=== PATIENT | male | born 1955 | race Caucasian/White ===

== ENCOUNTER 2016-08-28 11:12 | Inpatient (IN) ==
[2016-08-28] MEDS ORDERED: ALBUTEROL/IPRATROPIUM 3 ML NEB RESP TX PRN ×2 (11:17→12:59)
[2016-08-28] MEDS ORDERED: DEXTROSE 50% 25 GM/50 ML VIAL IV PRN (11:17)
[2016-08-28] MEDS ORDERED: GLUCAGON 1 MG VIAL IM PRN (11:17)
[2016-08-28 12:30] LABS: Basophils % 0.1 % (0.0-0.8); Eosinophils % 0.3 % (0.00-10.9); Hematocrit 29.2 VOL% (42.0-52.0); Hemoglobin 9.7 GM/DL (14.0-18.0); Immature Granulocytes % 0.6 %; Immature Granulocytes Absolute 0.07 #; Lymphocytes # 1.8 10*3/uL (1.4-4.0); Lymphocytes % 16.9 % (21.2-54.2); Mean Corpuscular HGB Conc 33.2 GM/DL (32-36); Mean Corpuscular Hemoglobin 29 PG (27-34); Mean Corpuscular Volume 85.9 FL (87-102); Monocytes # 0.5 10*3/uL (0.11-0.8); Monocytes % 4.7 % (1.7-12.7); Neutrophils # 8.4 10*3/uL (1.4-7.4); Neutrophils % 77.4 % (38.7-73.9); Platelet Count 131 10*3/uL (130-400); Red Cell Distribution Width 15.4 % (9.3-17.3); White Blood Count 10.8 10*3/uL (4.5-13.71)
[2016-08-28] MEDS: INSULIN REGULAR 100 UNIT/ML SUBCUT SCH ×3 (12:33→22:04)
[2016-08-28] MEDS: methylPREDNISolone SOD SUC 40 MG/1 ML VIAL IV SCH (12:33)
[2016-08-28] MEDS: PANTOPRAZOLE 40 MG TABLET PO SCH (12:33)
[2016-08-28] MEDS: THEOPHYLLINE ER (24 HR) 300 MG CAPSULE PO SCH (12:41)
--- NOTE | 2016-08-28 12:47 | Pulmonology History & Physical ---
History of Present Illness Chief complaint: Intractable bronchitis and bronchospasm refractory to outpatient treatment History of present illness: Mr. Morin is a 61 year old white male who is admitted from my office today. This patient has had severe COPD with bronchitis bronchospasm and bronchiectasis. In the recent past he has grown Pseudomonas. He was colonized with this. He is done fairly well as an outpatient but he has had several exacerbations of his pulmonary problems. He now has an exacerbation with discolored sputum shortness of breath productive cough dyspnea on exertion. He says he so short of breath he can barely talk. He called and asked to go to the hospital the day after we recently seen him as an outpatient. He has had no cardiac angina palpitations. He denies dysphagia. He denies aspiration. His been no change in his bowel movements. Patient denies epistaxis hemoptysis hematemesis hematochezia melena and hematuria. There have been no TIAs. No syncope or near syncope. Nothing to suggest seizures. The remainder of the review of systems is noncontributory. Allergies. Penicillin Home medicines. See below. Past history. Patient was hospitalized in [facility] in November 2015. He had respiratory failure for oxygen. Dr. Peter Gu saw him and noted that he had a forced expiratory volume in 1 second of 0.95 L. There is a history of heart disease which is followed by Dr. Galindo Hunt. The patient has 2 cardiac stents. Stents were placed in May 2013. One stent is in the mid LAD and the other is in the mid right coronary artery. Patient is also been told that he had aortic valve insufficiency. There is a past history of heart failure, high blood pressure, myocardial infarction. The patient has non-insulin- dependent diabetes mellitus. He has a long history of COPD. He has been found to have iron deficiency anemia. Echocardiogram done in November 2015 showed ejection fraction 50%. There was mild aortic valve regurgitation. During the July 2016 hospitalization the patient cold agglutinin levels were initially 132 ventilator 1-64. Patient's had 2 hospitalizations in the last half of this year during which his sputum grew Pseudomonas arch stenosis. During a July 2016 hospitalization the patient's sputum grew Pseudomonas arch stenosis. He was thought to be colonized and was thought that he would require long-term medicines. I accepted his case from Dr. Babcock on 08/08/2016. He was treated with Fortaz and gentamicin. On 08/12/2016 he had a fiberoptic bronchoscopy. This showed COPD with some collapsibility of the trachea, large and small airways. He had retained secretions with atelectasis in the right lower lung. This cytologies were class I. He had a drop in his H&H from 10.8/33.8-8.3/ 26.1. He had one positive stool. He was seen in GI consultation by Dr. Angel. C scope showed multiple polyps which were removed. These were in the ascending, descending and rectal regions for a total of 4. He had heavy left sided diverticulosis and moderate sized internal hemorrhoids. No source of bleed with some found. He did require 2 units of blood. Earlier in July he had been hospitalized and he had erosive gastritis OE scope. Social history. From [id number]. Patient smoked half pack of cigarettes per day. This is a [id number] history of smoking. 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 Patient denies alcohol. Family history. Positive for high blood pressure, diabetes, heart disease. Chest x-ray and labs have been ordered but are pending. Medicines have been reconciled. Physical exam. Vital signs see below Psychiatric. Oriented 3 Neurologic. Cranial nerves are intact with decreased hearing acuity bilaterally. Long track motor functions intact. Sensory exam was not done. Gait appears to be stable. Neck. Symmetrical. No meningismus. Lymphatics. No submandibular cervical supraclavicular adenopathy. Chest. Generalized large airway wheezing and inspiratory squeaks are heard especially over the right upper lung. Heart. Grade 1.5 over 6 systolic ejection murmur at left sternal border. I do not hear any radiation. I do not hear a diastolic murmur. Abdomen. Nontender. Positive bowel sounds. No organs could be palpated and rectal deferred Extremities. Degenerative joint disease. No evidence of deep venous thrombophlebitis. Musculoskeletal. Age-appropriate loss of normal curvature cervical thoracic and lumbar spine Skin of the face and hands showed no cancerous or infectious lesions. No other areas of skin were examined. The remainder the physical exam is noncontributory. Impression. 1. Acute exacerbation of chronic COPD with infection which is bacterial and with wheezing. Look for pneumonia. 2. COPD 3. Probable bronchiectasis 4. Heart disease with 2 stents in the past history of ND and congestive heart failure followed by Dr. Galindo Hunt 5. Diabetes mellitus 6. High blood pressure. The patient continues to wheeze consider stopping losartan 7. Aortic insufficiency. 8. See past history Plan. 1. Sputum for Gram stain culture and sensitivity, cold agglutinins, Legionella titer 2. Inhalation therapy. Steroids. Antibiotics. Bronchodilators. 3. Lab and x-rays are pending. 4. See orders. 5. Sputum retention is been a problem with this patient in the past Home Medications Medication Instructions Recorded Confirmed Type Aspirin EC Tab 81 mg PO DAILY 12/30/15 08/05/16 History Benzonatate [Tessalon] 100 mg PO BEDTIME PRN 12/30/15 08/05/16 History Cholecalciferol (Vitamin D3) 400 unit PO BID 12/30/15 08/05/16 History [Vitamin D3 Chew Tab] Loratadine Tab [Claritin Tab] 10 mg PO DAILY 12/30/15 08/05/16 History Metoprolol Tartrate Tab [Lopressor 50 mg PO BID 12/30/15 08/05/16 History Tab] Multivitamin with Minerals 1 each PO DAILY 12/30/15 08/05/16 History [Multivitamins with Minerals] Pantoprazole Tab [Protonix Tab] 40 mg PO DAILY 12/30/15 08/05/16 History Roflumilast [Daliresp] 500 mcg PO DAILY 12/30/15 08/05/16 History Trazodone HCl 100 mg PO BEDTIME PRN 12/30/15 08/05/16 History Valsartan 80 mg PO DAILY 12/30/15 08/05/16 History Methocarbamol Tab [Robaxin Tab] 750 mg PO TID PRN 04/03/16 08/05/16 History metFORMIN [Glucophage] 500 mg PO BID 04/03/16 08/05/16 History Budesonide/Formoterol 160-4.5 2 puff INH BID inhaler 07/26/16 08/05/16 Rx [Symbicort 160-4.5] Montelukast Tab [Singulair Tab] 10 mg PO DAILY #30 tablet 07/26/16 08/05/16 Rx acetaZOLAMIDE TAB [Diamox Tab] 250 mg PO TID #90 tablet 07/26/16 08/05/16 Rx Atorvastatin [Lipitor] 5 mg PO DAILY 08/05/16 08/05/16 History Diltiazem HCl [Cartia XT] 120 mg PO DAILY 08/05/16 08/05/16 History Ferrous Sulfate Tab [Feosol 325 mg PO TID 08/05/16 08/05/16 History Original Tab] Theophylline ER Cap (24 Hr) 200 mg PO BID 08/05/16 08/05/16 History [Mich-24] predniSONE TAB [PredniSONE] 20 mg PO DAILY 08/05/16 08/05/16 History Albuterol/Ipratropium Neb [Duoneb] 3 ml RESP TX RT Q4H PRN #120 08/18/16 Rx nebulization solution Albuterol/Ipratropium Neb [Duoneb] 3 ml RESP TX RT Q6H #120 08/18/16 Rx nebulization solution Potassium Iodide Oral Soln [Sski] 900 mg PO TID PRN #0 08/18/16 08/05/16 Rx Allergies Allergy/AdvReac Type Severity Reaction Status Date / Time Penicillins Allergy Unknown/Unable Verified 01/03/16 13:19 to obtain Medical,Surgical,& Family Hx - Medical History Cardio: History of: CHF (EF 45-50%), Hypertension, ND (PCI of LAD and RCA 06/12) , Cardiovascular Problems (CARDIOMYOPATHY) Neurology: History of: Migraine No history of: Seizures HEENT: History of: HEENT Problems (sinus surgery) Endocrine: History of: Diabetes Mellitus (NIDDM), Dyslipidemia Respiratory: History of: Bronchitis, COPD, Intubation, Pneumonia, Respiratory Problems (LUNG BX, SINUS SURGERY) Genitourinary: No history of: Bladder Problem, Kidney Stones Gastrointestinal: History of: Gastrointestinal Bleed Musculoskeletal: History of: Back/Neck Problems Hematology: History of: Anemia No history of: Blood Transfusion Reaction Other: No history of: Anesthesia Reactions, Cancer - Surgical History Cardiac Surgeries: Sugical HX of: Cardiac Catheterization (stents x 2 (06/12 mLAD and mRCA)) Patient Denies: Cardiac Surgery Thoracic Surgeries: Patient denies;: Organ Transplant, Lobectomy HEENT Surgeries: Patient denies: Eye Surgery, Tonsilectomy & Adenoidectomy Abdominal Surgeries: Surgical HX of: Colonoscopy Patient denies: Appendectomy, Cholecystectomy, EGD Orthopedic Surgeries: Patient denies;: Orthopedic Surgery - Family History Family History: Reports;: Family Hypertension - Social History Smoking Status: Former smoker Results - Labs CBC & BMP: 08/28/16 12:14 Exam ([facility]) H&P - Constitutional Vitals: Period Temp Pulse Resp BP Sys/Cedeño Pulse Ox Last 24 Hr 98.2 F 121 22 137/76 93
[2016-08-28 12:52] LABS: Elliptocytes Few; Hypochromasia 1+; Lymphocytes 16 % (20-55); Platelet Estimate Normal; Segmented Neutrophils 82 % (50-85); Total Cells Counted 100
[2016-08-28] MEDS: ALBUTEROL/IPRATROPIUM 3 ML NEB RESP TX SCH ×2 (12:56→19:11)
[2016-08-28 12:59] LABS: Albumin 2.7 G/DL (3.4-5.0); Bilirubin,Total 0.6 MG/DL (0.2-1.0); Calcium 8.5 MG/DL (8.5-10.1); Osmolality,Calculated 291.8 MOS/KG (273-304); Potassium 2.8 MMOL/L (3.5-5.1); Total Protein 6.1 G/DL (6.4-8.3)
--- NOTE | 2016-08-28 13:10 | EKG Report ---
Stationary ECG Study [facility] Test Date: 08/28/2016 11:49:44 AM Pat Name: ROBY JI Department: Room: 534 Gender: M Chip Tuner: : 1955 Requested by: Ava Rich Order Number: [id number] Reading MD: NISREEN SHOTR Intervals [place] Rate: 119 P: 63 PA: 131 QRS: 22 QRSD: 90 T: 96 QT: 312 QTc: 383 Interpretive Statements (NISREEN SHORT TO INTERP) SINUS TACHYCARDIA WITH OCCASIONAL SUPRAVENTRICULAR PREMATURE COMPLEXES POSSIBLE RIGHT VENTRICULAR CONDUCTION DELAY LEFT VENTRICULAR HYPERTROPHY AND ST-T CHANGE Electronically Signed On 08-29-16 10:11:36 FINANCIAL AID ADMINISTRATOR by NISREEN SHORT [email or web address]
[2016-08-28 13:17] LABS: Magnesium 1.6 MG/DL (1.8-2.4); Thyroid Stimulating Hormone 0.765 uIU/ml (0.358-3.74)
[2016-08-28 14:54] LABS: Apearance,Urine Slightly Hazy (Clear); Bilirubin,Urine Negative (Negative); Blood, Urine Negative (Negative); Glucose,Urine (UA) Negative (Negative); Ketones,Urine Negative (Negative); Mucus,Urine Occasional /LPF (Occasional); Nitrite,Urine Negative (Negative); Protein,Urine 100 MG/DL; RBC,Urine 4 /HPF (0-4); Squamous Epithelial Cell,Urine Occasional /HPF (0-10); Urine Color Yellow (Yellow); Urine Specific Gravity 1.021 (1.001-1.035); Urine Urobilinogen < 2.0 EU/DL (0.2-1.0); WBC,Urine 11 /HPF (0-6)
[2016-08-28] MEDS: POTASSIUM IODIDE ORAL SOLN 1,000 MG/ML BOTTLE PO SCH ×2 (15:00→22:15)
[2016-08-28] MEDS: MEROPENEM 500 MG in SODIUM CHLORIDE 0.9% 100 ML IV SCH ×2 (15:00→23:59)
[2016-08-28] MEDS: BENZONATATE 100 MG CAPSULE PO SCH ×2 (15:00→22:03)
[2016-08-28] MEDS: metFORMIN 500 MG TABLET PO SCH (17:24)
[2016-08-28] MEDS: FUROSEMIDE 20 MG TABLET PO SCH (17:24)
--- NOTE | 2016-08-28 17:51 | XRay Report ---
XR chest 2V Indication: Shortness of breath. Chest 2 views: Comparison 08/18/16. Reticular prominence of both lung hathaway is again noted with progressive bibasilar atelectasis present. Heart size remains normal. Interstitial scarring the central lungs again shown. Healed left-sided rib fractures are stable. Impression: Progressive atelectasis. Otherwise no change. PROCEDURE INTERPRETED AT [facility] DEPARTMENT OF RADIOLOGY Final Report Signed by: Blanco Almanza M.D.
[2016-08-28] MEDS: traZODone 50 MG TABLET PO PRN (22:01)
[2016-08-28] MEDS: CHOLECALCIFEROL 400 UNIT TABLET PO SCH (22:03)
[2016-08-28] MEDS: METOPROLOL TARTRATE 50 MG TABLET PO SCH (22:03)
[2016-08-28] MEDS: MONTELUKAST 10 MG TABLET PO SCH (22:03)
[2016-08-29] MEDS: BUDESONIDE/FORMOTEROL 160-4.5 INHALER 6 GM INH SCH ×3 (00:44→21:04)
[2016-08-29] MEDS: methylPREDNISolone SOD SUC 40 MG/1 ML VIAL IV SCH ×3 (00:48→23:00)
[2016-08-29] MEDS: ALBUTEROL/IPRATROPIUM 3 ML NEB RESP TX SCH ×4 (00:55→20:13)
[2016-08-29] MEDS: MEROPENEM 500 MG in SODIUM CHLORIDE 0.9% 100 ML IV SCH ×3 (05:07→21:58)
[2016-08-29 06:59] LABS: Basophils % 0.2 % (0.0-0.8); Hematocrit 28.4 VOL% (42.0-52.0); Hemoglobin 9.3 GM/DL (14.0-18.0); Immature Granulocytes % 0.9 %; Immature Granulocytes Absolute 0.05 #; Lymphocytes # 0.9 10*3/uL (1.4-4.0); Lymphocytes % 14.8 % (21.2-54.2); Mean Corpuscular HGB Conc 32.7 GM/DL (32-36); Mean Corpuscular Hemoglobin 29 PG (27-34); Mean Corpuscular Volume 87.7 FL (87-102); Mean Platelet Volume 10.7 FL (9.6-12.0); Monocytes # 0.2 10*3/uL (0.11-0.8); Monocytes % 2.9 % (1.7-12.7); Neutrophils # 4.8 10*3/uL (1.4-7.4); Neutrophils % 81.2 % (38.7-73.9); Platelet Count 133 10*3/uL (130-400); Red Blood Count 3.24 10*6/uL (3.8-5.5); Red Cell Distribution Width 15.3 % (9.3-17.3); White Blood Count 5.9 10*3/uL (4.5-13.71)
[2016-08-29 07:20] LABS: Band Neutrophils 3 % (0-10); Hypochromasia 1+; Lymphocytes 8 % (20-55); Microcytosis 1+; Segmented Neutrophils 85 % (50-85); Total Cells Counted 100
[2016-08-29 07:21] LABS: Platelet Estimate Adequate
[2016-08-29 07:32] LABS: Calcium 7.6 MG/DL (8.5-10.1); Osmolality,Calculated 292.3 MOS/KG (273-304); Potassium 3.4 MMOL/L (3.5-5.1)
--- NOTE | 2016-08-29 08:41 | XRay Report ---
Exam: Chest 2 views Date: August 29, 2016 at 6:36 AM Comparison: Chest 2 views August 28, 2016 Reason: Shortness of breath Findings: The cardiac silhouette is normal in size. There are scattered opacities within both lungs, mainly at the lung apices and lower lung zones bilaterally. This likely represents scarring/fibrosis, and there appears to be emphysema. However, there could be superimposed pneumonia or mild pulmonary edema. No pneumothorax is identified, but there is mild right pleural fluid. The lungs are also hyperexpanded, which can be seen in COPD. The osseous structures appear stable. Impression: There has been no significant change. PROCEDURE INTERPRETED AT [facility] DEPARTMENT OF RADIOLOGY Final Report Signed by: Dr. Joel Reeves
[2016-08-29] MEDS: MONTELUKAST 10 MG TABLET PO SCH ×2 (09:57→20:33)
[2016-08-29] MEDS: CLOPIDOGREL 75 MG TABLET PO SCH (09:57)
[2016-08-29] MEDS: DILTIAZEM CD 120 MG CAPSULE PO SCH (09:58)
[2016-08-29] MEDS: metFORMIN 500 MG TABLET PO SCH ×2 (09:58→17:20)
[2016-08-29] MEDS: CHOLECALCIFEROL 400 UNIT TABLET PO SCH ×2 (09:58→20:33)
[2016-08-29] MEDS: BENZONATATE 100 MG CAPSULE PO SCH ×3 (09:58→20:33)
[2016-08-29] MEDS: FUROSEMIDE 20 MG TABLET PO SCH ×2 (09:58→15:05)
[2016-08-29] MEDS: MULTIVITAMIN (CENTRUM) TABLET PO SCH (09:58)
[2016-08-29] MEDS: LORATADINE 10 MG TABLET PO SCH (09:59)
[2016-08-29] MEDS: PANTOPRAZOLE 40 MG TABLET PO SCH (09:59)
[2016-08-29] MEDS: VALSARTAN 80 MG TABLET PO SCH (09:59)
[2016-08-29] MEDS: acetaZOLAMIDE 250 MG TABLET PO SCH (09:59)
[2016-08-29] MEDS: THEOPHYLLINE ER (24 HR) 300 MG CAPSULE PO SCH (10:00)
[2016-08-29] MEDS: ASPIRIN EC 81 MG TABLET PO SCH (10:00)
[2016-08-29] MEDS: METOPROLOL TARTRATE 50 MG TABLET PO SCH ×2 (10:00→20:33)
[2016-08-29] MEDS: ROFLUMILAST 500 MCG TABLET PO SCH (10:00)
[2016-08-29] MEDS: ATORVASTATIN 10 MG TABLET PO SCH (10:00)
[2016-08-29] MEDS: INSULIN REGULAR 100 UNIT/ML SUBCUT SCH ×4 (10:03→20:33)
[2016-08-29] MEDS: POTASSIUM IODIDE ORAL SOLN 1,000 MG/ML BOTTLE PO SCH ×3 (10:03→21:04)
--- NOTE | 2016-08-29 13:45 | Pulmonology Progress Note ---
Pulmonary - PN: Subj Interval history: There is a 61-year-old white male. He was admitted from my office 08/28/2016. He had an acute exacerbation of chronic COPD. He is previously appeared to be colonized with Pseudomonas. His sputum's are growing a gram-negative graciela.He is on meropenem and Fortaz. Please check his cultures. Last hospitalization the best ROSANNA was with gentamicin. At the time of admission my impressions were 1. Acute exacerbation of chronic COPD with infection which is bacterial and with wheezing. Look for pneumonia. 2. COPD 3. Probable bronchiectasis 4. Heart disease with 2 stents in the past history of CO and congestive heart failure followed by Dr. Galindo Hunt 5. Diabetes mellitus 6. High blood pressure. The patient continues to wheeze consider stopping losartan 7. Aortic insufficiency. 8. See past history Plan. 1. Sputum for Gram stain culture and sensitivity, cold agglutinins, Legionella titer. Check cultures. May need to change antibiotics. Last hospitalization the Pseudomonas was sensitive to gentamicin. 2. Inhalation therapy. Steroids. Antibiotics. Bronchodilators. 3. Lab and x-rays are are acceptable. 4. See orders. 5. Sputum retention is been a problem with this patient in the past. It is possible he will need a therapeutic bronchoscopy before he is out of the hospital. Exam (Progress Note) - Constitutional Vitals: Period Temp Pulse Resp BP Sys/Cedeño Pulse Ox Last 24 Hr 98.0 F-99.8 F 57-110 18-22 116-135/65-70 91-99 Results - Labs CBC & BMP: 08/29/16 06:15 08/29/16 06:15 Specialty Discharge - Follow Up or Referrals - Discharge Medications No Action Pantoprazole Tab [Protonix Tab] 40 mg PO DAILY Cholecalciferol (Vitamin D3) [Vitamin D3 Chew Tab] 400 unit PO BID Metoprolol Tartrate Tab [Lopressor Tab] 50 mg PO BID Multivitamin with Minerals [Multivitamins with Minerals] 1 each PO DAILY Benzonatate [Tessalon] 100 mg PO BEDTIME PRN PRN Reason: Cough Trazodone HCl 100 mg PO BEDTIME PRN PRN Reason: Sleep Aspirin EC Tab 81 mg PO DAILY Valsartan 1.5 tablet PO DAILY Roflumilast [Daliresp] 500 mcg PO DAILY Loratadine Tab [Claritin Tab] 10 mg PO DAILY Methocarbamol Tab [Robaxin Tab] 750 mg PO TID PRN PRN Reason: Pain metFORMIN [Glucophage] 500 mg PO BID Budesonide/Formoterol 160-4.5 [Symbicort 160-4.5] 2 puff INH BID inhaler Montelukast Tab [Singulair Tab] 10 mg PO DAILY #30 tablet acetaZOLAMIDE TAB [Diamox Tab] 250 mg PO TID #90 tablet Atorvastatin [Lipitor] 5 mg PO DAILY predniSONE TAB [PredniSONE] 20 mg PO DAILY Diltiazem HCl [Cartia XT] 120 mg PO DAILY Theophylline ER Cap (24 Hr) [Mich-24] 300 mg PO BID Albuterol/Ipratropium Neb [Duoneb] 3 ml RESP TX RT Q4H PRN #120 nebulization solution PRN Reason: Shortness Of Breath/Wheezing Sulfameth/Trimeth 800-160 Tab [Bactrim DS Tab] 1 tablet PO BID Albuterol/Ipratropium Neb [Duoneb] 3 ml RESP TX RT Q6H #120 nebulization solution Furosemide Tab [Lasix Tab] 20 mg PO BID DIURETIC Clopidogrel [Plavix] 75 mg PO DAILY
[2016-08-29] MEDS: METHOCARBAMOL 750 MG TABLET PO PRN (15:05)
[2016-08-29] MEDS: traZODone 50 MG TABLET PO PRN (20:33)
[2016-08-30] MEDS: ALBUTEROL/IPRATROPIUM 3 ML NEB RESP TX SCH ×4 (01:26→20:22)
[2016-08-30] MEDS: MEROPENEM 500 MG in SODIUM CHLORIDE 0.9% 100 ML IV SCH ×2 (05:18→15:16)
[2016-08-30 06:29] LABS: Basophils % 0.1 % (0.0-0.8); Hematocrit 31.7 VOL% (42.0-52.0); Hemoglobin 9.9 GM/DL (14.0-18.0); Immature Granulocytes % 2.3 %; Immature Granulocytes Absolute 0.17 #; Lymphocytes # 1.1 10*3/uL (1.4-4.0); Lymphocytes % 15.5 % (21.2-54.2); Mean Corpuscular HGB Conc 31.2 GM/DL (32-36); Mean Corpuscular Hemoglobin 28 PG (27-34); Mean Corpuscular Volume 89.5 FL (87-102); Mean Platelet Volume 10.4 FL (9.6-12.0); Monocytes # 0.2 10*3/uL (0.11-0.8); Monocytes % 3.3 % (1.7-12.7); Neutrophils # 5.8 10*3/uL (1.4-7.4); Neutrophils % 78.8 % (38.7-73.9); Platelet Count 191 10*3/uL (130-400); Red Blood Count 3.54 10*6/uL (3.8-5.5); Red Cell Distribution Width 15.5 % (9.3-17.3); White Blood Count 7.4 10*3/uL (4.5-13.71)
[2016-08-30 06:55] LABS: Calcium 8.8 MG/DL (8.5-10.1); Osmolality,Calculated 294.5 MOS/KG (273-304); Potassium 4.3 MMOL/L (3.5-5.1)
--- NOTE | 2016-08-30 07:43 | XRay Report ---
XR chest 2V Indication: Shortness of breath. Comparison: Chest x-ray 08/29/2016. Technique: PA and lateral chest x-ray was performed. Findings: Heart size appears within normal limits. Enlargement of the aortic knob is again demonstrated and appear stable. Reticular interstitial opacities in the lower right chest as well as left cardiophrenic angle but could reflect fibrotic change appears stable. Lung volumes are stable. Pulmonary vasculature appears within normal limits. Bones and soft tissues appear stable. Remote rib fracture of the left is again demonstrated. Impression: 1. Little change in the chest is suggested. Fibrotic changes in the lung bases appear stable. 08/30/2016 7:38 AM PROCEDURE INTERPRETED AT [facility] DEPARTMENT OF RADIOLOGY Final Report Signed by: Dr. Juanito Turner
[2016-08-30] MEDS: INSULIN REGULAR 100 UNIT/ML SUBCUT SCH ×4 (08:09→20:37)
[2016-08-30] MEDS: VALSARTAN 80 MG TABLET PO SCH (08:09)
[2016-08-30] MEDS: METOPROLOL TARTRATE 50 MG TABLET PO SCH ×2 (08:10→20:37)
[2016-08-30] MEDS: acetaZOLAMIDE 250 MG TABLET PO SCH (08:10)
[2016-08-30] MEDS: DILTIAZEM CD 120 MG CAPSULE PO SCH (08:10)
[2016-08-30] MEDS: MONTELUKAST 10 MG TABLET PO SCH ×2 (08:10→20:37)
[2016-08-30] MEDS: ASPIRIN EC 81 MG TABLET PO SCH (08:10)
[2016-08-30] MEDS: ROFLUMILAST 500 MCG TABLET PO SCH (08:10)
[2016-08-30] MEDS: CHOLECALCIFEROL 400 UNIT TABLET PO SCH ×2 (08:10→20:37)
[2016-08-30] MEDS: FUROSEMIDE 20 MG TABLET PO SCH ×2 (08:11→15:16)
[2016-08-30] MEDS: CLOPIDOGREL 75 MG TABLET PO SCH (08:11)
[2016-08-30] MEDS: THEOPHYLLINE ER (24 HR) 300 MG CAPSULE PO SCH (08:11)
[2016-08-30] MEDS: ATORVASTATIN 10 MG TABLET PO SCH (08:11)
[2016-08-30] MEDS: PANTOPRAZOLE 40 MG TABLET PO SCH (08:11)
[2016-08-30] MEDS: LORATADINE 10 MG TABLET PO SCH (08:11)
[2016-08-30] MEDS: MULTIVITAMIN (CENTRUM) TABLET PO SCH (08:11)
[2016-08-30] MEDS: BENZONATATE 100 MG CAPSULE PO SCH ×3 (08:11→20:37)
[2016-08-30] MEDS: metFORMIN 500 MG TABLET PO SCH ×2 (08:11→17:15)
[2016-08-30] MEDS: BUDESONIDE/FORMOTEROL 160-4.5 INHALER 6 GM INH SCH ×2 (08:12→20:37)
[2016-08-30] MEDS: POTASSIUM IODIDE ORAL SOLN 1,000 MG/ML BOTTLE PO SCH ×3 (08:13→20:37)
[2016-08-30 10:38] LABS: Band Neutrophils 4 % (0-10); Hypochromasia 1+; Lymphocytes 6 % (20-55); Platelet Estimate Adequate; Segmented Neutrophils 86 % (50-85); Total Cells Counted 100
[2016-08-30] MEDS: methylPREDNISolone SOD SUC 40 MG/1 ML VIAL IV SCH ×2 (11:52→23:55)
[2016-08-30] MEDS ORDERED: SKIN HEALING OINT (AQUAPHOR) 50 GM TUBE TOP PRN (19:55)
--- NOTE | 2016-08-30 19:55 | Pulmonology Progress Note ---
Pulmonary - PN: Subj Interval history: Patient stable, thinks breathing is maybe a little harder today. Not coughing up more stuff, just moving less air. No fevers or other infectious signs. Otherwise no complaints Exam (Progress Note) - Constitutional Vitals: Period Temp Pulse Resp BP Sys/Cedeño Pulse Ox Last 24 Hr 97.1 F-98.7 F 79-108 18-22 91-115/45-67 92-99 General appearance: normal weight, no acute distress - Head Head exam: Present: normal inspection - ENT ENT exam: Present: normal exam - Respiratory Respiratory exam: Absent: accessory muscle use, stridor, wheezes - Cardiovascular Cardiovascular exam: Present: regular rate and rhythm Results - Labs CBC & BMP: 08/30/16 05:37 08/30/16 05:37 Lab Results: I have reviewed the past 24 hour labs - Diagnostic Findings Procedure: Chest x-ray: image reviewed by me (reviewed) Assessment and Plan (1) COPD (chronic obstructive pulmonary disease) with chronic bronchitis Status: Chronic Assessment and plan: No objective evidence for worsening. Sats are good, CXR unchanged. Might actually need more diuresis, will reeval in ayo morning if not better Current Visit: No (2) Bilateral pneumonia Status: Acute Assessment and plan: Patient growing E. cloaece, appears fairly pansensitive. Will DC meropenem in hopes of preserving this antibiotic for future use. Continue on Ceftaz for now Current Visit: No Specialty Discharge - Follow Up or Referrals - Discharge Medications No Action Pantoprazole Tab [Protonix Tab] 40 mg PO DAILY Cholecalciferol (Vitamin D3) [Vitamin D3 Chew Tab] 400 unit PO BID Metoprolol Tartrate Tab [Lopressor Tab] 50 mg PO BID Multivitamin with Minerals [Multivitamins with Minerals] 1 each PO DAILY Benzonatate [Tessalon] 100 mg PO BEDTIME PRN PRN Reason: Cough Trazodone HCl 100 mg PO BEDTIME PRN PRN Reason: Sleep Aspirin EC Tab 81 mg PO DAILY Valsartan 1.5 tablet PO DAILY Roflumilast [Daliresp] 500 mcg PO DAILY Loratadine Tab [Claritin Tab] 10 mg PO DAILY Methocarbamol Tab [Robaxin Tab] 750 mg PO TID PRN PRN Reason: Pain metFORMIN [Glucophage] 500 mg PO BID Budesonide/Formoterol 160-4.5 [Symbicort 160-4.5] 2 puff INH BID inhaler Montelukast Tab [Singulair Tab] 10 mg PO DAILY #30 tablet acetaZOLAMIDE TAB [Diamox Tab] 250 mg PO TID #90 tablet Atorvastatin [Lipitor] 5 mg PO DAILY predniSONE TAB [PredniSONE] 20 mg PO DAILY Diltiazem HCl [Cartia XT] 120 mg PO DAILY Theophylline ER Cap (24 Hr) [Mich-24] 300 mg PO BID Albuterol/Ipratropium Neb [Duoneb] 3 ml RESP TX RT Q4H PRN #120 nebulization solution PRN Reason: Shortness Of Breath/Wheezing Sulfameth/Trimeth 800-160 Tab [Bactrim DS Tab] 1 tablet PO BID Albuterol/Ipratropium Neb [Duoneb] 3 ml RESP TX RT Q6H #120 nebulization solution Furosemide Tab [Lasix Tab] 20 mg PO BID DIURETIC Clopidogrel [Plavix] 75 mg PO DAILY
[2016-08-31] MEDS: ALBUTEROL/IPRATROPIUM 3 ML NEB RESP TX SCH ×4 (01:48→19:15)
[2016-08-31 06:55] LABS: Basophils % 0.1 % (0.0-0.8); Eosinophils % 0.1 % (0.00-10.9); Hematocrit 29.4 VOL% (42.0-52.0); Hemoglobin 9.4 GM/DL (14.0-18.0); Immature Granulocytes % 4.8 %; Immature Granulocytes Absolute 0.37 #; Lymphocytes % 13.2 % (21.2-54.2); Mean Corpuscular Hemoglobin 28 PG (27-34); Mean Corpuscular Volume 87.5 FL (87-102); Mean Platelet Volume 10.8 FL (9.6-12.0); Monocytes # 0.3 10*3/uL (0.11-0.8); Monocytes % 3.5 % (1.7-12.7); Neutrophils # 6.1 10*3/uL (1.4-7.4); Neutrophils % 78.3 % (38.7-73.9); Platelet Count 199 10*3/uL (130-400); Red Blood Count 3.36 10*6/uL (3.8-5.5); Red Cell Distribution Width 15.5 % (9.3-17.3); White Blood Count 7.7 10*3/uL (4.5-13.71)
[2016-08-31 07:29] LABS: Calcium 8.8 MG/DL (8.5-10.1); Potassium 4.1 MMOL/L (3.5-5.1)
[2016-08-31 08:14] LABS: Hypochromasia 1+; Lymphocytes 6 % (20-55); Platelet Estimate Adequate; Segmented Neutrophils 93 % (50-85); Total Cells Counted 100
[2016-08-31] MEDS: metFORMIN 500 MG TABLET PO SCH ×3 (08:23→16:08)
[2016-08-31] MEDS: VALSARTAN 80 MG TABLET PO SCH (08:23)
[2016-08-31] MEDS: INSULIN REGULAR 100 UNIT/ML SUBCUT SCH ×4 (08:23→21:44)
[2016-08-31] MEDS: acetaZOLAMIDE 250 MG TABLET PO SCH (08:24)
[2016-08-31] MEDS: ROFLUMILAST 500 MCG TABLET PO SCH (08:24)
[2016-08-31] MEDS: MULTIVITAMIN (CENTRUM) TABLET PO SCH (08:24)
[2016-08-31] MEDS: CHOLECALCIFEROL 400 UNIT TABLET PO SCH ×2 (08:24→21:44)
[2016-08-31] MEDS: FUROSEMIDE 20 MG TABLET PO SCH ×3 (08:24→15:43)
[2016-08-31] MEDS: ASPIRIN EC 81 MG TABLET PO SCH (08:24)
[2016-08-31] MEDS: THEOPHYLLINE ER (24 HR) 300 MG CAPSULE PO SCH (08:24)
[2016-08-31] MEDS: CLOPIDOGREL 75 MG TABLET PO SCH (08:24)
[2016-08-31] MEDS: LORATADINE 10 MG TABLET PO SCH (08:25)
[2016-08-31] MEDS: BUDESONIDE/FORMOTEROL 160-4.5 INHALER 6 GM INH SCH ×2 (08:25→21:45)
[2016-08-31] MEDS: BENZONATATE 100 MG CAPSULE PO SCH ×3 (08:25→21:44)
[2016-08-31] MEDS: POTASSIUM IODIDE ORAL SOLN 1,000 MG/ML BOTTLE PO SCH ×3 (08:25→21:45)
[2016-08-31] MEDS: ATORVASTATIN 10 MG TABLET PO SCH (08:25)
[2016-08-31] MEDS: PANTOPRAZOLE 40 MG TABLET PO SCH (08:25)
[2016-08-31] MEDS: METOPROLOL TARTRATE 50 MG TABLET PO SCH ×2 (08:25→21:44)
[2016-08-31] MEDS: MONTELUKAST 10 MG TABLET PO SCH ×2 (08:25→21:44)
[2016-08-31] MEDS: DILTIAZEM CD 120 MG CAPSULE PO SCH (08:26)
[2016-08-31] MEDS: methylPREDNISolone SOD SUC 40 MG/1 ML VIAL IV SCH (11:02)
--- NOTE | 2016-08-31 14:58 | XRay Report ---
History: Shortness of breath Date: 08/31/2016 Study: Chest x-ray PA and lateral Comparison exam: Chest x-ray 08/30/2016 The cardiac silhouette is not enlarged. The mediastinal contours are unremarkable. The pulmonary vasculature is not engorged. There are some scattered emphysematous changes. There is scattered reticulonodular interstitial disease in the lung bases more so than in the upper lung zones as before. There are scattered emphysematous changes. There is no new or worsening infiltrate. There are old rib fractures on the left. There is osteopenia and mild thoracic spondylosis. Impression: No adverse interval change compared to the previous study. Chronic lung disease as discussed above PROCEDURE INTERPRETED AT [facility] DEPARTMENT OF RADIOLOGY Final Report Signed by: Dr. Rebecca Haro
--- NOTE | 2016-08-31 15:26 | Pulmonology Progress Note ---
Pulmonary - PN: Subj Interval history: Patient seen today. Still complaining of difficulty breathing. Complains that his lung hurts, but doesn't describe a pleuritic pain. Says it feels deeper in his right lung. Not coughing more, not more short of breath. No other complaints Exam (Progress Note) - Constitutional Vitals: Period Temp Pulse Resp BP Sys/Cedeño Pulse Ox Last 24 Hr 97.4 F-98.6 F 77-104 16-20 99-130/48-68 95-100 General appearance: no acute distress - Head Head exam: Present: normal inspection - Respiratory Respiratory exam: Absent: accessory muscle use, chest wall tenderness, stridor, wheezes - Cardiovascular Cardiovascular exam: Present: regular rate and rhythm - Back Exam Back exam: Present: normal inspection. Absent: CVA tenderness (L), CVA tenderness (R), vertebral tenderness Results - Labs CBC & BMP: 08/31/16 05:43 08/31/16 05:43 Lab Results: I have reviewed the past 24 hour labs - Diagnostic Findings Procedure: Chest x-ray: image reviewed by me (reviewed images, no changes) Assessment and Plan (1) COPD (chronic obstructive pulmonary disease) with chronic bronchitis Status: Chronic Assessment and plan: No objective evidence for worsening. Sats are good, CXR unchanged. cont with current treatments. Unsure about his "lung pain" Doesnt have any abnormal findings on his back, CXR appears unchanged to slightly improved. Current Visit: No (2) Bilateral pneumonia Status: Acute Assessment and plan: Patient growing E. cloaece, appears fairly pansensitive. cont Ceftaz Current Visit: No Specialty Discharge - Follow Up or Referrals - Discharge Medications No Action Pantoprazole Tab [Protonix Tab] 40 mg PO DAILY Cholecalciferol (Vitamin D3) [Vitamin D3 Chew Tab] 400 unit PO BID Metoprolol Tartrate Tab [Lopressor Tab] 50 mg PO BID Multivitamin with Minerals [Multivitamins with Minerals] 1 each PO DAILY Benzonatate [Tessalon] 100 mg PO BEDTIME PRN PRN Reason: Cough Trazodone HCl 100 mg PO BEDTIME PRN PRN Reason: Sleep Aspirin EC Tab 81 mg PO DAILY Valsartan 1.5 tablet PO DAILY Roflumilast [Daliresp] 500 mcg PO DAILY Loratadine Tab [Claritin Tab] 10 mg PO DAILY Methocarbamol Tab [Robaxin Tab] 750 mg PO TID PRN PRN Reason: Pain metFORMIN [Glucophage] 500 mg PO BID Budesonide/Formoterol 160-4.5 [Symbicort 160-4.5] 2 puff INH BID inhaler Montelukast Tab [Singulair Tab] 10 mg PO DAILY #30 tablet acetaZOLAMIDE TAB [Diamox Tab] 250 mg PO TID #90 tablet Atorvastatin [Lipitor] 5 mg PO DAILY predniSONE TAB [PredniSONE] 20 mg PO DAILY Diltiazem HCl [Cartia XT] 120 mg PO DAILY Theophylline ER Cap (24 Hr) [Mich-24] 300 mg PO BID Albuterol/Ipratropium Neb [Duoneb] 3 ml RESP TX RT Q4H PRN #120 nebulization solution PRN Reason: Shortness Of Breath/Wheezing Sulfameth/Trimeth 800-160 Tab [Bactrim DS Tab] 1 tablet PO BID Albuterol/Ipratropium Neb [Duoneb] 3 ml RESP TX RT Q6H #120 nebulization solution Furosemide Tab [Lasix Tab] 20 mg PO BID DIURETIC Clopidogrel [Plavix] 75 mg PO DAILY
[2016-08-31] MEDS: METHOCARBAMOL 750 MG TABLET PO PRN (21:43)
[2016-09-01] MEDS: ALBUTEROL/IPRATROPIUM 3 ML NEB RESP TX SCH ×4 (00:37→19:00)
[2016-09-01] MEDS: methylPREDNISolone SOD SUC 40 MG/1 ML VIAL IV SCH ×3 (01:29→23:21)
[2016-09-01] MEDS: CLOPIDOGREL 75 MG TABLET PO SCH (09:03)
[2016-09-01] MEDS: THEOPHYLLINE ER (24 HR) 300 MG CAPSULE PO SCH (09:03)
[2016-09-01] MEDS: acetaZOLAMIDE 250 MG TABLET PO SCH (09:03)
[2016-09-01] MEDS: DILTIAZEM CD 120 MG CAPSULE PO SCH (09:03)
[2016-09-01] MEDS: ROFLUMILAST 500 MCG TABLET PO SCH (09:03)
[2016-09-01] MEDS: LORATADINE 10 MG TABLET PO SCH (09:03)
[2016-09-01] MEDS: METOPROLOL TARTRATE 50 MG TABLET PO SCH ×2 (09:03→21:06)
[2016-09-01] MEDS: CHOLECALCIFEROL 400 UNIT TABLET PO SCH ×2 (09:03→21:06)
[2016-09-01] MEDS: PANTOPRAZOLE 40 MG TABLET PO SCH (09:03)
[2016-09-01] MEDS: ASPIRIN EC 81 MG TABLET PO SCH (09:03)
[2016-09-01] MEDS: MONTELUKAST 10 MG TABLET PO SCH ×2 (09:04→21:06)
[2016-09-01] MEDS: INSULIN REGULAR 100 UNIT/ML SUBCUT SCH ×4 (09:04→21:08)
[2016-09-01] MEDS: FUROSEMIDE 20 MG TABLET PO SCH ×2 (09:04→16:52)
[2016-09-01] MEDS: metFORMIN 500 MG TABLET PO SCH ×2 (09:04→16:52)
[2016-09-01] MEDS: ATORVASTATIN 10 MG TABLET PO SCH (09:04)
[2016-09-01] MEDS: VALSARTAN 80 MG TABLET PO SCH (09:04)
[2016-09-01] MEDS: MULTIVITAMIN (CENTRUM) TABLET PO SCH (09:04)
[2016-09-01] MEDS: BENZONATATE 100 MG CAPSULE PO SCH ×3 (09:05→21:06)
[2016-09-01] MEDS: POTASSIUM IODIDE ORAL SOLN 1,000 MG/ML BOTTLE PO SCH ×3 (09:06→21:07)
[2016-09-01] MEDS: BUDESONIDE/FORMOTEROL 160-4.5 INHALER 6 GM INH SCH ×2 (09:09→21:07)
--- NOTE | 2016-09-01 11:10 | Pulmonology Progress Note ---
Pulmonary - PN: Subj Interval history: Patient doing ok. Still coughing up thick thompson sputum. Patient interested in Dr Dunn doing a bronchoscopy next week to help clear out his lungs Exam (Progress Note) - Constitutional Vitals: Period Temp Pulse Resp BP Sys/Cedeño Pulse Ox Last 24 Hr 97.3 F-98.4 F 76-105 18-20 100-126/51-65 95-100 General appearance: no acute distress - Head Head exam: Present: normal inspection - Respiratory Respiratory exam: Present: accessory muscle use, rhonchi. Absent: stridor, wheezes Results - Labs CBC & BMP: 08/31/16 05:43 08/31/16 05:43 Lab Results: I have reviewed the past 24 hour labs Assessment and Plan (1) COPD (chronic obstructive pulmonary disease) with chronic bronchitis Status: Chronic Assessment and plan: No objective evidence for worsening. Sats are good, CXR unchanged. cont with current treatments. Reminded patient that he does have prn nebs he can ask for. Also asking for Robitussin, will order. He can discuss bronch with Dr Dunn who will assume care tomorrow Current Visit: No (2) Bilateral pneumonia Status: Acute Assessment and plan: Patient growing E. cloaece, appears fairly pansensitive. cont Ceftaz Current Visit: No Specialty Discharge - Follow Up or Referrals - Discharge Medications No Action Pantoprazole Tab [Protonix Tab] 40 mg PO DAILY Cholecalciferol (Vitamin D3) [Vitamin D3 Chew Tab] 400 unit PO BID Metoprolol Tartrate Tab [Lopressor Tab] 50 mg PO BID Multivitamin with Minerals [Multivitamins with Minerals] 1 each PO DAILY Benzonatate [Tessalon] 100 mg PO BEDTIME PRN PRN Reason: Cough Trazodone HCl 100 mg PO BEDTIME PRN PRN Reason: Sleep Aspirin EC Tab 81 mg PO DAILY Valsartan 1.5 tablet PO DAILY Roflumilast [Daliresp] 500 mcg PO DAILY Loratadine Tab [Claritin Tab] 10 mg PO DAILY Methocarbamol Tab [Robaxin Tab] 750 mg PO TID PRN PRN Reason: Pain metFORMIN [Glucophage] 500 mg PO BID Budesonide/Formoterol 160-4.5 [Symbicort 160-4.5] 2 puff INH BID inhaler Montelukast Tab [Singulair Tab] 10 mg PO DAILY #30 tablet acetaZOLAMIDE TAB [Diamox Tab] 250 mg PO TID #90 tablet Atorvastatin [Lipitor] 5 mg PO DAILY predniSONE TAB [PredniSONE] 20 mg PO DAILY Diltiazem HCl [Cartia XT] 120 mg PO DAILY Theophylline ER Cap (24 Hr) [Mich-24] 300 mg PO BID Albuterol/Ipratropium Neb [Duoneb] 3 ml RESP TX RT Q4H PRN #120 nebulization solution PRN Reason: Shortness Of Breath/Wheezing Sulfameth/Trimeth 800-160 Tab [Bactrim DS Tab] 1 tablet PO BID Albuterol/Ipratropium Neb [Duoneb] 3 ml RESP TX RT Q6H #120 nebulization solution Furosemide Tab [Lasix Tab] 20 mg PO BID DIURETIC Clopidogrel [Plavix] 75 mg PO DAILY
[2016-09-01] MEDS: guaiFENesin/CODEINE 5 ML LIQUID PO PRN ×2 (11:50→18:51)
[2016-09-02] MEDS: ALBUTEROL/IPRATROPIUM 3 ML NEB RESP TX SCH ×4 (00:10→19:50)
[2016-09-02 06:47] LABS: Basophils % 0.1 % (0.0-0.8); Eosinophils % 0.1 % (0.00-10.9); Hematocrit 30.2 VOL% (42.0-52.0); Hemoglobin 9.6 GM/DL (14.0-18.0); Immature Granulocytes % 9.3 %; Immature Granulocytes Absolute 0.86 #; Lymphocytes # 1.5 10*3/uL (1.4-4.0); Lymphocytes % 15.7 % (21.2-54.2); Mean Corpuscular HGB Conc 31.8 GM/DL (32-36); Mean Corpuscular Hemoglobin 29 PG (27-34); Mean Corpuscular Volume 90.1 FL (87-102); Mean Platelet Volume 10.2 FL (9.6-12.0); Monocytes # 0.4 10*3/uL (0.11-0.8); Monocytes % 4.2 % (1.7-12.7); Neutrophils # 6.5 10*3/uL (1.4-7.4); Neutrophils % 70.6 % (38.7-73.9); Platelet Count 242 10*3/uL (130-400); Red Blood Count 3.35 10*6/uL (3.8-5.5); Red Cell Distribution Width 15.9 % (9.3-17.3); White Blood Count 9.2 10*3/uL (4.5-13.71)
[2016-09-02 07:14] LABS: Albumin 2.6 G/DL (3.4-5.0); Calcium 8.7 MG/DL (8.5-10.1); Osmolality,Calculated 295.3 MOS/KG (273-304); Phosphorous 3.3 MG/DL (2.5-4.9)
[2016-09-02 07:19] LABS: Band Neutrophils 4 % (0-10); Hypochromasia 1+; Lymphocytes 18 % (20-55); Myelocytes 1 %; Platelet Estimate Adequate; Segmented Neutrophils 73 % (50-85); Total Cells Counted 100
[2016-09-02 07:20] LABS: Ovalocytes Slight
--- NOTE | 2016-09-02 07:50 | XRay Report ---
Exam: XR chest 1V portable Indication: Pneumonia Comparison study: 08/31/16 Findings: The heart, mediastinum and bony structures are stable from prior. Periapical pleural thickening/scarring and diffuse interstitial scarring changes appear similar to prior. There is no pneumothorax or pleural effusion identified. Old left-sided rib fractures noted. Impression: No acute cardiopulmonary process. No significant change from prior. PROCEDURE INTERPRETED AT [facility] DEPARTMENT OF RADIOLOGY Final Report Signed by: Héctor Ratliff
[2016-09-02] MEDS: PANTOPRAZOLE 40 MG TABLET PO SCH (08:54)
[2016-09-02] MEDS: ASPIRIN EC 81 MG TABLET PO SCH (08:55)
[2016-09-02] MEDS: VALSARTAN 80 MG TABLET PO SCH (08:55)
[2016-09-02] MEDS: CHOLECALCIFEROL 400 UNIT TABLET PO SCH ×2 (08:55→20:42)
[2016-09-02] MEDS: BENZONATATE 100 MG CAPSULE PO SCH ×3 (08:56→20:38)
[2016-09-02] MEDS: METOPROLOL TARTRATE 50 MG TABLET PO SCH ×2 (08:56→20:38)
[2016-09-02] MEDS: metFORMIN 500 MG TABLET PO SCH ×2 (08:56→16:28)
[2016-09-02] MEDS: CLOPIDOGREL 75 MG TABLET PO SCH (08:56)
[2016-09-02] MEDS: MONTELUKAST 10 MG TABLET PO SCH ×2 (08:56→20:38)
[2016-09-02] MEDS: FUROSEMIDE 20 MG TABLET PO SCH ×2 (08:56→15:06)
[2016-09-02] MEDS: THEOPHYLLINE ER (24 HR) 300 MG CAPSULE PO SCH (08:56)
[2016-09-02] MEDS: MULTIVITAMIN (CENTRUM) TABLET PO SCH (08:56)
[2016-09-02] MEDS: LORATADINE 10 MG TABLET PO SCH (08:56)
[2016-09-02] MEDS: DILTIAZEM CD 120 MG CAPSULE PO SCH (08:57)
[2016-09-02] MEDS: ATORVASTATIN 10 MG TABLET PO SCH (08:57)
[2016-09-02] MEDS: ROFLUMILAST 500 MCG TABLET PO SCH (08:57)
[2016-09-02] MEDS: METHOCARBAMOL 750 MG TABLET PO PRN (08:57)
[2016-09-02] MEDS: POTASSIUM IODIDE ORAL SOLN 1,000 MG/ML BOTTLE PO SCH ×3 (08:58→20:38)
[2016-09-02] MEDS: BUDESONIDE/FORMOTEROL 160-4.5 INHALER 6 GM INH SCH ×2 (08:58→20:43)
[2016-09-02] MEDS: INSULIN REGULAR 100 UNIT/ML SUBCUT SCH ×5 (08:58→20:37)
[2016-09-02] MEDS: acetaZOLAMIDE 250 MG TABLET PO SCH (08:58)
[2016-09-02] MEDS: MEROPENEM 500 MG in SODIUM CHLORIDE 0.9% 100 ML IV SCH ×2 (09:30→16:28)
[2016-09-02] MEDS: methylPREDNISolone SOD SUC 40 MG/1 ML VIAL IV SCH (11:10)
--- NOTE | 2016-09-02 11:14 | Pulmonology Progress Note ---
Pulmonary - PN: Subj Interval history: KIYA Cramer acting as scribe for Dr. Chente Dunn. There is a 61-year-old white male. He was admitted from the clinic 08/28/2016. He had an acute exacerbation of chronic COPD. He was previously appeared to be colonized with Pseudomonas. He is on Meropenem and Fortaz. At the time of admission impressions were: Acute exacerbation of chronic COPD with infection which is bacterial and with wheezing, COPD, Probable bronchiectasis, Heart disease with 2 stents in the past history of [place] and congestive heart failure followed by Dr. Robert Hunt, Diabetes mellitus uncontrolled, High blood pressure if the patient continues to wheeze consider stopping losartan, Aortic insufficiency, See past history. The patient was seen today along with the charge nurse and along with PORSHA Oneill. He admits he continues to have severe cough productive of thick secretions. In the past he has required fiberoptic bronchoscopy to clear secretions and patient is wondering if this would be beneficial to do again. He was sitting up in the chair during exam today states he has been ambulating in the room but not up much other than that. Medications have been reviewed. Chest XRay shows continued bilateral infiltrates that are less dense in appearance. Labs have been reviewed his A1c on 08/29/2016 was 8.5%, of note the patient had not been on his Metformin for some time before coming into the hospital. WBC 9200 with 70.6% segs and 15.7% lymphs. RBC 3350 H&H 9.6/30.2. Sodium 141 Potassium 5.0 Creatinine 0.8. Sputum on 08/28/16 grew Enterobacter cloacae. Urine 08/28/16 grew del. Exam (Progress Note) - Constitutional Vitals: Period Temp Pulse Resp BP Sys/Cedeño Pulse Ox Last 24 Hr 97.1 F-98.5 F 72-100 16-20 99-121/53-66 95-99 Exam: Vital signs see below Psychiatric. Oriented 3 Chest. Generalized large airway wheezing and large airway congestion with some inspiratory wheezes especially over the right upper lung. Heart. Grade 1.5 over 6 systolic ejection murmur at left sternal border. I do not hear any radiation. I do not hear a diastolic murmur. Extremities. Degenerative joint disease. No evidence of deep venous thrombophlebitis. Skin of the face and hands showed no cancerous or infectious lesions. No other areas of skin were examined. The remainder the physical exam is noncontributory. Plan: Daily BMP to follow potassium, Repeat UA with C&S add Diflucan 200mg daily , Add Pulmozyme inhalation therapy BID, encouraged patient to be up and ambulating in the garcia frequently, consider therapeutic and diagnostic fiberoptic bronchoscopy AM if no improvement. Discussed findings and options with patient and he verbalized understanding. Results - Labs CBC & BMP: 09/02/16 05:45 09/02/16 05:46 Lab Results: I have reviewed the past 24 hour labs Specialty Discharge - Follow Up or Referrals - Discharge Medications No Action Pantoprazole Tab [Protonix Tab] 40 mg PO DAILY Cholecalciferol (Vitamin D3) [Vitamin D3 Chew Tab] 400 unit PO BID Metoprolol Tartrate Tab [Lopressor Tab] 50 mg PO BID Multivitamin with Minerals [Multivitamins with Minerals] 1 each PO DAILY Benzonatate [Tessalon] 100 mg PO BEDTIME PRN PRN Reason: Cough Trazodone HCl 100 mg PO BEDTIME PRN PRN Reason: Sleep Aspirin EC Tab 81 mg PO DAILY Valsartan 1.5 tablet PO DAILY Roflumilast [Daliresp] 500 mcg PO DAILY Loratadine Tab [Claritin Tab] 10 mg PO DAILY Methocarbamol Tab [Robaxin Tab] 750 mg PO TID PRN PRN Reason: Pain metFORMIN [Glucophage] 500 mg PO BID Budesonide/Formoterol 160-4.5 [Symbicort 160-4.5] 2 puff INH BID inhaler Montelukast Tab [Singulair Tab] 10 mg PO DAILY #30 tablet acetaZOLAMIDE TAB [Diamox Tab] 250 mg PO TID #90 tablet Atorvastatin [Lipitor] 5 mg PO DAILY predniSONE TAB [PredniSONE] 20 mg PO DAILY Diltiazem HCl [Cartia XT] 120 mg PO DAILY Theophylline ER Cap (24 Hr) [Mich-24] 300 mg PO BID Albuterol/Ipratropium Neb [Duoneb] 3 ml RESP TX RT Q4H PRN #120 nebulization solution PRN Reason: Shortness Of Breath/Wheezing Sulfameth/Trimeth 800-160 Tab [Bactrim DS Tab] 1 tablet PO BID Albuterol/Ipratropium Neb [Duoneb] 3 ml RESP TX RT Q6H #120 nebulization solution Furosemide Tab [Lasix Tab] 20 mg PO BID DIURETIC Clopidogrel [Plavix] 75 mg PO DAILY
[2016-09-02] MEDS: FLUCONAZOLE 200 MG TABLET PO SCH (11:42)
[2016-09-02] MEDS: guaiFENesin/CODEINE 5 ML LIQUID PO PRN (16:31)
[2016-09-02] MEDS: DORNASE ALFA 2.5 MG/2.5 ML VIAL RESP TX SCH ×2 (18:07→19:50)
[2016-09-03] MEDS: MEROPENEM 500 MG in SODIUM CHLORIDE 0.9% 100 ML IV SCH ×3 (00:05→16:56)
[2016-09-03] MEDS: methylPREDNISolone SOD SUC 40 MG/1 ML VIAL IV SCH ×2 (00:08→11:28)
[2016-09-03] MEDS: ALBUTEROL/IPRATROPIUM 3 ML NEB RESP TX SCH ×4 (00:13→20:55)
[2016-09-03 07:07] LABS: Calcium 8.9 MG/DL (8.5-10.1); Osmolality,Calculated 284.4 MOS/KG (273-304); Potassium 4.7 MMOL/L (3.5-5.1)
[2016-09-03] MEDS: DORNASE ALFA 2.5 MG/2.5 ML VIAL RESP TX SCH ×2 (07:15→20:55)
[2016-09-03] MEDS: INSULIN REGULAR 100 UNIT/ML SUBCUT SCH ×4 (07:47→20:52)
[2016-09-03] MEDS: ASPIRIN EC 81 MG TABLET PO SCH (08:50)
[2016-09-03] MEDS: VALSARTAN 80 MG TABLET PO SCH (08:50)
[2016-09-03] MEDS: ROFLUMILAST 500 MCG TABLET PO SCH (08:50)
[2016-09-03] MEDS: acetaZOLAMIDE 250 MG TABLET PO SCH (08:50)
[2016-09-03] MEDS: MONTELUKAST 10 MG TABLET PO SCH ×2 (08:50→20:52)
[2016-09-03] MEDS: CHOLECALCIFEROL 400 UNIT TABLET PO SCH ×2 (08:50→20:52)
[2016-09-03] MEDS: MULTIVITAMIN (CENTRUM) TABLET PO SCH (08:50)
[2016-09-03] MEDS: THEOPHYLLINE ER (24 HR) 300 MG CAPSULE PO SCH (08:50)
[2016-09-03] MEDS: FLUCONAZOLE 200 MG TABLET PO SCH (08:51)
[2016-09-03] MEDS: LORATADINE 10 MG TABLET PO SCH (08:51)
[2016-09-03] MEDS: FUROSEMIDE 20 MG TABLET PO SCH ×3 (08:51→15:24)
[2016-09-03] MEDS: ATORVASTATIN 10 MG TABLET PO SCH (08:51)
[2016-09-03] MEDS: CLOPIDOGREL 75 MG TABLET PO SCH (08:51)
[2016-09-03] MEDS: BENZONATATE 100 MG CAPSULE PO SCH ×3 (08:51→20:51)
[2016-09-03] MEDS: PANTOPRAZOLE 40 MG TABLET PO SCH (08:51)
[2016-09-03] MEDS: metFORMIN 500 MG TABLET PO SCH ×2 (08:51→16:56)
[2016-09-03] MEDS: POTASSIUM IODIDE ORAL SOLN 1,000 MG/ML BOTTLE PO SCH ×3 (08:52→20:53)
[2016-09-03] MEDS: DILTIAZEM CD 120 MG CAPSULE PO SCH (08:52)
[2016-09-03] MEDS: BUDESONIDE/FORMOTEROL 160-4.5 INHALER 6 GM INH SCH ×2 (08:52→20:50)
[2016-09-03] MEDS: METOPROLOL TARTRATE 50 MG TABLET PO SCH ×2 (08:55→20:52)
--- NOTE | 2016-09-03 12:07 | Pulmonology Progress Note ---
Pulmonary - PN: Subj Interval history: Jesu Boudreaux, ANP-BC, GNP-BC, acting as scribe for Dr. Chente Dunn Mr. Morin was seen today along with Mia Ayoub RN. Mr. Morin is a 61 year old white male who was admitted 08/28/16 [place] [facility] [place] with an acute exacerbation of COPD with bacterial infection. Previously he grew Pseudomonas and it was felt he was colonized. He had a prolonged hospitalization in July 2016 to eradicate this organism. Sputum gram stain this admission showed few gram positive cocci, few gram negative rods, and rare fungal elements. Sputum culture grew Enterobacter cloacae. He is being treated with Fortaz and Merrem. The patient continues to have difficulty mobilizing his secretions. He asked for liquid cough syrup instead of the Tessalon. However this was ordered already by Dr. Morocho. I suspect he did not know he needed to ask for it. We will inform the nurses. Because of his retained secretions on CXR and inability to mobilize his secretions, we have scheduled him for FOB in the morning. Pre-op orders have been entered into the EMR. Medications have been reviewed. Labs have been reviewed. Creatinine 0.70, BUN 23, NA+ 140, K+ 4.7 Glucoses are elevated secondary to the Solumedrol. He is being covered with sliding scale insulin. Exam (Progress Note) - Constitutional Vitals: Period Temp Pulse Resp BP Sys/Cedeño Pulse Ox Last 24 Hr 97.8 F-98.5 F 68-107 16-20 98-118/47-58 94-99 Exam: Chest with generalized LAW wheeze and associated congestion, but improved Heart no gallop Abd is nontender and nondistended; BS positive x 4 Ext with nothing to suggest acute DVT Psych oriented x 3 Neuro long tract motor function is intact Plan: FOB in the morning. See orders. Continue present treatment. Results - Labs CBC & BMP: 09/02/16 05:45 09/03/16 05:30 Specialty Discharge - Follow Up or Referrals - Discharge Medications No Action Pantoprazole Tab [Protonix Tab] 40 mg PO DAILY Cholecalciferol (Vitamin D3) [Vitamin D3 Chew Tab] 400 unit PO BID Metoprolol Tartrate Tab [Lopressor Tab] 50 mg PO BID Multivitamin with Minerals [Multivitamins with Minerals] 1 each PO DAILY Benzonatate [Tessalon] 100 mg PO BEDTIME PRN PRN Reason: Cough Trazodone HCl 100 mg PO BEDTIME PRN PRN Reason: Sleep Aspirin EC Tab 81 mg PO DAILY Valsartan 1.5 tablet PO DAILY Roflumilast [Daliresp] 500 mcg PO DAILY Loratadine Tab [Claritin Tab] 10 mg PO DAILY Methocarbamol Tab [Robaxin Tab] 750 mg PO TID PRN PRN Reason: Pain metFORMIN [Glucophage] 500 mg PO BID Budesonide/Formoterol 160-4.5 [Symbicort 160-4.5] 2 puff INH BID inhaler Montelukast Tab [Singulair Tab] 10 mg PO DAILY #30 tablet acetaZOLAMIDE TAB [Diamox Tab] 250 mg PO TID #90 tablet Atorvastatin [Lipitor] 5 mg PO DAILY predniSONE TAB [PredniSONE] 20 mg PO DAILY Diltiazem HCl [Cartia XT] 120 mg PO DAILY Theophylline ER Cap (24 Hr) [Mich-24] 300 mg PO BID Albuterol/Ipratropium Neb [Duoneb] 3 ml RESP TX RT Q4H PRN #120 nebulization solution PRN Reason: Shortness Of Breath/Wheezing Sulfameth/Trimeth 800-160 Tab [Bactrim DS Tab] 1 tablet PO BID Albuterol/Ipratropium Neb [Duoneb] 3 ml RESP TX RT Q6H #120 nebulization solution Furosemide Tab [Lasix Tab] 20 mg PO BID DIURETIC Clopidogrel [Plavix] 75 mg PO DAILY
[2016-09-03] MEDS: traZODone 50 MG TABLET PO PRN (21:05)
[2016-09-04] MEDS: MEROPENEM 500 MG in SODIUM CHLORIDE 0.9% 100 ML IV SCH ×3 (00:22→16:24)
[2016-09-04] MEDS: methylPREDNISolone SOD SUC 40 MG/1 ML VIAL IV SCH ×2 (00:23→11:08)
[2016-09-04] MEDS: ALBUTEROL/IPRATROPIUM 3 ML NEB RESP TX SCH ×4 (01:00→20:06)
[2016-09-04] MEDS ORDERED: MEPERIDINE 50 MG/1 ML VIAL IM ONE (06:30)
[2016-09-04] MEDS ORDERED: diphenhydrAMINE 50 MG/1 ML VIAL IM ONE (06:30)
[2016-09-04] MEDS ORDERED: BENZONATATE 100 MG CAPSULE PO ONE (06:30)
[2016-09-04] MEDS ORDERED: LIDOCAINE 2% VISCOUS 100 ML BOTTLE SWISH/SPIT ONE (07:00)
[2016-09-04] MEDS ORDERED: LIDOCAINE 4% TOP SOLN 50 ML BOTTLE RESP TX ONE (07:00)
[2016-09-04] MEDS ORDERED: LIDOCAINE 1% 20 ML VIAL MISC INJ ONE (07:00)
[2016-09-04 07:24] LABS: Basophils % 0.2 % (0.0-0.8); Eosinophils # 0.2 10*3/uL (0.0-0.87); Eosinophils % 1.3 % (0.00-10.9); Hematocrit 31.4 VOL% (42.0-52.0); Hemoglobin 10.5 GM/DL (14.0-18.0); Immature Granulocytes Absolute 1.32 #; Lymphocytes # 2.6 10*3/uL (1.4-4.0); Lymphocytes % 21.9 % (21.2-54.2); Mean Corpuscular HGB Conc 33.4 GM/DL (32-36); Mean Corpuscular Hemoglobin 30 PG (27-34); Monocytes # 0.8 10*3/uL (0.11-0.8); Monocytes % 6.7 % (1.7-12.7); Neutrophils # 7.1 10*3/uL (1.4-7.4); Neutrophils % 58.9 % (38.7-73.9); Platelet Count 319 10*3/uL (130-400); Red Blood Count 3.53 10*6/uL (3.8-5.5); Red Cell Distribution Width 16.4 % (9.3-17.3)
[2016-09-04 07:33] LABS: PT Patient Result 10.5 SECS; Partial Thromboplastin Time 21.9 SECS (0-40)
[2016-09-04] MEDS: DORNASE ALFA 2.5 MG/2.5 ML VIAL RESP TX SCH ×2 (07:38→20:08)
[2016-09-04 07:47] LABS: Calcium 9.5 MG/DL (8.5-10.1); Osmolality,Calculated 285.3 MOS/KG (273-304); Potassium 5.3 MMOL/L (3.5-5.1)
[2016-09-04 07:56] LABS: Band Neutrophils 2 % (0-10); Eosinophils 1 % (0-10); Hypochromasia 1+; Lymphocytes 23 % (20-55); Metamyelocytes 1 %; Myelocytes 2 %; Segmented Neutrophils 64 % (50-85); Total Cells Counted 100
[2016-09-04 07:57] LABS: Microcytosis 1+; Ovalocytes Slight; Platelet Estimate Normal; Stomatocytes Slight
[2016-09-04] MEDS: INSULIN REGULAR 100 UNIT/ML SUBCUT SCH ×4 (08:42→22:07)
[2016-09-04] MEDS: PANTOPRAZOLE 40 MG TABLET PO SCH (08:56)
[2016-09-04] MEDS: CLOPIDOGREL 75 MG TABLET PO SCH (08:56)
[2016-09-04] MEDS: MULTIVITAMIN (CENTRUM) TABLET PO SCH (08:56)
[2016-09-04] MEDS: CHOLECALCIFEROL 400 UNIT TABLET PO SCH ×2 (08:56→22:04)
[2016-09-04] MEDS: THEOPHYLLINE ER (24 HR) 300 MG CAPSULE PO SCH (08:56)
[2016-09-04] MEDS: ATORVASTATIN 10 MG TABLET PO SCH (08:56)
[2016-09-04] MEDS: FUROSEMIDE 20 MG TABLET PO SCH ×3 (08:56→15:03)
[2016-09-04] MEDS: METOPROLOL TARTRATE 50 MG TABLET PO SCH ×2 (08:56→22:09)
[2016-09-04] MEDS: ASPIRIN EC 81 MG TABLET PO SCH (08:56)
[2016-09-04] MEDS: acetaZOLAMIDE 250 MG TABLET PO SCH (08:56)
[2016-09-04] MEDS: ROFLUMILAST 500 MCG TABLET PO SCH (08:57)
[2016-09-04] MEDS: FLUCONAZOLE 200 MG TABLET PO SCH (08:57)
[2016-09-04] MEDS: BENZONATATE 100 MG CAPSULE PO SCH ×4 (08:57→22:03)
[2016-09-04] MEDS: DILTIAZEM CD 120 MG CAPSULE PO SCH (08:57)
[2016-09-04] MEDS: metFORMIN 500 MG TABLET PO SCH ×2 (08:57→16:25)
[2016-09-04] MEDS: MONTELUKAST 10 MG TABLET PO SCH ×2 (08:57→22:04)
[2016-09-04] MEDS: LORATADINE 10 MG TABLET PO SCH (08:58)
[2016-09-04] MEDS: BUDESONIDE/FORMOTEROL 160-4.5 INHALER 6 GM INH SCH ×2 (08:58→22:05)
[2016-09-04] MEDS: POTASSIUM IODIDE ORAL SOLN 1,000 MG/ML BOTTLE PO SCH ×4 (08:58→22:05)
[2016-09-04] MEDS: VALSARTAN 80 MG TABLET PO SCH (09:00)
--- NOTE | 2016-09-04 10:25 | Event Note ---
In hospital diagnostic and therapeutic fiberoptic bronchoscopy. Bilateral specimens were sent for Gram stain, bacterial cultures, fungal stains and culture and AFB stains and cultures. Separate left lung and separate right lung specimens were sent for cytology. This patient has chronic sputum production his cough is less than 100% effective. He has residual chest x-ray changes. He has had positive cultures from his sputum and this is his third recent hospitalization. For all of these reasons he is evaluated with fiberoptic bronchoscopy. The vocal cords were normal. Trachea showed mild to moderate collapsibility. The eduarda was sharp. See photograph. The right mainstem bronchus was full of thick tenacious secretions. These involved the right upper lung slightly. The right middle lung was moderately to severely involved and there was mild erosive bronchitis in the subsegments of the right middle lung. In the right lower lung there was erosive friable bronchitis multiple dense bronchial plugs. These were removed with lavage and suctioning. Patient was able to help with coughing. His airways show moderate collapsibility compatible with COPD. See photographs. Left mainstem bronchus contained copious amount of thick tenacious secretions. These involve the left upper lung to a moderate degree and involves the left lower lung to a severe degree. There was mild to moderate collapsibility of large and small airways. In the left lower lung there were dense bronchial plugs that were removed with lavage and suctioning. There was underlying erosive bronchitis it was friable when touched with the bronchoscope. See photograph. This patient tolerated procedure well. There were no complications. Allowed him to watch at the end of the procedure and explained to them just exactly what was happening. Impression. 1. Retained secretions. 2. Partially ineffective cough 3. Bibasal erosive friable bronchitis. This appears to be secondary to recurrent infections. Keep the possibility of gastroesophageal reflux and micro -aspiration in mind. 4. Mildly to moderately collapsible large and small airways compatible with the known diagnosis of COPD Plan. 1. Follow-up chest x-ray 2. Check on bronchoscopy specimen results.
--- NOTE | 2016-09-04 10:26 | Pulmonology Progress Note ---
Pulmonary - PN: Subj Interval history: There is a 61-year-old white male. He was admitted from my office 08/28/2016. He had an acute exacerbation of chronic COPD. He is previously appeared to be colonized with Pseudomonas. His sputum's are growing a gram-negative graciela. His sputum's are growing Enterobacter cloaca. He is also growing Christine albicans. he is on meropenem and Fortaz. P. At the time of admission my impressions were 1. Acute exacerbation of chronic COPD with infection which is bacterial and with wheezing. Look for pneumonia. Patient improved his chest x-ray did not completely improved. There were residual right lower lung changes. On 2016 he was reevaluated with fiberoptic bronchoscopy. See report. 2. COPD. This patient is subject to recurrent pulmonary infections. 3. Probable bronchiectasis 4. Heart disease with 2 stents in the past history of [place] and congestive heart failure followed by Dr. Galindo Hunt 5. Diabetes mellitus. Diabetes is been under poor control. Patient has refused to get his diabetic medicines because he has run out of punchTypemock from the [employer] for the year. His hemoglobin A1c was 8.5. Normal is 4.2-6.3 6. High blood pressure. The patient continues to wheeze consider stopping Diovan (valsartan) 7. Aortic insufficiency. 8. See past history 09/04/2016. This patient is gradually improved but he has not reached a point that I am satisfied with his improvement. He is being treated based on his cultures and sensitivities. Today he was reevaluated with fiberoptic bronchoscopy. See report. Labs been reviewed. Medicines been reviewed Physical exam. Vital signs. See below Psychiatric. Oriented 3. Cooperative. Neurological. Cranial nerves are intact. There is decreased hearing acuity bilaterally. Long track motor functions intact. Sensory exam was not done. Gait is normal Pupils, irises, sclera conjunctiva are normal. Face is symmetrical. Salivary glands are normal. Nares are normal. Lips tongue become mucosa normal. Neck. Symmetrical with no meningismus. Lymphatics. No submandibular cervical supraclavicular or epitrochlear adenopathy Chest. Coarse large airway congestion with prolonged expiration Heart. Grade 1.5 over 6 systolic ejection murmur at the left sternal border. No gallop. Abdomen. Nontender. Positive bowel sounds Extremities. No edema. Nothing to suggest deep venous thrombophlebitis. No clubbing. Musculoskeletal. Age-appropriate loss normal curvature cervical thoracic and lumbar spine. The remainder the physical exam is noncontributory Plan. 1. Continue present regimen 2. Check bronchoscopy specimens 3. Patient could potentially be ready for discharge in the next few days. Exam (Progress Note) - Constitutional Vitals: Period Temp Pulse Resp BP Sys/Cedeño Pulse Ox Last 24 Hr 97.1 F-98.5 F 70-111 12-32 97-131/47-84 90-100 Results - Labs CBC & BMP: 09/04/16 06:22 09/04/16 06:22 Specialty Discharge - Follow Up or Referrals - Discharge Medications No Action Pantoprazole Tab [Protonix Tab] 40 mg PO DAILY Cholecalciferol (Vitamin D3) [Vitamin D3 Chew Tab] 400 unit PO BID Metoprolol Tartrate Tab [Lopressor Tab] 50 mg PO BID Multivitamin with Minerals [Multivitamins with Minerals] 1 each PO DAILY Benzonatate [Tessalon] 100 mg PO BEDTIME PRN PRN Reason: Cough Trazodone HCl 100 mg PO BEDTIME PRN PRN Reason: Sleep Aspirin EC Tab 81 mg PO DAILY Valsartan 1.5 tablet PO DAILY Roflumilast [Daliresp] 500 mcg PO DAILY Loratadine Tab [Claritin Tab] 10 mg PO DAILY Methocarbamol Tab [Robaxin Tab] 750 mg PO TID PRN PRN Reason: Pain metFORMIN [Glucophage] 500 mg PO BID Budesonide/Formoterol 160-4.5 [Symbicort 160-4.5] 2 puff INH BID inhaler Montelukast Tab [Singulair Tab] 10 mg PO DAILY #30 tablet acetaZOLAMIDE TAB [Diamox Tab] 250 mg PO TID #90 tablet Atorvastatin [Lipitor] 5 mg PO DAILY predniSONE TAB [PredniSONE] 20 mg PO DAILY Diltiazem HCl [Cartia XT] 120 mg PO DAILY Theophylline ER Cap (24 Hr) [Mich-24] 300 mg PO BID Albuterol/Ipratropium Neb [Duoneb] 3 ml RESP TX RT Q4H PRN #120 nebulization solution PRN Reason: Shortness Of Breath/Wheezing Sulfameth/Trimeth 800-160 Tab [Bactrim DS Tab] 1 tablet PO BID Albuterol/Ipratropium Neb [Duoneb] 3 ml RESP TX RT Q6H #120 nebulization solution Furosemide Tab [Lasix Tab] 20 mg PO BID DIURETIC Clopidogrel [Plavix] 75 mg PO DAILY
[2016-09-04] MEDS: METHOCARBAMOL 750 MG TABLET PO PRN (13:42)
[2016-09-04] MEDS: guaiFENesin/CODEINE 5 ML LIQUID PO PRN (13:42)
[2016-09-05] MEDS: methylPREDNISolone SOD SUC 40 MG/1 ML VIAL IV SCH ×3 (00:07→23:12)
[2016-09-05] MEDS: MEROPENEM 500 MG in SODIUM CHLORIDE 0.9% 100 ML IV SCH ×3 (00:48→16:51)
[2016-09-05] MEDS: ALBUTEROL/IPRATROPIUM 3 ML NEB RESP TX SCH ×4 (05:42→20:00)
[2016-09-05 07:14] LABS: Osmolality,Calculated 292.5 MOS/KG (273-304)
[2016-09-05 07:22] LABS: Potassium 6.4 MMOL/L (3.5-5.1)
[2016-09-05] MEDS: DORNASE ALFA 2.5 MG/2.5 ML VIAL RESP TX SCH ×2 (08:07→20:00)
[2016-09-05] MEDS: CLOPIDOGREL 75 MG TABLET PO SCH (08:12)
[2016-09-05] MEDS: CHOLECALCIFEROL 400 UNIT TABLET PO SCH ×2 (08:13→22:21)
[2016-09-05] MEDS: FLUCONAZOLE 200 MG TABLET PO SCH (08:13)
[2016-09-05] MEDS: ASPIRIN EC 81 MG TABLET PO SCH (08:13)
[2016-09-05] MEDS: ATORVASTATIN 10 MG TABLET PO SCH (08:13)
[2016-09-05] MEDS: metFORMIN 500 MG TABLET PO SCH ×2 (08:13→16:51)
[2016-09-05] MEDS: THEOPHYLLINE ER (24 HR) 300 MG CAPSULE PO SCH (08:13)
[2016-09-05] MEDS: MULTIVITAMIN (CENTRUM) TABLET PO SCH (08:13)
[2016-09-05] MEDS: PANTOPRAZOLE 40 MG TABLET PO SCH (08:14)
[2016-09-05] MEDS: FUROSEMIDE 20 MG TABLET PO SCH ×3 (08:14→15:35)
[2016-09-05] MEDS: MONTELUKAST 10 MG TABLET PO SCH ×2 (08:14→22:20)
[2016-09-05] MEDS: LORATADINE 10 MG TABLET PO SCH (08:14)
[2016-09-05] MEDS: INSULIN REGULAR 100 UNIT/ML SUBCUT SCH ×4 (08:14→22:21)
[2016-09-05] MEDS: BENZONATATE 100 MG CAPSULE PO SCH ×3 (08:14→22:20)
[2016-09-05] MEDS: BUDESONIDE/FORMOTEROL 160-4.5 INHALER 6 GM INH SCH ×2 (08:14→22:23)
[2016-09-05] MEDS: POTASSIUM IODIDE ORAL SOLN 1,000 MG/ML BOTTLE PO SCH (08:14)
[2016-09-05] MEDS: ROFLUMILAST 500 MCG TABLET PO SCH (08:15)
[2016-09-05] MEDS: METOPROLOL TARTRATE 50 MG TABLET PO SCH ×2 (08:16→22:23)
[2016-09-05] MEDS: VALSARTAN 80 MG TABLET PO SCH (08:16)
[2016-09-05] MEDS: DILTIAZEM CD 120 MG CAPSULE PO SCH (08:17)
[2016-09-05] MEDS: acetaZOLAMIDE 250 MG TABLET PO SCH (08:17)
--- NOTE | 2016-09-05 12:11 | XRay Report ---
Exam: Chest 2 views Date: September 05, 2016 at 7:38 AM Comparison: Chest one view portable September 02, 2016 Reason: Post FOB September 04, 2016, followup pneumonia and COPD Findings: The cardiac silhouette is normal in size. There are mild scattered opacities within both lungs, mainly within the right lower lung zone. This likely represents scarring/fibrosis. Superimposed pneumonia is difficult to exclude within the right lower lung zone, but there has been no significant change. The lungs are hyperexpanded, which can be seen in COPD, and emphysema is suspected. There may be minimal bilateral pleural fluid, but no pneumothorax is identified. The osseous structures appear stable. Impression: 1. There are mild scattered opacities within both lungs, mainly within the right lower lung zone. Similar findings are seen on prior studies, and this likely represents atelectasis and scarring. Superimposed pneumonia is difficult to exclude at the right lower lung zone, but there has been no significant change. 3. Possible minimal bilateral pleural fluid. PROCEDURE INTERPRETED AT [facility] DEPARTMENT OF RADIOLOGY Final Report Signed by: Dr. Jole Reeves
[2016-09-05 12:18] LABS: Calcium 9.1 MG/DL (8.5-10.1); Magnesium 1.6 MG/DL (1.8-2.4); Osmolality,Calculated 293.4 MOS/KG (273-304)
[2016-09-05 12:30] LABS: Potassium 6.2 MMOL/L (3.5-5.1)
--- NOTE | 2016-09-05 12:58 | Pulmonology Progress Note ---
Pulmonary - PN: Subj Interval history: Jesu Boudreaux, ANP-BC, GNP-BC, acting as scribe for Dr. Chente Dunn Mr. Morin was seen today along with Jessica Rai RN. Mr. Morin is a 61 year old white male who was admitted 08/28/16 from [facility] [place] with an acute exacerbation of COPD with bacterial infection. Previously he grew Pseudomonas and it was felt he was colonized. He had a prolonged hospitalization in July 2016 to eradicate this organism. Sputum gram stain this admission showed few gram positive cocci, few gram negative rods, and rare fungal elements. Sputum culture grew Enterobacter cloacae. He is being treated with Fortaz and Merrem. The patient continued to have difficulty mobilizing his secretions and on underwent FOB. This showed retained secreaitons, a partially ineffective cough, bibasal erosive friable bronchitis, and mildly to moderately collapsible large and small airways compatible with his known diagnosis of COPD. FOB washings have showed few gram positive cocci in pairs and few white blood cells. No AFB or fungus was seen on smears. Cultures are pending. Today he complains of orthostatic symptoms. On review, his blood pressure was low last night, but has improved today. We have asked him to get up slowly and call for help when needed. Medications have been reviewed. Labs have been reviewed. Initial potassium was 6.4 and on repeat was 6.2. Creatinine 0.90, BUN 33, NA+ 140, Mg+ 1.6 (hypokalemia) Glucoses are elevated secondary to the Solumedrol. He is being covered with sliding scale insulin. Exam (Progress Note) - Constitutional Vitals: Period Temp Pulse Resp BP Sys/Cedeño Pulse Ox Last 24 Hr 97.4 F-98.7 F 70-102 16-20 87-108/44-62 95-100 Exam: Chest with generalized LAW wheeze and associated congestion, but improved Heart no gallop Abd is nontender and nondistended; BS positive x 4 Ext with nothing to suggest acute DVT Psych oriented x 3 Neuro long tract motor function is intact Plan: Stop SSKI. Repeat CXR Thursday. Daily BMP/Mg+. Follow-up FOB reports when finalized. See orders. Results - Labs CBC & BMP: 09/04/16 06:22 01/06/17 11:20 Specialty Discharge - Follow Up or Referrals - Discharge Medications No Action Pantoprazole Tab [Protonix Tab] 40 mg PO DAILY Cholecalciferol (Vitamin D3) [Vitamin D3 Chew Tab] 400 unit PO BID Metoprolol Tartrate Tab [Lopressor Tab] 50 mg PO BID Multivitamin with Minerals [Multivitamins with Minerals] 1 each PO DAILY Benzonatate [Tessalon] 100 mg PO BEDTIME PRN PRN Reason: Cough Trazodone HCl 100 mg PO BEDTIME PRN PRN Reason: Sleep Aspirin EC Tab 81 mg PO DAILY Valsartan 1.5 tablet PO DAILY Roflumilast [Daliresp] 500 mcg PO DAILY Loratadine Tab [Claritin Tab] 10 mg PO DAILY Methocarbamol Tab [Robaxin Tab] 750 mg PO TID PRN PRN Reason: Pain metFORMIN [Glucophage] 500 mg PO BID Budesonide/Formoterol 160-4.5 [Symbicort 160-4.5] 2 puff INH BID inhaler Montelukast Tab [Singulair Tab] 10 mg PO DAILY #30 tablet acetaZOLAMIDE TAB [Diamox Tab] 250 mg PO TID #90 tablet Atorvastatin [Lipitor] 5 mg PO DAILY predniSONE TAB [PredniSONE] 20 mg PO DAILY Diltiazem HCl [Cartia XT] 120 mg PO DAILY Theophylline ER Cap (24 Hr) [Mich-24] 300 mg PO BID Albuterol/Ipratropium Neb [Duoneb] 3 ml RESP TX RT Q4H PRN #120 nebulization solution PRN Reason: Shortness Of Breath/Wheezing Sulfameth/Trimeth 800-160 Tab [Bactrim DS Tab] 1 tablet PO BID Albuterol/Ipratropium Neb [Duoneb] 3 ml RESP TX RT Q6H #120 nebulization solution Furosemide Tab [Lasix Tab] 20 mg PO BID DIURETIC Clopidogrel [Plavix] 75 mg PO DAILY
[2016-09-05] MEDS: guaiFENesin/CODEINE 5 ML LIQUID PO PRN (22:21)
[2016-09-06] MEDS: ALBUTEROL/IPRATROPIUM 3 ML NEB RESP TX SCH ×5 (00:37→23:54)
[2016-09-06] MEDS: MEROPENEM 500 MG in SODIUM CHLORIDE 0.9% 100 ML IV SCH ×3 (00:42→16:29)
[2016-09-06] MEDS: traZODone 50 MG TABLET PO PRN (00:48)
[2016-09-06] MEDS: DORNASE ALFA 2.5 MG/2.5 ML VIAL RESP TX SCH ×2 (07:40→19:24)
[2016-09-06] MEDS: VALSARTAN 80 MG TABLET PO SCH (08:35)
[2016-09-06] MEDS: MULTIVITAMIN (CENTRUM) TABLET PO SCH (08:36)
[2016-09-06] MEDS: CHOLECALCIFEROL 400 UNIT TABLET PO SCH ×2 (08:36→20:36)
[2016-09-06] MEDS: MONTELUKAST 10 MG TABLET PO SCH ×2 (08:36→20:44)
[2016-09-06] MEDS: acetaZOLAMIDE 250 MG TABLET PO SCH (08:36)
[2016-09-06] MEDS: metFORMIN 500 MG TABLET PO SCH ×2 (08:36→16:29)
[2016-09-06] MEDS: FLUCONAZOLE 200 MG TABLET PO SCH (08:36)
[2016-09-06] MEDS: ROFLUMILAST 500 MCG TABLET PO SCH (08:36)
[2016-09-06] MEDS: METOPROLOL TARTRATE 50 MG TABLET PO SCH ×2 (08:36→20:37)
[2016-09-06] MEDS: THEOPHYLLINE ER (24 HR) 300 MG CAPSULE PO SCH (08:37)
[2016-09-06] MEDS: BENZONATATE 100 MG CAPSULE PO SCH ×3 (08:37→20:36)
[2016-09-06] MEDS: PANTOPRAZOLE 40 MG TABLET PO SCH (08:37)
[2016-09-06] MEDS: ASPIRIN EC 81 MG TABLET PO SCH (08:37)
[2016-09-06] MEDS: FUROSEMIDE 20 MG TABLET PO SCH ×2 (08:37→16:22)
[2016-09-06] MEDS: CLOPIDOGREL 75 MG TABLET PO SCH (08:37)
[2016-09-06] MEDS: ATORVASTATIN 10 MG TABLET PO SCH (08:38)
[2016-09-06] MEDS: DILTIAZEM CD 120 MG CAPSULE PO SCH (08:38)
[2016-09-06] MEDS: LORATADINE 10 MG TABLET PO SCH (08:38)
[2016-09-06] MEDS: BUDESONIDE/FORMOTEROL 160-4.5 INHALER 6 GM INH SCH ×2 (08:41→20:37)
[2016-09-06] MEDS: INSULIN REGULAR 100 UNIT/ML SUBCUT SCH ×4 (09:48→20:35)
[2016-09-06] MEDS: methylPREDNISolone SOD SUC 40 MG/1 ML VIAL IV SCH ×2 (11:06→23:00)
[2016-09-06] MEDS: METHOCARBAMOL 750 MG TABLET PO PRN (11:19)
--- NOTE | 2016-09-06 11:51 | Pulmonology Progress Note ---
Pulmonary - PN: Subj Interval history: There is a 61-year-old white male. He was admitted from my office 08/28/2016. He had an acute exacerbation of chronic COPD. He is previously appeared to be colonized with Pseudomonas. His sputum's are growing a gram-negative graciela. His sputum's are growing Enterobacter cloaca. He is also growing Christine albicans. he is on meropenem and Fortaz. P. At the time of admission my impressions were 1. Acute exacerbation of chronic COPD with infection which is bacterial and with wheezing. Look for pneumonia. Patient improved his chest x-ray did not completely improved. There were residual right lower lung changes. On 2016 he was reevaluated with fiberoptic bronchoscopy. See report. 2. COPD. This patient is subject to recurrent pulmonary infections. 3. Probable bronchiectasis 4. Heart disease with 2 stents in the past history of [place] and congestive heart failure followed by Dr. Galindo Hunt 5. Diabetes mellitus. Diabetes is been under poor control. Patient has refused to get his diabetic medicines because he has run out of [employer] from the [place] for the year. His hemoglobin A1c was 8.5. Normal is 4.2-6.3 6. High blood pressure. The patient continues to wheeze consider stopping Diovan (valsartan) 7. Aortic insufficiency. 8. See past history 09/04/2016. This patient is gradually improved but he has not reached a point that I am satisfied with his improvement. He is being treated based on his cultures and sensitivities. Today he was reevaluated with fiberoptic bronchoscopy. See report. Labs been reviewed. Medicines been reviewed 09/06/2016. This patient is doing better with his breathing. He continues to mobilize a copious amount of discolored sputum. He is being seen by physical therapy and he has had a limited amount of physical activity. He complains of a headache this morning I will treat this with tramadol. The patient has had some elevation of his potassiums we think this was secondary to SSKI. Follow- up lab was not done today but I will reorder it. Along the way his magnesium is been low at 1.6. Lab was reviewed. Medicines. Reviewed. No changes made. Physical exam. Vital signs. See below Psychiatric. Oriented 3. Cooperative. Neurological. Cranial nerves are intact. There is decreased hearing acuity bilaterally. Long track motor functions intact. Sensory exam was not done. Gait is normal Pupils, irises, sclera conjunctiva are normal. Face is symmetrical. Salivary glands are normal. Nares are normal. Lips tongue become mucosa normal. Neck. Symmetrical with no meningismus. Lymphatics. No submandibular cervical supraclavicular or epitrochlear adenopathy Chest. Coarse large airway congestion has improved significantly. Expiration is more complete. Bibasal inspiratory squeaks. Heart. Grade 1.5 over 6 systolic ejection murmur at the left sternal border. No gallop. Abdomen. Nontender. Positive bowel sounds Extremities. No edema. Nothing to suggest deep venous thrombophlebitis. No clubbing. Musculoskeletal. Age-appropriate loss normal curvature cervical thoracic and lumbar spine. The remainder the physical exam is noncontributory Plan. 1. Continue present regimen 2. Check bronchoscopy specimens. As of 09/06/2016 these are negative. 3. Patient could potentially be ready for discharge Thursday or Thursday if he continues to improve Exam (Progress Note) - Constitutional Vitals: Period Temp Pulse Resp BP Sys/Cedeño Pulse Ox Last 24 Hr 97.7 F-98.1 F 100-124 18-20 100-119/51-63 97-100 Results - Labs CBC & BMP: 09/04/16 06:22 09/05/16 11:20 Specialty Discharge - Follow Up or Referrals - Discharge Medications No Action Pantoprazole Tab [Protonix Tab] 40 mg PO DAILY Cholecalciferol (Vitamin D3) [Vitamin D3 Chew Tab] 400 unit PO BID Metoprolol Tartrate Tab [Lopressor Tab] 50 mg PO BID Multivitamin with Minerals [Multivitamins with Minerals] 1 each PO DAILY Benzonatate [Tessalon] 100 mg PO BEDTIME PRN PRN Reason: Cough Trazodone HCl 100 mg PO BEDTIME PRN PRN Reason: Sleep Aspirin EC Tab 81 mg PO DAILY Valsartan 1.5 tablet PO DAILY Roflumilast [Daliresp] 500 mcg PO DAILY Loratadine Tab [Claritin Tab] 10 mg PO DAILY Methocarbamol Tab [Robaxin Tab] 750 mg PO TID PRN PRN Reason: Pain metFORMIN [Glucophage] 500 mg PO BID Budesonide/Formoterol 160-4.5 [Symbicort 160-4.5] 2 puff INH BID inhaler Montelukast Tab [Singulair Tab] 10 mg PO DAILY #30 tablet acetaZOLAMIDE TAB [Diamox Tab] 250 mg PO TID #90 tablet Atorvastatin [Lipitor] 5 mg PO DAILY predniSONE TAB [PredniSONE] 20 mg PO DAILY Diltiazem HCl [Cartia XT] 120 mg PO DAILY Theophylline ER Cap (24 Hr) [Mich-24] 300 mg PO BID Albuterol/Ipratropium Neb [Duoneb] 3 ml RESP TX RT Q4H PRN #120 nebulization solution PRN Reason: Shortness Of Breath/Wheezing Sulfameth/Trimeth 800-160 Tab [Bactrim DS Tab] 1 tablet PO BID Albuterol/Ipratropium Neb [Duoneb] 3 ml RESP TX RT Q6H #120 nebulization solution Furosemide Tab [Lasix Tab] 20 mg PO BID DIURETIC Clopidogrel [Plavix] 75 mg PO DAILY
[2016-09-06] MEDS: traMADol 50 MG TABLET PO PRN (12:10)
[2016-09-07] MEDS: MEROPENEM 500 MG in SODIUM CHLORIDE 0.9% 100 ML IV SCH ×3 (00:05→16:01)
[2016-09-07] MEDS: traMADol 50 MG TABLET PO PRN (03:58)
[2016-09-07 07:01] LABS: Calcium 9.1 MG/DL (8.5-10.1); Magnesium 1.7 MG/DL (1.8-2.4)
[2016-09-07 07:07] LABS: Potassium 7.3 MMOL/L (3.5-5.1)
[2016-09-07] MEDS: ALBUTEROL/IPRATROPIUM 3 ML NEB RESP TX SCH ×3 (07:30→20:31)
[2016-09-07] MEDS: DORNASE ALFA 2.5 MG/2.5 ML VIAL RESP TX SCH ×2 (07:30→20:31)
[2016-09-07] MEDS: INSULIN REGULAR 100 UNIT/ML SUBCUT SCH ×4 (08:57→20:20)
[2016-09-07] MEDS: BUDESONIDE/FORMOTEROL 160-4.5 INHALER 6 GM INH SCH ×2 (08:57→20:22)
[2016-09-07] MEDS: CHOLECALCIFEROL 400 UNIT TABLET PO SCH ×2 (08:58→20:21)
[2016-09-07] MEDS: VALSARTAN 80 MG TABLET PO SCH (08:58)
[2016-09-07] MEDS: MULTIVITAMIN (CENTRUM) TABLET PO SCH (08:59)
[2016-09-07] MEDS: MONTELUKAST 10 MG TABLET PO SCH ×2 (08:59→20:21)
[2016-09-07] MEDS: THEOPHYLLINE ER (24 HR) 300 MG CAPSULE PO SCH (08:59)
[2016-09-07] MEDS: CLOPIDOGREL 75 MG TABLET PO SCH (08:59)
[2016-09-07] MEDS: acetaZOLAMIDE 250 MG TABLET PO SCH (09:00)
[2016-09-07] MEDS: DILTIAZEM CD 120 MG CAPSULE PO SCH (09:00)
[2016-09-07] MEDS: PANTOPRAZOLE 40 MG TABLET PO SCH (09:00)
[2016-09-07] MEDS: metFORMIN 500 MG TABLET PO SCH ×2 (09:00→16:00)
[2016-09-07] MEDS: ASPIRIN EC 81 MG TABLET PO SCH (09:00)
[2016-09-07] MEDS: FUROSEMIDE 20 MG TABLET PO SCH ×2 (09:00→16:01)
[2016-09-07] MEDS: ATORVASTATIN 10 MG TABLET PO SCH (09:01)
[2016-09-07] MEDS: LORATADINE 10 MG TABLET PO SCH (09:01)
[2016-09-07] MEDS: FLUCONAZOLE 200 MG TABLET PO SCH (09:01)
[2016-09-07] MEDS: METOPROLOL TARTRATE 50 MG TABLET PO SCH ×2 (09:02→20:21)
[2016-09-07] MEDS: BENZONATATE 100 MG CAPSULE PO SCH ×3 (09:02→20:21)
[2016-09-07] MEDS: ROFLUMILAST 500 MCG TABLET PO SCH (09:10)
--- NOTE | 2016-09-07 09:16 | Pathology Report from [facility] ---
ACCESSION # : [id number] PATIENT NAME : Steven Morin ORDERING DR : NISREEN SHORT MD CLINICAL HX: COPD POST-OP DX: Same SPECIMEN INFO: Washing- Bronchial, right- 32 mls cloudy frank CLASS: II CLASS COMMENTS: Benign respiratory epithelium, squamous metaplasia and marked acute inflammation.CELL BLOCK: Same. CLASS LEGEND: CLASS 0 Material inadequate for diagnosis because of (see comment) CLASS I Absence of atypical or abnormal cells CLASS II Atypical Cytology but no evidence of malignancy CLASS III Cytology suggestive of but not conclusive for malignancy CLASS IV Cytology strongly suggestive of malignancy CLASS V Cytology conclusive for malignancy SERVICE DATE: 09/04/2016 REPORT DATE: 09/05/2016 PATHOLOGIST: Rafat Koenig M.D. [facility]
--- NOTE | 2016-09-07 09:17 | Pathology Report from [facility] ---
ACCESSION # : [id number] PATIENT NAME : Steven Morin ORDERING DR : NISREEN SHORT MD CLINICAL HX: COPD POST-OP DX: Same SPECIMEN INFO: Washing- Bronchial, left- 28 mls slightly hazy frank CLASS: I CLASS COMMENTS: Benign respiratory cells with squamous metaplasia and acute inflammation.CELL BLOCK: Same. CLASS LEGEND: CLASS 0 Material inadequate for diagnosis because of (see comment) CLASS I Absence of atypical or abnormal cells CLASS II Atypical Cytology but no evidence of malignancy CLASS III Cytology suggestive of but not conclusive for malignancy CLASS IV Cytology strongly suggestive of malignancy CLASS V Cytology conclusive for malignancy SERVICE DATE: 09/04/2016 REPORT DATE: 09/05/2016 PATHOLOGIST: Rafat Koenig M.D. [facility]
[2016-09-07] MEDS: SODIUM POLYSTYRENE SULFATE 15 GM/60 ML BOTTLE PO SCH ×2 (10:02→20:50)
--- NOTE | 2016-09-07 10:31 | Nephrology Consult Note ---
History of Present Illness Chief complaint: increased potassium History of present illness: Mr. Morin is a 61 year old male who was admitted for pneumonia. We are asked see the patient for increased potassium. The patient's potassium a few days ago was 6.3 units now up to around 7.5 mEq per liter. The patient was initially taking some potassium as an outpatient however this has been stopped. The patient is also on an angiotensin receptor leticia. The patient has also been getting Lasix and carbonic anhydrase inhibitor. The patient states he has not been overly indulging in any fruits or notes. He only eats what the cafeteria brain syndrome since she's been here. He states he does not use it if he does not like it. The patient states he has been feeling all dizzy lately. Review of his creatinine shows this to be slowly increasing it's 1.2 mg/dL today up from around 0.7 mg/dL a week or so ago. ROS: Head - denies headaches ENT - denies sore throat Lymphatics - denies lymphadenopathy Hematology - denies bleeding problems Heart - denies chest pain Lungs -positive shortness of breath Abdomen - denies abdominal pain Musculoskeletal -positive arthritis Skin - denies rash Neurology - denies stroke General - denies fever PE: General: in no acute distress Eyes: Pupils are round and reactive, conjunctivae are clear ENT: Nose is clear, O/P is benign Neck: Supple, no thyromegaly Lymphatics: No cervical, supraclavicular or axillary adenopathy Heart: Regular rate and rhythm, no edema Lungs: Clear to auscultation anteriorly, chest expansion symmetric Abdomen: Soft, normoactive bowel sounds, no hepatomegaly Musculoskeletal: No joint erythema or effusions or joint asymmetry Skin: Normal turgor, normal hydration, no rash Neuro/Psych: Alert and cooperative with fair insight Home Medications Medication Instructions Recorded Confirmed Type Aspirin EC Tab 81 mg PO DAILY 12/30/15 08/28/16 History Benzonatate [Tessalon] 100 mg PO BEDTIME PRN 12/30/15 08/28/16 History Cholecalciferol (Vitamin D3) 400 unit PO BID 12/30/15 08/28/16 History [Vitamin D3 Chew Tab] Loratadine Tab [Claritin Tab] 10 mg PO DAILY 12/30/15 08/28/16 History Metoprolol Tartrate Tab [Lopressor 50 mg PO BID 12/30/15 08/28/16 History Tab] Multivitamin with Minerals 1 each PO DAILY 12/30/15 08/28/16 History [Multivitamins with Minerals] Pantoprazole Tab [Protonix Tab] 40 mg PO DAILY 12/30/15 08/28/16 History Roflumilast [Daliresp] 500 mcg PO DAILY 12/30/15 08/28/16 History Trazodone HCl 100 mg PO BEDTIME PRN 12/30/15 08/28/16 History Valsartan 1.5 tablet PO DAILY 12/30/15 08/28/16 History Methocarbamol Tab [Robaxin Tab] 750 mg PO TID PRN 04/03/16 08/28/16 History metFORMIN [Glucophage] 500 mg PO BID 04/03/16 08/28/16 History Budesonide/Formoterol 160-4.5 2 puff INH BID inhaler 07/26/16 08/28/16 Rx [Symbicort 160-4.5] Montelukast Tab [Singulair Tab] 10 mg PO DAILY #30 tablet 07/26/16 08/28/16 Rx acetaZOLAMIDE TAB [Diamox Tab] 250 mg PO TID #90 tablet 07/26/16 08/28/16 Rx Atorvastatin [Lipitor] 5 mg PO DAILY 08/05/16 08/28/16 History Diltiazem HCl [Cartia XT] 120 mg PO DAILY 08/05/16 08/28/16 History Theophylline ER Cap (24 Hr) 300 mg PO BID 08/05/16 08/28/16 History [Mich-24] predniSONE TAB [PredniSONE] 20 mg PO DAILY 08/05/16 08/28/16 History Albuterol/Ipratropium Neb [Duoneb] 3 ml RESP TX RT Q4H PRN #120 08/18/16 Rx nebulization solution Albuterol/Ipratropium Neb [Duoneb] 3 ml RESP TX RT Q6H #120 08/18/16 08/28/16 Rx nebulization solution Clopidogrel [Plavix] 75 mg PO DAILY 08/28/16 08/28/16 History Furosemide Tab [Lasix Tab] 20 mg PO BID DIURETIC 08/28/16 08/28/16 History Sulfameth/Trimeth 800-160 Tab 1 tablet PO BID 08/28/16 08/28/16 History [Bactrim DS Tab] Allergies Allergy/AdvReac Type Severity Reaction Status Date / Time Penicillins Allergy Unknown/Unable Verified 01/03/16 13:19 to obtain Medical,Surgical,& Family Hx - Medical History Cardio: History of: CHF (EF 45-50%), Hypertension, CA (PCI of LAD and RCA 06/12) , Cardiovascular Problems (CARDIOMYOPATHY) Neurology: History of: Migraine No history of: Seizures HEENT: History of: HEENT Problems (sinus surgery) Endocrine: History of: Diabetes Mellitus (NIDDM), Dyslipidemia Respiratory: History of: Bronchitis, COPD, Intubation, Pneumonia, Respiratory Problems (LUNG BX, SINUS SURGERY) Genitourinary: No history of: Bladder Problem, Kidney Stones Gastrointestinal: History of: Gastrointestinal Bleed Musculoskeletal: History of: Back/Neck Problems Hematology: History of: Anemia No history of: Blood Transfusion Reaction Other: No history of: Anesthesia Reactions, Cancer - Surgical History Cardiac Surgeries: Sugical HX of: Cardiac Catheterization (stents x 2 (06/12 mLAD and mRCA)) Patient Denies: Cardiac Surgery Thoracic Surgeries: Patient denies;: Organ Transplant, Lobectomy HEENT Surgeries: Patient denies: Eye Surgery, Tonsilectomy & Adenoidectomy Abdominal Surgeries: Surgical HX of: Colonoscopy Patient denies: Appendectomy, Cholecystectomy, EGD Orthopedic Surgeries: Patient denies;: Orthopedic Surgery - Family History Family History: Reports;: Family Hypertension - Social History Smoking Status: Former smoker Frequency of Alcohol Use: None Exam - Vital Signs Vital signs: Period Temp Pulse Resp BP Sys/Cedeño Pulse Ox Last 24 Hr 97.3 F-98.2 F 6-105 3-21 94-132/45-71 96-99 Results - Labs CBC & BMP: 09/04/16 06:22 09/07/16 06:02 Assessment and Plan (1) Hyperkalemia Status: Acute Assessment and plan: I think this may be related to some occult volume depletion and poor perfusion of his kidneys as well as his angiotensin receptor blockade. The patient's been ordered Kayexalate, I'm going to start some normal saline at 75 mL an hour and see if this helps him get rid of some of the potassium. I'll also ask dietary to see him in ensure that he's getting a low potassium diet through the cafeteria. Current Visit: Yes (2) Acute renal failure Status: Acute Assessment and plan: This patient's creatinines increased to 1.2 mg/dL on admission his creatinine was around 0.7 mg/dL see #1 above. Current Visit: Yes (3) Acute and chronic respiratory failure with hypoxia Status: Acute Current Visit: No (4) Acute exacerbation of chronic obstructive pulmonary disease (COPD) Status: Acute Current Visit: No (5) Anemia Status: Acute Current Visit: No (6) Community acquired pneumonia Status: Acute Current Visit: No Specialty Discharge - Follow Up or Referrals - Discharge Medications No Action Pantoprazole Tab [Protonix Tab] 40 mg PO DAILY Cholecalciferol (Vitamin D3) [Vitamin D3 Chew Tab] 400 unit PO BID Metoprolol Tartrate Tab [Lopressor Tab] 50 mg PO BID Multivitamin with Minerals [Multivitamins with Minerals] 1 each PO DAILY Benzonatate [Tessalon] 100 mg PO BEDTIME PRN PRN Reason: Cough Trazodone HCl 100 mg PO BEDTIME PRN PRN Reason: Sleep Aspirin EC Tab 81 mg PO DAILY Valsartan 1.5 tablet PO DAILY Roflumilast [Daliresp] 500 mcg PO DAILY Loratadine Tab [Claritin Tab] 10 mg PO DAILY Methocarbamol Tab [Robaxin Tab] 750 mg PO TID PRN PRN Reason: Pain metFORMIN [Glucophage] 500 mg PO BID Budesonide/Formoterol 160-4.5 [Symbicort 160-4.5] 2 puff INH BID inhaler Montelukast Tab [Singulair Tab] 10 mg PO DAILY #30 tablet acetaZOLAMIDE TAB [Diamox Tab] 250 mg PO TID #90 tablet Atorvastatin [Lipitor] 5 mg PO DAILY predniSONE TAB [PredniSONE] 20 mg PO DAILY Diltiazem HCl [Cartia XT] 120 mg PO DAILY Theophylline ER Cap (24 Hr) [Mich-24] 300 mg PO BID Albuterol/Ipratropium Neb [Duoneb] 3 ml RESP TX RT Q4H PRN #120 nebulization solution PRN Reason: Shortness Of Breath/Wheezing Sulfameth/Trimeth 800-160 Tab [Bactrim DS Tab] 1 tablet PO BID Albuterol/Ipratropium Neb [Duoneb] 3 ml RESP TX RT Q6H #120 nebulization solution Furosemide Tab [Lasix Tab] 20 mg PO BID DIURETIC Clopidogrel [Plavix] 75 mg PO DAILY
[2016-09-07] MEDS: SODIUM CHLORIDE 0.9% 1,000 ML IV SCH (10:44)
[2016-09-07] MEDS: methylPREDNISolone SOD SUC 40 MG/1 ML VIAL IV SCH (10:44)
--- NOTE | 2016-09-07 12:17 | Pulmonology Progress Note ---
Pulmonary - PN: Subj Interval history: There is a 61-year-old white male. He was admitted from my office 08/28/2016. He had an acute exacerbation of chronic COPD. He is previously appeared to be colonized with Pseudomonas. His sputum's are growing a gram-negative graciela. His sputum's are growing Enterobacter cloaca. He is also growing Christine albicans. he is on meropenem and Fortaz. P. At the time of admission my impressions were 1. Acute exacerbation of chronic COPD with infection which is bacterial and with wheezing. Look for pneumonia. Patient improved his chest x-ray did not completely improved. There were residual right lower lung changes. On 2016 he was reevaluated with fiberoptic bronchoscopy. See report. 2. COPD. This patient is subject to recurrent pulmonary infections. 3. Probable bronchiectasis 4. Heart disease with 2 stents in the past history of [place] and congestive heart failure followed by Dr. Galindo uHnt 5. Diabetes mellitus. Diabetes is been under poor control. Patient has refused to get his diabetic medicines because he has run out of [employer] from the [place] for the year. His hemoglobin A1c was 8.5. Normal is 4.2-6.3 6. High blood pressure. The patient continues to wheeze consider stopping Diovan (valsartan) 7. Aortic insufficiency. 8. See past history 09/04/2016. This patient is gradually improved but he has not reached a point that I am satisfied with his improvement. He is being treated based on his cultures and sensitivities. Today he was reevaluated with fiberoptic bronchoscopy. See report. Labs been reviewed. Medicines been reviewed 09/06/2016. This patient is doing better with his breathing. He continues to mobilize a copious amount of discolored sputum. He is being seen by physical therapy and he has had a limited amount of physical activity. He complains of a headache this morning I will treat this with tramadol. The patient has had some elevation of his potassiums we think this was secondary to SSKI. Follow- up lab was not done today but I will reorder it. Along the way his magnesium is been low at 1.6. Lab was reviewed. 09/07/2016. Patient's potassium is continued to go up. I will order Kayexalate. I called and talked to Dr. Graham Lin who is now seen the patient and renal consultation. He feels like this will field return repairer to be due to his LEIDA inhibitors which we have stopped. From a pulmonary standpoint the patient continues to mobilize a good bit of sputum is still slightly discolored. He is making good progress. He does not have a lot of exercise tolerance but he does not push himself either. I am hoping to have him ready to go home Thursday or Thursday. Patient is not complaining. Today's potassium is 7.3. Creatinine has risen from 0.9-1.2. and he feels he may be a little bit of volume depleted and we are going to also add some fluids. Medicines. Reviewed. No changes made. Physical exam. Vital signs. See below Psychiatric. Oriented 3. Cooperative. Neurological. Cranial nerves are intact. There is decreased hearing acuity bilaterally. Long track motor functions intact. Sensory exam was not done. Gait is normal Pupils, irises, sclera conjunctiva are normal. Face is symmetrical. Salivary glands are normal. Nares are normal. Lips tongue become mucosa normal. Neck. Symmetrical with no meningismus. Lymphatics. No submandibular cervical supraclavicular or epitrochlear adenopathy Chest. Coarse large airway congestion has improved significantly. Expiration is more complete. Bibasal inspiratory squeaks. Heart. Grade 1.5 over 6 systolic ejection murmur at the left sternal border. No gallop. Abdomen. Nontender. Positive bowel sounds Extremities. No edema. Nothing to suggest deep venous thrombophlebitis. No clubbing. Musculoskeletal. Age-appropriate loss normal curvature cervical thoracic and lumbar spine. The remainder the physical exam is noncontributory Plan. 1. Continue present regimen 2. Check bronchoscopy specimens. As of 09/06/2016 these are negative. 2.1. 09/07/2016. Potassium is elevated 7.3. See my note of this date. Consult Dr. Stevenson and his see the patient in renal consultation 3. Patient could potentially be ready for discharge Thursday or Thursday if he continues to improve and his potassium problems resolved. Exam (Progress Note) - Constitutional Vitals: Period Temp Pulse Resp BP Sys/Cedeño Pulse Ox Last 24 Hr 97.3 F-98.2 F 6-105 3-21 97-132/45-71 96-99 Results - Labs CBC & BMP: 09/04/16 06:22 09/07/16 06:02 Specialty Discharge - Follow Up or Referrals - Discharge Medications No Action Pantoprazole Tab [Protonix Tab] 40 mg PO DAILY Cholecalciferol (Vitamin D3) [Vitamin D3 Chew Tab] 400 unit PO BID Metoprolol Tartrate Tab [Lopressor Tab] 50 mg PO BID Multivitamin with Minerals [Multivitamins with Minerals] 1 each PO DAILY Benzonatate [Tessalon] 100 mg PO BEDTIME PRN PRN Reason: Cough Trazodone HCl 100 mg PO BEDTIME PRN PRN Reason: Sleep Aspirin EC Tab 81 mg PO DAILY Valsartan 1.5 tablet PO DAILY Roflumilast [Daliresp] 500 mcg PO DAILY Loratadine Tab [Claritin Tab] 10 mg PO DAILY Methocarbamol Tab [Robaxin Tab] 750 mg PO TID PRN PRN Reason: Pain metFORMIN [Glucophage] 500 mg PO BID Budesonide/Formoterol 160-4.5 [Symbicort 160-4.5] 2 puff INH BID inhaler Montelukast Tab [Singulair Tab] 10 mg PO DAILY #30 tablet acetaZOLAMIDE TAB [Diamox Tab] 250 mg PO TID #90 tablet Atorvastatin [Lipitor] 5 mg PO DAILY predniSONE TAB [PredniSONE] 20 mg PO DAILY Diltiazem HCl [Cartia XT] 120 mg PO DAILY Theophylline ER Cap (24 Hr) [Mich-24] 300 mg PO BID Albuterol/Ipratropium Neb [Duoneb] 3 ml RESP TX RT Q4H PRN #120 nebulization solution PRN Reason: Shortness Of Breath/Wheezing Sulfameth/Trimeth 800-160 Tab [Bactrim DS Tab] 1 tablet PO BID Albuterol/Ipratropium Neb [Duoneb] 3 ml RESP TX RT Q6H #120 nebulization solution Furosemide Tab [Lasix Tab] 20 mg PO BID DIURETIC Clopidogrel [Plavix] 75 mg PO DAILY
[2016-09-07] MEDS: traZODone 50 MG TABLET PO PRN (20:21)
[2016-09-08] MEDS: MEROPENEM 500 MG in SODIUM CHLORIDE 0.9% 100 ML IV SCH ×3 (00:24→17:07)
[2016-09-08] MEDS: methylPREDNISolone SOD SUC 40 MG/1 ML VIAL IV SCH ×2 (00:24→14:12)
[2016-09-08] MEDS: SODIUM CHLORIDE 0.9% 1,000 ML IV SCH ×3 (00:25→17:19)
[2016-09-08] MEDS: ALBUTEROL/IPRATROPIUM 3 ML NEB RESP TX SCH ×4 (00:28→20:11)
[2016-09-08 06:42] LABS: Calcium 7.7 MG/DL (8.5-10.1); Magnesium 1.5 MG/DL (1.8-2.4); Osmolality,Calculated 294.3 MOS/KG (273-304); Potassium 5.3 MMOL/L (3.5-5.1)
[2016-09-08] MEDS: DORNASE ALFA 2.5 MG/2.5 ML VIAL RESP TX SCH ×2 (07:52→20:11)
--- NOTE | 2016-09-08 08:01 | XRay Report ---
XR chest 2V Date: 09/08/2016 4:00 AM History: Pneumonia, COPD Comparison: 09/05/2016 Technique: PA and lateral chest Findings: The heart remains small and compressed by the overexpanded lungs. Chronic scarring in the lungs with progressive atelectasis/infiltration in the lower lung zones with more stable findings in the left upper lobe. Stable mediastinum with degenerative changes. Old healed rib fractures. Impression: COPD with chronic scarring. Minimally progressive atelectasis/infiltration especially in the lower lung zones. PROCEDURE INTERPRETED AT [facility] DEPARTMENT OF RADIOLOGY Final Report Signed by: Dr. Debbie Ramirez
[2016-09-08] MEDS: INSULIN REGULAR 100 UNIT/ML SUBCUT SCH ×4 (09:33→21:14)
[2016-09-08] MEDS: SODIUM POLYSTYRENE SULFATE 15 GM/60 ML BOTTLE PO SCH (09:34)
[2016-09-08] MEDS: BENZONATATE 100 MG CAPSULE PO SCH ×3 (09:43→21:12)
[2016-09-08] MEDS: PANTOPRAZOLE 40 MG TABLET PO SCH (09:43)
[2016-09-08] MEDS: FLUCONAZOLE 200 MG TABLET PO SCH (09:44)
[2016-09-08] MEDS: MULTIVITAMIN (CENTRUM) TABLET PO SCH (09:44)
[2016-09-08] MEDS: FUROSEMIDE 20 MG TABLET PO SCH ×2 (09:44→17:07)
[2016-09-08] MEDS: LORATADINE 10 MG TABLET PO SCH (09:44)
[2016-09-08] MEDS: MONTELUKAST 10 MG TABLET PO SCH ×2 (09:44→21:12)
[2016-09-08] MEDS: CLOPIDOGREL 75 MG TABLET PO SCH (09:45)
[2016-09-08] MEDS: acetaZOLAMIDE 250 MG TABLET PO SCH (09:45)
[2016-09-08] MEDS: ATORVASTATIN 10 MG TABLET PO SCH (09:45)
[2016-09-08] MEDS: ASPIRIN EC 81 MG TABLET PO SCH (09:45)
[2016-09-08] MEDS: THEOPHYLLINE ER (24 HR) 300 MG CAPSULE PO SCH (09:45)
[2016-09-08] MEDS: DILTIAZEM CD 120 MG CAPSULE PO SCH (09:46)
[2016-09-08] MEDS: ROFLUMILAST 500 MCG TABLET PO SCH (09:46)
[2016-09-08] MEDS: CHOLECALCIFEROL 400 UNIT TABLET PO SCH ×2 (09:46→21:12)
[2016-09-08] MEDS: metFORMIN 500 MG TABLET PO SCH ×2 (09:46→17:07)
[2016-09-08] MEDS: BUDESONIDE/FORMOTEROL 160-4.5 INHALER 6 GM INH SCH ×2 (09:47→21:18)
[2016-09-08] MEDS: METOPROLOL TARTRATE 50 MG TABLET PO SCH ×2 (09:47→21:12)
--- NOTE | 2016-09-08 10:42 | Nephrology Progress Note ---
Nephrology - PN: Subj Interval history: Patient is feeling better today. He denies any dizziness. Review of systems GI he had some diarrhea with the Kayexalate Physical exam general patient's in no acute distress Assessment/plan 1. Hyperkalemia-this is improved with Kayexalate and IV fluids , I'm going to stop his Kayexalate at this point, we will recheck a BMP in the morning 2. Acute renal failure-patient's creatinine 0.9 mg/dL improved from 1.2 mg/dL yesterday 3. Pneumonia continue antibiotics Exam (PN)-Nephrology - Vital Signs Vital signs: Period Temp Pulse Resp BP Sys/Cedeño Pulse Ox Last 24 Hr 97.6 F-98.2 F 87-112 16-20 101-131/46-68 97-100 - Lab 09/04/16 06:22 09/08/16 06:05 Most recent lab results Calcium 7.7 MG/DL (8.5-10.1) L 09/08/16 06:05 Phosphorus 3.3 MG/DL (2.5-4.9) 09/02/16 05:46 Magnesium 1.5 MG/DL (1.8-2.4) L 09/08/16 06:05 Assessment and Plan (1) Hyperkalemia Status: Acute Assessment and plan: I think this may be related to some occult volume depletion and poor perfusion of his kidneys as well as his angiotensin receptor blockade. The patient's been ordered Kayexalate, I'm going to start some normal saline at 75 mL an hour and see if this helps him get rid of some of the potassium. I'll also ask dietary to see him in ensure that he's getting a low potassium diet through the cafeteria. Current Visit: Yes (2) Acute renal failure Status: Acute Assessment and plan: This patient's creatinines increased to 1.2 mg/dL on admission his creatinine was around 0.7 mg/dL see #1 above. Current Visit: Yes (3) Acute and chronic respiratory failure with hypoxia Status: Acute Current Visit: No (4) Acute exacerbation of chronic obstructive pulmonary disease (COPD) Status: Acute Current Visit: No (5) Anemia Status: Acute Current Visit: No (6) Community acquired pneumonia Status: Acute Current Visit: No Specialty Discharge - Follow Up or Referrals - Discharge Medications No Action Pantoprazole Tab [Protonix Tab] 40 mg PO DAILY Cholecalciferol (Vitamin D3) [Vitamin D3 Chew Tab] 400 unit PO BID Metoprolol Tartrate Tab [Lopressor Tab] 50 mg PO BID Multivitamin with Minerals [Multivitamins with Minerals] 1 each PO DAILY Benzonatate [Tessalon] 100 mg PO BEDTIME PRN PRN Reason: Cough Trazodone HCl 100 mg PO BEDTIME PRN PRN Reason: Sleep Aspirin EC Tab 81 mg PO DAILY Valsartan 1.5 tablet PO DAILY Roflumilast [Daliresp] 500 mcg PO DAILY Loratadine Tab [Claritin Tab] 10 mg PO DAILY Methocarbamol Tab [Robaxin Tab] 750 mg PO TID PRN PRN Reason: Pain metFORMIN [Glucophage] 500 mg PO BID Budesonide/Formoterol 160-4.5 [Symbicort 160-4.5] 2 puff INH BID inhaler Montelukast Tab [Singulair Tab] 10 mg PO DAILY #30 tablet acetaZOLAMIDE TAB [Diamox Tab] 250 mg PO TID #90 tablet Atorvastatin [Lipitor] 5 mg PO DAILY predniSONE TAB [PredniSONE] 20 mg PO DAILY Diltiazem HCl [Cartia XT] 120 mg PO DAILY Theophylline ER Cap (24 Hr) [Mich-24] 300 mg PO BID Albuterol/Ipratropium Neb [Duoneb] 3 ml RESP TX RT Q4H PRN #120 nebulization solution PRN Reason: Shortness Of Breath/Wheezing Sulfameth/Trimeth 800-160 Tab [Bactrim DS Tab] 1 tablet PO BID Albuterol/Ipratropium Neb [Duoneb] 3 ml RESP TX RT Q6H #120 nebulization solution Furosemide Tab [Lasix Tab] 20 mg PO BID DIURETIC Clopidogrel [Plavix] 75 mg PO DAILY
--- NOTE | 2016-09-08 12:22 | Pulmonology Progress Note ---
Pulmonary - PN: Subj Interval history: Jesu Boudreaux, ANP-BC, GNP-BC, acting as scribe for Dr. Chente Dunn Mr. Morin was seen today along with Crista Preciado RN. Mr. Morin is a 61 year old white male who was [place] 08[place]28[place]16 [place] [facility] acute exacerbation of COPD with bacterial infection. Previously he grew Pseudomonas and it was felt he was colonized. He had a prolonged hospitalization in July 2016 to eradicate this organism. Sputum gram stain this admission showed few gram positive cocci, few gram negative rods, and rare fungal elements. Sputum culture grew Enterobacter cloacae. He is being treated with Fortaz and Merrem. The patient continued to have difficulty mobilizing his secretions and on underwent FOB. This showed retained secreaitons, a partially ineffective cough, bibasal erosive friable bronchitis, and mildly to moderately collapsible large and small airways compatible with his known diagnosis of COPD. FOB washings have showed few gram positive cocci in pairs and few white blood cells. No AFB or fungus was seen on smears. Cultures are pending. He has been seen in nephrology consultation by Dr. Gibbs. The patient's Diovan has been discontinued. His potassium has fallen to 5.[address] Gibbs's assistance. This patient will need to stay off ARBs and LEIDA-I secondary to hyperkalemia. Medications have been reviewed. Labs have been reviewed. Glucoses are elevated secondary to the Solumedrol. He is being covered with sliding scale insulin. Note, he is on Solumedrom 20mg IV Q12H. Exam (Progress Note) - Constitutional Vitals: Period Temp Pulse Resp BP Sys/Cedeño Pulse Ox Last 24 Hr 97.6 F-98.2 F 87-112 16-20 101-131/46-68 97-100 Exam: Chest with mild LAW wheeze and associated congestion, but markedly improved Heart no gallop Abd is nontender and nondistended; BS positive x 4 Ext with nothing to suggest acute DVT Psych oriented x 3 Neuro long tract motor function is intact Plan: Continue present treatment. Hopefully he will be ready for discharge in the morning. Results - Labs CBC & BMP: 09/04/16 06:22 09/08/16 06:05 Specialty Discharge - Follow Up or Referrals - Discharge Medications No Action Pantoprazole Tab [Protonix Tab] 40 mg PO DAILY Cholecalciferol (Vitamin D3) [Vitamin D3 Chew Tab] 400 unit PO BID Metoprolol Tartrate Tab [Lopressor Tab] 50 mg PO BID Multivitamin with Minerals [Multivitamins with Minerals] 1 each PO DAILY Benzonatate [Tessalon] 100 mg PO BEDTIME PRN PRN Reason: Cough Trazodone HCl 100 mg PO BEDTIME PRN PRN Reason: Sleep Aspirin EC Tab 81 mg PO DAILY Valsartan 1.5 tablet PO DAILY Roflumilast [Daliresp] 500 mcg PO DAILY Loratadine Tab [Claritin Tab] 10 mg PO DAILY Methocarbamol Tab [Robaxin Tab] 750 mg PO TID PRN PRN Reason: Pain metFORMIN [Glucophage] 500 mg PO BID Budesonide/Formoterol 160-4.5 [Symbicort 160-4.5] 2 puff INH BID inhaler Montelukast Tab [Singulair Tab] 10 mg PO DAILY #30 tablet acetaZOLAMIDE TAB [Diamox Tab] 250 mg PO TID #90 tablet Atorvastatin [Lipitor] 5 mg PO DAILY predniSONE TAB [PredniSONE] 20 mg PO DAILY Diltiazem HCl [Cartia XT] 120 mg PO DAILY Theophylline ER Cap (24 Hr) [Mich-24] 300 mg PO BID Albuterol/Ipratropium Neb [Duoneb] 3 ml RESP TX RT Q4H PRN #120 nebulization solution PRN Reason: Shortness Of Breath/Wheezing Sulfameth/Trimeth 800-160 Tab [Bactrim DS Tab] 1 tablet PO BID Albuterol/Ipratropium Neb [Duoneb] 3 ml RESP TX RT Q6H #120 nebulization solution Furosemide Tab [Lasix Tab] 20 mg PO BID DIURETIC Clopidogrel [Plavix] 75 mg PO DAILY
[2016-09-08] MEDS: guaiFENesin/CODEINE 5 ML LIQUID PO PRN (21:12)
[2016-09-08] MEDS: traZODone 50 MG TABLET PO PRN (21:23)
[2016-09-09] MEDS: methylPREDNISolone SOD SUC 40 MG/1 ML VIAL IV SCH ×2 (00:11→12:51)
[2016-09-09] MEDS: ALBUTEROL/IPRATROPIUM 3 ML NEB RESP TX SCH ×2 (00:57→07:17)
[2016-09-09] MEDS: MEROPENEM 500 MG in SODIUM CHLORIDE 0.9% 100 ML IV SCH ×2 (01:31→09:24)
[2016-09-09] MEDS: SODIUM CHLORIDE 0.9% 1,000 ML IV SCH (04:48)
[2016-09-09 06:57] LABS: Calcium 8.4 MG/DL (8.5-10.1); Magnesium 1.6 MG/DL (1.8-2.4); Osmolality,Calculated 291.3 MOS/KG (273-304); Potassium 5.4 MMOL/L (3.5-5.1)
[2016-09-09] MEDS: DORNASE ALFA 2.5 MG/2.5 ML VIAL RESP TX SCH (07:17)
--- NOTE | 2016-09-09 08:40 | Nephrology Progress Note ---
Nephrology - PN: Subj Interval history: Patient feels better today. He denies dizziness. Review of systems pulmonary denies shortness of breath Physical exam: Patient's in no acute distress Assessment/plan 1. Hyperkalemia-patient's potassium is around 5.4 he was initially hypokalemic when he presented, perhaps this is some residual increased level from replacement earlier in his hospitalization and possibly a contribution from some acute renal failure. I do not feel any further investigation is indicated at this time. 2. Pneumonia continue antibiotics 3. Acute renal failure-this seems to be improving with his creatinine and 0.9 mg/dL. 4. Hypertension-this patient's blood pressure remains on the low normal side, I would either stop his diltiazem or stop his carbonic anhydrase inhibitor. 5. Anemia-hematocrit 31% a few days ago. Exam (PN)-Nephrology - Vital Signs Vital signs: Period Temp Pulse Resp BP Sys/Cdeeño Pulse Ox Last 24 Hr 97.5 F-98.3 F 69-93 16-69 97-129/54-67 96-100 - Lab 09/04/16 06:22 09/09/16 05:54 Most recent lab results Calcium 8.4 MG/DL (8.5-10.1) L 09/09/16 05:54 Phosphorus 3.3 MG/DL (2.5-4.9) 09/02/16 05:46 Magnesium 1.6 MG/DL (1.8-2.4) L 09/09/16 05:54 Assessment and Plan (1) Hyperkalemia Status: Acute Assessment and plan: I think this may be related to some occult volume depletion and poor perfusion of his kidneys as well as his angiotensin receptor blockade. The patient's been ordered Kayexalate, I'm going to start some normal saline at 75 mL an hour and see if this helps him get rid of some of the potassium. I'll also ask dietary to see him in ensure that he's getting a low potassium diet through the cafeteria. Current Visit: Yes (2) Acute renal failure Status: Acute Assessment and plan: This patient's creatinines increased to 1.2 mg/dL on admission his creatinine was around 0.7 mg/dL see #1 above. Current Visit: Yes (3) Acute and chronic respiratory failure with hypoxia Status: Acute Current Visit: No (4) Acute exacerbation of chronic obstructive pulmonary disease (COPD) Status: Acute Current Visit: No (5) Anemia Status: Acute Current Visit: No (6) Community acquired pneumonia Status: Acute Current Visit: No Specialty Discharge - Follow Up or Referrals - Discharge Medications No Action Pantoprazole Tab [Protonix Tab] 40 mg PO DAILY Cholecalciferol (Vitamin D3) [Vitamin D3 Chew Tab] 400 unit PO BID Metoprolol Tartrate Tab [Lopressor Tab] 50 mg PO BID Multivitamin with Minerals [Multivitamins with Minerals] 1 each PO DAILY Benzonatate [Tessalon] 100 mg PO BEDTIME PRN PRN Reason: Cough Trazodone HCl 100 mg PO BEDTIME PRN PRN Reason: Sleep Aspirin EC Tab 81 mg PO DAILY Valsartan 1.5 tablet PO DAILY Roflumilast [Daliresp] 500 mcg PO DAILY Loratadine Tab [Claritin Tab] 10 mg PO DAILY Methocarbamol Tab [Robaxin Tab] 750 mg PO TID PRN PRN Reason: Pain metFORMIN [Glucophage] 500 mg PO BID Budesonide/Formoterol 160-4.5 [Symbicort 160-4.5] 2 puff INH BID inhaler Montelukast Tab [Singulair Tab] 10 mg PO DAILY #30 tablet acetaZOLAMIDE TAB [Diamox Tab] 250 mg PO TID #90 tablet Atorvastatin [Lipitor] 5 mg PO DAILY predniSONE TAB [PredniSONE] 20 mg PO DAILY Diltiazem HCl [Cartia XT] 120 mg PO DAILY Theophylline ER Cap (24 Hr) [Mich-24] 300 mg PO BID Albuterol/Ipratropium Neb [Duoneb] 3 ml RESP TX RT Q4H PRN #120 nebulization solution PRN Reason: Shortness Of Breath/Wheezing Sulfameth/Trimeth 800-160 Tab [Bactrim DS Tab] 1 tablet PO BID Albuterol/Ipratropium Neb [Duoneb] 3 ml RESP TX RT Q6H #120 nebulization solution Furosemide Tab [Lasix Tab] 20 mg PO BID DIURETIC Clopidogrel [Plavix] 75 mg PO DAILY
[2016-09-09] MEDS: INSULIN REGULAR 100 UNIT/ML SUBCUT SCH ×2 (09:18→12:50)
[2016-09-09] MEDS: FUROSEMIDE 20 MG TABLET PO SCH (09:21)
[2016-09-09] MEDS: ROFLUMILAST 500 MCG TABLET PO SCH (09:21)
[2016-09-09] MEDS: CLOPIDOGREL 75 MG TABLET PO SCH (09:21)
[2016-09-09] MEDS: BENZONATATE 100 MG CAPSULE PO SCH (09:21)
[2016-09-09] MEDS: PANTOPRAZOLE 40 MG TABLET PO SCH (09:21)
[2016-09-09] MEDS: ATORVASTATIN 10 MG TABLET PO SCH (09:21)
[2016-09-09] MEDS: CHOLECALCIFEROL 400 UNIT TABLET PO SCH (09:22)
[2016-09-09] MEDS: ASPIRIN EC 81 MG TABLET PO SCH (09:22)
[2016-09-09] MEDS: MONTELUKAST 10 MG TABLET PO SCH (09:22)
[2016-09-09] MEDS: metFORMIN 500 MG TABLET PO SCH (09:22)
[2016-09-09] MEDS: METOPROLOL TARTRATE 50 MG TABLET PO SCH (09:22)
[2016-09-09] MEDS: THEOPHYLLINE ER (24 HR) 300 MG CAPSULE PO SCH (09:22)
[2016-09-09] MEDS: FLUCONAZOLE 200 MG TABLET PO SCH (09:22)
[2016-09-09] MEDS: MULTIVITAMIN (CENTRUM) TABLET PO SCH (09:22)
[2016-09-09] MEDS: LORATADINE 10 MG TABLET PO SCH (09:22)
[2016-09-09] MEDS: DILTIAZEM CD 120 MG CAPSULE PO SCH (09:23)
[2016-09-09] MEDS: BUDESONIDE/FORMOTEROL 160-4.5 INHALER 6 GM INH SCH (09:24)
[2016-09-09] MEDS: acetaZOLAMIDE 250 MG TABLET PO SCH (09:32)
[2016-09-09 12:11] VITALS: BP 116/64
--- NOTE | 2016-09-09 12:49 | Pulmonology Progress Note ---
Pulmonary - PN: Subj Interval history: Jesu Boudreaux, ANP-BC, GNP-BC, acting as scribe for Dr. Chente Dunn Mr. Morin was seen today along with his sister and Crista Preciado RN. He states that he is breathing very well. He has ambulated quite a bit and states that his improved breathing has "held steady". The patient's blood pressure continues to run on the low side. Because of his improved respiratory status, we will stop the Diamox and see how he responds. We appreciate Dr. Gibbs's help. The patient's potassium today is stable at 5.4. Medications have been reviewed. Labs have been reviewed. Creatinine 0.90, BUN 22, NA+ 141, K+ 5.4, Mg+ 1.6. Exam (Progress Note) - Constitutional Vitals: Period Temp Pulse Resp BP Sys/Cedeño Pulse Ox Last 24 Hr 97.5 F-98.4 F 69-87 16-69 97-140/54-69 95-100 Exam: Chest is wheeze free Heart no gallop Abd is nontender and nondistended; BS positive x 4 Ext with nothing to suggest acute DVT Psych oriented x 3 Neuro long tract motor function is intact Plan: The patient can now be safely managed at home. Please see my discharge note for more information. Results - Labs CBC & BMP: 09/04/16 06:22 09/09/16 05:54 Specialty Discharge - Follow Up or Referrals - Discharge Medications No Action Pantoprazole Tab [Protonix Tab] 40 mg PO DAILY Cholecalciferol (Vitamin D3) [Vitamin D3 Chew Tab] 400 unit PO BID Metoprolol Tartrate Tab [Lopressor Tab] 50 mg PO BID Multivitamin with Minerals [Multivitamins with Minerals] 1 each PO DAILY Benzonatate [Tessalon] 100 mg PO BEDTIME PRN PRN Reason: Cough Trazodone HCl 100 mg PO BEDTIME PRN PRN Reason: Sleep Aspirin EC Tab 81 mg PO DAILY Valsartan 1.5 tablet PO DAILY Roflumilast [Daliresp] 500 mcg PO DAILY Loratadine Tab [Claritin Tab] 10 mg PO DAILY Methocarbamol Tab [Robaxin Tab] 750 mg PO TID PRN PRN Reason: Pain metFORMIN [Glucophage] 500 mg PO BID Budesonide/Formoterol 160-4.5 [Symbicort 160-4.5] 2 puff INH BID inhaler Montelukast Tab [Singulair Tab] 10 mg PO DAILY #30 tablet acetaZOLAMIDE TAB [Diamox Tab] 250 mg PO TID #90 tablet Atorvastatin [Lipitor] 5 mg PO DAILY predniSONE TAB [PredniSONE] 20 mg PO DAILY Diltiazem HCl [Cartia XT] 120 mg PO DAILY Theophylline ER Cap (24 Hr) [Mich-24] 300 mg PO BID Albuterol/Ipratropium Neb [Duoneb] 3 ml RESP TX RT Q4H PRN #120 nebulization solution PRN Reason: Shortness Of Breath/Wheezing Sulfameth/Trimeth 800-160 Tab [Bactrim DS Tab] 1 tablet PO BID Albuterol/Ipratropium Neb [Duoneb] 3 ml RESP TX RT Q6H #120 nebulization solution Furosemide Tab [Lasix Tab] 20 mg PO BID DIURETIC Clopidogrel [Plavix] 75 mg PO DAILY
--- NOTE | 2016-09-09 13:04 | Discharge Summary ---
Hospital Course - Hospital Course Hospital Course: Jesu Boudreaux, ANP-BC, GNP-BC, acting as scribe for Dr. Chente Dunn Mr. Morin is a 61 year old white male who was [place] 08[place]28[place]16 [place] [facility] [place] acute exacerbation of COPD with bacterial infection. During a previous hospitalization he grew Pseudomonas and it was felt he was colonized. He had a prolonged hospitalization in July 2016 to eradicate this organism. Sputum gram stain this admission showed few gram positive cocci, few gram negative rods , and rare fungal elements. Sputum culture grew Enterobacter cloacae. He is being treated with Fortaz and Merrem. Other possible antibiotic choices are Cipro and Levaquin with MICs of <2; Tobramycin, Tetracycline and Gentamicin with MICs of <4; and Rocephin, Cefepime, and Azactam with MICs of <8. The patient continued to have difficulty mobilizing his secretions and on underwent FOB. This showed retained secreaitons, a partially ineffective cough, bibasal erosive friable bronchitis, and mildly to moderately collapsible large and small airways compatible with his known diagnosis of COPD. FOB washings have showed few gram positive cocci in pairs and few white blood cells on gram stain, but cultures grew no organisms. No AFB or fungus was seen on smears. Cytology was reported as class I and class II. He has been seen in nephrology consultation by Dr. Gibbs secondary to hyperkalemia. His potassium florina to a high of 7.3. The patient's Diovan and SSKI have been discontinued. His potassium has fallen to 5.4 at the time of discharge. This patient will need to stay off ARBs and LEIDA-I secondary to hyperkalemia. He has had some continued hypotension. Because of his improved respiratory status, we will discontinue the previously prescribed Diamox. He understands that he needs to change positions slowly and carefully. Cold agglutinins were negative. Legionella was negative. At the time of discharge, white count is 12,000 (on 09/04/16) with 58.9% segs, 21.9% lymphs, and 6.7% monos; H&H 10.5/31.4 with normal indices and top normal RDW; PLT count 319,000; creatinine 0.90, BUN 22, NA+ 141, K+ 5.4, Mg+ 1.6; LFTs WNL with the exception of a minimally elevated Alk Phos of 138; Ca+ low at 7.6 reflected in a low albumin of 2.7, total protein 6.1; TSH was normal at 0.765 and Free T4 were minimally elevated at 1.49 (normal 0.76-1.46); BNP 36; urinalysis showed no evidence of infection. For more information regarding Mr. Morin's past medical history, social history, family history, admit labs, admit xray and admit exam, please see the admission note dated 08/28/16. Impression: 1. Acute exacerbation of chronic COPD with infection and wheezing which was secondary to Enterobacter cloacae 2. COPD 3. Probable bronchiectasis 4. Heart disease with 2 stents in the past; history of KS and congestive heart failure followed by Dr. Loyd Hunt 5. Diabetes mellitus 6. High blood pressure 7. Aortic insufficiency 8. Hyperkalemia 9. Hypomagnesemia 10. Adverse reaction to LEIDA-I and ARBS 11. See past history Plan: Prednisone 10mg PO daily until follow-up appointment, Duoneb QID and PRN, Lipitor 5mg PO daily, Cardizem CD 120mg PO daily, Glucophage 500mg PO BID, Robaxin 750mg PO TID PRN, Lopressor 50mg PO BID, Singulair 10mg PO BID, Protonix 40mg PO daily, Daliresp 500mcg PO daily, Theophylline ER 300mg PO daily , Trazodone 100mg PO HS PRN, MVI daily, Loratidine 10mg PO daily, Feosol 325mg PO TID, Symbicort 160/4.5 two puffs inhaled daily, EC ASA 81mg PO daily, Vitamin D3 400 units PO BID, Plavix 75mg PO daily, Lasix 20mg PO BID, Mucinex 600mg PO BID, MVI daily, and Tesselon 200mg PO TID PRN cough. He can keep his scheduled appointment in October [address] Dunn. He could be seen sooner if needed. Specialty Discharge - Follow Up or Referrals Follow up with: Chente Dunn MD [Physician] - (Keep scheduled October 2016 appointment) - Discharge Medications No Action Pantoprazole Tab [Protonix Tab] 40 mg PO DAILY Cholecalciferol (Vitamin D3) [Vitamin D3 Chew Tab] 400 unit PO BID Metoprolol Tartrate Tab [Lopressor Tab] 50 mg PO BID Multivitamin with Minerals [Multivitamins with Minerals] 1 each PO DAILY Benzonatate [Tessalon] 100 mg PO BEDTIME PRN PRN Reason: Cough Trazodone HCl 100 mg PO BEDTIME PRN PRN Reason: Sleep Aspirin EC Tab 81 mg PO DAILY Valsartan 1.5 tablet PO DAILY Roflumilast [Daliresp] 500 mcg PO DAILY Loratadine Tab [Claritin Tab] 10 mg PO DAILY Methocarbamol Tab [Robaxin Tab] 750 mg PO TID PRN PRN Reason: Pain metFORMIN [Glucophage] 500 mg PO BID Budesonide/Formoterol 160-4.5 [Symbicort 160-4.5] 2 puff INH BID inhaler Montelukast Tab [Singulair Tab] 10 mg PO DAILY #30 tablet acetaZOLAMIDE TAB [Diamox Tab] 250 mg PO TID #90 tablet Atorvastatin [Lipitor] 5 mg PO DAILY predniSONE TAB [PredniSONE] 20 mg PO DAILY Diltiazem HCl [Cartia XT] 120 mg PO DAILY Theophylline ER Cap (24 Hr) [Mich-24] 300 mg PO BID Albuterol/Ipratropium Neb [Duoneb] 3 ml RESP TX RT Q4H PRN #120 nebulization solution PRN Reason: Shortness Of Breath/Wheezing Sulfameth/Trimeth 800-160 Tab [Bactrim DS Tab] 1 tablet PO BID Albuterol/Ipratropium Neb [Duoneb] 3 ml RESP TX RT Q6H #120 nebulization solution Furosemide Tab [Lasix Tab] 20 mg PO BID DIURETIC Clopidogrel [Plavix] 75 mg PO DAILY Discharge Plan - Discharge Data Disposition: Disch To Home/Self Care Condition at Discharge: Stable - Discharge Medications New Levofloxacin Tab [Levaquin Tab] 500 mg PO DAILY #10 tablet Montelukast Tab [Singulair Tab] 10 mg PO BID #60 tablet Theophylline ER Cap (24 Hr) [Mich-24] 300 mg PO DAILY #30 capsule predniSONE TAB [PredniSONE] 10 mg PO DAILY #30 tablet Continue Pantoprazole Tab [Protonix Tab] 40 mg PO DAILY Cholecalciferol (Vitamin D3) [Vitamin D3 Chew Tab] 400 unit PO BID Metoprolol Tartrate Tab [Lopressor Tab] 50 mg PO BID Multivitamin with Minerals [Multivitamins with Minerals] 1 each PO DAILY Benzonatate [Tessalon] 100 mg PO BEDTIME PRN PRN Reason: Cough Trazodone HCl 100 mg PO BEDTIME PRN PRN Reason: Sleep Aspirin EC Tab 81 mg PO DAILY Roflumilast [Daliresp] 500 mcg PO DAILY Loratadine Tab [Claritin Tab] 10 mg PO DAILY Methocarbamol Tab [Robaxin Tab] 750 mg PO TID PRN PRN Reason: Pain metFORMIN [Glucophage] 500 mg PO BID Budesonide/Formoterol 160-4.5 [Symbicort 160-4.5] 2 puff INH BID inhaler Atorvastatin [Lipitor] 5 mg PO DAILY Diltiazem HCl [Cartia XT] 120 mg PO DAILY Albuterol/Ipratropium Neb [Duoneb] 3 ml RESP TX RT Q4H PRN #120 nebulization solution PRN Reason: Shortness Of Breath/Wheezing Albuterol/Ipratropium Neb [Duoneb] 3 ml RESP TX RT Q6H #120 nebulization solution Furosemide Tab [Lasix Tab] 20 mg PO BID DIURETIC Clopidogrel [Plavix] 75 mg PO DAILY Discontinued Valsartan 1.5 tablet PO DAILY Montelukast Tab [Singulair Tab] 10 mg PO DAILY #30 tablet acetaZOLAMIDE TAB [Diamox Tab] 250 mg PO TID #90 tablet predniSONE TAB [PredniSONE] 20 mg PO DAILY Theophylline ER Cap (24 Hr) [Mich-24] 300 mg PO BID Sulfameth/Trimeth 800-160 Tab [Bactrim DS Tab] 1 tablet PO BID - Follow Up or Referral - Forms/Instructions Exam - Constitutional Vitals: Period Temp Pulse Resp BP Sys/Cedeño Pulse Ox Last 24 Hr 97.5 F-98.4 F 69-87 16-69 97-140/54-69 95-100 Discharge Results Procedures and tests throughout hospitalization: Pending Orders 09/02/16 11:23 Urinalysis Routine 09/04/16 AFB Culture/Smears Routine AFB Culture/Smears Stat Fungal Culture w/ Prep Routine Fungal Culture w/ Prep Stat Labs on day of discharge: Labs from last 24 hours 09/09/16 09/09/16 09/09/16 11:59 07:21 05:54 Sodium 141 Potassium 5.4 H Chloride 103 Carbon Dioxide 28 Anion Gap 15.4 H BUN 22 H Creatinine 0.90 GFR Calculation 93 BUN/Creatinine Ratio 24.00 H Glucose 248 H POC Glucose 155 H 235 H Calculated Osmolality 291.3 Calcium 8.4 L Magnesium 1.6 L 09/08/16 09/08/16 18:56 15:46 Sodium Potassium Chloride Carbon Dioxide Anion Gap BUN Creatinine GFR Calculation BUN/Creatinine Ratio Glucose POC Glucose 234 H 177 H Calculated Osmolality Calcium Magnesium DS: Provider Date of admission: 08/28/16 11:15 Primary care physician: . No PCP Attending physician on admission: Chente Dunn MD Consults: 09/04/16 15:05 Consult to Physical Therapy [CONS] Routine Reason for Physical Therapy: Evaluate and Treat Start Therapy: Today 09/07/16 09:19 Consult to Physician [CONS] Routine Comment: INCREASED POTASSIUM Consulting Provider: Blanco Gibbs Consult Notification Comment: AWARE 09/07/16 10:27 Consult to Dietitian [CONS] Routine Reason for Dietitian: Diet Recommendations Consult Comment: low potassium diet Discharging clinician: CLARA Jacobsen
== END 2016-09-09 14:31 | disposition home or self-care (01) | DRG 140 ==
LOC: N.5E 11:15
PROVIDERS: ADMIT Internal Medicine Pulmonary Disease; ATTEND Internal Medicine Pulmonary Disease

== ENCOUNTER 2016-11-19 08:21 | Inpatient (IN) ==
[2016-11-19] MEDS ORDERED: MORPHINE 2 MG/1 ML SYRINGE IV PRN (08:24)
[2016-11-19] MEDS ORDERED: ACETAMINOPHEN 325 MG TABLET PO PRN (08:24)
[2016-11-19] MEDS ORDERED: ONDANSETRON 4 MG/2 ML VIAL IV PRN (08:24)
[2016-11-19] MEDS ORDERED: DOCUSATE SODIUM 100 MG CAPSULE PO PRN (08:24)
[2016-11-19] MEDS ORDERED: SODIUM CHLORIDE 0.9% 1,000 ML IV SCH (08:30)
[2016-11-19] MEDS ORDERED: PANTOPRAZOLE 40 MG TABLET PO SCH (09:00)
[2016-11-19 11:18] LABS: Apearance,Urine CLEAR (Clear); Bilirubin,Urine Negative (Negative); Blood, Urine Negative (Negative); Glucose,Urine (UA) Negative (Negative); Ketones,Urine Negative (Negative); Mucus,Urine Occasional /LPF (Occasional); Nitrite,Urine Negative (Negative); Protein,Urine Negative; RBC,Urine <1 /HPF (0-4); Urine Color Straw (Yellow); Urine Specific Gravity 1.006 (1.001-1.035); Urine Urobilinogen < 2.0 EU/DL (0.2-1.0); WBC,Urine 1 /HPF (0-6)
[2016-11-19] MEDS ORDERED: DOPamine 800 MG/250 ML PREMIX IV SCH (11:30)
--- NOTE | 2016-11-19 11:35 | Hospitalist History & Physical ---
Assessment and Plan - Time spent with patient Time spent with patient: Less than 30 minutes (1) Septic shock Status: Acute Assessment and plan: 61-year-old white male transferred from [facility] with septic shock. His blood pressure is stable on dopamine drip at this time. He is receiving fluids and pressors per sepsis order set. His workup is still pending but most likely this seems to be a pulmonary source. Dr. Dunn has already been consulted and will manage his antibiotics. Current Visit: Yes (2) COPD (chronic obstructive pulmonary disease) Status: Chronic Assessment and plan: Patient has a history of COPD exacerbations with last one being hospitalized in August. Dr. Dunn is his synthetic filament spinner so will consult Dr. Dunn. Go ahead and start breathing treatments and Dr. Dunn has requested to put in for antibiotics etc. Current Visit: No Qualifiers: COPD type: COPD with acute lower respiratory infection Qualified Code(s): J44.0 - Chronic obstructive pulmonary disease with acute lower respiratory infection (3) CAD (coronary artery disease) Status: Chronic Assessment and plan: Patient is hypotensive requiring pressors at this time. He has no complaints of chest pain. Dr. Hunt is his screen printing stencil preparer if and when he is needed. We will hold all of his hypertensive medications at this time. Current Visit: No Qualifiers: Coronary Disease-Associated Artery/Lesion type: duckwater artery Ruby vs. transplanted heart: duckwater heart Associated angina: angina presence unspecified Qualified Code(s): I25.10 - Atherosclerotic heart disease of duckwater coronary artery without angina pectoris (4) Diabetes Status: Chronic Assessment and plan: Requesting a medicine list from Dr. Dunn's office. Initial list and packet sent from [facility] shows no medicines for diabetes listed. Will put him on sliding scale and monitor. Current Visit: No (5) Congestive heart failure Status: Acute Current Visit: No History of Present Illness Chief complaint: Shortness of breath History of present illness: Mr. Morin is a 61-year-old white male with history of COPD, diabetes, hypertension , transferred from [facility] with septic shock. Patient states yesterday morning he was called in a new diabetic medication by Dr. Dunn's office which he cannot name and 30 minutes later he started to feel funny where he could not talk and could not walk. His sister took him to the ED and he was admitted with COPD exacerbation and slurred speech. Through his hospital stay yesterday and last night patient became hypotensive requiring dopamine and became febrile. He was transferred here for further care. Patient was hospitalized here by Dr. Dunn in July and again in August with acute exacerbation of COPD with bacterial infection that grew Pseudomonas at that time. His labs upon admission was 17 but are down to 12 this morning. Blood sugars are controlled. H&H is 8.7 and 27.7. His electrolytes are normal, normal lactic acid upon admission yesterday, his UA has trace bacteria and negative nitrites, chest x-ray reports sent with patient is indeterminate. Upon exam patient is awake and alert on nasal cannula oxygen. His only complaint is of shortness of breath at this time. He denies headache, dizziness , chest pain, abdominal pain, problems with urination, diarrhea or constipation , or leg swelling. His temp is 100.4, heart rate 107, respirations 18, blood pressure is 110 systolic on dopamine drip. He is satting at 96% on 2 L of O2. Hospitalist has accepted patient in transfer Home Medications Medication Instructions Recorded Confirmed Type Aspirin EC Tab 81 mg PO DAILY 12/30/15 08/28/16 History Benzonatate [Tessalon] 100 mg PO BEDTIME PRN 12/30/15 08/28/16 History Cholecalciferol (Vitamin D3) 400 unit PO BID 12/30/15 08/28/16 History [Vitamin D3 Chew Tab] Loratadine Tab [Claritin Tab] 10 mg PO DAILY 12/30/15 08/28/16 History Metoprolol Tartrate Tab [Lopressor 50 mg PO BID 12/30/15 08/28/16 History Tab] Multivitamin with Minerals 1 each PO DAILY 12/30/15 08/28/16 History [Multivitamins with Minerals] Pantoprazole Tab [Protonix Tab] 40 mg PO DAILY 12/30/15 08/28/16 History Roflumilast [Daliresp] 500 mcg PO DAILY 12/30/15 08/28/16 History Trazodone HCl 100 mg PO BEDTIME PRN 12/30/15 08/28/16 History Methocarbamol Tab [Robaxin Tab] 750 mg PO TID PRN 04/03/16 08/28/16 History metFORMIN [Glucophage] 500 mg PO BID 04/03/16 08/28/16 History Budesonide/Formoterol 160-4.5 2 puff INH BID inhaler 07/26/16 08/28/16 Rx [Symbicort 160-4.5] Atorvastatin [Lipitor] 5 mg PO DAILY 08/05/16 08/28/16 History Diltiazem HCl [Cartia XT] 120 mg PO DAILY 08/05/16 08/28/16 History Albuterol/Ipratropium Neb [Duoneb] 3 ml RESP TX RT Q4H PRN #120 08/18/16 Rx nebulization solution Albuterol/Ipratropium Neb [Duoneb] 3 ml RESP TX RT Q6H #120 08/18/16 08/28/16 Rx nebulization solution Clopidogrel [Plavix] 75 mg PO DAILY 08/28/16 08/28/16 History Furosemide Tab [Lasix Tab] 20 mg PO BID DIURETIC 08/28/16 08/28/16 History Levofloxacin Tab [Levaquin Tab] 500 mg PO DAILY #10 tablet 09/09/16 Rx Montelukast Tab [Singulair Tab] 10 mg PO BID #60 tablet 09/09/16 Rx Theophylline ER Cap (24 Hr) 300 mg PO DAILY #30 capsule 09/09/16 Rx [Mich-24] predniSONE TAB [PredniSONE] 10 mg PO DAILY #30 tablet 09/09/16 Rx Allergies Allergy/AdvReac Type Severity Reaction Status Date / Time valsartan [From [facility]] Allergy Unknown Verified 09/09/16 13:29 LEIDA Inhibitors Allergy Verified 09/09/16 13:29 ARB-Angiotensin Receptor Allergy Verified 09/09/16 13:29 Antagonist Penicillins Allergy Unknown/Unable Verified 01/03/16 13:19 to obtain Medical,Surgical,& Family Hx - Medical History Cardio: History of: CHF (EF 45-50%), Hypertension, [place] (PCI of LAD and RCA 06/12) , Cardiovascular Problems (CARDIOMYOPATHY) Neurology: History of: Migraine No history of: Seizures HEENT: History of: Eye Problem (glasses), HEENT Problems (sinus surgery) Endocrine: History of: Diabetes Mellitus (NIDDM), Dyslipidemia Respiratory: History of: Bronchitis, COPD, Intubation, Pneumonia, Respiratory Problems (LUNG BX, SINUS SURGERY) Genitourinary: No history of: Bladder Problem, Kidney Stones Gastrointestinal: History of: Gastrointestinal Bleed Musculoskeletal: History of: Back/Neck Problems Hematology: History of: Anemia No history of: Blood Transfusion Reaction Other: No history of: Anesthesia Reactions, Cancer - Surgical History Cardiac Surgeries: Sugical HX of: Cardiac Catheterization (stents x 2 (06/12 mLAD and mRCA)) Patient Denies: Cardiac Surgery Thoracic Surgeries: Patient denies;: Organ Transplant, Lobectomy HEENT Surgeries: Patient denies: Eye Surgery, Tonsilectomy & Adenoidectomy Abdominal Surgeries: Surgical HX of: Colonoscopy Patient denies: Appendectomy, Cholecystectomy, EGD Orthopedic Surgeries: Patient denies;: Orthopedic Surgery - Family History Family History: Reports;: Family Hypertension - Social History Smoking Status: Former smoker Review of systems: Complete 10 system review of systems was obtained and pertinent negatives and positives are in HPI Exam - Constitutional Exam: Constitutional System: No distress. No tremulousness. Head: Normocephalic, atraumatic. Ears, Nose and Throat System: No evidence of Otitis or Mastoiditis. No epistaxis or discharge Eyes System: Pupils equal, round, and reactive. Extraocular muscles intact. Neck: Supple, without adenopathy, No jugular venous distention. No thyromegaly, neck mass, or prior surgery apparent. Respiratory System: Chest coarse bilaterally to auscultation. Cardiovascular System: Heart with tachycardia rate and rhythm. 1-2 out of 6 murmur. GI System: Abdomen soft, nontender. Normo active bowel sounds present. Musculoskeletal System: limbs with no pedal edema. Full distal pulses. Neurological System: No discernable sensory deficit. No aphasia Psychiatric System: Conversation is rational Results - Labs Lab Results: I have reviewed the past 24 hour labs Labs: Labs at [facility] are pending Sepsis - Sepsis Classification of Sepsis: Sepsis Possible / Suspected infection from: Pulmonary - Physical Exam Respiratory exam: rhonchi Capillary Refill: Less Than 3 Seconds Cardiovascular exam: tachycardia Skin exam: normal color
--- NOTE | 2016-11-19 11:54 | XRay Report ---
Portable chest Date: 11/19/2016 Clinical history: Shortness of breath Comparison: 09/08/2016 Technique: Portable AP sitting chest Findings: The heart is normal in size with uncoiling of the aorta. Progressive parenchymal findings in the right upper lobe and in the lower lung zones. The mediastinum appears slightly more widened with degenerative changes. Old healed rib fractures. Impression: Bullous emphysema with chronic scarring. Progressive infiltration/edema in the lower lung zones and in the right upper lobe. Active granulomatous disease cannot be excluded. Follow-up chest x-ray is recommended since it is difficult to exclude additional underlying pathology. PROCEDURE INTERPRETED AT [facility] DEPARTMENT OF RADIOLOGY Final Report Signed by: Dr. Debbie Ramirez
[2016-11-19] MEDS: MEROPENEM 1,000 MG in SODIUM CHLORIDE 0.9% 100 ML IV SCH ×2 (13:26→18:30)
--- NOTE | 2016-11-19 16:46 | CT Report ---
CT head/brain wo con Indication: Slurred speech. Comparison: None. Technique: CT of the brain was performed without administration of intravenous contrast. The CT examination was performed using one or more of the following dose reduction techniques: Automatic exposure control, adjustment of the mA and kV according to patient size, use of acute or iterative reconstruction techniques. Findings: There is no evidence of acute intracranial hemorrhage, mass, or infarction. Ventricles appear within normal limits. The basal cisterns are patent. No significant abnormality is demonstrated to involve the posterior fossa or cerebellum. Orbits and globes demonstrate no evidence of significant pathology. Mucoperiosteal thickening involving the bilateral ethmoid air cells and sphenoid sinuses demonstrated with air-fluid level noted within the left sphenoid sinus. Right maxillary sinus is nearly totally opacified with fluid. An air-fluid level is noted within the left maxillary sinus and circumferential mucoperiosteal thickening is demonstrated. No significant abnormality is demonstrated to involve the mastoid air cells. The calvarium and overlying soft tissues demonstrate no evidence of acute pathology. Impression: 1. No CT evidence of acute intracranial pathology. 2. Findings compatible with pansinusitis. 11/19/2016 4:42 PM PROCEDURE INTERPRETED AT [facility] DEPARTMENT OF RADIOLOGY Final Report Signed by: Dr. Juanito Turner
[2016-11-19] MEDS ORDERED: NOREPINEPHRINE 4 MG/4 ML VIAL IV ONE (17:16)
[2016-11-19] MEDS: NOREPINEPHRINE 16 MG in SODIUM CHLORIDE 0.9% 234 ML IV SCH (17:24)
--- NOTE | 2016-11-19 18:16 | Pulmonology Consult Note ---
History of Present Illness Chief complaint: Septic shock. Probable pneumonia. Acute exacerbation of COPD History of present illness: Mr. Morin is a 61 year old white male whom I been asked see in pulmonary consultation for evaluation and treatment.. This is a patient well-known to me and I have had him in the hospital several times in the past. He was transferred here from an outside hospital with pneumonia and was thought to be septic shock. He was on dopamine which caused him to have tach tachycardia and he since been switched to liver failure which is worked better. Patient had been recently seen in my office from a pulmonary problems but not nearly as severe as disease that required admission. Allergies. Penicillin Home medicines. See below. Past history. Patient was hospitalized in [facility] in November 2015. He had respiratory failure for oxygen. Dr. Peter Gu saw him and noted that he had a forced expiratory volume in 1 second of 0.95 L. There is a history of heart disease which is followed by Dr. Galindo Hunt. The patient has 2 cardiac stents. Stents were placed in May 2013. One stent is in the mid LAD and the other is in the mid right coronary artery. Patient is also been told that he had aortic valve insufficiency. There is a past history of heart failure, high blood pressure, myocardial infarction. The patient has non-insulin- dependent diabetes mellitus. He has a long history of COPD. He has been found to have iron deficiency anemia. Echocardiogram done in November 2015 showed ejection fraction 50%. There was mild aortic valve regurgitation. During the July 2016 hospitalization the patient cold agglutinin levels were initially 132 ventilator 1-64. Patient's had 2 hospitalizations in the last half of this year during which his sputum grew Pseudomonas . During a July 2016 hospitalization the patient's sputum grew Pseudomonas . Hospitalization in July 2016 and August 2016 his sputum grew Enterobacter cloaca. Previously he was thought to be colonized with Pseudomonas and was thought that he would require long-term medicines. I accepted his case from Dr. Babcock on 08/08/2016. He was treated with Fortaz and gentamicin. On 2015 he had a fiberoptic bronchoscopy. This showed COPD with some collapsibility of the trachea, large and small airways. He had retained secretions with atelectasis in the right lower lung. This cytologies were class I. He had a drop in his H&H from 10.8/33.8-8.3/26.1. He had one positive stool. He was seen in GI consultation by Dr. Angel. C scope showed multiple polyps which were removed. These were in the ascending, descending and rectal regions for a total of 4. He had heavy left sided diverticulosis and moderate sized internal hemorrhoids. No source of bleed with some found. He did require 2 units of blood. Earlier in July he had been hospitalized and he had erosive gastritis OE scope. Social history. From [id number]. Patient smoked half pack of cigarettes per day. This is a [id number] history of smoking. 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 Patient denies alcohol. Family history. Positive for high blood pressure, diabetes, heart disease. Chest x-ray. 11/19/2016. Heart is top normal in size. No hilar adenopathy. Pulmonary arteries are not seen well. Mediastinum is probably normal. Increased interstitial markings in the mid and lower lung hathaway. Suspect pneumonia. Watch for congestive heart failure. ABGs. 11/19/2016. 50% Ventimask. PH is 7.21. PCO2 is 64.5. PO2 is 148. Bicarb is 21.7. Outside lab. Magnesium 1.7 glucose 121 lactic acid was normal at 0.7. PTT was 23.0. Rapid strep was negative. Myoglobin was normal. CPK was normal. BMP was BNP was was 369. Normal was 0.0-450. Influenza screen was negative. Urine showed no evidence of infection. White blood cell count was above 20,000. Medicines have been reviewed and some of his home medicines been ordered. Physical exam. Vital signs see below Psychiatric. Hard to arouse Neurologic. Cranial nerves are intact with decreased hearing acuity bilaterally. Long track motor functions intact. Sensory exam was not done. Gait was not Neck. Symmetrical. No meningismus. Lymphatics. No submandibular cervical supraclavicular adenopathy. Chest. Generalized large airway wheezing and inspiratory squeaks are heard especially over the right upper lung. Heart. Grade 1.5 over 6 systolic ejection murmur at left sternal border. I do not hear any radiation. I do not hear a diastolic murmur. Abdomen. Nontender. Positive bowel sounds. No organs could be palpated and rectal deferred Extremities. Degenerative joint disease. No evidence of deep venous thrombophlebitis. Musculoskeletal. Age-appropriate loss of normal curvature cervical thoracic and lumbar spine Skin of the face and hands showed no cancerous or infectious lesions. No other areas of skin were examined. The remainder the physical exam is noncontributory. Impression. 1. Respiratory failure for oxygen and carbon dioxide 2. Probable acute pneumonia 3. Possible sepsis with hypotension. Requiring pressor agents. 4. Heart disease. 2 stents. History of [place]. History of congestive heart failure. Followed by Dr. Galindo Hunt 4. Diabetes mellitus 5. History of high blood pressure 6. Aortic insufficiency 7. Adverse reaction to LEIDA inhibitors and arbs 8. Hemorrhoids. Diverticulosis. History of colon polyps. 9. See past history Plans. 1. Decrease FiO2 and repeat abgs 2. Add Solu-Medrol 3. Add Diamox 250 mg IV push every 12 hours 4. BNP 5. Ammonia level 6. Daily chest x-rays, ABGs, lab 7. Sputum for Gram stain culture sensitivity 8. Cold agglutinins 9. Legionella titer 10. IV Aminophyllin. Daily theophylline levels. 11. Proton pump inhibitor protocol 12. Deep venous thrombophlebitis prevention protocol. 13. See orders per 14. Voids Home Medications Medication Instructions Recorded Confirmed Type Aspirin EC Tab 81 mg PO DAILY 12/30/15 08/28/16 History Benzonatate [Tessalon] 100 mg PO BEDTIME PRN 12/30/15 08/28/16 History Cholecalciferol (Vitamin D3) 400 unit PO BID 12/30/15 08/28/16 History [Vitamin D3 Chew Tab] Loratadine Tab [Claritin Tab] 10 mg PO DAILY 12/30/15 08/28/16 History Metoprolol Tartrate Tab [Lopressor 50 mg PO BID 12/30/15 08/28/16 History Tab] Multivitamin with Minerals 1 each PO DAILY 12/30/15 08/28/16 History [Multivitamins with Minerals] Pantoprazole Tab [Protonix Tab] 40 mg PO DAILY 12/30/15 08/28/16 History Roflumilast [Daliresp] 500 mcg PO DAILY 12/30/15 08/28/16 History Trazodone HCl 100 mg PO BEDTIME PRN 12/30/15 08/28/16 History Methocarbamol Tab [Robaxin Tab] 750 mg PO TID PRN 04/03/16 08/28/16 History metFORMIN [Glucophage] 500 mg PO BID 04/03/16 08/28/16 History Budesonide/Formoterol 160-4.5 2 puff INH BID inhaler 07/26/16 08/28/16 Rx [Symbicort 160-4.5] Atorvastatin [Lipitor] 5 mg PO DAILY 08/05/16 08/28/16 History Diltiazem HCl [Cartia XT] 120 mg PO DAILY 08/05/16 08/28/16 History Albuterol/Ipratropium Neb [Duoneb] 3 ml RESP TX RT Q4H PRN #120 08/18/16 Rx nebulization solution Albuterol/Ipratropium Neb [Duoneb] 3 ml RESP TX RT Q6H #120 08/18/16 08/28/16 Rx nebulization solution Clopidogrel [Plavix] 75 mg PO DAILY 08/28/16 08/28/16 History Furosemide Tab [Lasix Tab] 20 mg PO BID DIURETIC 08/28/16 08/28/16 History Levofloxacin Tab [Levaquin Tab] 500 mg PO DAILY #10 tablet 09/09/16 Rx Montelukast Tab [Singulair Tab] 10 mg PO BID #60 tablet 09/09/16 Rx Theophylline ER Cap (24 Hr) 300 mg PO DAILY #30 capsule 09/09/16 Rx [Mich-24] predniSONE TAB [PredniSONE] 10 mg PO DAILY #30 tablet 09/09/16 Rx Allergies Allergy/AdvReac Type Severity Reaction Status Date / Time valsartan [From [facility]] Allergy Unknown Verified 09/09/16 13:29 LEIDA Inhibitors Allergy Verified 09/09/16 13:29 ARB-Angiotensin Receptor Allergy Verified 09/09/16 13:29 Antagonist Penicillins Allergy Unknown/Unable Verified 01/03/16 13:19 to obtain Exam (Pulmonay) H&P - Constitutional Vitals: Period Temp Pulse Resp BP Sys/Cedeño Pulse Ox Last 24 Hr 98.1 F-99.8 F 79-126 12-24 84-137/43-80 89-99 Medical,Surgical,& Family Hx - Medical History Cardio: History of: CHF (EF 45-50%), Hypertension, [place] (PCI of LAD and RCA 06/12) , Cardiovascular Problems (CARDIOMYOPATHY) Neurology: History of: Migraine No history of: Seizures HEENT: History of: Eye Problem (glasses), HEENT Problems (sinus surgery) Endocrine: History of: Diabetes Mellitus (NIDDM), Dyslipidemia Respiratory: History of: Bronchitis, COPD, Intubation, Pneumonia, Respiratory Problems (LUNG BX, SINUS SURGERY) Genitourinary: No history of: Bladder Problem, Kidney Stones Gastrointestinal: History of: Gastrointestinal Bleed Musculoskeletal: History of: Back/Neck Problems Hematology: History of: Anemia No history of: Blood Transfusion Reaction Other: No history of: Anesthesia Reactions, Cancer - Surgical History Cardiac Surgeries: Sugical HX of: Cardiac Catheterization (stents x 2 (06/12 mLAD and mRCA)) Patient Denies: Cardiac Surgery Thoracic Surgeries: Patient denies;: Organ Transplant, Lobectomy HEENT Surgeries: Patient denies: Eye Surgery, Tonsilectomy & Adenoidectomy Abdominal Surgeries: Surgical HX of: Colonoscopy Patient denies: Appendectomy, Cholecystectomy, EGD Orthopedic Surgeries: Patient denies;: Orthopedic Surgery - Family History Family History: Reports;: Family Hypertension - Social History Smoking Status: Former smoker Frequency of Alcohol Use: None Type of Drug Use: None
[2016-11-19] MEDS ORDERED: AMINOPHYLLINE 250 MG in SODIUM CHLORIDE 0.9% 100 ML IV ONE (18:21)
[2016-11-19 18:24] LABS: ABG Base Excess -3.2 MMOL/L (-2.5-2.5); ABG HCO3 21.7 MMOL/L (20-26); ABG Oxygen Saturation 99.1 % (95-100); ABG PCO2 64.5 MM HG (35-48); ABG PH 7.211 (7.35-7.45)
[2016-11-19 19:19] LABS: ABG Base Excess -2.7 MMOL/L (-2.5-2.5); ABG Oxygen Saturation 86.1 % (95-100); ABG PCO2 66.9 MM HG (35-48); ABG PO2 54.6 MM HG (80-95); Allen Test Positive
[2016-11-19 19:21] LABS: ABG PH 7.203 (7.35-7.45)
[2016-11-19] MEDS: methylPREDNISolone SOD SUC 125 MG/2 ML VIAL IV SCH (19:24)
[2016-11-19] MEDS: PANTOPRAZOLE 40 MG VIAL IV SCH (20:40)
[2016-11-19] MEDS: MONTELUKAST 10 MG TABLET PO SCH (20:40)
[2016-11-19] MEDS: ENOXAPARIN 30 MG/0.3 ML SYRINGE SUBCUT SCH (20:40)
[2016-11-19] MEDS: AMINOPHYLLINE 500 MG in SODIUM CHLORIDE 0.9% 480 ML IV SCH (23:52)
[2016-11-20] MEDS: MEROPENEM 1,000 MG in SODIUM CHLORIDE 0.9% 100 ML IV SCH ×3 (02:43→18:35)
[2016-11-20] MEDS: methylPREDNISolone SOD SUC 125 MG/2 ML VIAL IV SCH ×3 (02:43→18:14)
[2016-11-20 02:51] LABS: ABG HCO3 20.3 MMOL/L (20-26); ABG Oxygen Saturation 98.6 % (95-100); ABG PCO2 66.3 MM HG (35-48); ABG TCO2 23.2 MMOL/L (23-27); Allen Test Positive
[2016-11-20 02:53] LABS: ABG PH 7.173 (7.35-7.45)
[2016-11-20] MEDS ORDERED: SODIUM BICARBONATE 50 MEQ/50 ML SYRINGE IV ONE ×2 (03:14→03:52)
[2016-11-20 03:47] LABS: Basophils % 0.1 % (0.0-0.8); Hemoglobin 8.5 GM/DL (14.0-18.0); Immature Granulocytes % 1.9 %; Immature Granulocytes Absolute 0.22 #; Lymphocytes # 0.8 10*3/uL (1.4-4.0); Lymphocytes % 6.4 % (21.2-54.2); Mean Corpuscular HGB Conc 31.5 GM/DL (32-36); Mean Corpuscular Hemoglobin 29 PG (27-34); Mean Corpuscular Volume 93.1 FL (87-102); Mean Platelet Volume 9.5 FL (9.6-12.0); Monocytes # 0.1 10*3/uL (0.11-0.8); Monocytes % 1.2 % (1.7-12.7); Neutrophils # 10.7 10*3/uL (1.4-7.4); Neutrophils % 90.4 % (38.7-73.9); Platelet Count 231 T/CUMM (130-400); Red Cell Distribution Width 15.4 % (9.3-17.3); White Blood Count 11.9 T/CUMM (4-12)
[2016-11-20 04:05] LABS: PT Patient Result 10.7 SECS; Partial Thromboplastin Time 29.3 SECS (0-40)
[2016-11-20 04:11] LABS: Alanine Aminotransferase 14 U/L (16-61); Albumin 2.7 G/DL (3.4-5.0); Alkaline Phosphatase 86 U/L (45-117); Aspartate Amino Transferase 14 U/L (0-37); Bilirubin,Total < 0.39 MG/DL (0.2-1.0); Blood Urea Nitrogen 15 MG/DL (7-18); Calcium 7.6 MG/DL (8.5-10.1); Glucose 135 MG/DL (74-106); Osmolality,Calculated 294.4 MOS/KG (273-304); Potassium 4.6 MMOL/L (3.5-5.1); Sodium 147 MMOL/L (136-145); Total Protein 5.8 G/DL (6.4-8.3)
[2016-11-20 04:12] LABS: Lactic Acid 0.6 MMOL/L (0.4-2.0)
[2016-11-20 04:36] LABS: Calcium 7.9 MG/DL (8.5-10.1); Osmolality,Calculated 290.7 MOS/KG (273-304); Potassium 4.6 MMOL/L (3.5-5.1)
[2016-11-20 05:46] LABS: ABG HCO3 23.6 MMOL/L (20-26); ABG Oxygen Saturation 96.5 % (95-100); ABG PCO2 60.3 MM HG (35-48); ABG PH 7.268 (7.35-7.45); ABG PO2 82.9 MM HG (80-95); ABG TCO2 24.5 MMOL/L (23-27); Allen Test Positive
[2016-11-20] MEDS: PANTOPRAZOLE 40 MG VIAL IV SCH ×2 (08:15→20:42)
[2016-11-20] MEDS: MONTELUKAST 10 MG TABLET PO SCH ×2 (08:16→20:42)
--- NOTE | 2016-11-20 08:19 | XRay Report ---
Portable chest Date: 11/20/2016 Clinical history: Respiratory failure Comparison: 11/19/2016 Technique: Portable AP sitting chest Findings: The heart is normal in size with uncoiling of the aorta. Chronic scarring in the lungs with fairly stable diffuse parenchymal findings in the right upper lobe and in the lower lung zones. Stable mediastinum and osseous structures. Impression: Bullous emphysema with chronic scarring. Fairly stable infiltration/edema with associated atelectasis. PROCEDURE INTERPRETED AT [facility] DEPARTMENT OF RADIOLOGY Final Report Signed by: Dr. Debbie Ramirez
[2016-11-20] MEDS ORDERED: ALBUTEROL/IPRATROPIUM 3 ML NEB RESP TX PRN (09:19)
--- NOTE | 2016-11-20 09:48 | Pulmonology Progress Note ---
Pulmonary - PN: Subj Interval history: This is a 61-year-old white male whom I saw in pulmonary consultation on 2016. My impressions were. 1. Respiratory failure for oxygen and carbon dioxide. 11/20/2016. This is improved with decrease FiO2 and relief of bronchospasm. 2. Probable acute pneumonia. 11/20/2016 chest x-ray shows clear-cut extensive right lower lung infiltrate. Patient said that he was doing fine and almost within minutes he developed acute pneumonia and the symptoms that sent him to the hospital. 3. Possible sepsis with hypotension. Requiring pressor agents. 4. Heart disease. 2 stents. History of [place]. History of congestive heart failure. Followed by Dr. Galindo Hunt 4. Diabetes mellitus 5. History of high blood pressure 6. Aortic insufficiency 7. Adverse reaction to LEIDA inhibitors and arbs 8. Hemorrhoids. Diverticulosis. History of colon polyps. 9. See past history 11/20/2016. Gradually reduce the patient's FiO2 to 32%. ABGs now show a pH 7.268. PCO2 is 60.3 and PO2 is 82.9. Bicarb is 23.3. Electrolytes are normal. Creatinine is 0.7 with a BUN of 15 white blood cell count is dropped to 11,900 with 90.4 segs. H&H is 8.5/23.0. Today the patient is alert oriented and wanting to eat I am agreeable. He said that he was doing fine in this illness hit him in a manner for just a few minutes. This is compatible with acute pneumonia and often pneumococcus presents in this fashion. His chest x-ray shows a definite right lower lung infiltrate compatible with pneumonia. His theophylline level is 14.9. Glucoses are under good control. Liver function tests are normal. Ammonia level was 32. Natruretic peptide was 82. Protein and albumin are low at 5.8 and 2.7 respectively. Medicines have been reviewed. Labs been reviewed. Physical exam. Vital signs. See below Psychiatric oriented 3 Neurologic. Speech is slightly slurred but the patient says is almost back to his normal. He moves all 4 extremities Neck. Symmetrical. No meningismus. No masses Lymphatics no submandibular cervical supraclavicular adenopathy. Chest diffuse large airway congestion wheezes markedly improved no chest wall tenderness Heart. No gallop Abdomen. Nondistended. Rare bowel sounds Lower extremities. Nothing to suggest deep venous thrombophlebitis The remainder of the physical exam is noncontributory. Plans. 1. Decrease FiO2. CO2 retainer 2. 11/19/2016 add Solu-Medrol 3. 11/19/2016. Add Diamox 250 mg IV push every 12 hours 6. Daily chest x-rays, ABGs, lab 7. 11/19/2016. Sputum for Gram stain culture sensitivity 8. Cold agglutinins. 11/20/2016, negative 9. Legionella titer 10. IV Aminophyllin. Daily theophylline levels. 11. Proton pump inhibitor protocol 12. Deep venous thrombophlebitis prevention protocol. 13. See orders per 14. 11/20/2016. Patient is remarkably better. Continue present protocol. When he is moved out of the unit he should go to 5 E. He may require bronchoscopy to deal with sputum retention. Overall the patient made a good improvement in a short period of time based on the history obtained from him it sounds like he had an acute overwhelming pneumonia. He probably was septic and this appears to be the cause of his hypotension and metabolic acidosis. Exam (Progress Note) - Constitutional Vitals: Period Temp Pulse Resp BP Sys/Cedeño Pulse Ox Last 24 Hr 96.9 F-99.8 F 58-126 12-24 82-149/33-85 88-100 Results - Labs CBC & BMP: 11/20/16 02:47 11/20/16 02:47
[2016-11-20] MEDS: DORNASE ALFA 2.5 MG/2.5 ML VIAL RESP TX SCH ×2 (09:53→19:51)
--- NOTE | 2016-11-20 10:22 | Hospitalist Progress Note ---
Assessment and Plan - Time spent with patient Time spent with patient: Greater than 30 minutes (1) Acute and chronic respiratory failure with hypoxia Status: Acute Assessment and plan: Improving. Current Visit: No (2) Septic shock Status: Acute Assessment and plan: Resolved continue antibiotics. Current Visit: Yes (3) Pneumonia Status: Acute Assessment and plan: Continue antibiotics. Current Visit: No Qualifiers: Pneumonia type: due to unspecified organism Laterality: bilateral (4) CAD (coronary artery disease) Status: Chronic Assessment and plan: Continue management. Current Visit: No Qualifiers: Coronary Disease-Associated Artery/Lesion type: [place] artery [place] vs. transplanted heart: [place] heart Associated angina: angina presence unspecified Qualified Code(s): I25.10 - Atherosclerotic heart disease of [place] coronary artery without angina pectoris (5) Diabetes Status: Chronic Assessment and plan: Continue management. Current Visit: No Hospitalist: Subjective Interval history: Required pressor support however is currently stopped. Currently on antibiotics for pneumonia. No other overnight events. Exam - Constitutional Vitals: Period Temp Pulse Resp BP Sys/Cedeño Pulse Ox Last 24 Hr 96.9 F-99.8 F 58-126 12-24 82-149/33-85 88-100 General appearance: no acute distress - Head Head exam: Present: normocephalic, atraumatic - Eye Eye exam: Present: EOMI Pupils: Present: PAUL - ENT ENT exam: Present: normal exam - Neck Neck exam: Present: normal inspection - Respiratory Respiratory exam: Present: other (Coarse breath sounds bilaterally). Absent: rhonchi, wheezes - Cardiovascular Cardiovascular exam: Present: regular rate and rhythm. Absent: gallop, rubs, systolic murmur - GI/Abdominal GI/Abdominal exam: Present: normal bowel sounds, soft. Absent: distended, firm , guarding, tenderness, rebound - Extremities Exam Extremities exam: Present: normal inspection. Absent: calf tenderness, edema Results - Labs CBC & BMP: 11/20/16 02:47 11/20/16 02:47 Lab Results: I have reviewed the past 24 hour labs
[2016-11-20] MEDS: DILTIAZEM CD 120 MG CAPSULE PO SCH (11:46)
[2016-11-20] MEDS: METOPROLOL TARTRATE 50 MG TABLET PO SCH ×2 (11:46→20:42)
[2016-11-20] MEDS: ASPIRIN EC 81 MG TABLET PO SCH (12:03)
[2016-11-20] MEDS: MULTIVITAMIN (CENTRUM) TABLET PO SCH (12:03)
[2016-11-20] MEDS: CLOPIDOGREL 75 MG TABLET PO SCH (12:03)
[2016-11-20] MEDS: CHOLECALCIFEROL 400 UNIT TABLET PO SCH ×2 (12:04→20:42)
[2016-11-20] MEDS: ROFLUMILAST 500 MCG TABLET PO SCH (12:04)
[2016-11-20] MEDS: ALBUTEROL/IPRATROPIUM 3 ML NEB RESP TX SCH ×2 (13:00→19:50)
[2016-11-20] MEDS: NOREPINEPHRINE 16 MG in SODIUM CHLORIDE 0.9% 234 ML IV SCH (16:23)
[2016-11-20] MEDS: AMINOPHYLLINE 500 MG in SODIUM CHLORIDE 0.9% 480 ML IV SCH (18:13)
[2016-11-20] MEDS: ENOXAPARIN 30 MG/0.3 ML SYRINGE SUBCUT SCH (18:14)
[2016-11-21] MEDS: ALBUTEROL/IPRATROPIUM 3 ML NEB RESP TX SCH ×4 (00:18→19:29)
[2016-11-21] MEDS: MEROPENEM 1,000 MG in SODIUM CHLORIDE 0.9% 100 ML IV SCH ×3 (03:07→20:12)
[2016-11-21] MEDS: AMINOPHYLLINE 500 MG in SODIUM CHLORIDE 0.9% 480 ML IV SCH (03:08)
[2016-11-21] MEDS: methylPREDNISolone SOD SUC 125 MG/2 ML VIAL IV SCH ×3 (03:10→18:19)
[2016-11-21 03:17] LABS: ABG Base Excess 1.5 MMOL/L (-2.5-2.5); ABG HCO3 25.7 MMOL/L (20-26); ABG Oxygen Saturation 92.3 % (95-100); ABG PCO2 53.9 MM HG (35-48); ABG PH 7.324 (7.35-7.45); ABG PO2 61.6 MM HG (80-95); ABG TCO2 26.6 MMOL/L (23-27); Allen Test Positive
--- NOTE | 2016-11-21 07:23 | XRay Report ---
Portable chest Date: 11/21/2016 Clinical history: Respiratory failure Comparison: 11/20/2016 Technique: Portable AP sitting chest Findings: The heart is borderline in size with uncoiling of the aorta. Chronic scarring in the lungs with stable diffuse parenchymal findings especially in the right upper lobe and at the lung bases. Stable mediastinum and osseous structures. Impression: No significant change in the appearance of the chest when compared to previous exam. PROCEDURE INTERPRETED AT [facility] DEPARTMENT OF RADIOLOGY Final Report Signed by: Dr. Debbie Ramirez
[2016-11-21] MEDS: DORNASE ALFA 2.5 MG/2.5 ML VIAL RESP TX SCH ×2 (07:54→19:23)
[2016-11-21 08:15] LABS: Hematocrit 25.1 VOL% (42.0-52.0); Hemoglobin 7.8 GM/DL (14.0-18.0); Immature Granulocytes Absolute 0.11 #; Lymphocytes # 1.6 10*3/uL (1.4-4.0); Lymphocytes % 14.6 % (21.2-54.2); Mean Corpuscular HGB Conc 31.1 GM/DL (32-36); Mean Corpuscular Hemoglobin 30 PG (27-34); Mean Corpuscular Volume 95.1 FL (87-102); Monocytes # 0.4 10*3/uL (0.11-0.8); Monocytes % 3.9 % (1.7-12.7); NRBC # 0.03 10*3/uL; Neutrophils # 8.8 10*3/uL (1.4-7.4); Neutrophils % 80.5 % (38.7-73.9); Platelet Count 188 T/CUMM (130-400); Red Blood Count 2.64 MC/CUMM (3.8-5.5); Red Cell Distribution Width 15.3 % (9.3-17.3); White Blood Count 10.9 T/CUMM (4-12)
[2016-11-21 08:46] LABS: Calcium 7.5 MG/DL (8.5-10.1); Magnesium 2.4 MG/DL (1.8-2.4); Osmolality,Calculated 296.4 MOS/KG (273-304); Potassium 4.2 MMOL/L (3.5-5.1)
[2016-11-21] MEDS: ASPIRIN EC 81 MG TABLET PO SCH (09:28)
[2016-11-21] MEDS: CHOLECALCIFEROL 400 UNIT TABLET PO SCH ×2 (09:28→20:13)
[2016-11-21] MEDS: MONTELUKAST 10 MG TABLET PO SCH ×2 (09:28→20:13)
[2016-11-21] MEDS: CLOPIDOGREL 75 MG TABLET PO SCH (09:28)
[2016-11-21] MEDS: METOPROLOL TARTRATE 50 MG TABLET PO SCH ×2 (09:29→20:13)
[2016-11-21] MEDS: ROFLUMILAST 500 MCG TABLET PO SCH (09:29)
[2016-11-21] MEDS: MULTIVITAMIN (CENTRUM) TABLET PO SCH (09:29)
[2016-11-21] MEDS: PANTOPRAZOLE 40 MG VIAL IV SCH ×2 (09:30→20:13)
[2016-11-21] MEDS: DILTIAZEM CD 120 MG CAPSULE PO SCH (09:30)
--- NOTE | 2016-11-21 10:01 | Hospitalist Progress Note ---
Assessment and Plan - Time spent with patient Time spent with patient: Greater than 30 minutes (1) Acute and chronic respiratory failure with hypoxia Status: Acute Assessment and plan: Improving. Current Visit: No (2) Septic shock Status: Acute Assessment and plan: Resolved continue antibiotics. Current Visit: Yes (3) Pneumonia Status: Acute Assessment and plan: Continue antibiotics. Current Visit: No Qualifiers: Pneumonia type: due to unspecified organism Laterality: bilateral (4) CAD (coronary artery disease) Status: Chronic Assessment and plan: Continue management. Current Visit: No Qualifiers: Coronary Disease-Associated Artery/Lesion type: [place] artery [place] vs. transplanted heart: [place] heart Associated angina: angina presence unspecified Qualified Code(s): I25.10 - Atherosclerotic heart disease of [place] coronary artery without angina pectoris (5) Diabetes Status: Chronic Assessment and plan: Continue management. Current Visit: No Hospitalist: Subjective Interval history: No overnight events, no complaints. Exam - Constitutional Vitals: Period Temp Pulse Resp BP Sys/Cedeño Pulse Ox Last 24 Hr 97.5 F-98.3 F 62-103 15-27 93-149/44-88 94-100 General appearance: no acute distress - Head Head exam: Present: normocephalic, atraumatic - Eye Eye exam: Present: EOMI Pupils: Present: PAUL - ENT ENT exam: Present: normal exam - Neck Neck exam: Present: normal inspection - Respiratory Respiratory exam: Present: clear to auscultation bilaterally. Absent: rhonchi, wheezes - Cardiovascular Cardiovascular exam: Present: regular rate and rhythm. Absent: gallop, rubs, systolic murmur - GI/Abdominal GI/Abdominal exam: Present: normal bowel sounds, soft. Absent: distended, firm , guarding, tenderness, rebound - Extremities Exam Extremities exam: Present: normal inspection. Absent: calf tenderness, edema Results - Labs CBC & BMP: 11/23/16 05:22 11/23/16 05:22 Lab Results: I have reviewed the past 24 hour labs
--- NOTE | 2016-11-21 10:08 | Hospitalist Progress Note ---
Assessment and Plan - Time spent with patient Time spent with patient: Greater than 30 minutes (1) Acute and chronic respiratory failure with hypoxia Status: Acute Assessment and plan: Resolved. Stable, will transfer to the floor. Current Visit: No (2) Septic shock Status: Acute Assessment and plan: Resolved, continue antibiotics. Current Visit: Yes (3) Pneumonia Status: Acute Assessment and plan: Continue antibiotics. Current Visit: No Qualifiers: Pneumonia type: due to unspecified organism Laterality: bilateral (4) CAD (coronary artery disease) Status: Chronic Assessment and plan: Continue management. Current Visit: No Qualifiers: Coronary Disease-Associated Artery/Lesion type: [place] artery [place] vs. transplanted heart: [place] heart Associated angina: angina presence unspecified Qualified Code(s): I25.10 - Atherosclerotic heart disease of [place] coronary artery without angina pectoris (5) Diabetes Status: Chronic Assessment and plan: Continue management. Current Visit: No Hospitalist: Subjective Interval history: No complaints, no overnight events. Sitting upright eating breakfast, states he feels much better. Exam - Constitutional Vitals: Period Temp Pulse Resp BP Sys/Cedeño Pulse Ox Last 24 Hr 97.5 F-98.3 F 62-103 15-27 93-149/44-88 94-100 General appearance: no acute distress - Head Head exam: Present: normocephalic, atraumatic - Eye Eye exam: Present: EOMI Pupils: Present: PAUL - ENT ENT exam: Present: normal exam - Neck Neck exam: Present: normal inspection - Respiratory Respiratory exam: Present: other (secretions in trachea, mild wheezing). Absent : rhonchi, wheezes - Cardiovascular Cardiovascular exam: Present: regular rate and rhythm. Absent: gallop, rubs, systolic murmur - GI/Abdominal GI/Abdominal exam: Present: normal bowel sounds, soft. Absent: distended, firm , guarding, tenderness, rebound - Extremities Exam Extremities exam: Present: normal inspection. Absent: calf tenderness, edema Results - Labs CBC & BMP: 11/21/16 08:08 11/21/16 08:08 Lab Results: I have reviewed the past 24 hour labs
--- NOTE | 2016-11-21 10:50 | Pulmonology Progress Note ---
Pulmonary - PN: Subj Interval history: This is a 61-year-old white male whom I saw in pulmonary consultation on 2016. My impressions were. 1. Respiratory failure for oxygen and carbon dioxide. 11/20/2016. This is improved with decrease FiO2 and relief of bronchospasm. 2. Probable acute pneumonia. 11/20/2016 chest x-ray shows clear-cut extensive right lower lung infiltrate. Patient said that he was doing fine and almost within minutes he developed acute pneumonia and the symptoms that sent him to the hospital. 3. Possible sepsis with hypotension. Requiring pressor agents. 4. Heart disease. 2 stents. History of [place]. History of congestive heart failure. Followed by Dr. Galindo Hunt 4. Diabetes mellitus 5. History of high blood pressure 6. Aortic insufficiency 7. Adverse reaction to LEIDA inhibitors and arbs 8. Hemorrhoids. Diverticulosis. History of colon polyps. 9. See past history 11/20/2016. Gradually reduce the patient's FiO2 to 32%. ABGs now show a pH 7.268. PCO2 is 60.3 and PO2 is 82.9. Bicarb is 23.3. Electrolytes are normal. Creatinine is 0.7 with a BUN of 15 white blood cell count is dropped to 11,900 with 90.4 segs. H&H is 8.5/23.0. Today the patient is alert oriented and wanting to eat I am agreeable. He said that he was doing fine in this illness hit him in a manner for just a few minutes. This is compatible with acute pneumonia and often pneumococcus presents in this fashion. His chest x-ray shows a definite right lower lung infiltrate compatible with pneumonia. His theophylline level is 14.9. Glucoses are under good control. Liver function tests are normal. Ammonia level was 32. Natruretic peptide was 82. Protein and albumin are low at 5.8 and 2.7 respectively. Medicines have been reviewed. Labs been reviewed. 11/21/2016. Clinically the patient continues to improve. Chest x-ray shows increased markings at the left base and at the right base. No overt congestive heart failure. This appears to be retention of secretions. There are no positive cultures. ABGs on FiO2 of 32% shows a pH 7.32, PCO2 is 54, PO2 61.6 and bicarb is 25.7. Electrolytes are stable. Creatinine is 0.8. White count is 10,900 with 80.56. H&H is slowly dropped in the 7.8/25.1. Theophylline level was 14.4. This patient is improved significantly and is stable enough to be moved to a pulmonary floor. Physical exam. Vital signs. See below Psychiatric oriented 3 Neurologic. Speech is slightly slurred but the patient says is almost back to his normal. He moves all 4 extremities. Cranial nerves are intact Neck. Symmetrical. No meningismus. No masses Lymphatics no submandibular cervical supraclavicular adenopathy. Chest diffuse large airway congestion wheezes markedly improved no chest wall tenderness Heart. No gallop Abdomen. Nondistended. Rare bowel sounds Lower extremities. Nothing to suggest deep venous thrombophlebitis The remainder of the physical exam is noncontributory. Plans. 1. Decrease FiO2. CO2 retainer 2. 11/19/2016 add Solu-Medrol 3. 11/19/2016. Add Diamox 250 mg IV push every 12 hours 6. Daily chest x-rays, ABGs, lab 7. 11/19/2016. Sputum for Gram stain culture sensitivity 8. Cold agglutinins. 11/20/2016, negative 9. Legionella titer 10. IV Aminophyllin. Daily theophylline levels. 11. Proton pump inhibitor protocol 12. Deep venous thrombophlebitis prevention protocol. 13. See orders per 14. 11/20/2016. Patient is remarkably better. Continue present protocol. When he is moved out of the unit he should go to 5 E. He may require bronchoscopy to deal with sputum retention. Overall the patient made a good improvement in a short period of time based on the history obtained from him it sounds like he had an acute overwhelming pneumonia. He probably was septic and this appears to be the cause of his hypotension and metabolic acidosis. 15. 11/21/2016. See my note above. BNP is 170. Watch for pulmonary edema Exam (Progress Note) - Constitutional Vitals: Period Temp Pulse Resp BP Sys/Cedeño Pulse Ox Last 24 Hr 97.5 F-98.3 F 62-103 15-27 93-149/44-88 94-100 Results - Labs CBC & BMP: 11/21/16 08:08 11/21/16 08:08
[2016-11-21] MEDS: ENOXAPARIN 30 MG/0.3 ML SYRINGE SUBCUT SCH (18:19)
[2016-11-21] MEDS: traZODone 50 MG TABLET PO PRN (20:13)
[2016-11-22] MEDS: ALBUTEROL/IPRATROPIUM 3 ML NEB RESP TX SCH ×4 (00:12→19:45)
[2016-11-22] MEDS: methylPREDNISolone SOD SUC 125 MG/2 ML VIAL IV SCH ×3 (02:08→18:26)
[2016-11-22] MEDS: MEROPENEM 1,000 MG in SODIUM CHLORIDE 0.9% 100 ML IV SCH ×3 (02:42→20:08)
[2016-11-22 03:58] LABS: ABG Base Excess -0.5 MMOL/L (-2.5-2.5); ABG Oxygen Saturation 96.5 % (95-100); ABG PCO2 43.3 MM HG (35-48); ABG PH 7.367 (7.35-7.45); ABG PO2 76.2 MM HG (80-95); ABG TCO2 23.3 MMOL/L (23-27); Allen Test Positive
[2016-11-22 05:11] LABS: Hematocrit 23.9 VOL% (42.0-52.0); Hemoglobin 7.5 GM/DL (14.0-18.0); Immature Granulocytes % 0.6 %; Immature Granulocytes Absolute 0.05 #; Lymphocytes % 12.6 % (21.2-54.2); Mean Corpuscular HGB Conc 31.4 GM/DL (32-36); Mean Corpuscular Hemoglobin 29 PG (27-34); Mean Corpuscular Volume 93.7 FL (87-102); Mean Platelet Volume 9.7 FL (9.6-12.0); Monocytes # 0.3 10*3/uL (0.11-0.8); Monocytes % 3.2 % (1.7-12.7); NRBC # 0.02 10*3/uL; Neutrophils # 6.5 10*3/uL (1.4-7.4); Neutrophils % 83.6 % (38.7-73.9); Platelet Count 184 T/CUMM (130-400); Red Blood Count 2.55 MC/CUMM (3.8-5.5); Red Cell Distribution Width 15.4 % (9.3-17.3); White Blood Count 7.8 T/CUMM (4-12)
[2016-11-22 05:42] LABS: Magnesium 2.3 MG/DL (1.8-2.4); Osmolality,Calculated 294.6 MOS/KG (273-304); Potassium 4.2 MMOL/L (3.5-5.1)
[2016-11-22] MEDS: AMINOPHYLLINE 500 MG in SODIUM CHLORIDE 0.9% 480 ML IV SCH (06:08)
[2016-11-22] MEDS: DORNASE ALFA 2.5 MG/2.5 ML VIAL RESP TX SCH ×2 (07:15→19:45)
[2016-11-22] MEDS: MULTIVITAMIN (CENTRUM) TABLET PO SCH (09:00)
[2016-11-22] MEDS: ROFLUMILAST 500 MCG TABLET PO SCH (09:00)
[2016-11-22] MEDS: MONTELUKAST 10 MG TABLET PO SCH ×2 (09:00→20:08)
[2016-11-22] MEDS: CLOPIDOGREL 75 MG TABLET PO SCH (09:00)
[2016-11-22] MEDS: ASPIRIN EC 81 MG TABLET PO SCH (09:00)
[2016-11-22] MEDS: CHOLECALCIFEROL 400 UNIT TABLET PO SCH ×2 (09:01→20:08)
[2016-11-22] MEDS: DILTIAZEM CD 120 MG CAPSULE PO SCH (09:01)
[2016-11-22] MEDS: METOPROLOL TARTRATE 50 MG TABLET PO SCH ×2 (09:01→20:08)
[2016-11-22] MEDS: PANTOPRAZOLE 40 MG VIAL IV SCH ×2 (09:01→20:07)
--- NOTE | 2016-11-22 09:34 | XRay Report ---
History respiratory failure Comparison 11/21/2016 The heart and vessels remain mildly enlarged Mild to moderate right greater than left reticular and hazy pulmonary opacities remain similar on the prior study. Tiny right effusion remains Minimal patchy opacity at the left upper chest again seen. No new areas of more focal consolidation seen. Impression: No significant change in right greater than left infiltrates versus asymmetric edema PROCEDURE INTERPRETED AT [facility] DEPARTMENT OF RADIOLOGY Final Report Signed by: Dr. Nany Leslie
--- NOTE | 2016-11-22 10:05 | Pulmonology Progress Note ---
Pulmonary - PN: Subj Interval history: This is a 61-year-old white male whom I saw in pulmonary consultation on 2016. My impressions were. 1. Respiratory failure for oxygen and carbon dioxide. 11/20/2016. This is improved with decrease FiO2 and relief of bronchospasm. 2. Probable acute pneumonia. 11/20/2016 chest x-ray shows clear-cut extensive right lower lung infiltrate. Patient said that he was doing fine and almost within minutes he developed acute pneumonia and the symptoms that sent him to the hospital. 3. Possible sepsis with hypotension. Requiring pressor agents. 4. Heart disease. 2 stents. History of [place]. History of congestive heart failure. Followed by Dr. Galindo Hunt 4. Diabetes mellitus 5. History of high blood pressure 6. Aortic insufficiency 7. Adverse reaction to LEIDA inhibitors and arbs 8. Hemorrhoids. Diverticulosis. History of colon polyps. 9. See past history 11/20/2016. Gradually reduce the patient's FiO2 to 32%. ABGs now show a pH 7.268. PCO2 is 60.3 and PO2 is 82.9. Bicarb is 23.3. Electrolytes are normal. Creatinine is 0.7 with a BUN of 15 white blood cell count is dropped to 11,900 with 90.4 segs. H&H is 8.5/23.0. Today the patient is alert oriented and wanting to eat I am agreeable. He said that he was doing fine in this illness hit him in a manner for just a few minutes. This is compatible with acute pneumonia and often pneumococcus presents in this fashion. His chest x-ray shows a definite right lower lung infiltrate compatible with pneumonia. His theophylline level is 14.9. Glucoses are under good control. Liver function tests are normal. Ammonia level was 32. Natruretic peptide was 82. Protein and albumin are low at 5.8 and 2.7 respectively. Medicines have been reviewed. Labs been reviewed. 11/21/2016. Clinically the patient continues to improve. Chest x-ray shows increased markings at the left base and at the right base. No overt congestive heart failure. This appears to be retention of secretions. There are no positive cultures. ABGs on FiO2 of 32% shows a pH 7.32, PCO2 is 54, PO2 61.6 and bicarb is 25.7. Electrolytes are stable. Creatinine is 0.8. White count is 10,900 with 80.56. H&H is slowly dropped in the 7.8/25.1. Theophylline level was 14.4. This patient is improved significantly and is stable enough to be moved to a pulmonary floor. 11/22/2016. Patient has been moved to a pulmonary floor from ICU. He is up and standing and change in position from the bed to the chair was represents an improvement. He is much less short of breath than before and he says he feels better. Today's x-ray shows that the central vasculature is top normal. Right lower lung infiltrate is gradually resolving. There are no positive cultures. His BNP is creeping up to 495. H&H is dropped to 7.5/23.9. White count 7800 and platelets are 184,000. ABGs on FiO2 28% showed pH 7.37. PCO2 43. PO2 76. Bicarb 24. Electrolytes are normal. Creatinine is 0.7 BUN 17. Theophylline level is 7.1 Physical exam. Vital signs. See below Psychiatric oriented 3 Neurologic. Speech is slightly slurred but the patient says is almost back to his normal. He moves all 4 extremities. He is up walking around with his IV pole cranial nerves are intact Neck. Symmetrical. No meningismus. No masses Lymphatics no submandibular cervical supraclavicular adenopathy. Chest diffuse large airway congestion wheezes markedly improved no chest wall tenderness Heart. No gallop Abdomen. Nondistended. Rare bowel sounds Lower extremities. Nothing to suggest deep venous thrombophlebitis The remainder of the physical exam is noncontributory. Plans. 1. Decrease FiO2. CO2 retainer 2. 11/19/2016 add Solu-Medrol 3. 11/19/2016. Add Diamox 250 mg IV push every 12 hours 6. Daily chest x-rays, ABGs, lab 7. 11/19/2016. Sputum for Gram stain culture sensitivity 8. Cold agglutinins. 11/20/2016, negative 9. Legionella titer 10. IV Aminophyllin. Daily theophylline levels. 11. Proton pump inhibitor protocol 12. Deep venous thrombophlebitis prevention protocol. 13. See orders per 14. 11/20/2016. Patient is remarkably better. Continue present protocol. When he is moved out of the unit he should go to 5 E. He may require bronchoscopy to deal with sputum retention. Overall the patient made a good improvement in a short period of time based on the history obtained from him it sounds like he had an acute overwhelming pneumonia. He probably was septic and this appears to be the cause of his hypotension and metabolic acidosis. 15. 11/21/2016. See my note above. BNP is 170. Watch for pulmonary edema . 11/22/2016. Blood transfusion. Start Lasix 20 IV push twice a day. Patient's on IV Diamox 250 IV push twice a day. Follow daily BMP BNP and repeat chest x-ray tomorrow. Also daily theophylline levels follow-up CBC in the morning Exam (Progress Note) - Constitutional Vitals: Period Temp Pulse Resp BP Sys/Cedeño Pulse Ox Last 24 Hr 97.6 F-98.4 F 63-94 14-21 98-154/50-86 93-100 Results - Labs CBC & BMP: 11/22/16 04:45 11/22/16 04:45
[2016-11-22] MEDS: FUROSEMIDE 20 MG/2 ML VIAL IV SCH ×2 (11:04→17:01)
--- NOTE | 2016-11-22 12:18 | Hospitalist Progress Note ---
Assessment and Plan - Time spent with patient Time spent with patient: Greater than 30 minutes (1) COPD exacerbation Status: Acute Assessment and plan: Continue current management. Bullous emphysema with scaring. Current Visit: Yes (2) Acute and chronic respiratory failure with hypoxia Status: Acute Assessment and plan: Resolved. Current Visit: No (3) Septic shock Status: Acute Assessment and plan: Resolved, continue antibiotics. Current Visit: Yes (4) Pneumonia Status: Acute Assessment and plan: Continue antibiotics. Current Visit: No Qualifiers: Pneumonia type: due to unspecified organism Laterality: bilateral (5) CAD (coronary artery disease) Status: Chronic Assessment and plan: Continue management. Current Visit: No Qualifiers: Coronary Disease-Associated Artery/Lesion type: [place] artery [place] vs. transplanted heart: [place] heart Associated angina: angina presence unspecified Qualified Code(s): I25.10 - Atherosclerotic heart disease of [place] coronary artery without angina pectoris (6) Diabetes Status: Chronic Assessment and plan: Continue management. Current Visit: No Hospitalist: Subjective Interval history: No complaints, no overnight events. Transfer from the ICU yesterday. Exam - Constitutional Vitals: Period Temp Pulse Resp BP Sys/Cedeño Pulse Ox Last 24 Hr 96.7 F-98.4 F 63-94 14-20 98-144/50-86 93-100 General appearance: no acute distress - Head Head exam: Present: normocephalic, atraumatic - Eye Eye exam: Present: EOMI Pupils: Present: PAUL - ENT ENT exam: Present: normal exam - Neck Neck exam: Present: normal inspection - Respiratory Respiratory exam: Present: wheezes. Absent: rhonchi - Cardiovascular Cardiovascular exam: Present: regular rate and rhythm. Absent: gallop, rubs, systolic murmur - GI/Abdominal GI/Abdominal exam: Present: normal bowel sounds, soft. Absent: distended, firm , guarding, tenderness, rebound - Extremities Exam Extremities exam: Present: normal inspection. Absent: calf tenderness, edema Results - Labs CBC & BMP: 11/22/16 04:45 11/22/16 04:45 Lab Results: I have reviewed the past 24 hour labs
[2016-11-22] MEDS: ENOXAPARIN 30 MG/0.3 ML SYRINGE SUBCUT SCH (18:26)
[2016-11-22] MEDS: traZODone 50 MG TABLET PO PRN (20:08)
[2016-11-23] MEDS: ALBUTEROL/IPRATROPIUM 3 ML NEB RESP TX SCH ×4 (00:37→20:48)
[2016-11-23] MEDS: methylPREDNISolone SOD SUC 125 MG/2 ML VIAL IV SCH ×3 (02:25→18:26)
[2016-11-23] MEDS: MEROPENEM 1,000 MG in SODIUM CHLORIDE 0.9% 100 ML IV SCH ×3 (02:31→20:10)
[2016-11-23 04:22] LABS: ABG Base Excess 1.3 MMOL/L (-2.5-2.5); ABG HCO3 25.6 MMOL/L (20-26); ABG Oxygen Saturation 99.6 % (95-100); ABG PCO2 51.2 MM HG (35-48); ABG TCO2 25.5 MMOL/L (23-27)
[2016-11-23 06:36] LABS: Hematocrit 28.1 VOL% (42.0-52.0); Immature Granulocytes % 1.1 %; Immature Granulocytes Absolute 0.07 #; Lymphocytes # 0.9 10*3/uL (1.4-4.0); Lymphocytes % 13.2 % (21.2-54.2); Mean Corpuscular HGB Conc 32.4 GM/DL (32-36); Mean Corpuscular Hemoglobin 29 PG (27-34); Mean Corpuscular Volume 89.2 FL (87-102); Mean Platelet Volume 9.9 FL (9.6-12.0); Monocytes # 0.3 10*3/uL (0.11-0.8); NRBC # 0.02 10*3/uL; Neutrophils # 5.3 10*3/uL (1.4-7.4); Neutrophils % 81.7 % (38.7-73.9); Platelet Count 189 T/CUMM (130-400); Red Cell Distribution Width 15.5 % (9.3-17.3); White Blood Count 6.5 T/CUMM (4-12)
[2016-11-23 06:46] LABS: Hemoglobin 9.1 GM/DL (14.0-18.0); Red Blood Count 3.15 MC/CUMM (3.8-5.5)
[2016-11-23 07:05] LABS: Calcium 7.6 MG/DL (8.5-10.1); Magnesium 2.1 MG/DL (1.8-2.4); Osmolality,Calculated 299.3 MOS/KG (273-304); Potassium 4.3 MMOL/L (3.5-5.1)
[2016-11-23] MEDS: DORNASE ALFA 2.5 MG/2.5 ML VIAL RESP TX SCH ×2 (07:10→20:50)
--- NOTE | 2016-11-23 09:00 | XRay Report ---
Portable chest. Indication: Respiratory failure. Comparison: November 22, 2016. The heart is normal in size. The heart and mediastinal borders are fuzzy. The interstitial markings are prominent. There is interstitial infiltrate bilaterally, worse on the right. No pneumothorax. No pleural effusion. Healed rib fracture on the left. Degenerative changes of the spinal column and shoulders. Impression: Stable appearance of the chest. PROCEDURE INTERPRETED AT [facility] DEPARTMENT OF RADIOLOGY Final Report Signed by: Dr. Mere Leslie
[2016-11-23] MEDS: ASPIRIN EC 81 MG TABLET PO SCH (09:16)
[2016-11-23] MEDS: PANTOPRAZOLE 40 MG VIAL IV SCH ×2 (09:16→20:10)
[2016-11-23] MEDS: ROFLUMILAST 500 MCG TABLET PO SCH (09:16)
[2016-11-23] MEDS: MONTELUKAST 10 MG TABLET PO SCH ×2 (09:16→20:10)
[2016-11-23] MEDS: MULTIVITAMIN (CENTRUM) TABLET PO SCH (09:16)
[2016-11-23] MEDS: CHOLECALCIFEROL 400 UNIT TABLET PO SCH ×2 (09:16→20:10)
[2016-11-23] MEDS: METOPROLOL TARTRATE 50 MG TABLET PO SCH ×2 (09:16→20:10)
[2016-11-23] MEDS: CLOPIDOGREL 75 MG TABLET PO SCH (09:16)
[2016-11-23] MEDS: DILTIAZEM CD 120 MG CAPSULE PO SCH (09:17)
[2016-11-23] MEDS: FUROSEMIDE 20 MG/2 ML VIAL IV SCH ×2 (09:17→16:10)
--- NOTE | 2016-11-23 11:05 | Pulmonology Progress Note ---
Pulmonary - PN: Subj Interval history: This is a 61-year-old white male whom I saw in pulmonary consultation on 2016. My impressions were. 1. Respiratory failure for oxygen and carbon dioxide. 11/20/2016. This is improved with decrease FiO2 and relief of bronchospasm. 2. Probable acute pneumonia. 11/20/2016 chest x-ray shows clear-cut extensive right lower lung infiltrate. Patient said that he was doing fine and almost within minutes he developed acute pneumonia and the symptoms that sent him to the hospital. 3. Possible sepsis with hypotension. Requiring pressor agents. 4. Heart disease. 2 stents. History of [place]. History of congestive heart failure. Followed by Dr. Galindo Hunt 4. Diabetes mellitus 5. History of high blood pressure 6. Aortic insufficiency 7. Adverse reaction to LEIDA inhibitors and arbs 8. Hemorrhoids. Diverticulosis. History of colon polyps. 9. See past history 11/20/2016. Gradually reduce the patient's FiO2 to 32%. ABGs now show a pH 7.268. PCO2 is 60.3 and PO2 is 82.9. Bicarb is 23.3. Electrolytes are normal. Creatinine is 0.7 with a BUN of 15 white blood cell count is dropped to 11,900 with 90.4 segs. H&H is 8.5/23.0. Today the patient is alert oriented and wanting to eat I am agreeable. He said that he was doing fine in this illness hit him in a manner for just a few minutes. This is compatible with acute pneumonia and often pneumococcus presents in this fashion. His chest x-ray shows a definite right lower lung infiltrate compatible with pneumonia. His theophylline level is 14.9. Glucoses are under good control. Liver function tests are normal. Ammonia level was 32. Natruretic peptide was 82. Protein and albumin are low at 5.8 and 2.7 respectively. Medicines have been reviewed. Labs been reviewed. 11/21/2016. Clinically the patient continues to improve. Chest x-ray shows increased markings at the left base and at the right base. No overt congestive heart failure. This appears to be retention of secretions. There are no positive cultures. ABGs on FiO2 of 32% shows a pH 7.32, PCO2 is 54, PO2 61.6 and bicarb is 25.7. Electrolytes are stable. Creatinine is 0.8. White count is 10,900 with 80.56. H&H is slowly dropped in the 7.8/25.1. Theophylline level was 14.4. This patient is improved significantly and is stable enough to be moved to a pulmonary floor. 11/22/2016. Patient has been moved to a pulmonary floor from ICU. He is up and standing and change in position from the bed to the chair was represents an improvement. He is much less short of breath than before and he says he feels better. Today's x-ray shows that the central vasculature is top normal. Right lower lung infiltrate is gradually resolving. There are no positive cultures. His BNP is creeping up to 495. H&H is dropped to 7.5/23.9. White count 7800 and platelets are 184,000. ABGs on FiO2 28% showed pH 7.37. PCO2 43. PO2 76. Bicarb 24. Electrolytes are normal. Creatinine is 0.7 BUN 17. Theophylline level is 7.1 11/23/2016. This patient continues to improve. He is up and moving around more. He is mobilizing sputum better. His chest x-ray continues to improve. The left lower lung is opening up very nicely and the infiltrates in the right lower lung are also improving. I do not see any overt pulmonary edema. BNP remains elevated 583. ABGs are significantly better with a PCO2 of 51. Electrolytes normal. Creatinine is 0.6. CBC shows an H&H of 9.1/28.1 post blood transfusion. White count 6500 and platelets are 189,000 theophylline level is 4.9. Physical exam. Vital signs. See below Psychiatric oriented 3 Neurologic. Speech is slightly slurred but the patient says is almost back to his normal. He moves all 4 extremities. He is up walking around with his IV pole cranial nerves are intact Neck. Symmetrical. No meningismus. No masses Lymphatics no submandibular cervical supraclavicular adenopathy. Chest. Previously noted diffuse large airway congestion wheezes markedly improved. No chest wall tenderness Heart. No gallop Abdomen. Nondistended. Rare bowel sounds Lower extremities. Nothing to suggest deep venous thrombophlebitis The remainder of the physical exam is noncontributory. Plans. 1. Decrease FiO2. CO2 retainer 2. 11/19/2016 add Solu-Medrol 3. 11/19/2016. Add Diamox 250 mg IV push every 12 hours 6. Daily chest x-rays, ABGs, lab 7. 11/19/2016. Sputum for Gram stain culture sensitivity 8. Cold agglutinins. 11/20/2016, negative 9. Legionella titer 10. IV Aminophyllin. Daily theophylline levels. 11. Proton pump inhibitor protocol 12. Deep venous thrombophlebitis prevention protocol. 13. See orders per 14. 11/20/2016. Patient is remarkably better. Continue present protocol. When he is moved out of the unit he should go to 5 E. He may require bronchoscopy to deal with sputum retention. Overall the patient made a good improvement in a short period of time based on the history obtained from him it sounds like he had an acute overwhelming pneumonia. He probably was septic and this appears to be the cause of his hypotension and metabolic acidosis. 15. 11/21/2016. See my note above. BNP is 170. Watch for pulmonary edema 16. 11/22/2016. Blood transfusion. Start Lasix 20 IV push twice a day. Patient's on IV Diamox 250 IV push twice a day. Follow daily BMP BNP and repeat chest x-ray tomorrow. Also daily theophylline levels follow-up CBC in the morning 17. 11/23/2016. See my note above. Exam (Progress Note) - Constitutional Vitals: Period Temp Pulse Resp BP Sys/Cedeño Pulse Ox Last 24 Hr 96.7 F-98.8 F 54-88 14-20 113-157/50-82 96-100 Results - Labs CBC & BMP: 11/23/16 05:22 11/23/16 05:22
[2016-11-23] MEDS: AMINOPHYLLINE 500 MG in SODIUM CHLORIDE 0.9% 480 ML IV SCH (11:27)
--- NOTE | 2016-11-23 13:27 | Hospitalist Progress Note ---
Assessment and Plan - Time spent with patient Time spent with patient: Greater than 30 minutes (1) Acute and chronic respiratory failure with hypoxia Status: Acute Assessment and plan: Improving. Current Visit: No (2) Septic shock Status: Acute Assessment and plan: Resolved continue antibiotics. Current Visit: Yes (3) Pneumonia Status: Acute Assessment and plan: Continue antibiotics. Current Visit: No Qualifiers: Pneumonia type: due to unspecified organism Laterality: bilateral (4) CAD (coronary artery disease) Status: Chronic Assessment and plan: Continue management. Current Visit: No Qualifiers: Coronary Disease-Associated Artery/Lesion type: [place] artery [place] vs. transplanted heart: [place] heart Associated angina: angina presence unspecified Qualified Code(s): I25.10 - Atherosclerotic heart disease of [place] coronary artery without angina pectoris (5) Diabetes Status: Chronic Assessment and plan: Continue management. Current Visit: No Hospitalist: Subjective Interval history: No complaints. No overnight events. Exam - Constitutional Vitals: Period Temp Pulse Resp BP Sys/Cedeño Pulse Ox Last 24 Hr 97.4 F-98.8 F 57-88 14-20 113-157/50-72 98-100 General appearance: no acute distress - Head Head exam: Present: normocephalic, atraumatic - Eye Eye exam: Present: EOMI Pupils: Present: PAUL - ENT ENT exam: Present: normal exam - Neck Neck exam: Present: normal inspection - Respiratory Respiratory exam: Present: clear to auscultation bilaterally. Absent: rhonchi, wheezes - Cardiovascular Cardiovascular exam: Present: regular rate and rhythm. Absent: gallop, rubs, systolic murmur - GI/Abdominal GI/Abdominal exam: Present: normal bowel sounds, soft. Absent: distended, firm , guarding, tenderness, rebound - Extremities Exam Extremities exam: Present: normal inspection. Absent: calf tenderness, edema Results - Labs CBC & BMP: 11/23/16 05:22 11/23/16 05:22 Lab Results: I have reviewed the past 24 hour labs
[2016-11-23] MEDS: ENOXAPARIN 30 MG/0.3 ML SYRINGE SUBCUT SCH (18:26)
[2016-11-23] MEDS: traZODone 50 MG TABLET PO PRN (20:10)
[2016-11-24] MEDS: ALBUTEROL/IPRATROPIUM 3 ML NEB RESP TX SCH ×4 (00:46→18:51)
[2016-11-24] MEDS: MEROPENEM 1,000 MG in SODIUM CHLORIDE 0.9% 100 ML IV SCH ×3 (03:20→21:54)
[2016-11-24] MEDS: methylPREDNISolone SOD SUC 125 MG/2 ML VIAL IV SCH ×3 (03:24→17:51)
[2016-11-24 04:22] LABS: Allen Test Positive
[2016-11-24 04:24] LABS: ABG Base Excess 3.4 MMOL/L (-2.5-2.5); ABG HCO3 29.4 MMOL/L (20-26); ABG Oxygen Saturation 98.4 % (95-100); ABG PCO2 52.2 MM HG (35-48); ABG PH 7.369 (7.35-7.45); ABG PO2 139.7 MM HG (80-95)
[2016-11-24 06:39] LABS: Basophils % 0.2 % (0.0-0.8); Hematocrit 29.4 VOL% (42.0-52.0); Hemoglobin 9.5 GM/DL (14.0-18.0); Immature Granulocytes % 0.9 %; Immature Granulocytes Absolute 0.05 #; Lymphocytes # 0.9 10*3/uL (1.4-4.0); Lymphocytes % 14.7 % (21.2-54.2); Mean Corpuscular HGB Conc 32.3 GM/DL (32-36); Mean Corpuscular Hemoglobin 29 PG (27-34); Mean Corpuscular Volume 89.6 FL (87-102); Mean Platelet Volume 9.8 FL (9.6-12.0); Monocytes # 0.2 10*3/uL (0.11-0.8); Monocytes % 3.8 % (1.7-12.7); Neutrophils # 4.7 10*3/uL (1.4-7.4); Neutrophils % 80.4 % (38.7-73.9); Platelet Count 206 T/CUMM (130-400); Red Blood Count 3.28 MC/CUMM (3.8-5.5); Red Cell Distribution Width 15.1 % (9.3-17.3); White Blood Count 5.9 T/CUMM (4-12)
[2016-11-24 07:09] LABS: Calcium 7.8 MG/DL (8.5-10.1); Magnesium 2.3 MG/DL (1.8-2.4); Osmolality,Calculated 298.4 MOS/KG (273-304); Potassium 4.1 MMOL/L (3.5-5.1)
[2016-11-24] MEDS: DORNASE ALFA 2.5 MG/2.5 ML VIAL RESP TX SCH ×2 (07:15→18:54)
--- NOTE | 2016-11-24 07:44 | XRay Report ---
XR chest 1V portable Indication: Respiratory failure. Chest one view: Comparison yesterday shows stable borderline cardiomegaly, prominence of the ascending thoracic aorta, and continued severe interstitial lung disease diffusely. No new opacities. Impression: No change. PROCEDURE INTERPRETED AT [facility] DEPARTMENT OF RADIOLOGY Final Report Signed by: Blanco Almanza M.D.
[2016-11-24] MEDS: ROFLUMILAST 500 MCG TABLET PO SCH (08:24)
[2016-11-24] MEDS: ASPIRIN EC 81 MG TABLET PO SCH (08:24)
[2016-11-24] MEDS: DILTIAZEM CD 120 MG CAPSULE PO SCH (08:24)
[2016-11-24] MEDS: CLOPIDOGREL 75 MG TABLET PO SCH (08:24)
[2016-11-24] MEDS: METOPROLOL TARTRATE 50 MG TABLET PO SCH ×2 (08:24→21:54)
[2016-11-24] MEDS: MONTELUKAST 10 MG TABLET PO SCH ×2 (08:24→21:54)
[2016-11-24] MEDS: CHOLECALCIFEROL 400 UNIT TABLET PO SCH ×2 (08:25→21:54)
[2016-11-24] MEDS: MULTIVITAMIN (CENTRUM) TABLET PO SCH (08:25)
[2016-11-24] MEDS: FUROSEMIDE 20 MG/2 ML VIAL IV SCH ×2 (08:26→15:38)
[2016-11-24] MEDS: PANTOPRAZOLE 40 MG VIAL IV SCH ×2 (08:26→21:54)
--- NOTE | 2016-11-24 11:57 | Pulmonology Progress Note ---
Pulmonary - PN: Subj Interval history: Jesu Boudreaux, ANP-BC, GNP-BC, acting as scribe for Dr. Chente Dunn This is a 61-year-old white male who we saw in initial pulmonary consultation on 11/19/2016. At that time, our impressions were: 1. Respiratory failure for oxygen and carbon dioxide. 11/20/2016. This is improved with decrease FiO2 and relief of bronchospasm. 2. Probable acute pneumonia. 11/20/2016 chest x-ray shows clear-cut extensive right lower lung infiltrate. Patient said that he was doing fine and almost within minutes he developed acute pneumonia and the symptoms that sent him to the hospital. 3. Possible sepsis with hypotension. Requiring pressor agents. 4. Heart disease. 2 stents. History of [place]. History of congestive heart failure. Followed by Dr. Galindo Hunt 4. Diabetes mellitus 5. History of high blood pressure 6. Aortic insufficiency 7. Adverse reaction to LEIDA inhibitors and arbs 8. Hemorrhoids. Diverticulosis. History of colon polyps. 9. See past history 11/20/2016. Gradually reduce the patient's FiO2 to 32%. ABGs now show a pH 7.268. PCO2 is 60.3 and PO2 is 82.9. Bicarb is 23.3. Electrolytes are normal. Creatinine is 0.7 with a BUN of 15 white blood cell count is dropped to 11,900 with 90.4 segs. H&H is 8.5/23.0. Today the patient is alert oriented and wanting to eat I am agreeable. He said that he was doing fine in this illness hit him in a manner for just a few minutes. This is compatible with acute pneumonia and often pneumococcus presents in this fashion. His chest x-ray shows a definite right lower lung infiltrate compatible with pneumonia. His theophylline level is 14.9. Glucoses are under good control. Liver function tests are normal. Ammonia level was 32. Natruretic peptide was 82. Protein and albumin are low at 5.8 and 2.7 respectively. Medicines have been reviewed. Labs been reviewed. 11/21/2016. Clinically the patient continues to improve. Chest x-ray shows increased markings at the left base and at the right base. No overt congestive heart failure. This appears to be retention of secretions. There are no positive cultures. ABGs on FiO2 of 32% shows a pH 7.32, PCO2 is 54, PO2 61.6 and bicarb is 25.7. Electrolytes are stable. Creatinine is 0.8. White count is 10,900 with 80.56. H&H is slowly dropped in the 7.8/25.1. Theophylline level was 14.4. This patient is improved significantly and is stable enough to be moved to a pulmonary floor. 11/22/2016. Patient has been moved to a pulmonary floor from ICU. He is up and standing and change in position from the bed to the chair was represents an improvement. He is much less short of breath than before and he says he feels better. Today's x-ray shows that the central vasculature is top normal. Right lower lung infiltrate is gradually resolving. There are no positive cultures. His BNP is creeping up to 495. H&H is dropped to 7.5/23.9. White count 7800 and platelets are 184,000. ABGs on FiO2 28% showed pH 7.37. PCO2 43. PO2 76. Bicarb 24. Electrolytes are normal. Creatinine is 0.7 BUN 17. Theophylline level is 7.1 11/23/2016. This patient continues to improve. He is up and moving around more. He is mobilizing sputum better. His chest x-ray continues to improve. The left lower lung is opening up very nicely and the infiltrates in the right lower lung are also improving. I do not see any overt pulmonary edema. BNP remains elevated 583. ABGs are significantly better with a PCO2 of 51. Electrolytes normal. Creatinine is 0.6. CBC shows an H&H of 9.1/28.1 post blood transfusion. White count 6500 and platelets are 189,000 theophylline level is 4.9. 11/24/2016. Patient was seen today along with Shivani Best RN. He was up and sitting in a bedside chair. He reports that his breathing is improved. His chest x-ray shows that the previously noted infiltrate is resolving. BNP remains elevated at 550. Sputum culture grew no organisms. Blood cultures are negative at day 5. Medications have been reviewed. We made no changes today. Labs been reviewed. White count is 5900 with 80.4% segs; H&H 9.5/29.4; platelet count 206,000; creatinine 0.70, BUN 22, sodium 147, potassium 4.1, magnesium 2.3; theophylline level 5.5 ABGs this morning on an FiO2 of 28% showed a pH of 7.369, PCO2 52.2, PaO2 139.7 , bicarb 29.4, oxygen saturation 98.4%. Exam (Progress Note) - Constitutional Vitals: Period Temp Pulse Resp BP Sys/Cedeño Pulse Ox Last 24 Hr 97.4 F-97.9 F 44-77 14-18 108-159/51-80 97-100 Exam: Chest is markedly improved with faint large airway congestion and wheeze Heart no gallop Abdomen is nontender and nondistended; bowel sounds are positive 4 Extremities with nothing to suggest acute deep venous thrombophlebitis Psychiatric oriented 3 neurologic long tract motor function appears to be intact Plan: Continue present treatment. From a pulmonary standpoint, the patient will most likely be ready for discharge on Thursday. See orders. Results - Labs CBC & BMP: 11/24/16 05:39 11/24/16 05:39
[2016-11-24] MEDS: AMINOPHYLLINE 500 MG in SODIUM CHLORIDE 0.9% 480 ML IV SCH ×2 (14:08→23:13)
--- NOTE | 2016-11-24 16:05 | Hospitalist Progress Note ---
Assessment and Plan - Time spent with patient Time spent with patient: Greater than 30 minutes (1) Acute and chronic respiratory failure with hypoxia Status: Acute Assessment and plan: Improving. Current Visit: No (2) Septic shock Status: Acute Assessment and plan: Resolved continue antibiotics. Current Visit: Yes (3) Pneumonia Status: Acute Assessment and plan: Continue antibiotics. Current Visit: No Qualifiers: Pneumonia type: due to unspecified organism Laterality: bilateral (4) CAD (coronary artery disease) Status: Chronic Assessment and plan: Continue management. Current Visit: No Qualifiers: Coronary Disease-Associated Artery/Lesion type: [place] artery [place] vs. transplanted heart: [place] heart Associated angina: angina presence unspecified Qualified Code(s): I25.10 - Atherosclerotic heart disease of [place] coronary artery without angina pectoris (5) Diabetes Status: Chronic Assessment and plan: Continue management. Current Visit: No Hospitalist: Subjective Interval history: No complaints. No overnight events. Exam - Constitutional Vitals: Period Temp Pulse Resp BP Sys/Cedeño Pulse Ox Last 24 Hr 97.4 F-97.7 F 44-77 14-18 108-159/51-80 97-100 General appearance: no acute distress - Head Head exam: Present: normocephalic, atraumatic - Eye Eye exam: Present: EOMI Pupils: Present: PAUL - ENT ENT exam: Present: normal exam - Neck Neck exam: Present: normal inspection - Respiratory Respiratory exam: Present: clear to auscultation bilaterally. Absent: rhonchi, wheezes - Cardiovascular Cardiovascular exam: Present: regular rate and rhythm. Absent: gallop, rubs, systolic murmur - GI/Abdominal GI/Abdominal exam: Present: normal bowel sounds, soft. Absent: distended, firm , guarding, tenderness, rebound - Extremities Exam Extremities exam: Present: normal inspection. Absent: calf tenderness, edema Results - Labs CBC & BMP: 11/24/16 05:39 11/24/16 05:39 Lab Results: I have reviewed the past 24 hour labs
[2016-11-24] MEDS: ENOXAPARIN 30 MG/0.3 ML SYRINGE SUBCUT SCH (17:52)
[2016-11-25] MEDS: ALBUTEROL/IPRATROPIUM 3 ML NEB RESP TX SCH ×4 (00:33→19:31)
[2016-11-25] MEDS: methylPREDNISolone SOD SUC 125 MG/2 ML VIAL IV SCH ×4 (04:13→22:22)
[2016-11-25] MEDS: MEROPENEM 1,000 MG in SODIUM CHLORIDE 0.9% 100 ML IV SCH ×2 (04:13→16:00)
[2016-11-25 04:50] LABS: ABG Base Excess 3.2 MMOL/L (-2.5-2.5); ABG HCO3 27.3 MMOL/L (20-26); ABG Oxygen Saturation 99.2 % (95-100); ABG PCO2 48.6 MM HG (35-48); ABG PH 7.383 (7.35-7.45); ABG TCO2 26.5 MMOL/L (23-27); Allen Test Positive
[2016-11-25 07:24] LABS: Hematocrit 28.5 VOL% (42.0-52.0); Hemoglobin 9.3 GM/DL (14.0-18.0); Immature Granulocytes % 1.2 %; Immature Granulocytes Absolute 0.08 #; Lymphocytes # 0.8 10*3/uL (1.4-4.0); Lymphocytes % 12.1 % (21.2-54.2); Mean Corpuscular HGB Conc 32.6 GM/DL (32-36); Mean Corpuscular Hemoglobin 29 PG (27-34); Mean Corpuscular Volume 89.3 FL (87-102); Mean Platelet Volume 10.2 FL (9.6-12.0); Monocytes # 0.3 10*3/uL (0.11-0.8); Monocytes % 5.1 % (1.7-12.7); Neutrophils # 5.3 10*3/uL (1.4-7.4); Neutrophils % 81.6 % (38.7-73.9); Platelet Count 229 T/CUMM (130-400); Red Blood Count 3.19 MC/CUMM (3.8-5.5); Red Cell Distribution Width 14.9 % (9.3-17.3); White Blood Count 6.5 T/CUMM (4-12)
--- NOTE | 2016-11-25 07:28 | XRay Report ---
Referring Physician: Chente Dunn Exam: XR chest 1V portable Date: November 25, 2016 at 5:43 AM Reason: Respiratory failure Comparison: Chest one view portable November 24, 2016 Findings: There is borderline cardiomegaly. Scattered opacities are present within both lungs, mainly at the lung bases. This likely represents the patient's known interstitial lung disease. Superimposed mild pulmonary edema is not excluded. No pneumothorax or definite pleural fluid is identified. The osseous structures appear stable. Impression: There has been no significant change. PROCEDURE INTERPRETED AT [facility] DEPARTMENT OF RADIOLOGY Final Report Signed by: Dr. Joel Reeves
[2016-11-25] MEDS: DORNASE ALFA 2.5 MG/2.5 ML VIAL RESP TX SCH ×2 (07:53→19:31)
[2016-11-25 07:55] LABS: Calcium 7.3 MG/DL (8.5-10.1); Magnesium 2.1 MG/DL (1.8-2.4); Osmolality,Calculated 306.7 MOS/KG (273-304); Potassium 3.4 MMOL/L (3.5-5.1)
[2016-11-25] MEDS: ASPIRIN EC 81 MG TABLET PO SCH (08:49)
[2016-11-25] MEDS: MULTIVITAMIN (CENTRUM) TABLET PO SCH (08:49)
[2016-11-25] MEDS: CHOLECALCIFEROL 400 UNIT TABLET PO SCH ×2 (08:49→21:59)
[2016-11-25] MEDS: MONTELUKAST 10 MG TABLET PO SCH ×2 (08:49→21:59)
[2016-11-25] MEDS: CLOPIDOGREL 75 MG TABLET PO SCH (08:49)
[2016-11-25] MEDS: METOPROLOL TARTRATE 50 MG TABLET PO SCH ×2 (08:49→21:59)
[2016-11-25] MEDS: ROFLUMILAST 500 MCG TABLET PO SCH (08:49)
[2016-11-25] MEDS: DILTIAZEM CD 120 MG CAPSULE PO SCH (08:55)
[2016-11-25] MEDS: FUROSEMIDE 20 MG/2 ML VIAL IV SCH ×2 (08:56→16:00)
[2016-11-25] MEDS: PANTOPRAZOLE 40 MG VIAL IV SCH ×2 (08:56→21:59)
[2016-11-25] MEDS: DEXTROSE 5% 1,000 ML IV SCH ×3 (09:06→23:58)
[2016-11-25] MEDS: POTASSIUM CHLORIDE RIDER 10 MEQ in PREMIX 1 EACH IV SCH ×5 (09:29→14:30)
--- NOTE | 2016-11-25 11:48 | Pulmonology Progress Note ---
Pulmonary - PN: Subj Interval history: Jesu Boudreaux, ANP-BC, GNP-BC, acting as scribe for Dr. Chente Dunn This is a 61-year-old white male who we saw in initial pulmonary consultation on 11/19/2016. At that time, our impressions were: 1. Respiratory failure for oxygen and carbon dioxide. 11/20/2016. This is improved with decrease FiO2 and relief of bronchospasm. 2. Probable acute pneumonia. 11/20/2016 chest x-ray shows clear-cut extensive right lower lung infiltrate. Patient said that he was doing fine and almost within minutes he developed acute pneumonia and the symptoms that sent him to the hospital. 3. Possible sepsis with hypotension. Requiring pressor agents. 4. Heart disease. 2 stents. History of [place]. History of congestive heart failure. Followed by Dr. Galindo Hunt 4. Diabetes mellitus 5. History of high blood pressure 6. Aortic insufficiency 7. Adverse reaction to LEIDA inhibitors and arbs 8. Hemorrhoids. Diverticulosis. History of colon polyps. 9. See past history 11/20/2016. Gradually reduce the patient's FiO2 to 32%. ABGs now show a pH 7.268. PCO2 is 60.3 and PO2 is 82.9. Bicarb is 23.3. Electrolytes are normal. Creatinine is 0.7 with a BUN of 15 white blood cell count is dropped to 11,900 with 90.4 segs. H&H is 8.5/23.0. Today the patient is alert oriented and wanting to eat I am agreeable. He said that he was doing fine in this illness hit him in a manner for just a few minutes. This is compatible with acute pneumonia and often pneumococcus presents in this fashion. His chest x-ray shows a definite right lower lung infiltrate compatible with pneumonia. His theophylline level is 14.9. Glucoses are under good control. Liver function tests are normal. Ammonia level was 32. Natruretic peptide was 82. Protein and albumin are low at 5.8 and 2.7 respectively. Medicines have been reviewed. Labs been reviewed. 11/21/2016. Clinically the patient continues to improve. Chest x-ray shows increased markings at the left base and at the right base. No overt congestive heart failure. This appears to be retention of secretions. There are no positive cultures. ABGs on FiO2 of 32% shows a pH 7.32, PCO2 is 54, PO2 61.6 and bicarb is 25.7. Electrolytes are stable. Creatinine is 0.8. White count is 10,900 with 80.56. H&H is slowly dropped in the 7.8/25.1. Theophylline level was 14.4. This patient is improved significantly and is stable enough to be moved to a pulmonary floor. 11/22/2016. Patient has been moved to a pulmonary floor from ICU. He is up and standing and change in position from the bed to the chair was represents an improvement. He is much less short of breath than before and he says he feels better. Today's x-ray shows that the central vasculature is top normal. Right lower lung infiltrate is gradually resolving. There are no positive cultures. His BNP is creeping up to 495. H&H is dropped to 7.5/23.9. White count 7800 and platelets are 184,000. ABGs on FiO2 28% showed pH 7.37. PCO2 43. PO2 76. Bicarb 24. Electrolytes are normal. Creatinine is 0.7 BUN 17. Theophylline level is 7.1 11/23/2016. This patient continues to improve. He is up and moving around more. He is mobilizing sputum better. His chest x-ray continues to improve. The left lower lung is opening up very nicely and the infiltrates in the right lower lung are also improving. I do not see any overt pulmonary edema. BNP remains elevated 583. ABGs are significantly better with a PCO2 of 51. Electrolytes normal. Creatinine is 0.6. CBC shows an H&H of 9.1/28.1 post blood transfusion. White count 6500 and platelets are 189,000 theophylline level is 4.9. 11/24/2016. Patient was seen today along with Shivani Best RN. He was up and sitting in a bedside chair. He reports that his breathing is improved. His chest x-ray shows that the previously noted infiltrate is resolving. BNP remains elevated at 550. Sputum culture grew no organisms. Blood cultures are negative at day 5. 11/25/2016. Patient was seen today along with Fatimah Guillen RN. Patient continues to do well from a pulmonary standpoint. On chest exam the patient still has a significant amount of large airway congestion with sputum that he needs to mobilize. His wheezes have markedly improved, however. In light of this, blood decrease his Solu-Medrol to 40 mg every 8 hours. He has remained on IV Aminophyllin. Theophylline level today is 4.6. Will convert this to theophylline 200 mg p.o. every 12 hours. He is working with physical therapy and doing well. Medications have been reviewed. We made no changes today. Labs been reviewed. White count is 6500 with 81.6% segs; H&H 9.3/28.5; platelet count 229,000; creatinine 0.60, BUN 22, sodium 152, potassium 3.4, magnesium 2.1; BNP 394; theophylline 4.6 ABGs this morning on an FiO2 of 28% showed a pH of 7.383, PCO2 48.6, PO2 126.0, bicarb 27.3, oxygen saturation 99.2%. Exam (Progress Note) - Constitutional Vitals: Period Temp Pulse Resp BP Sys/Cedeño Pulse Ox Last 24 Hr 97.2 F-98.2 F 62-91 16-25 138-148/67-82 96-100 Exam: Chest... As above Heart no gallop Abdomen is nontender and nondistended; bowel sounds are positive 4 Extremities with nothing to suggest acute deep venous thrombophlebitis Psychiatric oriented 3 neurologic long tract motor function appears to be intact Plan: Continue present treatment. From a pulmonary standpoint, given the amount of large airway congestion on today's exam, he will most likely need to remain in the hospital until unless he is able to significantly mobilize his secretions today. Results - Labs CBC & BMP: 11/25/16 06:07 11/25/16 06:07
--- NOTE | 2016-11-25 13:18 | Hospitalist Progress Note ---
Assessment and Plan - Time spent with patient Time spent with patient: Greater than 30 minutes (1) Acute and chronic respiratory failure with hypoxia Status: Acute Assessment and plan: Improving. Current Visit: No (2) Pneumonia Status: Acute Assessment and plan: Continue antibiotics. Current Visit: No Qualifiers: Pneumonia type: due to unspecified organism Laterality: bilateral (3) Hypernatremia Status: Acute Assessment and plan: Start dextrose. Current Visit: Yes (4) CAD (coronary artery disease) Status: Chronic Assessment and plan: Continue management. Current Visit: No Qualifiers: Coronary Disease-Associated Artery/Lesion type: [place] artery [place] vs. transplanted heart: [place] heart Associated angina: angina presence unspecified Qualified Code(s): I25.10 - Atherosclerotic heart disease of [place] coronary artery without angina pectoris (5) Diabetes Status: Chronic Assessment and plan: Continue management. Current Visit: No Hospitalist: Subjective Interval history: No complaints currently he states he is doing much better this morning. Appears very comfortable. Exam - Constitutional Vitals: Period Temp Pulse Resp BP Sys/Cedeño Pulse Ox Last 24 Hr 97.1 F-98.2 F 67-91 18-25 138-148/67-82 96-100 General appearance: normal weight, no acute distress - Head Head exam: Present: normocephalic, atraumatic - Eye Eye exam: Present: EOMI Pupils: Present: PAUL - ENT ENT exam: Present: normal exam - Neck Neck exam: Present: normal inspection - Respiratory Respiratory exam: Present: clear to auscultation bilaterally. Absent: rhonchi, wheezes - Cardiovascular Cardiovascular exam: Present: regular rate and rhythm. Absent: gallop, rubs, systolic murmur - GI/Abdominal GI/Abdominal exam: Present: normal bowel sounds, soft. Absent: distended, firm , guarding, tenderness, rebound - Extremities Exam Extremities exam: Present: normal inspection. Absent: calf tenderness, edema Results - Labs CBC & BMP: 11/25/16 06:07 11/25/16 06:07 Lab Results: I have reviewed the past 24 hour labs
[2016-11-25] MEDS: THEOPHYLLINE ER (24 HR) 400 MG CAPSULE PO SCH (16:00)
[2016-11-25] MEDS: ENOXAPARIN 30 MG/0.3 ML SYRINGE SUBCUT SCH (17:46)
[2016-11-26] MEDS: ALBUTEROL/IPRATROPIUM 3 ML NEB RESP TX SCH ×4 (00:34→20:00)
[2016-11-26] MEDS: MEROPENEM 1,000 MG in SODIUM CHLORIDE 0.9% 100 ML IV SCH ×3 (01:03→16:48)
[2016-11-26 03:47] LABS: Allen Test Positive
[2016-11-26 03:48] LABS: ABG Base Excess 0.7 MMOL/L (-2.5-2.5); ABG Oxygen Saturation 98.5 % (95-100); ABG PCO2 45.4 MM HG (35-48)
[2016-11-26] MEDS: DEXTROSE 5% 1,000 ML IV SCH ×2 (04:53→14:25)
[2016-11-26] MEDS: methylPREDNISolone SOD SUC 40 MG/1 ML VIAL IV SCH ×3 (06:36→22:21)
[2016-11-26] MEDS: DORNASE ALFA 2.5 MG/2.5 ML VIAL RESP TX SCH ×2 (06:56→20:09)
--- NOTE | 2016-11-26 07:19 | XRay Report ---
XR chest 1V portable Indication: Respiratory failure. Chest one view: Comparison yesterday. Cardiomegaly, mediastinal contour and significantly coarsened interstitial markings of the lungs are again shown. Lungs are slightly better aerated than previous, especially on the right. No new infiltrates are seen. Impression: Slightly improved aeration of lungs. PROCEDURE INTERPRETED AT [facility] DEPARTMENT OF RADIOLOGY Final Report Signed by: Blanco Almanza M.D.
[2016-11-26 07:33] LABS: Hematocrit 29.3 VOL% (42.0-52.0); Hemoglobin 9.6 GM/DL (14.0-18.0); Immature Granulocytes % 0.8 %; Immature Granulocytes Absolute 0.07 #; Lymphocytes # 0.9 10*3/uL (1.4-4.0); Lymphocytes % 10.5 % (21.2-54.2); Mean Corpuscular HGB Conc 32.8 GM/DL (32-36); Mean Corpuscular Hemoglobin 29 PG (27-34); Mean Corpuscular Volume 89.1 FL (87-102); Monocytes # 0.6 10*3/uL (0.11-0.8); Monocytes % 6.6 % (1.7-12.7); Neutrophils # 6.8 10*3/uL (1.4-7.4); Neutrophils % 82.1 % (38.7-73.9); Platelet Count 252 T/CUMM (130-400); Red Blood Count 3.29 MC/CUMM (3.8-5.5); White Blood Count 8.3 T/CUMM (4-12)
[2016-11-26 07:57] LABS: Potassium 3.8 MMOL/L (3.5-5.1)
[2016-11-26] MEDS: PANTOPRAZOLE 40 MG VIAL IV SCH ×2 (09:19→20:47)
[2016-11-26] MEDS: FUROSEMIDE 20 MG/2 ML VIAL IV SCH ×2 (09:19→16:48)
[2016-11-26] MEDS: METOPROLOL TARTRATE 50 MG TABLET PO SCH ×2 (09:20→20:44)
[2016-11-26] MEDS: MULTIVITAMIN (CENTRUM) TABLET PO SCH (09:20)
[2016-11-26] MEDS: ASPIRIN EC 81 MG TABLET PO SCH (09:20)
[2016-11-26] MEDS: MONTELUKAST 10 MG TABLET PO SCH ×2 (09:20→20:44)
[2016-11-26] MEDS: CLOPIDOGREL 75 MG TABLET PO SCH (09:20)
[2016-11-26] MEDS: CHOLECALCIFEROL 400 UNIT TABLET PO SCH ×2 (09:20→20:44)
[2016-11-26] MEDS: ROFLUMILAST 500 MCG TABLET PO SCH (09:20)
[2016-11-26] MEDS: DILTIAZEM CD 120 MG CAPSULE PO SCH (09:20)
[2016-11-26] MEDS: THEOPHYLLINE ER (24 HR) 400 MG CAPSULE PO SCH (09:20)
--- NOTE | 2016-11-26 10:15 | Pulmonology Progress Note ---
Pulmonary - PN: Subj Interval history: Jesu Boudreaux, ANP-BC, GNP-BC, acting as scribe for Dr. Chente Dunn This is a 61-year-old white male who we saw in initial pulmonary consultation on 11/19/2016. At that time, our impressions were: 1. Respiratory failure for oxygen and carbon dioxide. 11/20/2016. This is improved with decrease FiO2 and relief of bronchospasm. 2. Probable acute pneumonia. 11/20/2016 chest x-ray shows clear-cut extensive right lower lung infiltrate. Patient said that he was doing fine and almost within minutes he developed acute pneumonia and the symptoms that sent him to the hospital. 3. Possible sepsis with hypotension. Requiring pressor agents. 4. Heart disease. 2 stents. History of SD. History of congestive heart failure. Followed by Dr. Galindo Hunt 4. Diabetes mellitus 5. History of high blood pressure 6. Aortic insufficiency 7. Adverse reaction to LEIDA inhibitors and arbs 8. Hemorrhoids. Diverticulosis. History of colon polyps. 9. See past history 11/20/2016. Gradually reduce the patient's FiO2 to 32%. ABGs now show a pH 7.268. PCO2 is 60.3 and PO2 is 82.9. Bicarb is 23.3. Electrolytes are normal. Creatinine is 0.7 with a BUN of 15 white blood cell count is dropped to 11,900 with 90.4 segs. H&H is 8.5/23.0. Today the patient is alert oriented and wanting to eat I am agreeable. He said that he was doing fine in this illness hit him in a manner for just a few minutes. This is compatible with acute pneumonia and often pneumococcus presents in this fashion. His chest x-ray shows a definite right lower lung infiltrate compatible with pneumonia. His theophylline level is 14.9. Glucoses are under good control. Liver function tests are normal. Ammonia level was 32. Natruretic peptide was 82. Protein and albumin are low at 5.8 and 2.7 respectively. Medicines have been reviewed. Labs been reviewed. 11/21/2016. Clinically the patient continues to improve. Chest x-ray shows increased markings at the left base and at the right base. No overt congestive heart failure. This appears to be retention of secretions. There are no positive cultures. ABGs on FiO2 of 32% shows a pH 7.32, PCO2 is 54, PO2 61.6 and bicarb is 25.7. Electrolytes are stable. Creatinine is 0.8. White count is 10,900 with 80.56. H&H is slowly dropped in the 7.8/25.1. Theophylline level was 14.4. This patient is improved significantly and is stable enough to be moved to a pulmonary floor. 11/22/2016. Patient has been moved to a pulmonary floor from ICU. He is up and standing and change in position from the bed to the chair was represents an improvement. He is much less short of breath than before and he says he feels better. Today's x-ray shows that the central vasculature is top normal. Right lower lung infiltrate is gradually resolving. There are no positive cultures. His BNP is creeping up to 495. H&H is dropped to 7.5/23.9. White count 7800 and platelets are 184,000. ABGs on FiO2 28% showed pH 7.37. PCO2 43. PO2 76. Bicarb 24. Electrolytes are normal. Creatinine is 0.7 BUN 17. Theophylline level is 7.1 11/23/2016. This patient continues to improve. He is up and moving around more. He is mobilizing sputum better. His chest x-ray continues to improve. The left lower lung is opening up very nicely and the infiltrates in the right lower lung are also improving. I do not see any overt pulmonary edema. BNP remains elevated 583. ABGs are significantly better with a PCO2 of 51. Electrolytes normal. Creatinine is 0.6. CBC shows an H&H of 9.1/28.1 post blood transfusion. White count 6500 and platelets are 189,000 theophylline level is 4.9. 11/24/2016. Patient was seen today along with Shivani Best RN. He was up and sitting in a bedside chair. He reports that his breathing is improved. His chest x-ray shows that the previously noted infiltrate is resolving. BNP remains elevated at 550. Sputum culture grew no organisms. Blood cultures are negative at day 5. 11/25/2016. Patient was seen today along with Fatimah Guillen RN. Patient continues to do well from a pulmonary standpoint. On chest exam the patient still has a significant amount of large airway congestion with sputum that he needs to mobilize. His wheezes have markedly improved, however. In light of this, blood decrease his Solu-Medrol to 40 mg every 8 hours. He has remained on IV Aminophyllin. Theophylline level today is 4.6. Will convert this to theophylline 200 mg p.o. every 12 hours. He is working with physical therapy and doing well. 11/26/16. The patient was seen today along with Mia Ayoub RN. Today's CXR shows that the previously noted infiltrate is resolving. He continues to improve daily. He has been working with physical therapy and states he is doing well. Yesterday we converted him to oral Theophylline. Today's level is 7.4. Medications have been reviewed. We made no changes today. Labs been reviewed. White count is 8300 with 82.1% segs; H&H 9.6/29.3; platelet count 252,000; creatinine 0.70, BUN 20, electrolytes are normal; BNP 452; theophylline 7.4 ABGs this morning on an FiO2 of 28% showed a pH of 7.370, PCO2 45.4, PO2 111.0, bicarb 25.0, oxygen saturation 98.5%. Exam (Progress Note) - Constitutional Vitals: Period Temp Pulse Resp BP Sys/Cedeño Pulse Ox Last 24 Hr 97.0 F-97.7 F 55-91 17-24 132-151/64-84 95-100 Exam: Chest... As above Heart no gallop Abdomen is nontender and nondistended; bowel sounds are positive 4 Extremities with nothing to suggest acute deep venous thrombophlebitis Psychiatric oriented 3 neurologic long tract motor function appears to be intact Plan: Continue present treatment. From a pulmonary standpoint, he will be ready for discharge tomorrow assuming everything remains stable. Results - Labs CBC & BMP: 11/26/16 06:08 11/26/16 06:08
--- NOTE | 2016-11-26 17:02 | Hospitalist Progress Note ---
Assessment and Plan (1) Pneumonia Status: Acute Assessment and plan: Patient is on IV antibiotic continued to improve, will follow with the primary. Patient has reported that he was told that he can be discharged tomorrow Current Visit: Yes (2) CHF (congestive heart failure) Status: Acute Assessment and plan: I will DC IV fluids patient is on IV Lasix hopefully will be switching to by mouth tomorrow and continue today's as I can hear some faint crackles at the bases Current Visit: Yes (3) Diabetes Status: Acute Assessment and plan: Patient is on IV steroid and blood sugar is little elevated we'll continue to monitor hopefully will be able to stop IV steroid tomorrow after seen by pulmonary Current Visit: Yes (4) Anemia Status: Chronic Assessment and plan: Stable Current Visit: No Hospitalist: Subjective Interval history: Mr. Morin is a 61-year-old white male with history of COPD, diabetes , chf, cad/ mis/p pc 2012 and hypertension, transferred from [facility] with the patient of septic shock he was on pressors. He was diagnosed to have right lower lobe pneumonia and has been on antibiotics intravenously. At present he is on ceftazidime and meropenem. He is doing light better last few days according to patient and his been afebrile and has been receiving physical therapy. Exam - Constitutional Vitals: Period Temp Pulse Resp BP Sys/Cedeño Pulse Ox Last 24 Hr 97.0 F-97.9 F 55-91 17-24 140-151/54-84 95-100 General appearance: no acute distress - Respiratory Respiratory exam: Present: decreased breath sounds (right base), rales (a few crackles at the base). Absent: rhonchi - Cardiovascular Cardiovascular exam: Present: regular rate and rhythm. Absent: tachycardia - GI/Abdominal GI/Abdominal exam: Present: normal bowel sounds, soft. Absent: tenderness - Neurological Exam Neurological exam: Present: alert, oriented X3 Results - Labs CBC & BMP: 11/26/16 06:08 11/26/16 06:08 Lab Results: I have reviewed the past 24 hour labs
[2016-11-26] MEDS: ENOXAPARIN 30 MG/0.3 ML SYRINGE SUBCUT SCH (18:36)
[2016-11-27] MEDS: MEROPENEM 1,000 MG in SODIUM CHLORIDE 0.9% 100 ML IV SCH ×2 (00:08→09:08)
[2016-11-27] MEDS: ALBUTEROL/IPRATROPIUM 3 ML NEB RESP TX SCH ×2 (05:25→07:14)
[2016-11-27] MEDS: methylPREDNISolone SOD SUC 40 MG/1 ML VIAL IV SCH (06:03)
[2016-11-27] MEDS: DORNASE ALFA 2.5 MG/2.5 ML VIAL RESP TX SCH (07:14)
[2016-11-27 07:31] VITALS: BP 156/74
[2016-11-27] MEDS: MONTELUKAST 10 MG TABLET PO SCH (09:01)
[2016-11-27] MEDS: DILTIAZEM CD 120 MG CAPSULE PO SCH (09:01)
[2016-11-27] MEDS: THEOPHYLLINE ER (24 HR) 400 MG CAPSULE PO SCH (09:01)
[2016-11-27] MEDS: ROFLUMILAST 500 MCG TABLET PO SCH (09:02)
[2016-11-27] MEDS: METOPROLOL TARTRATE 50 MG TABLET PO SCH (09:02)
[2016-11-27] MEDS: ASPIRIN EC 81 MG TABLET PO SCH (09:02)
[2016-11-27] MEDS: CLOPIDOGREL 75 MG TABLET PO SCH (09:02)
[2016-11-27] MEDS: CHOLECALCIFEROL 400 UNIT TABLET PO SCH (09:02)
[2016-11-27] MEDS: MULTIVITAMIN (CENTRUM) TABLET PO SCH (09:02)
[2016-11-27] MEDS: FUROSEMIDE 20 MG/2 ML VIAL IV SCH (09:04)
[2016-11-27] MEDS: PANTOPRAZOLE 40 MG VIAL IV SCH (09:06)
--- NOTE | 2016-11-27 10:55 | Pulmonology Progress Note ---
Pulmonary - PN: Subj Interval history: Jesu Boudreaux, ANP-BC, GNP-BC, acting as scribe for Dr. Chente Dunn This is a 61-year-old white male who we saw in initial pulmonary consultation on 11/19/2016. At that time, our impressions were: 1. Respiratory failure for oxygen and carbon dioxide. 11/20/2016. This is improved with decrease FiO2 and relief of bronchospasm. 2. Probable acute pneumonia. 11/20/2016 chest x-ray shows clear-cut extensive right lower lung infiltrate. Patient said that he was doing fine and almost within minutes he developed acute pneumonia and the symptoms that sent him to the hospital. 3. Possible sepsis with hypotension. Requiring pressor agents. 4. Heart disease. 2 stents. History of [place]. History of congestive heart failure. Followed by Dr. Galindo Hunt 4. Diabetes mellitus 5. History of high blood pressure 6. Aortic insufficiency 7. Adverse reaction to LEIDA inhibitors and arbs 8. Hemorrhoids. Diverticulosis. History of colon polyps. 9. See past history 11/20/2016. Gradually reduce the patient's FiO2 to 32%. ABGs now show a pH 7.268. PCO2 is 60.3 and PO2 is 82.9. Bicarb is 23.3. Electrolytes are normal. Creatinine is 0.7 with a BUN of 15 white blood cell count is dropped to 11,900 with 90.4 segs. H&H is 8.5/23.0. Today the patient is alert oriented and wanting to eat I am agreeable. He said that he was doing fine in this illness hit him in a manner for just a few minutes. This is compatible with acute pneumonia and often pneumococcus presents in this fashion. His chest x-ray shows a definite right lower lung infiltrate compatible with pneumonia. His theophylline level is 14.9. Glucoses are under good control. Liver function tests are normal. Ammonia level was 32. Natruretic peptide was 82. Protein and albumin are low at 5.8 and 2.7 respectively. Medicines have been reviewed. Labs been reviewed. 11/21/2016. Clinically the patient continues to improve. Chest x-ray shows increased markings at the left base and at the right base. No overt congestive heart failure. This appears to be retention of secretions. There are no positive cultures. ABGs on FiO2 of 32% shows a pH 7.32, PCO2 is 54, PO2 61.6 and bicarb is 25.7. Electrolytes are stable. Creatinine is 0.8. White count is 10,900 with 80.56. H&H is slowly dropped in the 7.8/25.1. Theophylline level was 14.4. This patient is improved significantly and is stable enough to be moved to a pulmonary floor. 11/22/2016. Patient has been moved to a pulmonary floor from ICU. He is up and standing and change in position from the bed to the chair was represents an improvement. He is much less short of breath than before and he says he feels better. Today's x-ray shows that the central vasculature is top normal. Right lower lung infiltrate is gradually resolving. There are no positive cultures. His BNP is creeping up to 495. H&H is dropped to 7.5/23.9. White count 7800 and platelets are 184,000. ABGs on FiO2 28% showed pH 7.37. PCO2 43. PO2 76. Bicarb 24. Electrolytes are normal. Creatinine is 0.7 BUN 17. Theophylline level is 7.1 11/23/2016. This patient continues to improve. He is up and moving around more. He is mobilizing sputum better. His chest x-ray continues to improve. The left lower lung is opening up very nicely and the infiltrates in the right lower lung are also improving. I do not see any overt pulmonary edema. BNP remains elevated 583. ABGs are significantly better with a PCO2 of 51. Electrolytes normal. Creatinine is 0.6. CBC shows an H&H of 9.1/28.1 post blood transfusion. White count 6500 and platelets are 189,000 theophylline level is 4.9. 11/24/2016. Patient was seen today along with Shivani Best RN. He was up and sitting in a bedside chair. He reports that his breathing is improved. His chest x-ray shows that the previously noted infiltrate is resolving. BNP remains elevated at 550. Sputum culture grew no organisms. Blood cultures are negative at day 5. 11/25/2016. Patient was seen today along with Fatimah Guillen RN. Patient continues to do well from a pulmonary standpoint. On chest exam the patient still has a significant amount of large airway congestion with sputum that he needs to mobilize. His wheezes have markedly improved, however. In light of this, blood decrease his Solu-Medrol to 40 mg every 8 hours. He has remained on IV Aminophyllin. Theophylline level today is 4.6. Will convert this to theophylline 200 mg p.o. every 12 hours. He is working with physical therapy and doing well. 11/26/16. The patient was seen today along with Mia Ayoub RN. Today's CXR shows that the previously noted infiltrate is resolving. He continues to improve daily. He has been working with physical therapy and states he is doing well. Yesterday we converted him to oral Theophylline. Today's level is 7.4. 11/27/2016. The patient was seen today along with his sister and Fatimah Guillen RN. He states his breathing has continued to do well. He has been ambulatory without increasing shortness of breath or dyspnea on exertion. He feels he is now ready for discharge and can safely be managed at home and we agree. At discharge, we would recommend Keflex 500 mg 4 times daily for 7 days, Cleocin 300 mg 3 times daily for 7 days, prednisone 10 mg daily, and Diamox 250 mg p.o. twice daily. We will schedule him a follow-up appointment to see Mia Rich, nurse practitioner, in approximately 1 month with a chest x-ray, theophylline level, CBC, and BMP. Medications have been reviewed. We made no changes today. Labs been reviewed. No new labs were drawn today ABGs done 11/26/2016 on an FiO2 of 28% showed a pH of 7.370, PCO2 45.4, PO2 111.0 , bicarb 25.0, oxygen saturation 98.5%. Exam (Progress Note) - Constitutional Vitals: Period Temp Pulse Resp BP Sys/Cedeño Pulse Ox Last 24 Hr 97.1 F-98.9 F 56-78 16-24 128-156/54-74 95-100 Exam: Chest wheeze free Heart no gallop Abdomen is nontender and nondistended; bowel sounds are positive 4 Extremities with nothing to suggest acute deep venous thrombophlebitis Psychiatric oriented 3 neurologic long tract motor function appears to be intact Plan: From a pulmonary standpoint, the patient can now safely be discharged home. We recommend Keflex 500 mg p.o. 4 times daily 7 days, Cleocin 300 mg p.o. 3 times daily 7 days, prednisone 10 mg p.o. daily, and Diamox 250 mg p.o. twice daily. We will schedule him a follow-up appointment with Mia Rich, nurse practitioner, in approximately 1 month with chest x-ray, theophylline level, CBC, and BMP. He can be seen sooner if needed. Your plans for discharge are noted. We will sign off. Please reconsult as needed. Results - Labs CBC & BMP: 11/26/16 06:08 11/26/16 06:08 Specialty Discharge - Follow Up or Referrals Follow up with: Mia Rich, CLARA [Advanced Practice Nurse] - 1 Month (with CXR, CBC, BMP, and Theophylline level)
--- NOTE | 2016-11-27 11:07 | Discharge Summary ---
<Alexander Maurice - Last Filed: 11/27/16 12:25> Hospital Course - Hospital Course Hospital Course: Mr. Harris is a 61 year old male with a PMHx significant for COPD, DM, CHF, HTN who was admitted as a transfer from [facility] on 11/19/2016 with septic shock. Patient is known to Dr. Dunn, pulmonology was consulted. CXR revealed bullous emphysema with chronic scarring; fairly stable infiltration /edema with associated atelectasis. Patient was found to have respiratory failure with pneumonia. He was admitted to the ICU and was started on IV antibiotics, ceftazidime and meropenem, and breathing treatments. On 11/21/2016, patient was stable enough to move to the floor. Sputum culture grew no organisms. Blood cultures were negative at day 5. Theophylline was converted to p.o. form on 11/26/2016. Patient tolerated this well. He has reached maximum benefit from hospitalization, and he will be discharged today. - Time spent with patient Time with patient DS: Greater than 30 minutes Specialty Discharge - Follow Up or Referrals Follow up with: Mia Rich CFNP [Advanced Practice Nurse] - 12/29/16 9:30 am (with CXR, CBC, BMP, and Theophylline level) Discharge Plan - Discharge Data Disposition: Disch To Home/Self Care - Discharge Medications New cephALEXin [Keflex] 500 mg PO Q6HR #28 capsule Clindamycin Cap [Cleocin Cap] 300 mg PO Q8HR #21 capsule Theophylline ER Cap (24 Hr) [Mich-24] 400 mg PO DAILY #30 capsule acetaZOLAMIDE TAB [Diamox Tab] 250 mg PO BID #60 tablet Continue Pantoprazole Tab [Protonix Tab] 40 mg PO DAILY Cholecalciferol (Vitamin D3) [Vitamin D3 Chew Tab] 400 unit PO BID Metoprolol Tartrate Tab [Lopressor Tab] 50 mg PO BID Multivitamin with Minerals [Multivitamins with Minerals] 1 each PO DAILY Benzonatate [Tessalon] 100 mg PO BEDTIME PRN PRN Reason: Cough Trazodone HCl 100 mg PO BEDTIME PRN PRN Reason: Sleep Aspirin EC Tab 81 mg PO DAILY Roflumilast [Daliresp] 500 mcg PO DAILY Loratadine Tab [Claritin Tab] 10 mg PO DAILY Methocarbamol Tab [Robaxin Tab] 750 mg PO TID PRN PRN Reason: Pain metFORMIN [Glucophage] 500 mg PO BID Budesonide/Formoterol 160-4.5 [Symbicort 160-4.5] 2 puff INH BID inhaler Atorvastatin [Lipitor] 5 mg PO DAILY Diltiazem HCl [Cartia XT] 120 mg PO DAILY Albuterol/Ipratropium Neb [Duoneb] 3 ml RESP TX RT Q4H PRN #120 nebulization solution PRN Reason: Shortness Of Breath/Wheezing Albuterol/Ipratropium Neb [Duoneb] 3 ml RESP TX RT Q6H #120 nebulization solution Furosemide Tab [Lasix Tab] 20 mg PO BID DIURETIC Clopidogrel [Plavix] 75 mg PO DAILY Montelukast Tab [Singulair Tab] 10 mg PO BID #60 tablet predniSONE TAB [PredniSONE] 10 mg PO DAILY #30 tablet Discontinued Levofloxacin Tab [Levaquin Tab] 500 mg PO DAILY #10 tablet Theophylline ER Cap (24 Hr) [Mich-24] 300 mg PO DAILY #30 capsule - Follow Up or Referral Follow Up: Mia Rich CFNP [Advanced Practice Nurse] - 12/29/16 9:30 am (with CXR, CBC, BMP, and Theophylline level) - Forms/Instructions Instructions: Clindamycin (By mouth), Theophylline (By mouth), Viral Pneumonia (DC), Emphysema (DC) Exam - Constitutional Vitals: Period Temp Pulse Resp BP Sys/Cedeño Pulse Ox Last 24 Hr 97.1 F-98.9 F 56-78 16-24 128-156/63-74 95-100 DS: Provider Date of admission: 11/19/16 10:49 Primary care physician: . No PCP Attending physician on admission: Brianne Jimenez MD Consults: 11/19/16 08:36 Consult to Pharmacy [CONS] Routine Reason for Pharmacy Consult: Adjust Meds Renal Funct 11/19/16 11:25 Consult to Physician [CONS] Routine Comment: pt of yours w sepsis Consulting Provider: Chente Dunn Person Notified: Ivette Date Notified: 11/19/16 Time Notified: 11:20 Consult Notification Comment: [facility] to fax med sheet too. 11/22/16 09:02 Consult to Case Mgmt/Social Srvs [CONS] Routine Reason for Case Mgmt/Social Srvs: Discharge Planning Consult to Occupational Therapy [CONS] Routine Reason for Occupational Therapy: Evaluate and Treat Start Therapy: Today PT [Consult to Physical Therapy] [CONS] Routine Reason for Physical Therapy: Evaluate and Treat Start Therapy: Today Discharging clinician: Alexander RUIZ Expected date of discharge: 11/27/16 <Bereket Banerjee - Last Filed: 11/27/16 17:44> Hospital Course - Hospital Course Hospital Course: Patient was discharged on p.o. clindamycin and Keflex per recommendation from pulmonary for 7 days. Diagnosis - Discharge Diagnosis (1) Pneumonia Status: Acute (2) CHF (congestive heart failure) Status: Acute (3) Diabetes Status: Chronic (4) Anemia Status: Chronic Discharge Plan - Discharge Data Condition at Discharge: Stable Discharge Diet: advance to your usual diet Activity: resume usual activities as tolerated Exam - Constitutional General appearance: no acute distress - Respiratory Respiratory exam: Absent: rales, rhonchi - Cardiovascular Cardiovascular exam: Present: regular rate and rhythm. Absent: tachycardia - GI/Abdominal GI/Abdominal exam: Present: normal bowel sounds, soft. Absent: tenderness - Extremities Exam Extremities exam: Present: normal inspection. Absent: edema - Neurological Exam Neurological exam: Present: alert, oriented X3
== END 2016-11-27 12:30 | disposition home or self-care (01) | DRG 720 ==
LOC: SUATTDRO 10:49 → N.CC 10:49 → N.5E 11-21 15:42
PROVIDERS: ADMIT Internal Medicine; ATTEND Internal Medicine

== ENCOUNTER 2017-03-16 15:01 | Inpatient (IN) ==
[2017-03-16] MEDS ORDERED: ALBUTEROL/IPRATROPIUM 3 ML NEB RESP TX PRN (15:19)
[2017-03-16] MEDS ORDERED: DEXTROSE 50% 25 GM/50 ML VIAL IV PRN (15:19)
[2017-03-16] MEDS ORDERED: DOCUSATE SODIUM 100 MG CAPSULE PO PRN (15:19)
[2017-03-16] MEDS ORDERED: ACETAMINOPHEN 325 MG TABLET PO PRN (15:19)
--- NOTE | 2017-03-16 15:51 | Pulmonology History & Physical ---
History of Present Illness Chief complaint: acute exacerbation of COPD, fever/chills, shortness of breath History of present illness: KIYA Cramer acting as scribe for Dr. Chente Dunn. Mr. Morin is a 61 year old white male who is admitted from the clinic today . He was being seen today for a 2 month check up but he was found to have acute exacerbation of his severe COPD with bronchitis bronchospasm and bronchiectasis, likely bacterial component due to significant elevation of his WBC count with a left shift on labs done in the office. Also patient has recently finished a course of Keflex and Clindamycin PO approximately 2-3 weeks ago. In the past the patient has had sputum culture and sensitivity positive for Pseudomonas along with history of sputum positive for Enterobacter cloacae during hospitalization in August of 2016. The patient has been doing fairly well on an outpatient basis until the last 3-4 weeks per his report. He admits worsening shortness of breath specifically with exertion, cough that is worsening and he is unable to completely produce sputum but what sputum he is producing he states is a thick dark yellow color. He states his home nebulizer treatments and PO antibiotics did not help symptoms. He admits fever at home with chills and frequent breaking out in a sweat worse over the past week. He admits worsening dysphagia and reflux he had an appointment with GI last week but patient states he was unable to see them due to insurance issues. Due to the length and severity of his symptoms along with his past medical history and requiring multiple hospitalizations in the past decision was made to admit to inpatient today for further evaluation and treatment. He has had no cardiac angina palpitations. His been no change in his bowel movements. Patient denies epistaxis hemoptysis hematemesis hematochezia melena and hematuria. There have been no TIAs. No syncope or near syncope. Nothing to suggest seizures. The remainder of the review of systems is noncontributory. Allergies. Penicillin Home medicines. See list. Past history. Most recent hospitalization at [facility] from 11/19/16-11/27/16 for acute pneumonia with respiratory failure under the care of the hospitalists with Dr. Dunn consulted. Hospitalized multiple times July 2016 - August 2016 at [facility] for pneumonia exacerbation of COPD. During the July 2016 hospitalization his cold agglutinin were initially 1:32. Patient's had 2 hospitalizations in the last half of 2015 during which his sputum grew Pseudomonas aeruginosa. He was thought to be colonized and was thought that he would require long-term medicines. He was treated at that time with Fortaz and Gentamicin. On 08/12/2016 he had a fiberoptic bronchoscopy which showed COPD with some collapsibility of the trachea, large and small airways. He had retained secretions with atelectasis in the right lower lung. His cytologies were class I. He had a drop in his H&H from 10.8/33.8-8.3/26.1, with one positive stool for occult blood. He was seen in GI consultation by Dr. Monte during that hospitalization. C-scope showed multiple polyps which were removed. These were in the ascending, descending and rectal regions for a total of 4. He had heavy left sided diverticulosis and moderate sized internal hemorrhoids. No source of bleed was found, though he did require 2 units of blood. Earlier in July he had been hospitalized and he had erosive gastritis on e- scope. Patient was hospitalized at [facility] in November 2015. He had respiratory failure for oxygen. Dr. Peter Gu saw him and noted that he had a forced expiratory volume in 1 second of 0.95 L. There is a history of heart disease which is followed by Dr. Loyd Hunt. The patient has 2 cardiac stents. Stents were placed in May 2013. One stent is in the mid LAD and the other is in the mid right coronary artery. Patient is also been told that he had aortic valve insufficiency. There is a past history of heart failure, high blood pressure, myocardial infarction. The patient has [id number] diabetes mellitus. He has a long history of COPD. He has been found to have iron deficiency anemia. Echocardiogram done in November 2015 showed ejection fraction 50%. There was mild aortic valve regurgitation. Social history. From 1960 through year 1999. Patient smoked half pack of cigarettes per day. This is a [id number]-[id number] history of smoking. 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 Patient denies alcohol. Family history. Positive for high blood pressure, diabetes, heart disease. Chest [place] [facility] [place] shows no clear cut evidence of infiltrate at this time. Labs done at [facility] have been reviewed. WBC 16,500 with 96% segs H&H 10.4/33.5 with normal indices and a high RDW at 15.7% Platelets 340,000. Glucose 249 BUN/ Creatinine 21/09. Calcium 9.1 Sodium 139 Potassium 4.3. Home Medications Medication Instructions Recorded Confirmed Type Aspirin EC Tab 81 mg PO DAILY 12/30/15 11/20/16 History Benzonatate [Tessalon] 100 mg PO BEDTIME PRN 12/30/15 11/20/16 History Cholecalciferol (Vitamin D3) 400 unit PO BID 12/30/15 11/20/16 History [Vitamin D3 Chew Tab] Loratadine Tab [Claritin Tab] 10 mg PO DAILY 12/30/15 11/20/16 History Metoprolol Tartrate Tab [Lopressor 50 mg PO BID 12/30/15 11/20/16 History Tab] Multivitamin with Minerals 1 each PO DAILY 12/30/15 11/20/16 History [Multivitamins with Minerals] Pantoprazole Tab [Protonix Tab] 40 mg PO DAILY 12/30/15 11/20/16 History Roflumilast [Daliresp] 500 mcg PO DAILY 12/30/15 11/20/16 History Trazodone HCl 100 mg PO BEDTIME PRN 12/30/15 11/20/16 History Methocarbamol Tab [Robaxin Tab] 750 mg PO TID PRN 04/03/16 11/20/16 History metFORMIN [Glucophage] 500 mg PO BID 04/03/16 11/20/16 History Budesonide/Formoterol 160-4.5 2 puff INH BID inhaler 07/26/16 11/20/16 Rx [Symbicort 160-4.5] Atorvastatin [Lipitor] 5 mg PO DAILY 08/05/16 11/20/16 History dilTIAZem HCl [Cartia XT] 120 mg PO DAILY 08/05/16 11/20/16 History Albuterol/Ipratropium Neb [Duoneb] 3 ml RESP TX RT Q4H PRN #120 08/18/16 Rx nebulization solution Albuterol/Ipratropium Neb [Duoneb] 3 ml RESP TX RT Q6H #120 08/18/16 11/20/16 Rx nebulization solution Clopidogrel [Plavix] 75 mg PO DAILY 08/28/16 11/20/16 History Furosemide Tab [Lasix Tab] 20 mg PO BID DIURETIC 08/28/16 11/20/16 History Montelukast Tab [Singulair Tab] 10 mg PO BID #60 tablet 09/09/16 11/20/16 Rx predniSONE TAB [PredniSONE] 10 mg PO DAILY #30 tablet 09/09/16 11/20/16 Rx Clindamycin Cap [Cleocin Cap] 300 mg PO Q8HR #21 capsule 11/27/16 Rx Theophylline ER Cap (24 Hr) 400 mg PO DAILY #30 capsule 11/27/16 Rx [Mich-24] acetaZOLAMIDE TAB [Diamox Tab] 250 mg PO BID #60 tablet 11/27/16 Rx cephALEXin [Keflex] 500 mg PO Q6HR #28 capsule 11/27/16 Rx Allergies Allergy/AdvReac Type Severity Reaction Status Date / Time valsartan [From Kybernesisvan] Allergy Unknown Verified 09/09/16 13:29 LEIDA Inhibitors Allergy Verified 09/09/16 13:29 ARB-Angiotensin Receptor Allergy Verified 09/09/16 13:29 Antagonist Penicillins Allergy Unknown/Unable Verified 01/03/16 13:19 to obtain Medical,Surgical,& Family Hx - Medical History Cardio: History of: CHF (EF 45-50%), Hypertension, PA (PCI of LAD and RCA 06/12) , Cardiovascular Problems (CARDIOMYOPATHY) Neurology: History of: Migraine No history of: Seizures HEENT: History of: Eye Problem (glasses), HEENT Problems (sinus surgery) Endocrine: History of: Diabetes Mellitus (NIDDM), Dyslipidemia Respiratory: History of: Bronchitis, COPD, Intubation, Pneumonia, Respiratory Problems (LUNG BX, SINUS SURGERY) Genitourinary: No history of: Bladder Problem, Kidney Stones Gastrointestinal: History of: Gastrointestinal Bleed Musculoskeletal: History of: Back/Neck Problems Hematology: History of: Anemia No history of: Blood Transfusion Reaction Other: No history of: Anesthesia Reactions, Cancer - Surgical History Cardiac Surgeries: Sugical HX of: Cardiac Catheterization (stents x 2 (06/12 mLAD and mRCA)) Patient Denies: Cardiac Surgery Thoracic Surgeries: Patient denies;: Organ Transplant, Lobectomy HEENT Surgeries: Patient denies: Eye Surgery, Tonsilectomy & Adenoidectomy Abdominal Surgeries: Surgical HX of: Colonoscopy Patient denies: Appendectomy, Cholecystectomy, EGD Orthopedic Surgeries: Patient denies;: Orthopedic Surgery - Family History Family History: Reports;: Family Hypertension - Social History Smoking Status: Former smoker Exam (Pulmonay) H&P - Constitutional Exam: Vital signs see below Psychiatric. Oriented 3 Neurologic. Cranial nerves are intact with decreased hearing acuity bilaterally. Long track motor functions intact. Sensory exam was not done. Gait appears to be stable. Neck. Symmetrical. No meningismus. Lymphatics. No submandibular cervical supraclavicular adenopathy. Chest. Generalized large airway wheezing noted on expiration, there are coarse rales/rhonchi heard most prominently in both bases. Heart. Grade 1.5 over 6 systolic ejection murmur at left sternal border without radiation. No other murmurs or gallops noted. Abdomen. Nontender. Positive bowel sounds. No organs could be palpated and rectal deferred Extremities. Degenerative joint disease. No evidence of deep venous thrombophlebitis. Musculoskeletal. Age-appropriate loss of normal curvature cervical thoracic and lumbar spine Skin of the face and hands showed no cancerous or infectious lesions. No other areas of skin were examined. The remainder the physical exam is noncontributory. Impression. 1. Acute exacerbation of chronic COPD with infection, likely bacterial component cultures are pending. 2. Increased shortness of breath, productive cough, fever/chills secondary to number 1. 3. History of bronchiectasis 4. Heart disease with 2 stents in the past history of PA and congestive heart failure followed by Dr. Hunt 5. Diabetes mellitus type II, uncontrolled 6. High blood pressure. 7. Aortic insufficiency. 8. See past history. Plan. 1. Sputum for Gram stain culture and sensitivity, blood cultures x 3, cold agglutinins, Legionella titer. 2. Inhalation therapy. Steroids. Antibiotics as ordered. 3. Repeat CBC and CXR tomorrow. 4. Sputum retention is been a problem with this patient in the past possibly will repeat fiberoptic bronchoscopy once wheezing is stable. 5. See orders.
[2017-03-16] MEDS: CLINDAMYCIN INJ 300 MG in PREMIX 1 EACH IV SCH ×2 (16:36→21:50)
[2017-03-16] MEDS: methylPREDNISolone SOD SUC 40 MG/1 ML VIAL IV SCH (16:36)
[2017-03-16] MEDS ORDERED: METHOCARBAMOL 750 MG TABLET PO PRN (16:36)
[2017-03-16] MEDS: INSULIN LISPRO 100 UNIT/ML SUBCUT SCH ×2 (16:37→21:50)
[2017-03-16] MEDS: THEOPHYLLINE ER 300 MG TABLET PO SCH (17:15)
[2017-03-16] MEDS: metFORMIN 500 MG TABLET PO SCH (17:15)
[2017-03-16] MEDS: glyBURIDE 5 MG TABLET PO SCH (17:15)
[2017-03-16 17:57] LABS: Magnesium 2.1 MG/DL (1.8-2.4); Thyroid Stimulating Hormone 0.33 uIU/ml (0.358-3.74)
[2017-03-16] MEDS: ALBUTEROL/IPRATROPIUM 3 ML NEB RESP TX SCH (19:14)
[2017-03-16] MEDS: DORNASE ALFA 2.5 MG/2.5 ML VIAL RESP TX SCH (19:21)
[2017-03-16 19:53] LABS: Apearance,Urine CLEAR (Clear); Bilirubin,Urine Negative (Negative); Blood, Urine Negative (Negative); Calcium Oxalate Crystals,Urine Occasional /HPF (Few); Glucose,Urine (UA) Negative (Negative); Hyaline Casts,Urine 1 /LPF (0-3); Ketones,Urine Negative (Negative); Mucus,Urine Occasional /LPF (Occasional); Nitrite,Urine Negative (Negative); Protein,Urine Negative; RBC,Urine 1 /HPF (0-4); Urine Color Yellow (Yellow); Urine Specific Gravity 1.021 (1.001-1.035); Urine Urobilinogen < 2.0 EU/DL (0.2-1.0)
[2017-03-16] MEDS: acetaZOLAMIDE 250 MG TABLET PO SCH (21:49)
[2017-03-16] MEDS: METOPROLOL TARTRATE 25 MG TABLET PO SCH (21:50)
[2017-03-16] MEDS: PANTOPRAZOLE 40 MG TABLET PO SCH (21:50)
[2017-03-16] MEDS: ATORVASTATIN 20 MG TABLET PO SCH (21:50)
[2017-03-16] MEDS: traZODone 50 MG TABLET PO SCH (21:50)
[2017-03-16] MEDS: CHOLECALCIFEROL 400 UNIT TABLET PO SCH (21:50)
[2017-03-16] MEDS: BENZONATATE 100 MG CAPSULE PO SCH (21:50)
[2017-03-16] MEDS: BUDESONIDE/FORMOTEROL 160-4.5 INHALER 6 GM INH SCH (21:54)
[2017-03-16] MEDS: MONTELUKAST 10 MG TABLET PO SCH (22:03)
[2017-03-17] MEDS: CLINDAMYCIN INJ 300 MG in PREMIX 1 EACH IV SCH ×4 (05:37→21:56)
[2017-03-17] MEDS: methylPREDNISolone SOD SUC 40 MG/1 ML VIAL IV SCH ×2 (05:37→15:50)
[2017-03-17 06:57] LABS: Hematocrit 29.2 VOL% (42.0-52.0); Hemoglobin 9.2 GM/DL (14.0-18.0); Immature Granulocytes % 1.1 %; Immature Granulocytes Absolute 0.14 #; Lymphocytes # 1.9 10*3/uL (1.4-4.0); Lymphocytes % 14.2 % (21.2-54.2); Mean Corpuscular HGB Conc 31.5 GM/DL (32-36); Mean Corpuscular Hemoglobin 28 PG (27-34); Mean Corpuscular Volume 87.7 FL (87-102); Mean Platelet Volume 9.4 FL (9.6-12.0); Monocytes # 0.4 10*3/uL (0.11-0.8); Monocytes % 3.2 % (1.7-12.7); Neutrophils # 10.8 10*3/uL (1.4-7.4); Neutrophils % 81.5 % (38.7-73.9); Platelet Count 325 T/CUMM (130-400); Red Blood Count 3.33 MC/CUMM (3.8-5.5); Red Cell Distribution Width 15.1 % (9.3-17.3); White Blood Count 13.3 T/CUMM (4-12)
[2017-03-17 07:31] LABS: Osmolality,Calculated 282.3 MOS/KG (273-304); Potassium 4.2 MMOL/L (3.5-5.1)
--- NOTE | 2017-03-17 07:35 | XRay Report ---
Exam: XR chest 2V Indication: Shortness of breath Comparison study: 11/26/2016 chest radiograph Findings: Diffuse interstitial prominence is noted primarily within the perihilar regions and apices suggestive of pulmonary fibrosis changes and/or chronic scarring. The overall appearance is similar to prior. Small/subtle pulmonary infiltrates and nodules could be obscured. The heart, mediastinum and bony structures are stable from prior. There is no pneumothorax or pleural effusion identified. Impression: Diffuse pulmonary interstitial opacities may represent chronic scarring and/or pulmonary fibrotic changes. Small nodules or infectious/inflammatory infiltrates could be obscured. PROCEDURE INTERPRETED AT [facility] DEPARTMENT OF RADIOLOGY Final Report Signed by: Héctor Ratliff
[2017-03-17] MEDS: ALBUTEROL/IPRATROPIUM 3 ML NEB RESP TX SCH ×4 (07:37→18:50)
--- NOTE | 2017-03-17 07:41 | EKG Report ---
Stationary ECG Study [facility] Test Date: 03/17/2017 7:30:04 AM Pat Name: ROBY JI Department: Room: 526 Gender: M Block Mechanic: NISREEN SHORT : 1955 Requested by: Ava Rich Order Number: [id number] Reading MD: NISREEN SHORT Intervals [place] Rate: 85 P: 69 [place]: 144 QRS: 17 QRSD: 84 T: 82 QT: 355 QTc: 397 Interpretive Statements (DR. NISREEN SHORT TO [facility]) SINUS RHYTHM NONSPECIFIC T-WAVE ABNORMALITY . No acute change Electronically Signed On 03-17-17 11:54:04 CDT by NISREEN SHORT [email or web address]
[2017-03-17] MEDS: DORNASE ALFA 2.5 MG/2.5 ML VIAL RESP TX SCH ×2 (07:49→18:50)
[2017-03-17] MEDS: INSULIN LISPRO 100 UNIT/ML SUBCUT SCH ×4 (08:19→21:29)
[2017-03-17] MEDS: FUROSEMIDE 20 MG TABLET PO SCH ×2 (08:55→15:50)
[2017-03-17] MEDS: ASPIRIN EC 81 MG TABLET PO SCH (08:55)
[2017-03-17] MEDS: CHOLECALCIFEROL 400 UNIT TABLET PO SCH ×2 (08:55→21:29)
[2017-03-17] MEDS: DILTIAZEM CD 120 MG CAPSULE PO SCH (08:55)
[2017-03-17] MEDS: BENZONATATE 100 MG CAPSULE PO SCH ×3 (08:55→21:27)
[2017-03-17] MEDS: metFORMIN 500 MG TABLET PO SCH ×2 (08:55→17:12)
[2017-03-17] MEDS: THEOPHYLLINE ER 300 MG TABLET PO SCH ×2 (08:55→17:12)
[2017-03-17] MEDS: CLOPIDOGREL 75 MG TABLET PO SCH (08:56)
[2017-03-17] MEDS: MONTELUKAST 10 MG TABLET PO SCH ×2 (08:56→21:28)
[2017-03-17] MEDS: acetaZOLAMIDE 250 MG TABLET PO SCH ×2 (08:56→21:29)
[2017-03-17] MEDS: MULTIVITAMIN (BEROCCA) TABLET PO SCH (08:56)
[2017-03-17] MEDS: METOPROLOL TARTRATE 25 MG TABLET PO SCH ×2 (08:56→21:27)
[2017-03-17] MEDS: PANTOPRAZOLE 40 MG TABLET PO SCH ×2 (08:56→21:28)
[2017-03-17] MEDS: FENOFIBRATE 145 MG TABLET PO SCH (08:56)
[2017-03-17] MEDS: VALSARTAN 80 MG TABLET PO SCH (08:56)
[2017-03-17] MEDS: glyBURIDE 5 MG TABLET PO SCH ×2 (08:56→17:11)
[2017-03-17] MEDS: ROFLUMILAST 500 MCG TABLET PO SCH (08:56)
[2017-03-17] MEDS: LORATADINE 10 MG TABLET PO SCH (08:56)
[2017-03-17] MEDS: BUDESONIDE/FORMOTEROL 160-4.5 INHALER 6 GM INH SCH ×2 (08:57→21:57)
--- NOTE | 2017-03-17 11:46 | Pulmonology Progress Note ---
Pulmonary - PN: Subj Interval history: This is a 61-year-old white male with exacerbation of COPD and possible early pneumonia. He has had previous colonizations with gram-negative work organisms including Pseudomonas. He was admitted from my office yesterday. My impressions were. 1. Acute exacerbation of chronic COPD with infection, likely bacterial component cultures are pending. 2. Increased shortness of breath, productive cough, fever/chills secondary to number 1. 3. History of bronchiectasis 4. Heart disease with 2 stents in the past history of [place] and congestive heart failure followed by Dr. Hunt 5. Diabetes mellitus type II, uncontrolled 6. High blood pressure. 7. Aortic insufficiency. 8. See past history. 03/17/2017. Today the patient is making very good improvement. His laryngeal tracheal and large airway stridor/wheeze is much better he has a tremendous amount of congestion and is been able to mobilize a good bit of purulent sputum is some microbiology test are pending. Today's chest x-ray actually looks a little better than yesterday. Patient has better expansion. There may be early infiltrate in the right lower lung field and in the medial basal segment of the left lower lung. There is an old scar in the left upper medial left upper lung and medial right upper lung. There is bilateral apical capping. White count was 13,300. H&H 9.2 of 29.2 and platelets of 325,000. TSH is slightly low with a normal free T4 magnesium is normal. Urine shows no evidence of infection. Creatinine is 1.0 BUNs 21. Hemoglobin A1c is 6.1. This patient is going to need a fiberoptic bronchoscopy for cultures as well as endobronchial evaluation. He has a significant past history of smoking. He is recently had a small amount of hemoptysis mixed in with the sputum. Fiberoptic bronchoscopy has been set up for tomorrow. Patient has had bronchoscopies before but the wrists potential complications etc. been discussed with him. Jesu Boudreaux nurse practitioner was present. Physical exam. Vital signs. See below Psychiatric. Oriented 3 Neurologic. Cranial nerves are intact. Decreased hearing acuity bilaterally. Long track motor functions intact. Face symmetrical. No edema of the lips or tongue. Neck symmetrical. No mass. No meningismus. Thyroid was not palpated Lymphatics no submandibular cervical supraclavicular or epitrochlear adenopathy Chest hyperinflated. Kyphotic. Prolonged incomplete expiration. Large airway congestion and bibasilar inspiratory squeaks. Upper airway wheezes are better. Heart. No gallop Abdomen. Nondistended. Positive bowel sounds Extremities. No edema. Skin of the face and hand showed no cancerous infectious lesions. Skin of the arm shows appropriate. The remainder of the physical exam is negative. Plan. 1. Check cultures when they become available. 2. Monitor glucoses which are up slightly. Noted mid hemoglobin A1c 6.1. 3. Fiberoptic bronchoscopy number 4. Continue present regimen. Plan. 1. Sputum for Gram stain culture and sensitivity, blood cultures x 3, cold agglutinins, Legionella titer. 2. Inhalation therapy. Steroids. Antibiotics as ordered. 3. Repeat CBC and CXR tomorrow. 4. Sputum retention is been a problem with this patient in the past possibly will repeat fiberoptic bronchoscopy once wheezing is stable. 5. See orders. Exam (Progress Note) - Constitutional Vitals: Period Temp Pulse Resp BP Sys/Cedeño Pulse Ox Last 24 Hr 97.1 F-97.7 F 68-98 18-20 121-142/58-81 96-99 Results - Labs CBC & BMP: 03/17/17 06:38 03/17/17 06:38
[2017-03-17] MEDS: traZODone 50 MG TABLET PO SCH (21:28)
[2017-03-17] MEDS: ATORVASTATIN 20 MG TABLET PO SCH (21:28)
[2017-03-18] MEDS: methylPREDNISolone SOD SUC 40 MG/1 ML VIAL IV SCH ×2 (03:38→16:51)
[2017-03-18] MEDS: CLINDAMYCIN INJ 300 MG in PREMIX 1 EACH IV SCH ×4 (03:39→21:37)
[2017-03-18 06:47] LABS: Basophils % 0.1 % (0.0-0.8); Eosinophils % 0.1 % (0.00-10.9); Hematocrit 29.2 VOL% (42.0-52.0); Hemoglobin 9.4 GM/DL (14.0-18.0); Immature Granulocytes Absolute 0.14 #; Lymphocytes # 1.6 10*3/uL (1.4-4.0); Mean Corpuscular HGB Conc 32.2 GM/DL (32-36); Mean Corpuscular Hemoglobin 28 PG (27-34); Mean Corpuscular Volume 87.2 FL (87-102); Mean Platelet Volume 9.6 FL (9.6-12.0); Monocytes # 0.4 10*3/uL (0.11-0.8); Monocytes % 2.9 % (1.7-12.7); Neutrophils # 12.5 10*3/uL (1.4-7.4); Neutrophils % 84.9 % (38.7-73.9); Platelet Count 320 T/CUMM (130-400); Red Blood Count 3.35 MC/CUMM (3.8-5.5); Red Cell Distribution Width 15.3 % (9.3-17.3); White Blood Count 14.7 T/CUMM (4-12)
[2017-03-18] MEDS ORDERED: MEPERIDINE 50 MG/1 ML VIAL IM ONE (07:00)
[2017-03-18] MEDS ORDERED: diphenhydrAMINE 50 MG/1 ML VIAL IM ONE (07:00)
[2017-03-18] MEDS ORDERED: BENZONATATE 100 MG CAPSULE PO ONE (07:00)
[2017-03-18 07:01] LABS: INR 0.9; PT Patient Result 9.9 SECS
[2017-03-18 07:17] LABS: Osmolality,Calculated 277.5 MOS/KG (273-304); Potassium 3.9 MMOL/L (3.5-5.1)
[2017-03-18] MEDS: GLUCAGON 1 MG VIAL IM PRN (07:36)
[2017-03-18] MEDS: INSULIN LISPRO 100 UNIT/ML SUBCUT SCH ×4 (07:50→21:33)
[2017-03-18] MEDS: FUROSEMIDE 20 MG TABLET PO SCH ×2 (07:51→16:51)
[2017-03-18] MEDS: THEOPHYLLINE ER 300 MG TABLET PO SCH ×2 (07:51→16:51)
[2017-03-18] MEDS: glyBURIDE 5 MG TABLET PO SCH ×2 (07:51→16:51)
[2017-03-18] MEDS: metFORMIN 500 MG TABLET PO SCH ×2 (07:51→16:51)
[2017-03-18] MEDS: ALBUTEROL/IPRATROPIUM 3 ML NEB RESP TX SCH ×4 (07:55→20:20)
[2017-03-18] MEDS: DORNASE ALFA 2.5 MG/2.5 ML VIAL RESP TX SCH ×2 (07:55→20:27)
[2017-03-18] MEDS ORDERED: MIDAZOLAM 2 MG/2 ML VIAL ONE (07:55)
[2017-03-18] MEDS ORDERED: LIDOCAINE 4% TOP SOLN 50 ML BOTTLE RESP TX ONE (08:00)
[2017-03-18] MEDS ORDERED: LIDOCAINE 2% VISCOUS 100 ML BOTTLE SWISH/SPIT ONE (08:00)
[2017-03-18] MEDS ORDERED: LIDOCAINE 1% 20 ML VIAL MISC INJ ONE (08:00)
[2017-03-18] MEDS: CLOPIDOGREL 75 MG TABLET PO SCH (08:34)
[2017-03-18] MEDS: PANTOPRAZOLE 40 MG TABLET PO SCH ×2 (08:34→21:33)
[2017-03-18] MEDS: acetaZOLAMIDE 250 MG TABLET PO SCH ×2 (08:34→21:34)
[2017-03-18] MEDS: VALSARTAN 80 MG TABLET PO SCH (08:34)
[2017-03-18] MEDS: LORATADINE 10 MG TABLET PO SCH (08:34)
[2017-03-18] MEDS: ASPIRIN EC 81 MG TABLET PO SCH (08:34)
[2017-03-18] MEDS: ROFLUMILAST 500 MCG TABLET PO SCH (08:34)
[2017-03-18] MEDS: MULTIVITAMIN (BEROCCA) TABLET PO SCH (08:34)
[2017-03-18] MEDS: BUDESONIDE/FORMOTEROL 160-4.5 INHALER 6 GM INH SCH ×2 (08:35→21:34)
[2017-03-18] MEDS: CHOLECALCIFEROL 400 UNIT TABLET PO SCH ×2 (08:35→21:33)
[2017-03-18] MEDS: FENOFIBRATE 145 MG TABLET PO SCH (08:35)
[2017-03-18] MEDS: BENZONATATE 100 MG CAPSULE PO SCH ×3 (08:35→21:34)
[2017-03-18] MEDS: MONTELUKAST 10 MG TABLET PO SCH ×2 (08:35→21:34)
[2017-03-18] MEDS: DILTIAZEM CD 120 MG CAPSULE PO SCH (09:31)
[2017-03-18] MEDS: METOPROLOL TARTRATE 25 MG TABLET PO SCH ×2 (09:31→21:34)
--- NOTE | 2017-03-18 10:39 | Event Note ---
In hospital therapeutic and diagnostic fiberoptic bronchoscopy. Bilateral bronchoalveolar lavages were sent for cytology, Gram stain, bacterial cultures, AFB stains and culture, fungal stains and culture. This is a 61-year-old white male who appears much older. He has severe COPD with sputum production. He has an exacerbation of his COPD and his cough is ineffective and he is unable to mobilize his secretions. For this reason he is evaluated with fiberoptic bronchoscopy. In addition in the past he has been colonized with organisms such as Pseudomonas or stenosis. He will be recultured. The patient had candidiasis in the laryngeal area this also involved the epiglottis and his vocal cords. Vocal cords moved normally and I did not see any cancerous lesions in this area. Patient has a very long folded epiglottis. The trachea was collapsible distal trachea was full of thick tenacious secretions which were removed. The eduarda was sharp. The left mainstem bronchus was full of thick tenacious secretions. These extended into the left upper lung which was lavaged and suctioned until clear. Secretions also extend into every segment of the left lower lung. There are multiple visible dense segmental bronchial plugs. These were all removed with lavage and suctioning endobronchially and from the alveoli. There were no cancerous appearing endobronchial lesions. There was friable bronchitis in the left lower lung. Large and small airways were markedly collapsible when the patient coughs the strap sputum distal to the collapsed areas The right mainstem bronchus was full of thick tenacious secretions. These extended into the right upper lung, right middle lung and right lower lung. All 3 lobes were lavaged until clear. There were scattered areas of friable bronchitis especially in the right lower lung. I did not see any endobronchial lesions to suggest cancer. Large and small airways were markedly collapsible. When the patient coughed the strap sputum distal to the collapsible areas making his cough is ineffective Bilateral specimens were submitted for the studies noted above. Patient tolerated procedure well and he was obviously breathing better at the end of the procedure. There were no complications. Impression. 1. Laryngeal and vocal cord candidiasis. 2. Severe COPD with collapsible large and small airway resulting in an ineffective cough 3. Retained secretions 4. Bibasal erosive friable bronchitis 5. 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 Plan. 1. Check bronchoscopy specimens 2. Follow-up chest x-ray 3. See order
--- NOTE | 2017-03-18 10:47 | Pulmonology Progress Note ---
Pulmonary - PN: Subj Interval history: This is a 61-year-old white male with exacerbation of COPD and possible early pneumonia. He has had previous colonizations with gram-negative work organisms including Pseudomonas. He was admitted from my office yesterday. My impressions were. 1. Acute exacerbation of chronic COPD with infection, likely bacterial component cultures are pending. 2. Increased shortness of breath, productive cough, fever/chills secondary to number 1. 3. History of bronchiectasis 4. Heart disease with 2 stents in the past history of [place] and congestive heart failure followed by Dr. Hunt 5. Diabetes mellitus type II, uncontrolled 6. High blood pressure. 7. Aortic insufficiency. 8. See past history. 03/17/2017. Today the patient is making very good improvement. His laryngeal tracheal and large airway stridor/wheeze is much better he has a tremendous amount of congestion and is been able to mobilize a good bit of purulent sputum is some microbiology test are pending. Today's chest x-ray actually looks a little better than yesterday. Patient has better expansion. There may be early infiltrate in the right lower lung field and in the medial basal segment of the left lower lung. There is an old scar in the left upper medial left upper lung and medial right upper lung. There is bilateral apical capping. White count was 13,300. H&H 9.2 of 29.2 and platelets of 325,000. TSH is slightly low with a normal free T4 magnesium is normal. Urine shows no evidence of infection. Creatinine is 1.0 BUNs 21. Hemoglobin A1c is 6.1. This patient is going to need a fiberoptic bronchoscopy for cultures as well as endobronchial evaluation. He has a significant past history of smoking. He is recently had a small amount of hemoptysis mixed in with the sputum. Fiberoptic bronchoscopy has been set up for tomorrow. Patient has had bronchoscopies before but the wrists potential complications etc. been discussed with him. Jesu Boudreaux nurse practitioner was present. 03/18/2017. Earlier today the patient was evaluated with fiberoptic bronchoscopy. See report. Patient's had a difficult time mobilizing his sputum. His cultures come back after the bronchoscopy positive for Pseudomonas. I am going to leave him on his present medicines which also give him some gram-positive cocci coverage. Unfortunately the computer does not let me pull up any grams stains today. White blood cell count is 14,700 with 85 segs 11 lymphs H&H is stable at 9.4/29.2. Electrolytes are normal. Creatinine is 1.102 BUN of 22. Free T4 is in the normal range. TSH is slightly low. Physical exam. Vital signs. See below Psychiatric. Oriented 3 Neurologic. Cranial nerves are intact. Decreased hearing acuity bilaterally. Long track motor functions intact. Face symmetrical. No edema of the lips or tongue. Neck symmetrical. No mass. No meningismus. Thyroid was not palpated Lymphatics no submandibular cervical supraclavicular or epitrochlear adenopathy Chest hyperinflated. Kyphotic. Prolonged incomplete expiration. Large airway congestion and bibasilar inspiratory squeaks. Upper airway wheezes are better. Heart. No gallop Abdomen. Nondistended. Positive bowel sounds Extremities. No edema. Skin of the face and hand showed no cancerous infectious lesions. Skin of the arm shows appropriate. The remainder of the physical exam is negative. Plan. 03/16/2017 1. Check cultures when they become available. 2. Monitor glucoses which are up slightly. Noted mid hemoglobin A1c 6.1. 3. Fiberoptic bronchoscopy number 4. Continue present regimen. 03/17/2007 1. Sputum for Gram stain culture and sensitivity, blood cultures x 3, cold agglutinins, Legionella titer. 2. Inhalation therapy. Steroids. Antibiotics as ordered. 3. Repeat CBC and CXR tomorrow. 4. Sputum retention is been a problem with this patient in the past possibly will repeat fiberoptic bronchoscopy once wheezing is stable. 5. See orders. 03/18/2017 1. Fiberoptic bronchoscopy. Check specimens. 2. Pseudomonas. 3. See my note above for today. Exam (Progress Note) - Constitutional Vitals: Period Temp Pulse Resp BP Sys/Cedeño Pulse Ox Last 24 Hr 97.0 F-98.1 F 72-122 12-23 97-135/49-69 92-100 Results - Labs CBC & BMP: 03/18/17 05:12 03/18/17 05:12
[2017-03-18] MEDS: FLUCONAZOLE 200 MG TABLET PO SCH (11:14)
[2017-03-18] MEDS: CLOTRIMAZOLE 10 MG TROCHE PO SCH ×3 (13:43→21:34)
[2017-03-18] MEDS: ATORVASTATIN 20 MG TABLET PO SCH (21:33)
[2017-03-18] MEDS: traZODone 50 MG TABLET PO SCH (21:34)
[2017-03-19] MEDS: CLINDAMYCIN INJ 300 MG in PREMIX 1 EACH IV SCH ×5 (03:50→21:06)
[2017-03-19] MEDS: methylPREDNISolone SOD SUC 40 MG/1 ML VIAL IV SCH ×2 (03:51→16:19)
[2017-03-19] MEDS: CLOTRIMAZOLE 10 MG TROCHE PO SCH ×7 (05:43→21:06)
[2017-03-19 06:12] LABS: Basophils % 0.1 % (0.0-0.8); Eosinophils % 0.1 % (0.00-10.9); Hematocrit 29.1 VOL% (42.0-52.0); Hemoglobin 9.2 GM/DL (14.0-18.0); Immature Granulocytes % 0.7 %; Immature Granulocytes Absolute 0.12 #; Lymphocytes # 0.9 10*3/uL (1.4-4.0); Lymphocytes % 4.8 % (21.2-54.2); Mean Corpuscular HGB Conc 31.6 GM/DL (32-36); Mean Corpuscular Hemoglobin 28 PG (27-34); Mean Corpuscular Volume 87.7 FL (87-102); Mean Platelet Volume 9.4 FL (9.6-12.0); Monocytes # 0.7 10*3/uL (0.11-0.8); Monocytes % 3.6 % (1.7-12.7); Neutrophils # 16.3 10*3/uL (1.4-7.4); Neutrophils % 90.7 % (38.7-73.9); Platelet Count 260 T/CUMM (130-400); Red Blood Count 3.32 MC/CUMM (3.8-5.5); Red Cell Distribution Width 15.4 % (9.3-17.3)
[2017-03-19 06:39] LABS: Band Neutrophils 1 % (0-10); Hypochromasia 1+; Lymphocytes 5 % (20-55); Ovalocytes Slight; Platelet Estimate Adequate; Segmented Neutrophils 90 % (50-85); Total Cells Counted 100
[2017-03-19 06:41] LABS: Calcium 8.6 MG/DL (8.5-10.1); Osmolality,Calculated 281.3 MOS/KG (273-304); Potassium 3.9 MMOL/L (3.5-5.1)
[2017-03-19] MEDS: INSULIN LISPRO 100 UNIT/ML SUBCUT SCH ×4 (07:44→20:34)
[2017-03-19] MEDS: ALBUTEROL/IPRATROPIUM 3 ML NEB RESP TX SCH ×4 (07:48→21:07)
[2017-03-19] MEDS: DORNASE ALFA 2.5 MG/2.5 ML VIAL RESP TX SCH ×2 (08:02→21:07)
[2017-03-19] MEDS: metFORMIN 500 MG TABLET PO SCH ×2 (08:11→16:18)
[2017-03-19] MEDS: acetaZOLAMIDE 250 MG TABLET PO SCH ×2 (08:11→20:31)
[2017-03-19] MEDS: METOPROLOL TARTRATE 25 MG TABLET PO SCH ×2 (08:11→20:31)
[2017-03-19] MEDS: DILTIAZEM CD 120 MG CAPSULE PO SCH (08:11)
[2017-03-19] MEDS: FUROSEMIDE 20 MG TABLET PO SCH ×2 (08:11→16:19)
[2017-03-19] MEDS: THEOPHYLLINE ER 300 MG TABLET PO SCH ×2 (08:11→16:18)
[2017-03-19] MEDS: FLUCONAZOLE 200 MG TABLET PO SCH (08:11)
[2017-03-19] MEDS: MONTELUKAST 10 MG TABLET PO SCH ×2 (08:12→20:31)
[2017-03-19] MEDS: BENZONATATE 100 MG CAPSULE PO SCH ×3 (08:12→20:31)
[2017-03-19] MEDS: glyBURIDE 5 MG TABLET PO SCH ×2 (08:12→16:19)
[2017-03-19] MEDS: PANTOPRAZOLE 40 MG TABLET PO SCH ×2 (08:12→20:31)
[2017-03-19] MEDS: LORATADINE 10 MG TABLET PO SCH (08:12)
[2017-03-19] MEDS: VALSARTAN 80 MG TABLET PO SCH (08:12)
[2017-03-19] MEDS: CLOPIDOGREL 75 MG TABLET PO SCH (08:12)
[2017-03-19] MEDS: FENOFIBRATE 145 MG TABLET PO SCH (08:12)
[2017-03-19] MEDS: MULTIVITAMIN (BEROCCA) TABLET PO SCH (08:12)
[2017-03-19] MEDS: ROFLUMILAST 500 MCG TABLET PO SCH (08:12)
[2017-03-19] MEDS: ASPIRIN EC 81 MG TABLET PO SCH (08:12)
[2017-03-19] MEDS: BUDESONIDE/FORMOTEROL 160-4.5 INHALER 6 GM INH SCH ×2 (08:15→20:38)
[2017-03-19] MEDS: CHOLECALCIFEROL 400 UNIT TABLET PO SCH ×2 (08:15→20:31)
--- NOTE | 2017-03-19 11:05 | Pulmonology Progress Note ---
Pulmonary - PN: Subj Interval history: Jesu Boudreaux, AGNP-, acting as scribe for Dr. Chente Dunn This is a 61-year-old white male with exacerbation of COPD and possible early pneumonia. He has had previous colonizations with gram-negative organisms including Pseudomonas. [facility]. At the time of admission, our impressions were: 1. Acute exacerbation of chronic COPD with infection, likely bacterial component cultures are pending. 2. Increased shortness of breath, productive cough, fever/chills secondary to number 1. 3. History of bronchiectasis 4. Heart disease with 2 stents in the past history of [place] and congestive heart failure followed by Dr. Hunt 5. Diabetes mellitus type II, uncontrolled 6. High blood pressure. 7. Aortic insufficiency. 8. See past history. 03/17/2017. Today the patient is making very good improvement. His laryngeal tracheal and large airway stridor/wheeze is much better he has a tremendous amount of congestion and is been able to mobilize a good bit of purulent sputum is some microbiology test are pending. Today's chest x-ray actually looks a little better than yesterday. Patient has better expansion. There may be early infiltrate in the right lower lung field and in the medial basal segment of the left lower lung. There is an old scar in the left upper medial left upper lung and medial right upper lung. There is bilateral apical capping. White count was 13,300. H&H 9.2 of 29.2 and platelets of 325,000. TSH is slightly low with a normal free T4 magnesium is normal. Urine shows no evidence of infection. Creatinine is 1.0 BUNs 21. Hemoglobin A1c is 6.1. This patient is going to need a fiberoptic bronchoscopy for cultures as well as endobronchial evaluation. He has a significant past history of smoking. He is recently had a small amount of hemoptysis mixed in with the sputum. Fiberoptic bronchoscopy has been set up for tomorrow. Patient has had bronchoscopies before but the wrists potential complications etc. been discussed with him. Jesu Boudreaux nurse practitioner was present. 03/18/2017. Earlier today the patient was evaluated with fiberoptic bronchoscopy. See report. Patient's had a difficult time mobilizing his sputum. His cultures come back after the bronchoscopy positive for Pseudomonas. I am going to leave him on his present medicines which also give him some gram-positive cocci coverage. Unfortunately the computer does not let me pull up any grams stains today. White blood cell count is 14,700 with 85 segs 11 lymphs H&H is stable at 9.4/29.2. Electrolytes are normal. Creatinine is 1.102 BUN of 22. Free T4 is in the normal range. TSH is slightly low. 03/19/2017. Patient was seen today along with Fatimah Guillen RN. Patient underwent fiberoptic bronchoscopy yesterday. Please see the event note for more information. Bronchoscopy Gram stain showed gram-positive cocci, gram- positive rods, and rare fungal elements. Bronchoscopy cultures pending. Sputum Gram stain showed gram-positive cocci, gram-positive rods, gram-negative rods, gram-negative diplococci, and few fungal elements. Sputum culture has again grown pseudomonas aeruginosa. 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 He is on Fortaz and Cleocin. Given his recurrent colonization, we will also start gentamicin 60 mg IV every 8 hours and has pharmacology to dose and manage. Bronchoscopy studies show no AFB or fungus on smear. Medications have been reviewed. Labs been reviewed. White count is 18,000 with 90.7% segs; H&H 9.2/29.1; platelet count 260,000; creatinine 0.90, BUN 21, electrolytes are normal Exam (Progress Note) - Constitutional Vitals: Period Temp Pulse Resp BP Sys/Cedeño Pulse Ox Last 24 Hr 97.0 F-99.7 F 74-102 16-22 106-119/50-71 92-100 Exam: Chest with loose large airway congestion Heart no gallop Abdomen is nontender and nondistended; bowel sounds are positive 4 Lower extremities with nothing to suggest acute deep venous thrombophlebitis Psychiatric oriented 3 Neurologic long-term motor function is intact Plan: Continue present treatment, but add gentamicin 60 mg IV every 8 hours. We have consulted pharmacology to dose and manage the gentamicin. Follow-up final bronchoscopy results when available. See orders. Results - Labs CBC & BMP: 03/19/17 05:41 03/19/17 05:41
[2017-03-19] MEDS: GENTAMICIN INJ 400 MG in SODIUM CHLORIDE 0.9% 100 ML IV SCH (12:55)
--- NOTE | 2017-03-19 13:17 | Pathology Report from [facility] ---
[facility] ACCESSION # : [id number] PATIENT NAME : Steven Morin ORDERING DR : NISREEN SHORT MD CLINICAL HX: COPD POST-OP DX: Same SPECIMEN INFO: Washing,Bronchial,SHELL - 15 mls light thompson, cloudy CLASS: II CLASS COMMENTS: Inflammation, yeast, reactive bronchial cells.CELL BLOCK: Same CLASS LEGEND: CLASS 0 Material inadequate for diagnosis because of (see comment) CLASS I Absence of atypical or abnormal cells CLASS II Atypical Cytology but no evidence of malignancy CLASS III Cytology suggestive of but not conclusive for malignancy CLASS IV Cytology strongly suggestive of malignancy CLASS V Cytology conclusive for malignancy COLLECTED DATE: 03/18/2017 [facility] REPORT DATE: 03/19/2017 ELECTRONICALLY SIGNED BY: Gus Frausto M.D. 03/19/2017 - 9:37:08 SHEA
[2017-03-19] MEDS ORDERED: ONDANSETRON 4 MG/2 ML VIAL IV PRN (18:36)
[2017-03-19] MEDS: ATORVASTATIN 20 MG TABLET PO SCH (20:31)
[2017-03-19] MEDS: traZODone 50 MG TABLET PO SCH (20:38)
[2017-03-20] MEDS: methylPREDNISolone SOD SUC 40 MG/1 ML VIAL IV SCH ×2 (04:51→16:31)
[2017-03-20] MEDS: CLINDAMYCIN INJ 300 MG in PREMIX 1 EACH IV SCH ×4 (04:53→21:19)
[2017-03-20] MEDS: CLOTRIMAZOLE 10 MG TROCHE PO SCH ×5 (05:39→21:20)
[2017-03-20] MEDS: ALBUTEROL/IPRATROPIUM 3 ML NEB RESP TX SCH ×4 (07:19→20:09)
[2017-03-20] MEDS: DORNASE ALFA 2.5 MG/2.5 ML VIAL RESP TX SCH ×2 (07:19→20:09)
[2017-03-20] MEDS: METOPROLOL TARTRATE 25 MG TABLET PO SCH ×2 (08:48→20:19)
[2017-03-20] MEDS: BENZONATATE 100 MG CAPSULE PO SCH ×3 (08:48→20:19)
[2017-03-20] MEDS: FENOFIBRATE 145 MG TABLET PO SCH (08:48)
[2017-03-20] MEDS: glyBURIDE 5 MG TABLET PO SCH ×2 (08:49→16:35)
[2017-03-20] MEDS: metFORMIN 500 MG TABLET PO SCH ×2 (08:49→16:35)
[2017-03-20] MEDS: DILTIAZEM CD 120 MG CAPSULE PO SCH (08:49)
[2017-03-20] MEDS: ASPIRIN EC 81 MG TABLET PO SCH (08:49)
[2017-03-20] MEDS: PANTOPRAZOLE 40 MG TABLET PO SCH ×2 (08:49→20:25)
[2017-03-20] MEDS: FUROSEMIDE 20 MG TABLET PO SCH ×2 (08:49→16:31)
[2017-03-20] MEDS: MULTIVITAMIN (BEROCCA) TABLET PO SCH (08:49)
[2017-03-20] MEDS: FLUCONAZOLE 200 MG TABLET PO SCH (08:49)
[2017-03-20] MEDS: MONTELUKAST 10 MG TABLET PO SCH ×2 (08:49→20:25)
[2017-03-20] MEDS: ROFLUMILAST 500 MCG TABLET PO SCH (08:49)
[2017-03-20] MEDS: CLOPIDOGREL 75 MG TABLET PO SCH (08:50)
[2017-03-20] MEDS: CHOLECALCIFEROL 400 UNIT TABLET PO SCH ×2 (08:50→20:19)
[2017-03-20] MEDS: THEOPHYLLINE ER 300 MG TABLET PO SCH ×2 (08:50→16:35)
[2017-03-20] MEDS: VALSARTAN 80 MG TABLET PO SCH (08:50)
[2017-03-20] MEDS: INSULIN LISPRO 100 UNIT/ML SUBCUT SCH ×4 (08:50→20:22)
[2017-03-20] MEDS: BUDESONIDE/FORMOTEROL 160-4.5 INHALER 6 GM INH SCH ×2 (08:50→20:23)
[2017-03-20] MEDS: LORATADINE 10 MG TABLET PO SCH (08:50)
[2017-03-20] MEDS: acetaZOLAMIDE 250 MG TABLET PO SCH ×2 (08:50→20:19)
--- NOTE | 2017-03-20 11:05 | Pulmonology Progress Note ---
Pulmonary - PN: Subj Interval history: Jesu Boudreaux, AGNP-, acting as scribe for Dr. Chente Dunn This is a 61-year-old white male with exacerbation of COPD and possible early pneumonia. He has had previous colonizations with gram-negative organisms including Pseudomonas. He was admitted from [facility] 03/16/17. At the time of admission, our impressions were: 1. Acute exacerbation of chronic COPD with infection, likely bacterial component cultures are pending. 2. Increased shortness of breath, productive cough, fever/chills secondary to number 1. 3. History of bronchiectasis 4. Heart disease with 2 stents in the past history of [place] and congestive heart failure followed by Dr. Hunt 5. Diabetes mellitus type II, uncontrolled 6. High blood pressure. 7. Aortic insufficiency. 8. See past history. 03/17/2017. Today the patient is making very good improvement. His laryngeal tracheal and large airway stridor/wheeze is much better he has a tremendous amount of congestion and is been able to mobilize a good bit of purulent sputum is some microbiology test are pending. Today's chest x-ray actually looks a little better than yesterday. Patient has better expansion. There may be early infiltrate in the right lower lung field and in the medial basal segment of the left lower lung. There is an old scar in the left upper medial left upper lung and medial right upper lung. There is bilateral apical capping. White count was 13,300. H&H 9.2 of 29.2 and platelets of 325,000. TSH is slightly low with a normal free T4 magnesium is normal. Urine shows no evidence of infection. Creatinine is 1.0 BUNs 21. Hemoglobin A1c is 6.1. This patient is going to need a fiberoptic bronchoscopy for cultures as well as endobronchial evaluation. He has a significant past history of smoking. He is recently had a small amount of hemoptysis mixed in with the sputum. Fiberoptic bronchoscopy has been set up for tomorrow. Patient has had bronchoscopies before but the wrists potential complications etc. been discussed with him. Jesu Boudreaux nurse practitioner was present. 03/18/2017. Earlier today the patient was evaluated with fiberoptic bronchoscopy. See report. Patient's had a difficult time mobilizing his sputum. His cultures come back after the bronchoscopy positive for Pseudomonas. I am going to leave him on his present medicines which also give him some gram-positive cocci coverage. Unfortunately the computer does not let me pull up any grams stains today. White blood cell count is 14,700 with 85 segs 11 lymphs H&H is stable at 9.4/29.2. Electrolytes are normal. Creatinine is 1.102 BUN of 22. Free T4 is in the normal range. TSH is slightly low. 03/19/2017. Patient was seen today along with Fatimah Guillen RN. Patient underwent fiberoptic bronchoscopy yesterday. Please see the event note for more information. Bronchoscopy Gram stain showed gram-positive cocci, gram- positive rods, and rare fungal elements. Bronchoscopy cultures pending. Sputum Gram stain showed gram-positive cocci, gram-positive rods, gram-negative rods, gram-negative diplococci, and few fungal elements. Sputum culture has again grown pseudomonas aeruginosa. 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 He is on Fortaz and Cleocin. Given his recurrent colonization, we will also start gentamicin 60 mg IV every 8 hours and has pharmacology to dose and manage. Bronchoscopy studies show no AFB or fungus on smear. 03/20/17. The patient was seen today along with Fatimah Guillen RN. He is doing well. FOB cytology has been reported as class II. FOB cultures are growing a yet to be identified gram-negative graciela. Sputum culture grew pseudomonas aeruginosa. Yesterday we added gentamicin and this is being managed by pharmacology. He is also on Fortaz and Cleocin. Medications have been reviewed. We made no changes today. Labs been reviewed. No new labs were drawn today. Cold agglutinins remain borderline at 1:32. Legionella is negative. Exam (Progress Note) - Constitutional Vitals: Period Temp Pulse Resp BP Sys/Cedeño Pulse Ox Last 24 Hr 97.4 F-98.5 F 57-122 17-22 100-111/45-62 95-99 Exam: Chest with loose large airway congestion Heart no gallop Abdomen is nontender and nondistended; bowel sounds are positive 4 Lower extremities with nothing to suggest acute deep venous thrombophlebitis Psychiatric oriented 3 Neurologic long-term motor function is intact Plan: Continue present treatment. Daily BMP. Repeat CBC and chest x-ray on Thursday. Pharmacology is managing the gentamicin. See orders. Results - Labs CBC & BMP: 03/19/17 05:41 03/19/17 05:41
[2017-03-20] MEDS: GENTAMICIN INJ 400 MG in SODIUM CHLORIDE 0.9% 100 ML IV SCH (11:49)
[2017-03-20] MEDS: traMADol 50 MG TABLET PO PRN ×2 (14:21→20:19)
[2017-03-20] MEDS: ATORVASTATIN 20 MG TABLET PO SCH (20:19)
[2017-03-20] MEDS: traZODone 50 MG TABLET PO SCH (20:19)
[2017-03-21] MEDS: methylPREDNISolone SOD SUC 40 MG/1 ML VIAL IV SCH ×2 (03:20→16:43)
[2017-03-21] MEDS: CLINDAMYCIN INJ 300 MG in PREMIX 1 EACH IV SCH ×4 (03:20→21:17)
[2017-03-21] MEDS: CLOTRIMAZOLE 10 MG TROCHE PO SCH ×5 (05:25→21:17)
[2017-03-21 06:43] LABS: Magnesium 1.7 MG/DL (1.8-2.4); Osmolality,Calculated 280.5 MOS/KG (273-304); Potassium 4.6 MMOL/L (3.5-5.1)
[2017-03-21] MEDS: ALBUTEROL/IPRATROPIUM 3 ML NEB RESP TX SCH ×4 (07:13→19:27)
[2017-03-21] MEDS: DORNASE ALFA 2.5 MG/2.5 ML VIAL RESP TX SCH ×2 (07:15→19:27)
[2017-03-21] MEDS: INSULIN LISPRO 100 UNIT/ML SUBCUT SCH ×4 (08:44→20:16)
[2017-03-21] MEDS: glyBURIDE 5 MG TABLET PO SCH ×2 (08:46→17:29)
[2017-03-21] MEDS: THEOPHYLLINE ER 300 MG TABLET PO SCH ×2 (08:46→17:29)
[2017-03-21] MEDS: metFORMIN 500 MG TABLET PO SCH ×2 (08:46→17:29)
[2017-03-21] MEDS: MONTELUKAST 10 MG TABLET PO SCH ×2 (08:46→20:16)
[2017-03-21] MEDS: CHOLECALCIFEROL 400 UNIT TABLET PO SCH ×2 (08:47→20:16)
[2017-03-21] MEDS: BENZONATATE 100 MG CAPSULE PO SCH ×3 (08:47→20:15)
[2017-03-21] MEDS: FENOFIBRATE 145 MG TABLET PO SCH (08:47)
[2017-03-21] MEDS: LORATADINE 10 MG TABLET PO SCH (08:47)
[2017-03-21] MEDS: FLUCONAZOLE 200 MG TABLET PO SCH (08:47)
[2017-03-21] MEDS: PANTOPRAZOLE 40 MG TABLET PO SCH ×2 (08:47→20:16)
[2017-03-21] MEDS: ASPIRIN EC 81 MG TABLET PO SCH (08:47)
[2017-03-21] MEDS: METOPROLOL TARTRATE 25 MG TABLET PO SCH ×2 (08:47→20:16)
[2017-03-21] MEDS: MULTIVITAMIN (BEROCCA) TABLET PO SCH (08:47)
[2017-03-21] MEDS: acetaZOLAMIDE 250 MG TABLET PO SCH ×2 (08:47→20:21)
[2017-03-21] MEDS: DILTIAZEM CD 120 MG CAPSULE PO SCH (08:47)
[2017-03-21] MEDS: CLOPIDOGREL 75 MG TABLET PO SCH (08:47)
[2017-03-21] MEDS: ROFLUMILAST 500 MCG TABLET PO SCH (08:47)
[2017-03-21] MEDS: FUROSEMIDE 20 MG TABLET PO SCH ×2 (08:47→16:43)
[2017-03-21] MEDS: BUDESONIDE/FORMOTEROL 160-4.5 INHALER 6 GM INH SCH ×2 (08:48→20:17)
[2017-03-21] MEDS: VALSARTAN 80 MG TABLET PO SCH (08:51)
--- NOTE | 2017-03-21 10:29 | Pulmonology Progress Note ---
Pulmonary - PN: Subj Interval history: Patient is a 61-year-old white man that has COPD and Pseudomonas pneumonia. He says he is doing better with treatment. He says he is feeling better but is a little sleepy today. He is eating okay and his shortness of breath is improved. His cough overall is better. He seems to be tolerating everything okay. Exam (Progress Note) - Constitutional Vitals: Period Temp Pulse Resp BP Sys/Cedeño Pulse Ox Last 24 Hr 97 F-98.4 F 72-91 18-20 91-113/51-64 95-99 General appearance: normal weight, no acute distress - Head Head exam: Present: normal inspection, normocephalic - Eye Eye exam: Present: EOMI. Absent: scleral icterus Pupils: Present: PAUL - ENT ENT exam: Present: normal exam - Neck Neck exam: Present: normal inspection. Absent: lymphadenopathy, thyromegaly - Respiratory Respiratory exam: Present: decreased breath sounds, rhonchi - Cardiovascular Cardiovascular exam: Present: regular rate and rhythm. Absent: gallop, systolic murmur - GI/Abdominal GI/Abdominal exam: Present: normal bowel sounds, soft. Absent: distended, organomegaly, tenderness - Extremities Exam Extremities exam: Absent: calf tenderness, edema - Neurological Exam Neurological exam: Present: alert, oriented X3, CN II-XII intact. Absent: motor sensory deficit - Psychiatric Psychiatric exam: Present: normal affect - Skin Skin exam: Present: warm, dry Results - Labs CBC & BMP: 03/19/17 05:41 03/21/17 05:35 Assessment and Plan (1) CAD (coronary artery disease) Status: Chronic Assessment and plan: The patient is not having any angina. Current Visit: No Qualifiers: Coronary Disease-Associated Artery/Lesion type: [place] artery [place] vs. transplanted heart: [place] heart Associated angina: angina presence unspecified Qualified Code(s): I25.10 - Atherosclerotic heart disease of [place] coronary artery without angina pectoris (2) Diabetes Status: Chronic Assessment and plan: His glucose is 107 this morning. Current Visit: No (3) COPD exacerbation Status: Acute Assessment and plan: Patient is getting his steroids and bronchodilators and seems to be better. He is comfortable at present. Current Visit: No (4) Pneumonia Status: Acute Assessment and plan: Patient is being treated for Pseudomonas pneumonia. He is not toxic now and tolerating his antibiotics. Current Visit: No Qualifiers: Pneumonia type: due to Pseudomonas
[2017-03-21] MEDS: GENTAMICIN INJ 400 MG in SODIUM CHLORIDE 0.9% 100 ML IV SCH (14:29)
[2017-03-21] MEDS: ZALEPLON 5 MG CAPSULE PO PRN (20:15)
[2017-03-21] MEDS: ATORVASTATIN 20 MG TABLET PO SCH (20:16)
[2017-03-21] MEDS: traZODone 50 MG TABLET PO SCH (20:16)
[2017-03-22] MEDS: CLINDAMYCIN INJ 300 MG in PREMIX 1 EACH IV SCH ×4 (03:57→21:13)
[2017-03-22] MEDS: methylPREDNISolone SOD SUC 40 MG/1 ML VIAL IV SCH ×2 (03:57→15:36)
[2017-03-22] MEDS: CLOTRIMAZOLE 10 MG TROCHE PO SCH ×5 (05:44→21:13)
[2017-03-22] MEDS: ALBUTEROL/IPRATROPIUM 3 ML NEB RESP TX SCH ×4 (07:13→19:36)
[2017-03-22] MEDS: DORNASE ALFA 2.5 MG/2.5 ML VIAL RESP TX SCH ×2 (07:15→19:46)
[2017-03-22 07:32] LABS: Calcium 9.1 MG/DL (8.5-10.1); Magnesium 1.7 MG/DL (1.8-2.4); Osmolality,Calculated 275.8 MOS/KG (273-304); Potassium 4.3 MMOL/L (3.5-5.1)
[2017-03-22] MEDS: INSULIN LISPRO 100 UNIT/ML SUBCUT SCH ×4 (08:08→20:41)
[2017-03-22] MEDS: FUROSEMIDE 20 MG TABLET PO SCH ×2 (09:12→15:36)
[2017-03-22] MEDS: MULTIVITAMIN (BEROCCA) TABLET PO SCH (09:12)
[2017-03-22] MEDS: THEOPHYLLINE ER 300 MG TABLET PO SCH ×2 (09:12→17:19)
[2017-03-22] MEDS: FLUCONAZOLE 200 MG TABLET PO SCH (09:12)
[2017-03-22] MEDS: CHOLECALCIFEROL 400 UNIT TABLET PO SCH ×2 (09:12→20:40)
[2017-03-22] MEDS: METOPROLOL TARTRATE 25 MG TABLET PO SCH ×2 (09:12→20:40)
[2017-03-22] MEDS: DILTIAZEM CD 120 MG CAPSULE PO SCH (09:12)
[2017-03-22] MEDS: MONTELUKAST 10 MG TABLET PO SCH ×2 (09:12→20:40)
[2017-03-22] MEDS: acetaZOLAMIDE 250 MG TABLET PO SCH ×2 (09:12→20:40)
[2017-03-22] MEDS: PANTOPRAZOLE 40 MG TABLET PO SCH ×2 (09:12→20:40)
[2017-03-22] MEDS: glyBURIDE 5 MG TABLET PO SCH ×2 (09:12→17:19)
[2017-03-22] MEDS: BENZONATATE 100 MG CAPSULE PO SCH ×3 (09:12→20:40)
[2017-03-22] MEDS: FENOFIBRATE 145 MG TABLET PO SCH (09:13)
[2017-03-22] MEDS: LORATADINE 10 MG TABLET PO SCH (09:13)
[2017-03-22] MEDS: ROFLUMILAST 500 MCG TABLET PO SCH (09:13)
[2017-03-22] MEDS: ASPIRIN EC 81 MG TABLET PO SCH (09:13)
[2017-03-22] MEDS: CLOPIDOGREL 75 MG TABLET PO SCH (09:13)
[2017-03-22] MEDS: VALSARTAN 80 MG TABLET PO SCH (09:13)
[2017-03-22] MEDS: metFORMIN 500 MG TABLET PO SCH ×2 (09:13→17:20)
[2017-03-22] MEDS: BUDESONIDE/FORMOTEROL 160-4.5 INHALER 6 GM INH SCH ×2 (10:23→20:41)
--- NOTE | 2017-03-22 10:26 | Pulmonology Progress Note ---
Pulmonary - PN: Subj Interval history: Patient is a 61-year-old white man that has COPD and Pseudomonas pneumonia. He says he is doing better with treatment. He said he had a fairly good night and rested better. He feels like his shortness of breath is improving. He has a good appetite and is tolerating his medicines. He said his glucose was a little low this morning but did eat breakfast. Overall he is improving. Exam (Progress Note) - Constitutional Vitals: Period Temp Pulse Resp BP Sys/Cedeño Pulse Ox Last 24 Hr 97 F-97.8 F 70-111 17-20 90-117/53-69 90-99 Exam: General appearance: normal weight, no acute distress, he is sitting up in a chair and looks comfortable. - Head Head exam: Present: normal inspection, normocephalic - Eye Eye exam: Present: EOMI. Absent: scleral icterus Pupils: Present: PAUL - ENT ENT exam: Present: normal exam - Neck Neck exam: Present: normal inspection. Absent: lymphadenopathy, thyromegaly - Respiratory Respiratory exam: Present: He has decreased breath sounds throughout with prolonged expiration but only minimal rhonchi. - Cardiovascular Cardiovascular exam: Present: regular rate and rhythm. Absent: gallop, systolic murmur - GI/Abdominal GI/Abdominal exam: Present: normal bowel sounds, soft. Absent: distended, organomegaly, tenderness - Extremities Exam Extremities exam: Absent: calf tenderness, edema, he has no signs of phlebitis . - Neurological Exam Neurological exam: Present: alert, oriented X3, CN II-XII intact. Absent: motor sensory deficit - Psychiatric Psychiatric exam: Present: normal affect - Skin Skin exam: Present: warm, dry Results - Labs CBC & BMP: 03/19/17 05:41 03/22/17 05:13 Assessment and Plan (1) CAD (coronary artery disease) Status: Chronic Assessment and plan: The patient is not having any angina. Current Visit: No Qualifiers: Coronary Disease-Associated Artery/Lesion type: [place] artery [place] vs. transplanted heart: [place] heart Associated angina: angina presence unspecified Qualified Code(s): I25.10 - Atherosclerotic heart disease of [place] coronary artery without angina pectoris (2) Diabetes Status: Chronic Assessment and plan: His glucose is 58 this morning. Current Visit: No (3) COPD exacerbation Status: Acute Assessment and plan: Patient is getting his steroids and bronchodilators and seems to be better. He is comfortable at present. He is not having any respiratory distress now. Current Visit: No (4) Pneumonia Status: Acute Assessment and plan: Patient is being treated for Pseudomonas pneumonia. He is not toxic now and tolerating his antibiotics. Current Visit: No Qualifiers: Pneumonia type: due to Pseudomonas
[2017-03-22] MEDS: GENTAMICIN INJ 400 MG in SODIUM CHLORIDE 0.9% 100 ML IV SCH (14:28)
[2017-03-22] MEDS: ATORVASTATIN 20 MG TABLET PO SCH (20:40)
[2017-03-22] MEDS: ZALEPLON 5 MG CAPSULE PO PRN (20:40)
[2017-03-22] MEDS: traZODone 50 MG TABLET PO SCH (20:40)
[2017-03-23] MEDS: methylPREDNISolone SOD SUC 40 MG/1 ML VIAL IV SCH ×2 (03:56→16:04)
[2017-03-23] MEDS: CLINDAMYCIN INJ 300 MG in PREMIX 1 EACH IV SCH ×4 (03:57→21:00)
[2017-03-23] MEDS: CLOTRIMAZOLE 10 MG TROCHE PO SCH ×3 (05:39→09:07)
[2017-03-23 07:16] LABS: Hemoglobin 9.6 GM/DL (14.0-18.0); Immature Granulocytes % 0.6 %; Immature Granulocytes Absolute 0.06 #; Lymphocytes # 0.9 10*3/uL (1.4-4.0); Lymphocytes % 8.8 % (21.2-54.2); Mean Corpuscular Hemoglobin 28 PG (27-34); Mean Corpuscular Volume 86.5 FL (87-102); Mean Platelet Volume 9.8 FL (9.6-12.0); Monocytes # 0.3 10*3/uL (0.11-0.8); Monocytes % 2.9 % (1.7-12.7); Neutrophils # 9.3 10*3/uL (1.4-7.4); Neutrophils % 87.7 % (38.7-73.9); Platelet Count 273 T/CUMM (130-400); Red Blood Count 3.47 MC/CUMM (3.8-5.5); Red Cell Distribution Width 15.5 % (9.3-17.3); White Blood Count 10.6 T/CUMM (4-12)
[2017-03-23] MEDS: ALBUTEROL/IPRATROPIUM 3 ML NEB RESP TX SCH ×4 (07:19→19:22)
[2017-03-23] MEDS: DORNASE ALFA 2.5 MG/2.5 ML VIAL RESP TX SCH ×2 (07:19→19:28)
[2017-03-23 07:44] LABS: Calcium 9.5 MG/DL (8.5-10.1); Magnesium 1.9 MG/DL (1.8-2.4); Potassium 4.3 MMOL/L (3.5-5.1)
--- NOTE | 2017-03-23 08:18 | XRay Report ---
Exam: XR chest 2V Indication: Pneumonia Comparison study: 03/17/2017 Findings: The heart, mediastinum and bony structures are stable from prior. Perihilar and diffuse interstitial opacities are noted bilaterally which appear similar to prior and likely represent underlying interstitial scarring/fibrosis changes. Superimposed patchy infiltrates could be obscured. There is no pneumothorax or pleural effusion identified. Impression: No significant change. PROCEDURE INTERPRETED AT [facility] DEPARTMENT OF RADIOLOGY Final Report Signed by: Héctor Ratliff
[2017-03-23] MEDS: FENOFIBRATE 145 MG TABLET PO SCH (08:44)
[2017-03-23] MEDS: LORATADINE 10 MG TABLET PO SCH (08:44)
[2017-03-23] MEDS: INSULIN LISPRO 100 UNIT/ML SUBCUT SCH ×4 (08:44→20:55)
[2017-03-23] MEDS: ASPIRIN EC 81 MG TABLET PO SCH (08:45)
[2017-03-23] MEDS: acetaZOLAMIDE 250 MG TABLET PO SCH ×2 (08:45→20:44)
[2017-03-23] MEDS: BENZONATATE 100 MG CAPSULE PO SCH ×3 (08:45→20:44)
[2017-03-23] MEDS: CHOLECALCIFEROL 400 UNIT TABLET PO SCH ×2 (08:45→20:44)
[2017-03-23] MEDS: MONTELUKAST 10 MG TABLET PO SCH ×2 (08:45→20:45)
[2017-03-23] MEDS: DILTIAZEM CD 120 MG CAPSULE PO SCH (08:45)
[2017-03-23] MEDS: THEOPHYLLINE ER 300 MG TABLET PO SCH ×2 (08:45→16:05)
[2017-03-23] MEDS: metFORMIN 500 MG TABLET PO SCH ×3 (08:45→17:52)
[2017-03-23] MEDS: ROFLUMILAST 500 MCG TABLET PO SCH (08:45)
[2017-03-23] MEDS: METOPROLOL TARTRATE 25 MG TABLET PO SCH ×2 (08:45→20:45)
[2017-03-23] MEDS: CLOPIDOGREL 75 MG TABLET PO SCH (08:45)
[2017-03-23] MEDS: MULTIVITAMIN (BEROCCA) TABLET PO SCH (08:46)
[2017-03-23] MEDS: PANTOPRAZOLE 40 MG TABLET PO SCH ×2 (08:46→20:45)
[2017-03-23] MEDS: FLUCONAZOLE 200 MG TABLET PO SCH (08:46)
[2017-03-23] MEDS: VALSARTAN 80 MG TABLET PO SCH (08:46)
[2017-03-23] MEDS: glyBURIDE 5 MG TABLET PO SCH (08:46)
[2017-03-23] MEDS: FUROSEMIDE 20 MG TABLET PO SCH ×2 (08:46→16:05)
[2017-03-23] MEDS: BUDESONIDE/FORMOTEROL 160-4.5 INHALER 6 GM INH SCH ×2 (08:51→20:55)
--- NOTE | 2017-03-23 10:27 | Pulmonology Progress Note ---
Pulmonary - PN: Subj Interval history: This is a 61-year-old white male with exacerbation of COPD and possible early pneumonia. He has had previous colonizations with gram-negative work organisms including Pseudomonas. He was admitted from my office yesterday. My impressions were. 1. Acute exacerbation of chronic COPD with infection, likely bacterial component cultures are pending. 2. Increased shortness of breath, productive cough, fever/chills secondary to number 1. 3. History of bronchiectasis 4. Heart disease with 2 stents in the past history of [place] and congestive heart failure followed by Dr. Hunt 5. Diabetes mellitus type II, uncontrolled 6. High blood pressure. 7. Aortic insufficiency. 8. See past history. 03/17/2017. Today the patient is making very good improvement. His laryngeal tracheal and large airway stridor/wheeze is much better he has a tremendous amount of congestion and is been able to mobilize a good bit of purulent sputum is some microbiology test are pending. Today's chest x-ray actually looks a little better than yesterday. Patient has better expansion. There may be early infiltrate in the right lower lung field and in the medial basal segment of the left lower lung. There is an old scar in the left upper medial left upper lung and medial right upper lung. There is bilateral apical capping. White count was 13,300. H&H 9.2 of 29.2 and platelets of 325,000. TSH is slightly low with a normal free T4 magnesium is normal. Urine shows no evidence of infection. Creatinine is 1.0 BUNs 21. Hemoglobin A1c is 6.1. This patient is going to need a fiberoptic bronchoscopy for cultures as well as endobronchial evaluation. He has a significant past history of smoking. He is recently had a small amount of hemoptysis mixed in with the sputum. Fiberoptic bronchoscopy has been set up for tomorrow. Patient has had bronchoscopies before but the wrists potential complications etc. been discussed with him. Jesu Boudreaux nurse practitioner was present. 03/18/2017. Earlier today the patient was evaluated with fiberoptic bronchoscopy. See report. Patient's had a difficult time mobilizing his sputum. His cultures come back after the bronchoscopy positive for Pseudomonas. I am going to leave him on his present medicines which also give him some gram-positive cocci coverage. Unfortunately the computer does not let me pull up any grams stains today. White blood cell count is 14,700 with 85 segs 11 lymphs H&H is stable at 9.4/29.2. Electrolytes are normal. Creatinine is 1.102 BUN of 22. Free T4 is in the normal range. TSH is slightly low. 03/23/2017. Patient continues to improve. Bronchoscopy specimens are positive for Pseudomonas. Patient's on the proper antibiotic. He is mobilizing sputum and his breathing and moving air much better. Overall he feels better. Today' s chest x-ray shows improvement. I hope to have him ready for discharge by Thursday. All of this is been discussed with the patient. He has no new complaints and no new requests. White blood cell count is dropped to 6600 with 88 segs and 9 lymphs. H&H stable at 9.6/30.0. Platelets of 273,000. Electrolytes are normal. On gentamicin creatinine is stable at 1.10 and BUN is 33. Gentamicin trough level is 0.6. Gentamicin to be a monitored by pharmacology. Physical exam. Vital signs. See below Psychiatric. Oriented 3 General. Comfortable sitting up in a chair. No apparent distress and looks like he feels better Neurologic. Cranial nerves are intact. Decreased hearing acuity bilaterally. Long track motor functions intact. Face symmetrical. No edema of the lips or tongue. Neck symmetrical. No mass. No meningismus. Thyroid was not palpated Lymphatics no submandibular cervical supraclavicular or epitrochlear adenopathy Chest hyperinflated. Kyphotic. Prolonged incomplete expiration. Large airway congestion and bibasilar inspiratory squeaks. Upper airway wheezes are better. Heart. No gallop Abdomen. Nondistended. Positive bowel sounds Extremities. No edema. Skin of the face and hand showed no cancerous infectious lesions. Skin of the arm shows appropriate. The remainder of the physical exam is negative. Plan. 03/16/2017 1. Check cultures when they become available. 2. Monitor glucoses which are up slightly. Noted mid hemoglobin A1c 6.1. 3. Fiberoptic bronchoscopy number 4. Continue present regimen. 03/17/2007 1. Sputum for Gram stain culture and sensitivity, blood cultures x 3, cold agglutinins, Legionella titer. 2. Inhalation therapy. Steroids. Antibiotics as ordered. 3. Repeat CBC and CXR tomorrow. 4. Sputum retention is been a problem with this patient in the past possibly will repeat fiberoptic bronchoscopy once wheezing is stable. 5. See orders. 03/18/2017 1. Fiberoptic bronchoscopy. Check specimens. 2. Pseudomonas. 3. See my note above for today. 724 2000-03-12. 1. See today's note above 2. Possible Thursday this Exam (Progress Note) - Constitutional Vitals: Period Temp Pulse Resp BP Sys/Cedeño Pulse Ox Last 24 Hr 96.5 F-98.2 F 68-103 18-21 93-121/48-70 92-99 Results - Labs CBC & BMP: 03/23/17 06:41 03/23/17 06:41
[2017-03-23] MEDS: GENTAMICIN INJ 400 MG in SODIUM CHLORIDE 0.9% 100 ML IV SCH (11:04)
[2017-03-23] MEDS: traMADol 50 MG TABLET PO PRN ×2 (12:26→20:48)
[2017-03-23] MEDS: GLUCAGON 1 MG VIAL IM PRN (17:49)
[2017-03-23] MEDS: ATORVASTATIN 20 MG TABLET PO SCH (20:44)
[2017-03-23] MEDS: ZALEPLON 5 MG CAPSULE PO PRN (20:44)
[2017-03-23] MEDS: traZODone 50 MG TABLET PO SCH (20:45)
[2017-03-24] MEDS: methylPREDNISolone SOD SUC 40 MG/1 ML VIAL IV SCH ×2 (04:10→15:34)
[2017-03-24] MEDS: CLINDAMYCIN INJ 300 MG in PREMIX 1 EACH IV SCH ×4 (04:14→21:20)
[2017-03-24] MEDS: ALBUTEROL/IPRATROPIUM 3 ML NEB RESP TX SCH ×4 (07:08→19:10)
[2017-03-24] MEDS: DORNASE ALFA 2.5 MG/2.5 ML VIAL RESP TX SCH ×2 (07:09→19:14)
[2017-03-24] MEDS: INSULIN LISPRO 100 UNIT/ML SUBCUT SCH ×4 (09:02→21:21)
--- NOTE | 2017-03-24 09:26 | Pulmonology Progress Note ---
Pulmonary - PN: Subj Interval history: Jesu Boudreaux, AGNP-, acting as scribe for Dr. Chente Dunn This is a 61-year-old white male with exacerbation of COPD and possible early pneumonia. He has had previous colonizations with gram-negative organisms including Pseudomonas. [facility] was [facility]. At the time of admission, our impressions were: 1. Acute exacerbation of chronic COPD with infection, likely bacterial component cultures are pending. 2. Increased shortness of breath, productive cough, fever/chills secondary to number 1. 3. History of bronchiectasis 4. Heart disease with 2 stents in the past history of [place] and congestive heart failure followed by Dr. Hunt 5. Diabetes mellitus type II, uncontrolled 6. High blood pressure. 7. Aortic insufficiency. 8. See past history. 03/17/2017. Today the patient is making very good improvement. His laryngeal tracheal and large airway stridor/wheeze is much better he has a tremendous amount of congestion and is been able to mobilize a good bit of purulent sputum is some microbiology test are pending. Today's chest x-ray actually looks a little better than yesterday. Patient has better expansion. There may be early infiltrate in the right lower lung field and in the medial basal segment of the left lower lung. There is an old scar in the left upper medial left upper lung and medial right upper lung. There is bilateral apical capping. White count was 13,300. H&H 9.2 of 29.2 and platelets of 325,000. TSH is slightly low with a normal free T4 magnesium is normal. Urine shows no evidence of infection. Creatinine is 1.0 BUNs 21. Hemoglobin A1c is 6.1. This patient is going to need a fiberoptic bronchoscopy for cultures as well as endobronchial evaluation. He has a significant past history of smoking. He is recently had a small amount of hemoptysis mixed in with the sputum. Fiberoptic bronchoscopy has been set up for tomorrow. Patient has had bronchoscopies before but the wrists potential complications etc. been discussed with him. Jesu Boudreaux nurse practitioner was present. 03/18/2017. Earlier today the patient was evaluated with fiberoptic bronchoscopy. See report. Patient's had a difficult time mobilizing his sputum. His cultures come back after the bronchoscopy positive for Pseudomonas. I am going to leave him on his present medicines which also give him some gram-positive cocci coverage. Unfortunately the computer does not let me pull up any grams stains today. White blood cell count is 14,700 with 85 segs 11 lymphs H&H is stable at 9.4/29.2. Electrolytes are normal. Creatinine is 1.102 BUN of 22. Free T4 is in the normal range. TSH is slightly low. 03/19/2017. Patient was seen today along with Fatimah Guillen RN. Patient underwent fiberoptic bronchoscopy yesterday. Please see the event note for more information. Bronchoscopy Gram stain showed gram-positive cocci, gram- positive rods, and rare fungal elements. Bronchoscopy cultures pending. Sputum Gram stain showed gram-positive cocci, gram-positive rods, gram-negative rods, gram-negative diplococci, and few fungal elements. Sputum culture has again grown pseudomonas aeruginosa. 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 He is on Fortaz and Cleocin. Given his recurrent colonization, we will also start gentamicin 60 mg IV every 8 hours and has pharmacology to dose and manage. Bronchoscopy studies show no AFB or fungus on smear. 03/20/17. The patient was seen today along with Fatimah Guillen RN. He is doing well. FOB cytology has been reported as class II. FOB cultures are growing a yet to be identified gram-negative graciela. Sputum culture grew pseudomonas aeruginosa. Yesterday we added gentamicin and this is being managed by pharmacology. He is also on Fortaz and Cleocin. 03/23/2017. Patient continues to improve. Bronchoscopy specimens are positive for Pseudomonas. Patient's on the proper antibiotic. He is mobilizing sputum and his breathing and moving air much better. Overall he feels better. Today' s chest x-ray shows improvement. I hope to have him ready for discharge by Thursday. All of this is been discussed with the patient. He has no new complaints and no new requests. White blood cell count is dropped to 6600 with 88 segs and 9 lymphs. H&H stable at 9.6/30.0. Platelets of 273,000. Electrolytes are normal. On gentamicin creatinine is stable at 1.10 and BUN is 33. Gentamicin trough level is 0.6. Gentamicin to be a monitored by pharmacology. 03/24/2017. The patient was seen today along with Crista Preciado RN. He continues to mobilize his secretions. He states that his sputum still yellow, but is clearing. As noted above, previous bronchoscopy and sputum cultures grew Pseudomonas again. He is on Fortaz Cleocin and gentamicin. Gentamicin is being managed by pharmacology. Bronchoscopy lavage has now grown Christine albicans. The patient was previously already started on Diflucan. Yesterday we held the patient's glyburide secondary to hypoglycemia. Fasting glucose this morning was 91. Interestingly, the patient's glucoses have been low despite Solu-Medrol 40 mg IV every 12 hours. Nonetheless, we are continuing to hold the glyburide. He is getting his metformin. He has sliding scale in place should be required. Medications have been reviewed. We made no changes today. Labs been reviewed. No new labs were drawn today. Cold agglutinins remain borderline at 1:32. Legionella is negative. Exam (Progress Note) - Constitutional Vitals: Period Temp Pulse Resp BP Sys/Cedeño Pulse Ox Last 24 Hr 96.8 F-98.3 F 71-105 16-22 91-126/44-64 95-100 Exam: Chest with mild loose large airway congestion Heart no gallop Abdomen is nontender and nondistended; bowel sounds are positive 4 Lower extremities with nothing to suggest acute deep venous thrombophlebitis Psychiatric oriented 3 Neurologic long-term motor function is intact Plan: Continue present treatment. Daily BMP. Pharmacology is managing the gentamicin. See orders. If the patient continues to do well today and tomorrow , we have to be able to discharge him home tomorrow. This was discussed with the patient has understanding and he is in agreement. Results - Labs CBC & BMP: 03/23/17 06:41 03/23/17 06:41
[2017-03-24] MEDS: VALSARTAN 80 MG TABLET PO SCH (09:31)
[2017-03-24] MEDS: BENZONATATE 100 MG CAPSULE PO SCH ×3 (09:31→21:20)
[2017-03-24] MEDS: DILTIAZEM CD 120 MG CAPSULE PO SCH (09:31)
[2017-03-24] MEDS: CHOLECALCIFEROL 400 UNIT TABLET PO SCH ×2 (09:31→21:19)
[2017-03-24] MEDS: acetaZOLAMIDE 250 MG TABLET PO SCH ×2 (09:32→21:20)
[2017-03-24] MEDS: MULTIVITAMIN (BEROCCA) TABLET PO SCH (09:32)
[2017-03-24] MEDS: FUROSEMIDE 20 MG TABLET PO SCH ×2 (09:32→15:33)
[2017-03-24] MEDS: metFORMIN 500 MG TABLET PO SCH ×2 (09:32→16:42)
[2017-03-24] MEDS: FLUCONAZOLE 200 MG TABLET PO SCH (09:32)
[2017-03-24] MEDS: CARBOXYMETHYLCELLULOSE 1% OPH SOLN BOTH EYES PRN (09:33)
[2017-03-24] MEDS: CLOPIDOGREL 75 MG TABLET PO SCH (09:33)
[2017-03-24] MEDS: ROFLUMILAST 500 MCG TABLET PO SCH (09:33)
[2017-03-24] MEDS: THEOPHYLLINE ER 300 MG TABLET PO SCH ×2 (09:33→16:42)
[2017-03-24] MEDS: METOPROLOL TARTRATE 25 MG TABLET PO SCH ×2 (09:33→21:29)
[2017-03-24] MEDS: ASPIRIN EC 81 MG TABLET PO SCH (09:33)
[2017-03-24] MEDS: LORATADINE 10 MG TABLET PO SCH (09:33)
[2017-03-24] MEDS: FENOFIBRATE 145 MG TABLET PO SCH (09:33)
[2017-03-24] MEDS: MONTELUKAST 10 MG TABLET PO SCH ×2 (09:33→21:19)
[2017-03-24] MEDS: PANTOPRAZOLE 40 MG TABLET PO SCH ×2 (09:33→21:19)
[2017-03-24] MEDS: traMADol 50 MG TABLET PO PRN ×2 (09:33→21:20)
[2017-03-24] MEDS: BUDESONIDE/FORMOTEROL 160-4.5 INHALER 6 GM INH SCH ×2 (09:38→21:30)
[2017-03-24] MEDS: GENTAMICIN INJ 400 MG in SODIUM CHLORIDE 0.9% 100 ML IV SCH (12:15)
[2017-03-24] MEDS: traZODone 50 MG TABLET PO SCH (21:19)
[2017-03-24] MEDS: ATORVASTATIN 20 MG TABLET PO SCH (21:20)
[2017-03-25] MEDS: methylPREDNISolone SOD SUC 40 MG/1 ML VIAL IV SCH (04:09)
[2017-03-25] MEDS: CLINDAMYCIN INJ 300 MG in PREMIX 1 EACH IV SCH ×2 (04:09→10:04)
[2017-03-25] MEDS: ALBUTEROL/IPRATROPIUM 3 ML NEB RESP TX SCH ×2 (07:12→11:12)
[2017-03-25] MEDS: DORNASE ALFA 2.5 MG/2.5 ML VIAL RESP TX SCH (07:31)
[2017-03-25 07:34] LABS: Basophils % 0.1 % (0.0-0.8); Eosinophils % 0.2 % (0.00-10.9); Hematocrit 28.1 VOL% (42.0-52.0); Hemoglobin 9.1 GM/DL (14.0-18.0); Immature Granulocytes % 0.7 %; Immature Granulocytes Absolute 0.07 #; Lymphocytes # 1.2 10*3/uL (1.4-4.0); Lymphocytes % 12.7 % (21.2-54.2); Mean Corpuscular HGB Conc 32.4 GM/DL (32-36); Mean Corpuscular Hemoglobin 28 PG (27-34); Mean Corpuscular Volume 85.4 FL (87-102); Mean Platelet Volume 10.1 FL (9.6-12.0); Monocytes # 0.3 10*3/uL (0.11-0.8); Monocytes % 2.9 % (1.7-12.7); Neutrophils # 8.2 10*3/uL (1.4-7.4); Neutrophils % 83.4 % (38.7-73.9); Platelet Count 257 T/CUMM (130-400); Red Blood Count 3.29 MC/CUMM (3.8-5.5); White Blood Count 9.8 T/CUMM (4-12)
[2017-03-25 08:10] LABS: Calcium 8.7 MG/DL (8.5-10.1); Potassium 4.4 MMOL/L (3.5-5.1)
[2017-03-25 08:25] LABS: Hypochromasia 1+; Lymphocytes 15 % (20-55); Ovalocytes Slight; Platelet Estimate Adequate; Segmented Neutrophils 83 % (50-85); Total Cells Counted 100
[2017-03-25] MEDS: INSULIN LISPRO 100 UNIT/ML SUBCUT SCH ×2 (08:55→12:50)
[2017-03-25] MEDS: CARBOXYMETHYLCELLULOSE 1% OPH SOLN BOTH EYES PRN (08:55)
[2017-03-25] MEDS: MULTIVITAMIN (BEROCCA) TABLET PO SCH (08:57)
[2017-03-25] MEDS: acetaZOLAMIDE 250 MG TABLET PO SCH (08:57)
[2017-03-25] MEDS: MONTELUKAST 10 MG TABLET PO SCH (08:57)
[2017-03-25] MEDS: VALSARTAN 80 MG TABLET PO SCH (08:57)
[2017-03-25] MEDS: ASPIRIN EC 81 MG TABLET PO SCH (08:57)
[2017-03-25] MEDS: metFORMIN 500 MG TABLET PO SCH (08:57)
[2017-03-25] MEDS: DILTIAZEM CD 120 MG CAPSULE PO SCH (08:57)
[2017-03-25] MEDS: PANTOPRAZOLE 40 MG TABLET PO SCH (08:57)
[2017-03-25] MEDS: FLUCONAZOLE 200 MG TABLET PO SCH (08:57)
[2017-03-25] MEDS: BENZONATATE 100 MG CAPSULE PO SCH (08:57)
[2017-03-25] MEDS: FENOFIBRATE 145 MG TABLET PO SCH (08:57)
[2017-03-25] MEDS: FUROSEMIDE 20 MG TABLET PO SCH (08:57)
[2017-03-25] MEDS: CLOPIDOGREL 75 MG TABLET PO SCH (08:57)
[2017-03-25] MEDS: CHOLECALCIFEROL 400 UNIT TABLET PO SCH (08:58)
[2017-03-25] MEDS: ROFLUMILAST 500 MCG TABLET PO SCH (08:58)
[2017-03-25] MEDS: THEOPHYLLINE ER 300 MG TABLET PO SCH (08:58)
[2017-03-25] MEDS: METOPROLOL TARTRATE 25 MG TABLET PO SCH (08:58)
[2017-03-25] MEDS: LORATADINE 10 MG TABLET PO SCH (08:58)
[2017-03-25] MEDS: BUDESONIDE/FORMOTEROL 160-4.5 INHALER 6 GM INH SCH (09:12)
--- NOTE | 2017-03-25 09:52 | Pulmonology Progress Note ---
Pulmonary - PN: Subj Interval history: Jesu Boudreaux, AGNP-, acting as scribe for Dr. Chente Dunn This is a 61-year-old white male with exacerbation of COPD and possible early pneumonia. He has had previous colonizations with gram-negative organisms including Pseudomonas. He was [facility]. At the time of admission, our impressions were: 1. Acute exacerbation of chronic COPD with infection, likely bacterial component cultures are pending. 2. Increased shortness of breath, productive cough, fever/chills secondary to number 1. 3. History of bronchiectasis 4. Heart disease with 2 stents in the past history of [place] and congestive heart failure followed by Dr. Hunt 5. Diabetes mellitus type II, uncontrolled 6. High blood pressure. 7. Aortic insufficiency. 8. See past history. 03/17/2017. Today the patient is making very good improvement. His laryngeal tracheal and large airway stridor/wheeze is much better he has a tremendous amount of congestion and is been able to mobilize a good bit of purulent sputum is some microbiology test are pending. Today's chest x-ray actually looks a little better than yesterday. Patient has better expansion. There may be early infiltrate in the right lower lung field and in the medial basal segment of the left lower lung. There is an old scar in the left upper medial left upper lung and medial right upper lung. There is bilateral apical capping. White count was 13,300. H&H 9.2 of 29.2 and platelets of 325,000. TSH is slightly low with a normal free T4 magnesium is normal. Urine shows no evidence of infection. Creatinine is 1.0 BUNs 21. Hemoglobin A1c is 6.1. This patient is going to need a fiberoptic bronchoscopy for cultures as well as endobronchial evaluation. He has a significant past history of smoking. He is recently had a small amount of hemoptysis mixed in with the sputum. Fiberoptic bronchoscopy has been set up for tomorrow. Patient has had bronchoscopies before but the wrists potential complications etc. been discussed with him. Jesu Boudreaux nurse practitioner was present. 03/18/2017. Earlier today the patient was evaluated with fiberoptic bronchoscopy. See report. Patient's had a difficult time mobilizing his sputum. His cultures come back after the bronchoscopy positive for Pseudomonas. I am going to leave him on his present medicines which also give him some gram-positive cocci coverage. Unfortunately the computer does not let me pull up any grams stains today. White blood cell count is 14,700 with 85 segs 11 lymphs H&H is stable at 9.4/29.2. Electrolytes are normal. Creatinine is 1.102 BUN of 22. Free T4 is in the normal range. TSH is slightly low. 03/19/2017. Patient was seen today along with Fatimah Guillen RN. Patient underwent fiberoptic bronchoscopy yesterday. Please see the event note for more information. Bronchoscopy Gram stain showed gram-positive cocci, gram- positive rods, and rare fungal elements. Bronchoscopy cultures pending. Sputum Gram stain showed gram-positive cocci, gram-positive rods, gram-negative rods, gram-negative diplococci, and few fungal elements. Sputum culture has again grown pseudomonas aeruginosa. 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 He is on Fortaz and Cleocin. Given his recurrent colonization, we will also start gentamicin 60 mg IV every 8 hours and has pharmacology to dose and manage. Bronchoscopy studies show no AFB or fungus on smear. 03/20/17. The patient was seen today along with Fatimah Guillen RN. He is doing well. FOB cytology has been reported as class II. FOB cultures are growing a yet to be identified gram-negative graciela. Sputum culture grew pseudomonas aeruginosa. Yesterday we added gentamicin and this is being managed by pharmacology. He is also on Fortaz and Cleocin. 03/23/2017. Patient continues to improve. Bronchoscopy specimens are positive for Pseudomonas. Patient's on the proper antibiotic. He is mobilizing sputum and his breathing and moving air much better. Overall he feels better. Today' s chest x-ray shows improvement. I hope to have him ready for discharge by Thursday. All of this is been discussed with the patient. He has no new complaints and no new requests. White blood cell count is dropped to 6600 with 88 segs and 9 lymphs. H&H stable at 9.6/30.0. Platelets of 273,000. Electrolytes are normal. On gentamicin creatinine is stable at 1.10 and BUN is 33. Gentamicin trough level is 0.6. Gentamicin to be a monitored by pharmacology. 03/24/2017. The patient was seen today along with Crista Preciado RN. He continues to mobilize his secretions. He states that his sputum still yellow, but is clearing. As noted above, previous bronchoscopy and sputum cultures grew Pseudomonas again. He is on Fortaz Cleocin and gentamicin. Gentamicin is being managed by pharmacology. Bronchoscopy lavage has now grown Christine albicans. The patient was previously already started on Diflucan. Yesterday we held the patient's glyburide secondary to hypoglycemia. Fasting glucose this morning was 91. Interestingly, the patient's glucoses have been low despite Solu-Medrol 40 mg IV every 12 hours. Nonetheless, we are continuing to hold the glyburide. He is getting his metformin. He has sliding scale in place should be required. 03/25/2017. The patient was seen today along with Fatimah Guillen RN. The patient continues to improve from a pulmonary standpoint. He continues to mobilize his secretions. Because he has again grown Pseudomonas, we again asked that he receive IV gentamicin for another 10 days as an outpatient. This be arranged through [facility]. He lives in [facility]. During this admission the patient was given Ultram as needed for severe headaches. This has worked remarkably well and he asked for prescription. This will be done. Medications have been reviewed. We made no changes today. Labs been reviewed. White count is 9800 with 83.4% segs; H&H 9.1/28.1; platelet count 257,000; creatinine 1.00, BUN 26, sodium 136, potassium 4.4, magnesium 2.0 Cold agglutinins remain borderline at 1:32. Legionella is negative. Bronchoscopy culture grew pseudomonas aeruginosa. Bronchoscopy fungal culture grew Christine albicans. Thus far, there is no AFB. Exam (Progress Note) - Constitutional Vitals: Period Temp Pulse Resp BP Sys/Cedeño Pulse Ox Last 24 Hr 96.6 F-97.7 F 82-108 16-20 105-144/61-68 96-100 Exam: Chest with mild loose large airway congestion Heart no gallop Abdomen is nontender and nondistended; bowel sounds are positive 4 Lower extremities with nothing to suggest acute deep venous thrombophlebitis Psychiatric oriented 3 Neurologic long-term motor function is intact Plan: The patient has now met maximum hospital benefit and will be discharged home. He will continue gentamicin 100 mg IV daily for 10 days at the outpatient infusion center in [facility]. He will be scheduled follow-up with Mia Rich, nurse practitioner, in approximately 6-8 weeks with a chest x- ray. He can be seen sooner if needed. Please see the discharge summary for more information. Results - Labs CBC & BMP: 03/25/17 05:35 03/25/17 05:35
--- NOTE | 2017-03-25 09:53 | Discharge Summary ---
Hospital Course - Hospital Course Hospital Course: Jesu Boudreaux, [facility], acting as scribe for Dr. Chente Dunn This is a 61-year-old white male who was admitted with exacerbation of COPD and possible early pneumonia. He has had previous colonizations with gram-negative organisms including Pseudomonas. He was admitted from [facility]/16/17. He was admitted and started on IV antibiotics of Fortaz and Cleocin. He originally had significant difficulty mobilizing his secretions. On 03/18/2017 the patient underwent fiberoptic bronchoscopy. This showed laryngeal and vocal cord candidiasis, severe COPD with collapsible large and small airways, retained secretions, and bibasilar erosive friable bronchitis. Bronchoscopy Gram stain showed gram-positive cocci, gram-positive rods, and rare fungal elements. Bronchoscopy culture ultimately grew pseudomonas aeruginosa. He was started on gentamicin according to the sensitivities provided. This is been managed by pharmacology. Bronchoscopy fungal studies grew Christine albicans and this is been treated with Diflucan. Thus far, there is no reportable AFB. He does continue to progress from a pulmonary standpoint. He is mobilizing his secretions, and his sputum is beginning to clear. Given the fact that he has previously colonized Pseudomonas, we have asked for him to continue IV gentamicin for another 10 days as an outpatient. This will be arranged through [facility]. This patient has known diabetes mellitus. Hemoglobin A1c this admission was 6.1 % showing excellent control of his diabetes. That said, despite being on Solu- Medrol 40 mg every 12 hours, the patient has had several episodes of hypoglycemia. We have placed the patient's glyburide on hold. This will be followed up at his next appointment. Cold agglutinins at admission were 1:32. These were repeated on 03/17/2017 and were again 1:32. Legionella was negative. Blood cultures grew no organisms. Chest x-ray the day after admission showed an early infiltrate in the right lower lung field and also in the medial basilar segment of the left lower lung. These have since cleared, and were secondary to pseudomonas aeruginosa. At discharge, white count is 9800 with 83.4% segs, 12.7% lymphs, and 2.9% monos ; H&H 9.1/28.1 with low to low normal indices and top normal red blood cell distribution with; platelet count 257,000; creatinine 1.00, BUN 26, sodium 136, potassium 4.4, magnesium 2.0; calcium 8.7; TSH was low at 0.330 but free T4 was normal at 1.07. For more information regarding Mr. Morin's past medical history, social history, family history, admit x-rays, admit labs and exam, please see the admission note dated 03/16/2017. Impression: 1. Acute exacerbation of chronic COPD 2. Acute right lower lung and left lower lung pneumonia secondary to pseudomonas aeruginosa 3. History of bronchiectasis 4. Heart disease with 2 stents in the past history of [place] and congestive heart failure followed by Dr. Hunt 5. Diabetes mellitus type II with hypoglycemia noted this admission 6. High blood pressure 7. Aortic insufficiency 8. See past history Plan: Gentamicin 100 mg IV daily for 10 days, Diamox 250 mg twice daily, DuoNeb 4 times daily and as needed, enteric-coated baby aspirin daily, Lipitor 20 mg at bedtime, Tessalon 200 mg 3 times daily as needed, Symbicort 160/4.52 puffs twice daily, vitamin D3 400 units twice daily, Plavix 75 mg daily, Cardizem CD 120 mg daily, TriCor 145 mg daily, Lasix 20 mg twice daily, Mucinex 600 mg twice daily, Claritin 10 mg daily, Glucophage 1000 mg twice daily, Robaxin 750 mg 3 times daily as needed, Lopressor 25 mg twice daily, Singulair 10 mg twice daily, Protonix 40 mg twice daily, Daliresp 500 mcg daily, theophylline 300 mg twice daily, Ultram 50 mg 4 times daily as needed, Desyrel 100 mg at bedtime, Diovan 80 mg daily, Berocca Plus 1 daily, prednisone 10 mg twice daily, and Onglyza 5 mg daily. He will be scheduled to follow-up with Mia Rich, nurse practitioner, in approximately 6-8 weeks with a chest x-ray. He can be seen sooner if needed. Specialty Discharge - Follow Up or Referrals Follow up with: Mia Rich CFNP [Advanced Practice Nurse] - (in 6-8 weeks with a CXR) Discharge Plan - Discharge Data Disposition: Disch To Home/Self Care Condition at Discharge: Stable Discharge Diet: diabetic diet - Discharge Medications New guaiFENesin ER TAB [Mucinex] 600 mg PO BID #60 tablet traMADol TAB [Ultram] 50 mg PO QID PRN #60 tablet PRN Reason: Pain predniSONE TAB [PredniSONE] 10 mg PO BID #60 tablet Benzonatate [Tessalon] 200 mg PO TID #90 capsule Continue Pantoprazole Tab [Protonix Tab] 40 mg PO DAILY Cholecalciferol (Vitamin D3) [Vitamin D3 Chew Tab] 400 unit PO BID Metoprolol Tartrate Tab [Lopressor Tab] 25 mg PO BID Multivitamin with Minerals [Multivitamins with Minerals] 1 each PO DAILY Trazodone HCl 100 mg PO BEDTIME PRN PRN Reason: Sleep Aspirin EC Tab 81 mg PO DAILY Roflumilast [Daliresp] 500 mcg PO DAILY Loratadine Tab [Claritin Tab] 10 mg PO DAILY Methocarbamol Tab [Robaxin Tab] 750 mg PO TID PRN PRN Reason: Pain metFORMIN [Glucophage] 1,000 mg PO BID Budesonide/Formoterol 160-4.5 [Symbicort 160-4.5] 2 puff INH BID inhaler Atorvastatin [Lipitor] 20 mg PO DAILY dilTIAZem HCl [Cartia XT] 120 mg PO DAILY Albuterol/Ipratropium Neb [Duoneb] 3 ml RESP TX RT Q4H PRN #120 nebulization solution PRN Reason: Shortness Of Breath/Wheezing Theophylline ER Cap (24 Hr) [Mich-24] 300 mg PO DAILY Albuterol/Ipratropium Neb [Duoneb] 3 ml RESP TX RT Q6H #120 nebulization solution Furosemide Tab [Lasix Tab] 30 mg PO BID DIURETIC Clopidogrel [Plavix] 75 mg PO DAILY Montelukast Tab [Singulair Tab] 10 mg PO BID #60 tablet acetaZOLAMIDE TAB [Diamox Tab] 250 mg PO BID #60 tablet Potassium Chloride [Klor-Con] 10 meq PO DAILY Saxagliptin HCl [Onglyza] 5 mg PO DAILY Magnesium Oxide 400 mg PO DAILY Fenofibrate 150 mg PO DAILY Valsartan 80 mg PO DAILY Discontinued Benzonatate [Tessalon] 100 mg PO TID glyBURIDE [Glyburide] 5 mg PO BID W/MEALS guaiFENesin [Guaifenesin] 100 mg PO Q6HR PRN PRN Reason: Cough - Follow Up or Referral - Forms/Instructions Exam - Constitutional Vitals: Period Temp Pulse Resp BP Sys/Cedeño Pulse Ox Last 24 Hr 96.6 F-97.7 F 82-108 16-20 105-144/61-68 96-100 Discharge Results Procedures and tests throughout hospitalization: Pending Orders 03/18/17 AFB Culture/Smears Stat Fungal Culture w/ Prep Stat 03/25/17 11:30 Gentamicin,Trough Timed Labs on day of discharge: Labs from last 24 hours 03/25/17 03/25/17 03/25/17 07:06 05:35 05:35 WBC 9.8 RBC 3.29 L Hgb 9.1 L Hct 28.1 L MCV 85.4 L MCH 28 MCHC 32.4 RDW 15.0 Plt Count 257 MPV 10.1 Neut % (Auto) 83.4 H Lymph % (Auto) 12.7 L [place] % (Auto) 2.9 Eos % (Auto) 0.2 Baso % (Auto) 0.1 Neut # (Auto) 8.2 H Lymph # (Auto) 1.2 L [place] # (Auto) 0.3 Eos # (Auto) 0.0 Baso # (Auto) 0.0 Total Counted 100 Immature Gran % 0.7 Nucleated RBC % 0.0 Immature Gran # 0.07 Segmented Neutrophils 83 Lymphocytes 15 L Monocytes 2 Nucleated RBCs # 0.00 Platelet Estimate Adequate Hypochromasia 1+ Ovalocytes Slight Morphology Comment Sodium 136 Potassium 4.4 Chloride 94 L Carbon Dioxide 35 H Anion Gap 11.4 BUN 26 H Creatinine 1.00 GFR Calculation 81 BUN/Creatinine Ratio 26.00 H Glucose 99 POC Glucose 160 H Calculated Osmolality 276.0 Calcium 8.7 Magnesium 2.0 03/24/17 03/24/17 03/24/17 19:59 15:37 11:37 WBC RBC Hgb Hct MCV MCH MCHC RDW Plt Count MPV Neut % (Auto) Lymph % (Auto) [place] % (Auto) Eos % (Auto) Baso % (Auto) Neut # (Auto) Lymph # (Auto) [place] # (Auto) Eos # (Auto) Baso # (Auto) Total Counted Immature Gran % Nucleated RBC % Immature Gran # Segmented Neutrophils Lymphocytes Monocytes Nucleated RBCs # Platelet Estimate Hypochromasia Ovalocytes Morphology Comment Sodium Potassium Chloride Carbon Dioxide Anion Gap BUN Creatinine GFR Calculation BUN/Creatinine Ratio Glucose POC Glucose 214 H 184 H 309 H Calculated Osmolality Calcium Magnesium Preliminary micro results at discharge 03/18/17 Unknown Fungal Culture - Preliminary Bronchial Keo Lavage Christine albicans DS: Provider Date of admission: 03/16/17 15:01 Primary care physician: . No PCP Attending physician on admission: Chente Dunn MD Consults: 03/19/17 10:42 Consult to Pharmacy [CONS] Routine Reason for Pharmacy Consult: Dose/Manage Gentamicin 03/25/17 09:49 Consult to Case Mgmt/Social Srvs [CONS] Routine Reason for Case Mgmt/Social Srvs: Home IV Therapy Consult Comment: IV Gentamicin 100mg IV x 10 days; [facility] Discharging clinician: CLARA Jacobsen
[2017-03-25 12:03] VITALS: BP 113/61
[2017-03-25] MEDS: GENTAMICIN INJ 400 MG in SODIUM CHLORIDE 0.9% 100 ML IV SCH (13:14)
== END 2017-03-25 13:13 | disposition home or self-care (01) | DRG 167 ==
LOC: N.5E 15:01
PROVIDERS: ADMIT Internal Medicine Pulmonary Disease; ATTEND Internal Medicine Pulmonary Disease

== ENCOUNTER 2017-09-24 09:30 | Inpatient (IN) ==
[2017-09-24] MEDS ORDERED: ACETAMINOPHEN 325 MG TABLET PO PRN (11:04)
[2017-09-24] MEDS ORDERED: GLUCAGON 1 MG VIAL IM PRN (11:04)
[2017-09-24] MEDS ORDERED: DEXTROSE 50% 25 GM/50 ML VIAL IV PRN (11:04)
[2017-09-24] MEDS ORDERED: ALBUTEROL/IPRATROPIUM 3 ML NEB RESP TX PRN (11:04)
[2017-09-24] MEDS: INSULIN LISPRO 100 UNIT/ML SUBCUT SCH ×3 (11:30→20:58)
[2017-09-24] MEDS: methylPREDNISolone SOD SUC 40 MG/1 ML VIAL IV SCH ×2 (11:37→20:57)
[2017-09-24 11:59] LABS: Basophils # 0.1 10*3/uL (0.0-0.2); Basophils % 0.5 % (0.0-0.8); Eosinophils # 0.1 10*3/uL (0.0-0.87); Eosinophils % 0.8 % (0.00-10.9); Hematocrit 29.9 VOL% (42.0-52.0); Hemoglobin 9.7 GM/DL (14.0-18.0); Immature Granulocytes % 6.8 %; Lymphocytes % 15.3 % (21.2-54.2); Mean Corpuscular HGB Conc 32.4 GM/DL (32-36); Mean Corpuscular Hemoglobin 29 PG (27-34); Mean Corpuscular Volume 89.5 FL (87-102); Mean Platelet Volume 9.2 FL (9.6-12.0); Monocytes # 0.4 10*3/uL (0.11-0.8); Monocytes % 3.2 % (1.7-12.7); Neutrophils # 9.7 10*3/uL (1.4-7.4); Neutrophils % 73.4 % (38.7-73.9); Platelet Count 329 T/CUMM (130-400); Red Blood Count 3.34 MC/CUMM (3.8-5.5); Red Cell Distribution Width 17.9 % (9.3-17.3); White Blood Count 13.2 T/CUMM (4-12)
[2017-09-24 12:24] LABS: Band Neutrophils 2 % (0-10); Basophilic Stippling Slight; Eosinophils 2 % (0-10); Hypochromasia 1+; Lymphocytes 10 % (20-55); Microcytosis 1+; Segmented Neutrophils 83 % (50-85); Total Cells Counted 100
[2017-09-24 12:33] LABS: Apearance,Urine CLEAR (Clear); Bilirubin,Urine Negative (Negative); Blood, Urine Negative (Negative); Glucose,Urine (UA) Negative (Negative); Hyaline Casts,Urine 1 /LPF (0-3); Ketones,Urine Negative (Negative); Nitrite,Urine Negative (Negative); Protein,Urine Negative; RBC,Urine <1 /HPF (0-4); Urine Color Straw (Yellow); Urine Specific Gravity 1.004 (1.001-1.035); Urine Urobilinogen < 2.0 EU/DL (0.2-1.0)
[2017-09-24 12:46] LABS: Alanine Aminotransferase 23 U/L (16-61); Albumin 3.4 G/DL (3.4-5.0); Alkaline Phosphatase 98 U/L (45-117); Aspartate Amino Transferase 25 U/L (0-37); Bilirubin,Total < 0.39 MG/DL (0.2-1.0); Blood Urea Nitrogen 10 MG/DL (7-18); Calcium 9.3 MG/DL (8.5-10.1); Glucose 116 MG/DL (74-106); Osmolality,Calculated 278.4 MOS/KG (273-304); Sodium 140 MMOL/L (136-145); Total Protein 6.7 G/DL (6.4-8.3)
[2017-09-24] MEDS: cefTAZidime 1,000 MG in SYRINGE 1 EACH IV SCH ×2 (13:35→20:58)
[2017-09-24] MEDS: ALBUTEROL/IPRATROPIUM 3 ML NEB RESP TX SCH ×2 (15:11→20:24)
[2017-09-24] MEDS: traMADol 50 MG TABLET PO PRN (16:20)
[2017-09-24] MEDS: GENTAMICIN INJ 400 MG in SODIUM CHLORIDE 0.9% 100 ML IV SCH (16:20)
[2017-09-24] MEDS: FUROSEMIDE 20 MG TABLET PO SCH (16:20)
[2017-09-24] MEDS: DORNASE ALFA 2.5 MG/2.5 ML VIAL RESP TX SCH (20:33)
[2017-09-24] MEDS: CALCIUM (CARBONATE)/VITAMIN D 600 MG-400 UNIT TABLET PO SCH (20:55)
[2017-09-24] MEDS: metFORMIN 500 MG TABLET PO SCH (20:55)
[2017-09-24] MEDS: PRAVASTATIN 40 MG TABLET PO SCH (20:56)
[2017-09-24] MEDS: ASCORBIC ACID 500 MG TABLET PO SCH (20:56)
[2017-09-24] MEDS: METOPROLOL TARTRATE 50 MG TABLET PO SCH (20:57)
[2017-09-24] MEDS: BUDESONIDE/FORMOTEROL 160-4.5 INHALER 6 GM INH SCH (20:57)
[2017-09-24] MEDS: traZODone 50 MG TABLET PO PRN (23:03)
[2017-09-25] MEDS: cefTAZidime 1,000 MG in SYRINGE 1 EACH IV SCH ×3 (04:28→21:41)
[2017-09-25] MEDS: methylPREDNISolone SOD SUC 40 MG/1 ML VIAL IV SCH ×3 (04:29→21:31)
[2017-09-25 06:12] LABS: Basophils % 0.1 % (0.0-0.8); Hematocrit 28.3 VOL% (42.0-52.0); Immature Granulocytes % 4.7 %; Immature Granulocytes Absolute 0.65 #; Lymphocytes # 2.3 10*3/uL (1.4-4.0); Lymphocytes % 16.6 % (21.2-54.2); Mean Corpuscular HGB Conc 31.8 GM/DL (32-36); Mean Corpuscular Hemoglobin 28 PG (27-34); Mean Platelet Volume 9.6 FL (9.6-12.0); Monocytes # 0.2 10*3/uL (0.11-0.8); Monocytes % 1.7 % (1.7-12.7); Neutrophils # 10.6 10*3/uL (1.4-7.4); Neutrophils % 76.9 % (38.7-73.9); Platelet Count 331 T/CUMM (130-400); Red Blood Count 3.18 MC/CUMM (3.8-5.5); Red Cell Distribution Width 17.8 % (9.3-17.3); White Blood Count 13.9 T/CUMM (4-12)
[2017-09-25 06:35] LABS: Band Neutrophils 1 % (0-10); Giant Platelets Few; Hypochromasia 1+; Lymphocytes 13 % (20-55); Platelet Estimate Adequate; Segmented Neutrophils 85 % (50-85); Total Cells Counted 100
[2017-09-25 06:36] LABS: Microcytosis Slight; Ovalocytes Slight
[2017-09-25 06:45] LABS: Calcium 9.6 MG/DL (8.5-10.1); Potassium 5.3 MMOL/L (3.5-5.1)
[2017-09-25] MEDS: ALBUTEROL/IPRATROPIUM 3 ML NEB RESP TX SCH ×4 (07:35→18:56)
[2017-09-25] MEDS: DORNASE ALFA 2.5 MG/2.5 ML VIAL RESP TX SCH ×2 (07:36→18:56)
[2017-09-25] MEDS: INSULIN LISPRO 100 UNIT/ML SUBCUT SCH ×4 (08:51→21:39)
[2017-09-25] MEDS: BENZONATATE 100 MG CAPSULE PO PRN (08:52)
[2017-09-25] MEDS: ASPIRIN EC 81 MG TABLET PO SCH (08:52)
[2017-09-25] MEDS: CHOLECALCIFEROL 1,000 UNIT TABLET PO SCH (08:52)
[2017-09-25] MEDS: MULTIVITAMIN (CENTRUM) TABLET PO SCH (08:52)
[2017-09-25] MEDS: metFORMIN 500 MG TABLET PO SCH ×2 (08:52→21:38)
[2017-09-25] MEDS: CALCIUM (CARBONATE)/VITAMIN D 600 MG-400 UNIT TABLET PO SCH ×2 (08:52→21:44)
[2017-09-25] MEDS: LORATADINE 10 MG TABLET PO SCH (08:53)
[2017-09-25] MEDS: ASCORBIC ACID 500 MG TABLET PO SCH ×2 (08:53→21:38)
[2017-09-25] MEDS: ROFLUMILAST 500 MCG TABLET PO SCH (08:53)
[2017-09-25] MEDS: THEOPHYLLINE ER (24 HR) 200 MG CAPSULE PO SCH (08:53)
[2017-09-25] MEDS: PANTOPRAZOLE 40 MG TABLET PO SCH (08:53)
[2017-09-25] MEDS: FUROSEMIDE 20 MG TABLET PO SCH ×2 (08:53→15:50)
[2017-09-25] MEDS: CLOPIDOGREL 75 MG TABLET PO SCH (08:53)
[2017-09-25] MEDS: sitaGLIPtin 100 MG TABLET PO SCH (08:54)
[2017-09-25] MEDS: DILTIAZEM CD 120 MG CAPSULE PO SCH (08:54)
[2017-09-25] MEDS: METOPROLOL TARTRATE 50 MG TABLET PO SCH ×2 (08:54→21:37)
[2017-09-25] MEDS: BUDESONIDE/FORMOTEROL 160-4.5 INHALER 6 GM INH SCH ×2 (08:54→21:46)
[2017-09-25] MEDS: POTASSIUM CHLORIDE 20 MEQ PACK PO SCH (08:54)
[2017-09-25] MEDS: MAGNESIUM OXIDE 400 MG TABLET PO SCH (08:54)
[2017-09-25] MEDS ORDERED: PHENOL 1.4% THROAT SPRAY 177 ML BOTTLE PO PRN (10:49)
[2017-09-25] MEDS: GENTAMICIN INJ 400 MG in SODIUM CHLORIDE 0.9% 100 ML IV SCH (15:52)
[2017-09-25] MEDS: traMADol 50 MG TABLET PO PRN (16:57)
[2017-09-25] MEDS: PRAVASTATIN 40 MG TABLET PO SCH (21:38)
[2017-09-25] MEDS: traZODone 50 MG TABLET PO PRN (21:38)
[2017-09-26] MEDS: methylPREDNISolone SOD SUC 40 MG/1 ML VIAL IV SCH ×3 (05:11→21:21)
[2017-09-26] MEDS: cefTAZidime 1,000 MG in SYRINGE 1 EACH IV SCH ×3 (05:16→21:19)
[2017-09-26 06:39] LABS: Basophils % 0.1 % (0.0-0.8); Hemoglobin 9.6 GM/DL (14.0-18.0); Immature Granulocytes % 3.2 %; Immature Granulocytes Absolute 0.57 #; Lymphocytes # 1.9 10*3/uL (1.4-4.0); Lymphocytes % 10.8 % (21.2-54.2); Mean Corpuscular HGB Conc 33.1 GM/DL (32-36); Mean Corpuscular Hemoglobin 29 PG (27-34); Mean Corpuscular Volume 87.6 FL (87-102); Mean Platelet Volume 9.9 FL (9.6-12.0); Monocytes # 0.4 10*3/uL (0.11-0.8); Monocytes % 2.1 % (1.7-12.7); Neutrophils # 14.9 10*3/uL (1.4-7.4); Neutrophils % 83.8 % (38.7-73.9); Platelet Count 348 T/CUMM (130-400); Red Blood Count 3.31 MC/CUMM (3.8-5.5); Red Cell Distribution Width 18.1 % (9.3-17.3); White Blood Count 17.8 T/CUMM (4-12)
[2017-09-26] MEDS: ALBUTEROL/IPRATROPIUM 3 ML NEB RESP TX SCH ×4 (07:01→19:12)
[2017-09-26] MEDS: DORNASE ALFA 2.5 MG/2.5 ML VIAL RESP TX SCH ×2 (07:01→19:16)
[2017-09-26 07:32] LABS: Calcium 9.1 MG/DL (8.5-10.1); Potassium 5.2 MMOL/L (3.5-5.1)
[2017-09-26 07:56] LABS: Osmolality,Calculated 283.8 MOS/KG (273-304)
[2017-09-26] MEDS: LORATADINE 10 MG TABLET PO SCH (08:32)
[2017-09-26] MEDS: FUROSEMIDE 20 MG TABLET PO SCH ×2 (08:32→15:38)
[2017-09-26] MEDS: sitaGLIPtin 100 MG TABLET PO SCH (08:32)
[2017-09-26] MEDS: metFORMIN 500 MG TABLET PO SCH ×2 (08:33→21:15)
[2017-09-26] MEDS: CHOLECALCIFEROL 1,000 UNIT TABLET PO SCH (08:33)
[2017-09-26] MEDS: MAGNESIUM OXIDE 400 MG TABLET PO SCH (08:33)
[2017-09-26] MEDS: ASCORBIC ACID 500 MG TABLET PO SCH ×2 (08:33→21:15)
[2017-09-26] MEDS: THEOPHYLLINE ER (24 HR) 200 MG CAPSULE PO SCH (08:33)
[2017-09-26] MEDS: CALCIUM (CARBONATE)/VITAMIN D 600 MG-400 UNIT TABLET PO SCH ×2 (08:33→21:15)
[2017-09-26] MEDS: ASPIRIN EC 81 MG TABLET PO SCH (08:33)
[2017-09-26] MEDS: traMADol 50 MG TABLET PO PRN (08:34)
[2017-09-26] MEDS: PANTOPRAZOLE 40 MG TABLET PO SCH (08:34)
[2017-09-26] MEDS: MULTIVITAMIN (CENTRUM) TABLET PO SCH (08:34)
[2017-09-26] MEDS: DILTIAZEM CD 120 MG CAPSULE PO SCH (08:34)
[2017-09-26] MEDS: CLOPIDOGREL 75 MG TABLET PO SCH (08:34)
[2017-09-26] MEDS: INSULIN LISPRO 100 UNIT/ML SUBCUT SCH ×4 (08:34→21:17)
[2017-09-26] MEDS: ROFLUMILAST 500 MCG TABLET PO SCH (08:34)
[2017-09-26] MEDS: BUDESONIDE/FORMOTEROL 160-4.5 INHALER 6 GM INH SCH ×2 (08:36→21:15)
[2017-09-26] MEDS: POTASSIUM CHLORIDE 20 MEQ PACK PO SCH (08:36)
[2017-09-26] MEDS: METOPROLOL TARTRATE 50 MG TABLET PO SCH ×2 (08:36→21:24)
[2017-09-26 11:54] LABS: Hypochromasia Slight; Lymphocytes 8 % (20-55); Platelet Estimate Normal; Segmented Neutrophils 91 % (50-85); Total Cells Counted 100
[2017-09-26 13:41] LABS: Procalcitonin, S < 0.10 ng/mL (<=0.15)
[2017-09-26] MEDS: GENTAMICIN INJ 400 MG in SODIUM CHLORIDE 0.9% 100 ML IV SCH (15:38)
[2017-09-26] MEDS: PRAVASTATIN 40 MG TABLET PO SCH (21:16)
[2017-09-27] MEDS: cefTAZidime 1,000 MG in SYRINGE 1 EACH IV SCH ×3 (04:24→20:19)
[2017-09-27] MEDS: methylPREDNISolone SOD SUC 40 MG/1 ML VIAL IV SCH ×3 (04:27→20:16)
[2017-09-27 06:23] LABS: Basophils % 0.1 % (0.0-0.8); Hematocrit 28.5 VOL% (42.0-52.0); Hemoglobin 9.5 GM/DL (14.0-18.0); Immature Granulocytes % 3.5 %; Immature Granulocytes Absolute 0.64 #; Lymphocytes # 1.8 10*3/uL (1.4-4.0); Lymphocytes % 9.5 % (21.2-54.2); Mean Corpuscular HGB Conc 33.3 GM/DL (32-36); Mean Corpuscular Hemoglobin 29 PG (27-34); Mean Corpuscular Volume 85.6 FL (87-102); Mean Platelet Volume 9.7 FL (9.6-12.0); Monocytes # 0.6 10*3/uL (0.11-0.8); Monocytes % 3.1 % (1.7-12.7); Neutrophils # 15.5 10*3/uL (1.4-7.4); Neutrophils % 83.8 % (38.7-73.9); Platelet Count 342 T/CUMM (130-400); Red Blood Count 3.33 MC/CUMM (3.8-5.5); Red Cell Distribution Width 17.9 % (9.3-17.3); White Blood Count 18.5 T/CUMM (4-12)
[2017-09-27 06:56] LABS: Osmolality,Calculated 284.8 MOS/KG (273-304); Potassium 4.5 MMOL/L (3.5-5.1)
[2017-09-27] MEDS: DORNASE ALFA 2.5 MG/2.5 ML VIAL RESP TX SCH ×2 (07:07→20:26)
[2017-09-27] MEDS: ALBUTEROL/IPRATROPIUM 3 ML NEB RESP TX SCH ×4 (07:07→20:24)
[2017-09-27] MEDS: MULTIVITAMIN (CENTRUM) TABLET PO SCH (08:47)
[2017-09-27] MEDS: PANTOPRAZOLE 40 MG TABLET PO SCH (08:47)
[2017-09-27] MEDS: metFORMIN 500 MG TABLET PO SCH ×2 (08:47→20:13)
[2017-09-27] MEDS: INSULIN LISPRO 100 UNIT/ML SUBCUT SCH ×4 (08:47→21:46)
[2017-09-27] MEDS: FUROSEMIDE 20 MG TABLET PO SCH ×2 (08:47→15:54)
[2017-09-27 08:48] LABS: Hypochromasia 1+; Lymphocytes 6 % (20-55); Microcytosis 1+; Platelet Estimate Normal; Segmented Neutrophils 90 % (50-85); Total Cells Counted 100
[2017-09-27] MEDS: MAGNESIUM OXIDE 400 MG TABLET PO SCH (08:48)
[2017-09-27] MEDS: ASCORBIC ACID 500 MG TABLET PO SCH ×2 (08:48→21:46)
[2017-09-27] MEDS: CHOLECALCIFEROL 1,000 UNIT TABLET PO SCH (08:48)
[2017-09-27] MEDS: traMADol 50 MG TABLET PO PRN (08:48)
[2017-09-27] MEDS: THEOPHYLLINE ER (24 HR) 200 MG CAPSULE PO SCH (08:48)
[2017-09-27] MEDS: LORATADINE 10 MG TABLET PO SCH (08:48)
[2017-09-27] MEDS: DILTIAZEM CD 120 MG CAPSULE PO SCH (08:48)
[2017-09-27] MEDS: CALCIUM (CARBONATE)/VITAMIN D 600 MG-400 UNIT TABLET PO SCH ×2 (08:48→20:13)
[2017-09-27] MEDS: METOPROLOL TARTRATE 50 MG TABLET PO SCH ×2 (08:48→20:13)
[2017-09-27] MEDS: sitaGLIPtin 100 MG TABLET PO SCH (08:48)
[2017-09-27] MEDS: POTASSIUM CHLORIDE 20 MEQ PACK PO SCH (08:48)
[2017-09-27] MEDS: CLOPIDOGREL 75 MG TABLET PO SCH (08:48)
[2017-09-27] MEDS: ROFLUMILAST 500 MCG TABLET PO SCH (08:49)
[2017-09-27] MEDS: ASPIRIN EC 81 MG TABLET PO SCH (08:49)
[2017-09-27] MEDS: BUDESONIDE/FORMOTEROL 160-4.5 INHALER 6 GM INH SCH ×2 (08:52→20:14)
[2017-09-27] MEDS: GENTAMICIN INJ 400 MG in SODIUM CHLORIDE 0.9% 100 ML IV SCH (15:54)
[2017-09-27] MEDS: traZODone 50 MG TABLET PO PRN (20:13)
[2017-09-27] MEDS: diphenhydrAMINE CAP 25 MG CAPSULE PO PRN (20:14)
[2017-09-27] MEDS: PRAVASTATIN 40 MG TABLET PO SCH (20:14)
[2017-09-28] MEDS: methylPREDNISolone SOD SUC 40 MG/1 ML VIAL IV SCH ×3 (04:31→20:23)
[2017-09-28] MEDS: cefTAZidime 1,000 MG in SYRINGE 1 EACH IV SCH ×3 (04:34→20:27)
[2017-09-28] MEDS: ALBUTEROL/IPRATROPIUM 3 ML NEB RESP TX SCH ×4 (07:51→19:52)
[2017-09-28] MEDS: DILTIAZEM CD 120 MG CAPSULE PO SCH (08:46)
[2017-09-28] MEDS: LORATADINE 10 MG TABLET PO SCH (08:46)
[2017-09-28] MEDS: CLOPIDOGREL 75 MG TABLET PO SCH (08:46)
[2017-09-28] MEDS: MAGNESIUM OXIDE 400 MG TABLET PO SCH (08:46)
[2017-09-28] MEDS: CALCIUM (CARBONATE)/VITAMIN D 600 MG-400 UNIT TABLET PO SCH ×2 (08:46→20:20)
[2017-09-28] MEDS: sitaGLIPtin 100 MG TABLET PO SCH (08:46)
[2017-09-28] MEDS: metFORMIN 500 MG TABLET PO SCH ×2 (08:46→20:20)
[2017-09-28] MEDS: FUROSEMIDE 20 MG TABLET PO SCH ×2 (08:46→15:27)
[2017-09-28] MEDS: ASPIRIN EC 81 MG TABLET PO SCH (08:47)
[2017-09-28] MEDS: BUDESONIDE/FORMOTEROL 160-4.5 INHALER 6 GM INH SCH ×2 (08:47→21:24)
[2017-09-28] MEDS: ROFLUMILAST 500 MCG TABLET PO SCH (08:47)
[2017-09-28] MEDS: MULTIVITAMIN (CENTRUM) TABLET PO SCH (08:47)
[2017-09-28] MEDS: POTASSIUM CHLORIDE 20 MEQ PACK PO SCH (09:01)
[2017-09-28] MEDS: THEOPHYLLINE ER (24 HR) 200 MG CAPSULE PO SCH (09:01)
[2017-09-28] MEDS: METOPROLOL TARTRATE 50 MG TABLET PO SCH ×2 (09:01→20:20)
[2017-09-28] MEDS: INSULIN LISPRO 100 UNIT/ML SUBCUT SCH ×4 (09:01→21:24)
[2017-09-28] MEDS: CHOLECALCIFEROL 1,000 UNIT TABLET PO SCH (09:01)
[2017-09-28] MEDS: PANTOPRAZOLE 40 MG TABLET PO SCH (09:01)
[2017-09-28] MEDS: ASCORBIC ACID 500 MG TABLET PO SCH ×2 (09:02→20:20)
[2017-09-28] MEDS: DORNASE ALFA 2.5 MG/2.5 ML VIAL RESP TX SCH ×2 (09:22→20:00)
[2017-09-28] MEDS: GENTAMICIN INJ 400 MG in SODIUM CHLORIDE 0.9% 100 ML IV SCH (15:26)
[2017-09-28] MEDS: diphenhydrAMINE CAP 25 MG CAPSULE PO PRN (15:27)
[2017-09-28] MEDS: PRAVASTATIN 40 MG TABLET PO SCH (20:20)
[2017-09-29] MEDS: methylPREDNISolone SOD SUC 40 MG/1 ML VIAL IV SCH ×3 (03:17→20:36)
[2017-09-29] MEDS: cefTAZidime 1,000 MG in SYRINGE 1 EACH IV SCH ×3 (03:26→20:39)
[2017-09-29 06:23] LABS: Basophils % 0.1 % (0.0-0.8); Hematocrit 26.7 VOL% (42.0-52.0); Hemoglobin 8.8 GM/DL (14.0-18.0); Immature Granulocytes % 4.4 %; Immature Granulocytes Absolute 0.72 #; Lymphocytes # 1.1 10*3/uL (1.4-4.0); Lymphocytes % 6.5 % (21.2-54.2); Mean Corpuscular Hemoglobin 29 PG (27-34); Mean Corpuscular Volume 87.5 FL (87-102); Mean Platelet Volume 9.9 FL (9.6-12.0); Monocytes # 0.5 10*3/uL (0.11-0.8); Monocytes % 3.2 % (1.7-12.7); NRBC # 0.03 10*3/uL; Neutrophils # 14.2 10*3/uL (1.4-7.4); Neutrophils % 85.8 % (38.7-73.9); Platelet Count 280 T/CUMM (130-400); Red Blood Count 3.05 MC/CUMM (3.8-5.5); Red Cell Distribution Width 17.7 % (9.3-17.3); White Blood Count 16.5 T/CUMM (4-12)
[2017-09-29 06:29] LABS: PT Patient Result 10.1 SECS; Partial Thromboplastin Time < 21.0 SECS (0-40)
[2017-09-29 06:47] LABS: Band Neutrophils 1 % (0-10); Eosinophils 1 % (0-10); Giant Platelets Few; Hypochromasia 1+; Lymphocytes 9 % (20-55); Microcytosis Slight; Ovalocytes Slight; Platelet Estimate Adequate; Segmented Neutrophils 86 % (50-85); Total Cells Counted 100
[2017-09-29] MEDS ORDERED: BENZONATATE 100 MG CAPSULE PO ONE (07:30)
[2017-09-29] MEDS ORDERED: diphenhydrAMINE 50 MG/1 ML VIAL IM ONE (07:30)
[2017-09-29] MEDS ORDERED: MEPERIDINE 50 MG/1 ML VIAL IM ONE (07:30)
[2017-09-29] MEDS ORDERED: LIDOCAINE 2% VISCOUS 100 ML BOTTLE SWISH/SPIT ONE (08:00)
[2017-09-29] MEDS ORDERED: LIDOCAINE 1% 20 ML VIAL MISC INJ ONE (08:00)
[2017-09-29] MEDS ORDERED: LIDOCAINE 2% 20 ML VIAL RESP TX ONE (08:00)
[2017-09-29] MEDS: ALBUTEROL/IPRATROPIUM 3 ML NEB RESP TX SCH ×4 (08:03→19:25)
[2017-09-29] MEDS: INSULIN LISPRO 100 UNIT/ML SUBCUT SCH ×4 (08:15→20:48)
[2017-09-29] MEDS: DORNASE ALFA 2.5 MG/2.5 ML VIAL RESP TX SCH ×2 (10:25→19:25)
[2017-09-29] MEDS: metFORMIN 500 MG TABLET PO SCH ×2 (11:57→20:34)
[2017-09-29] MEDS: DILTIAZEM CD 120 MG CAPSULE PO SCH (11:57)
[2017-09-29] MEDS: sitaGLIPtin 100 MG TABLET PO SCH (11:57)
[2017-09-29] MEDS: METOPROLOL TARTRATE 50 MG TABLET PO SCH ×2 (11:57→20:34)
[2017-09-29] MEDS: CLOPIDOGREL 75 MG TABLET PO SCH (11:57)
[2017-09-29] MEDS: ASCORBIC ACID 500 MG TABLET PO SCH ×2 (11:57→20:34)
[2017-09-29] MEDS: THEOPHYLLINE ER (24 HR) 200 MG CAPSULE PO SCH (11:57)
[2017-09-29] MEDS: MAGNESIUM OXIDE 400 MG TABLET PO SCH (11:58)
[2017-09-29] MEDS: ROFLUMILAST 500 MCG TABLET PO SCH (11:58)
[2017-09-29] MEDS: LORATADINE 10 MG TABLET PO SCH (11:58)
[2017-09-29] MEDS: MULTIVITAMIN (CENTRUM) TABLET PO SCH (11:58)
[2017-09-29] MEDS: CHOLECALCIFEROL 1,000 UNIT TABLET PO SCH (11:58)
[2017-09-29] MEDS: FUROSEMIDE 20 MG TABLET PO SCH ×2 (11:58→15:41)
[2017-09-29] MEDS: PANTOPRAZOLE 40 MG TABLET PO SCH (11:58)
[2017-09-29] MEDS: CALCIUM (CARBONATE)/VITAMIN D 600 MG-400 UNIT TABLET PO SCH ×2 (11:58→20:34)
[2017-09-29] MEDS: POTASSIUM CHLORIDE 20 MEQ PACK PO SCH (11:59)
[2017-09-29] MEDS: ASPIRIN EC 81 MG TABLET PO SCH (11:59)
[2017-09-29] MEDS: BUDESONIDE/FORMOTEROL 160-4.5 INHALER 6 GM INH SCH ×2 (12:00→20:50)
[2017-09-29] MEDS: GENTAMICIN INJ 400 MG in SODIUM CHLORIDE 0.9% 100 ML IV SCH (15:41)
[2017-09-29] MEDS: PRAVASTATIN 40 MG TABLET PO SCH (20:34)
[2017-09-29] MEDS: traMADol 50 MG TABLET PO PRN (20:48)
[2017-09-30] MEDS: methylPREDNISolone SOD SUC 40 MG/1 ML VIAL IV SCH ×3 (03:25→21:32)
[2017-09-30] MEDS: cefTAZidime 1,000 MG in SYRINGE 1 EACH IV SCH ×3 (03:29→21:32)
[2017-09-30] MEDS: ALBUTEROL/IPRATROPIUM 3 ML NEB RESP TX SCH ×4 (07:39→21:19)
[2017-09-30] MEDS: DORNASE ALFA 2.5 MG/2.5 ML VIAL RESP TX SCH ×2 (07:45→21:19)
[2017-09-30] MEDS: BUDESONIDE/FORMOTEROL 160-4.5 INHALER 6 GM INH SCH ×2 (09:03→22:27)
[2017-09-30] MEDS: INSULIN LISPRO 100 UNIT/ML SUBCUT SCH ×4 (09:06→22:28)
[2017-09-30] MEDS: ASCORBIC ACID 500 MG TABLET PO SCH ×2 (09:06→21:30)
[2017-09-30] MEDS: THEOPHYLLINE ER (24 HR) 200 MG CAPSULE PO SCH (09:07)
[2017-09-30] MEDS: metFORMIN 500 MG TABLET PO SCH ×2 (09:07→21:30)
[2017-09-30] MEDS: CLOPIDOGREL 75 MG TABLET PO SCH (09:07)
[2017-09-30] MEDS: sitaGLIPtin 100 MG TABLET PO SCH (09:07)
[2017-09-30] MEDS: ROFLUMILAST 500 MCG TABLET PO SCH (09:07)
[2017-09-30] MEDS: FUROSEMIDE 20 MG TABLET PO SCH ×2 (09:08→15:14)
[2017-09-30] MEDS: CALCIUM (CARBONATE)/VITAMIN D 600 MG-400 UNIT TABLET PO SCH ×2 (09:08→21:31)
[2017-09-30] MEDS: MAGNESIUM OXIDE 400 MG TABLET PO SCH (09:08)
[2017-09-30] MEDS: PANTOPRAZOLE 40 MG TABLET PO SCH (09:08)
[2017-09-30] MEDS: CHOLECALCIFEROL 1,000 UNIT TABLET PO SCH (09:08)
[2017-09-30] MEDS: LORATADINE 10 MG TABLET PO SCH (09:08)
[2017-09-30] MEDS: ASPIRIN EC 81 MG TABLET PO SCH (09:09)
[2017-09-30] MEDS: METOPROLOL TARTRATE 50 MG TABLET PO SCH ×2 (09:09→21:31)
[2017-09-30] MEDS: DILTIAZEM CD 120 MG CAPSULE PO SCH (09:10)
[2017-09-30] MEDS: POTASSIUM CHLORIDE 20 MEQ PACK PO SCH (09:10)
[2017-09-30] MEDS: MULTIVITAMIN (CENTRUM) TABLET PO SCH (09:10)
[2017-09-30] MEDS: BENZONATATE 100 MG CAPSULE PO PRN (09:11)
[2017-09-30] MEDS: GENTAMICIN INJ 400 MG in SODIUM CHLORIDE 0.9% 100 ML IV SCH (15:15)
[2017-09-30] MEDS: PRAVASTATIN 40 MG TABLET PO SCH (21:31)
[2017-10-01] MEDS: methylPREDNISolone SOD SUC 40 MG/1 ML VIAL IV SCH ×3 (04:42→20:48)
[2017-10-01] MEDS: cefTAZidime 1,000 MG in SYRINGE 1 EACH IV SCH ×3 (04:42→20:48)
[2017-10-01] MEDS: CHOLECALCIFEROL 1,000 UNIT TABLET PO SCH (08:23)
[2017-10-01] MEDS: ASCORBIC ACID 500 MG TABLET PO SCH ×2 (08:23→20:46)
[2017-10-01] MEDS: LORATADINE 10 MG TABLET PO SCH (08:23)
[2017-10-01] MEDS: MAGNESIUM OXIDE 400 MG TABLET PO SCH (08:23)
[2017-10-01] MEDS: THEOPHYLLINE ER (24 HR) 200 MG CAPSULE PO SCH (08:23)
[2017-10-01] MEDS: PANTOPRAZOLE 40 MG TABLET PO SCH (08:23)
[2017-10-01] MEDS: METOPROLOL TARTRATE 50 MG TABLET PO SCH ×2 (08:24→20:47)
[2017-10-01] MEDS: POTASSIUM CHLORIDE 20 MEQ PACK PO SCH (08:24)
[2017-10-01] MEDS: CLOPIDOGREL 75 MG TABLET PO SCH (08:24)
[2017-10-01] MEDS: ROFLUMILAST 500 MCG TABLET PO SCH (08:24)
[2017-10-01] MEDS: sitaGLIPtin 100 MG TABLET PO SCH (08:24)
[2017-10-01] MEDS: metFORMIN 500 MG TABLET PO SCH ×2 (08:25→20:47)
[2017-10-01] MEDS: DILTIAZEM CD 120 MG CAPSULE PO SCH (08:25)
[2017-10-01] MEDS: FUROSEMIDE 20 MG TABLET PO SCH ×2 (08:25→16:59)
[2017-10-01] MEDS: ASPIRIN EC 81 MG TABLET PO SCH (08:25)
[2017-10-01] MEDS: INSULIN LISPRO 100 UNIT/ML SUBCUT SCH ×4 (08:25→21:00)
[2017-10-01] MEDS: BENZONATATE 100 MG CAPSULE PO PRN (08:25)
[2017-10-01] MEDS: CALCIUM (CARBONATE)/VITAMIN D 600 MG-400 UNIT TABLET PO SCH ×2 (08:25→20:48)
[2017-10-01] MEDS: MULTIVITAMIN (CENTRUM) TABLET PO SCH (08:25)
[2017-10-01] MEDS: BUDESONIDE/FORMOTEROL 160-4.5 INHALER 6 GM INH SCH ×2 (08:26→21:19)
[2017-10-01] MEDS: ALBUTEROL/IPRATROPIUM 3 ML NEB RESP TX SCH ×4 (08:30→20:01)
[2017-10-01] MEDS: DORNASE ALFA 2.5 MG/2.5 ML VIAL RESP TX SCH ×2 (08:30→20:01)
[2017-10-01] MEDS: diphenhydrAMINE CAP 25 MG CAPSULE PO PRN (08:31)
[2017-10-01] MEDS: traMADol 50 MG TABLET PO PRN (13:53)
[2017-10-01] MEDS: GENTAMICIN INJ 400 MG in SODIUM CHLORIDE 0.9% 100 ML IV SCH (16:34)
[2017-10-01] MEDS: PRAVASTATIN 40 MG TABLET PO SCH (20:48)
[2017-10-02] MEDS: methylPREDNISolone SOD SUC 40 MG/1 ML VIAL IV SCH ×2 (05:30→12:07)
[2017-10-02] MEDS: cefTAZidime 1,000 MG in SYRINGE 1 EACH IV SCH ×2 (06:01→14:17)
[2017-10-02] MEDS: ALBUTEROL/IPRATROPIUM 3 ML NEB RESP TX SCH ×3 (07:36→14:12)
[2017-10-02] MEDS: DORNASE ALFA 2.5 MG/2.5 ML VIAL RESP TX SCH (07:36)
[2017-10-02] MEDS: CALCIUM (CARBONATE)/VITAMIN D 600 MG-400 UNIT TABLET PO SCH (09:25)
[2017-10-02] MEDS: ASPIRIN EC 81 MG TABLET PO SCH (09:25)
[2017-10-02] MEDS: CLOPIDOGREL 75 MG TABLET PO SCH (09:25)
[2017-10-02] MEDS: POTASSIUM CHLORIDE 20 MEQ PACK PO SCH (09:25)
[2017-10-02] MEDS: PANTOPRAZOLE 40 MG TABLET PO SCH (09:25)
[2017-10-02] MEDS: MULTIVITAMIN (CENTRUM) TABLET PO SCH (09:25)
[2017-10-02] MEDS: FUROSEMIDE 20 MG TABLET PO SCH (09:25)
[2017-10-02] MEDS: DILTIAZEM CD 120 MG CAPSULE PO SCH (09:25)
[2017-10-02] MEDS: ROFLUMILAST 500 MCG TABLET PO SCH (09:26)
[2017-10-02] MEDS: CHOLECALCIFEROL 1,000 UNIT TABLET PO SCH (09:26)
[2017-10-02] MEDS: THEOPHYLLINE ER (24 HR) 200 MG CAPSULE PO SCH (09:26)
[2017-10-02] MEDS: INSULIN LISPRO 100 UNIT/ML SUBCUT SCH ×2 (09:26→12:09)
[2017-10-02] MEDS: sitaGLIPtin 100 MG TABLET PO SCH (09:26)
[2017-10-02] MEDS: METOPROLOL TARTRATE 50 MG TABLET PO SCH (09:26)
[2017-10-02] MEDS: LORATADINE 10 MG TABLET PO SCH (09:26)
[2017-10-02] MEDS: ASCORBIC ACID 500 MG TABLET PO SCH (09:26)
[2017-10-02] MEDS: metFORMIN 500 MG TABLET PO SCH (09:26)
[2017-10-02] MEDS: BUDESONIDE/FORMOTEROL 160-4.5 INHALER 6 GM INH SCH (09:27)
[2017-10-02] MEDS: MAGNESIUM OXIDE 400 MG TABLET PO SCH (09:27)
[2017-10-02 13:25] VITALS: BP 144/73
[2017-10-02] MEDS ORDERED: LIDOCAINE 2% 20 ML VIAL ONE (14:54)
== END 2017-10-02 16:59 | disposition home health service (06) | DRG 167 ==
LOC: N.5E 09:57
PROVIDERS: ADMIT Internal Medicine Pulmonary Disease; ATTEND Internal Medicine Pulmonary Disease

== ENCOUNTER 2017-10-30 11:20 | Inpatient (IN) ==
[2017-10-30] MEDS ORDERED: DEXTROSE 50% 25 GM/50 ML VIAL IV PRN (11:21)
[2017-10-30] MEDS ORDERED: GLUCAGON 1 MG VIAL IM PRN (11:21)
[2017-10-30] MEDS ORDERED: ALBUTEROL/IPRATROPIUM 3 ML NEB RESP TX PRN (11:21)
[2017-10-30] MEDS ORDERED: SODIUM CHLORIDE 0.45% 1,000 ML IV SCH (11:30)
[2017-10-30] MEDS ORDERED: FUROSEMIDE 40 MG/4 ML VIAL ONE (14:45)
[2017-10-30] MEDS: ALBUTEROL/IPRATROPIUM 3 ML NEB RESP TX SCH ×2 (15:00→20:02)
[2017-10-30 15:13] LABS: ABG Base Excess 14.2 MMOL/L (-2.5-2.5); ABG HCO3 37.7 MMOL/L (20-26); ABG PCO2 60.2 MM HG (35-48); ABG PH 7.438 (7.35-7.45); ABG PO2 44.4 MM HG (80-95); ABG TCO2 37.8 MMOL/L (23-27)
[2017-10-30] MEDS: DORNASE ALFA 2.5 MG/2.5 ML VIAL RESP TX SCH ×2 (15:17→20:02)
[2017-10-30] MEDS: cefTAZidime 1,000 MG in SYRINGE 1 EACH IV SCH ×2 (15:24→21:13)
[2017-10-30 15:41] LABS: Apearance,Urine Slightly Hazy (Clear); Bilirubin,Urine Negative (Negative); Blood, Urine Negative (Negative); Glucose,Urine (UA) Negative (Negative); Hyaline Casts,Urine 1 /LPF (0-3); Ketones,Urine Negative (Negative); Nitrite,Urine Negative (Negative); Protein,Urine Negative; RBC,Urine <1 /HPF (0-4); Squamous Epithelial Cell,Urine Occasional /HPF (0-10); Urine Color Yellow (Yellow); Urine Specific Gravity 1.012 (1.001-1.035); Urine Urobilinogen < 2.0 EU/DL (0.2-1.0); WBC,Urine 2 /HPF (0-6)
[2017-10-30 16:08] LABS: Thyroid Stimulating Hormone 1.01 uIU/ml (0.358-3.74)
[2017-10-30] MEDS: methylPREDNISolone SOD SUC 125 MG/2 ML VIAL IV SCH (16:09)
[2017-10-30] MEDS: INSULIN REGULAR 100 UNIT/ML SUBCUT SCH ×4 (16:16→21:16)
[2017-10-30 17:24] LABS: Calcium 8.8 MG/DL (8.5-10.1); Osmolality,Calculated 283.5 MOS/KG (273-304); Potassium 3.5 MMOL/L (3.5-5.1)
[2017-10-30 18:17] LABS: ABG Base Excess 14.9 MMOL/L (-2.5-2.5); ABG HCO3 38.4 MMOL/L (20-26); ABG Oxygen Saturation 72.6 % (95-100); ABG PCO2 55.5 MM HG (35-48); ABG PH 7.474 (7.35-7.45)
[2017-10-30] MEDS: GENTAMICIN INJ 390 MG in SODIUM CHLORIDE 0.9% 100 ML IV SCH ×2 (18:18→19:33)
[2017-10-30 18:30] LABS: ABG PO2 37.7 MM HG (80-95)
[2017-10-31] MEDS: methylPREDNISolone SOD SUC 125 MG/2 ML VIAL IV SCH ×3 (00:02→17:14)
[2017-10-31] MEDS: ALBUTEROL/IPRATROPIUM 3 ML NEB RESP TX SCH ×4 (00:39→19:09)
[2017-10-31] MEDS: cefTAZidime 1,000 MG in SYRINGE 1 EACH IV SCH ×3 (05:06→21:11)
[2017-10-31 06:11] LABS: Basophils % 0.1 % (0.0-0.8); Hematocrit 24.1 VOL% (42.0-52.0); Hemoglobin 8.2 GM/DL (14.0-18.0); Immature Granulocytes % 1.1 %; Immature Granulocytes Absolute 0.12 #; Lymphocytes # 1.1 10*3/uL (1.4-4.0); Mean Corpuscular Hemoglobin 30 PG (27-34); Mean Corpuscular Volume 86.7 FL (87-102); Mean Platelet Volume 9.9 FL (9.6-12.0); Monocytes # 0.3 10*3/uL (0.11-0.8); Monocytes % 2.4 % (1.7-12.7); Neutrophils # 9.4 10*3/uL (1.4-7.4); Neutrophils % 86.4 % (38.7-73.9); Platelet Count 226 T/CUMM (130-400); Red Blood Count 2.78 MC/CUMM (3.8-5.5); Red Cell Distribution Width 16.4 % (9.3-17.3); White Blood Count 10.9 T/CUMM (4-12)
[2017-10-31 06:36] LABS: Anisocytosis 1+; Hypochromasia 1+; Ovalocytes Few; Platelet Estimate Normal
[2017-10-31 06:58] LABS: Calcium 7.7 MG/DL (8.5-10.1); Osmolality,Calculated 287.5 MOS/KG (273-304); Potassium 3.5 MMOL/L (3.5-5.1)
[2017-10-31] MEDS: DORNASE ALFA 2.5 MG/2.5 ML VIAL RESP TX SCH ×2 (07:55→19:09)
[2017-10-31] MEDS ORDERED: traZODone 50 MG TABLET PO PRN (08:04)
[2017-10-31] MEDS: INSULIN REGULAR 100 UNIT/ML SUBCUT SCH ×4 (08:31→21:08)
[2017-10-31 08:53] LABS: ABG Base Excess 16.2 MMOL/L (-2.5-2.5); ABG HCO3 42.3 MMOL/L (20-26); ABG PCO2 62.6 MM HG (35-48); ABG PH 7.448 (7.35-7.45); ABG PO2 58.5 MM HG (80-95); ABG TCO2 44.3 MMOL/L (23-27)
[2017-10-31] MEDS: sitaGLIPtin 100 MG TABLET PO SCH (09:10)
[2017-10-31] MEDS: MULTIVITAMIN (CENTRUM) TABLET PO SCH (09:10)
[2017-10-31] MEDS: metFORMIN 500 MG TABLET PO SCH ×2 (09:10→20:29)
[2017-10-31] MEDS: CALCIUM (CARBONATE)/VITAMIN D 600 MG-400 UNIT TABLET PO SCH ×2 (09:10→20:29)
[2017-10-31] MEDS: CLOPIDOGREL 75 MG TABLET PO SCH (09:11)
[2017-10-31] MEDS: ASPIRIN EC 81 MG TABLET PO SCH (09:11)
[2017-10-31] MEDS: METOPROLOL TARTRATE 25 MG TABLET PO SCH ×2 (09:11→20:29)
[2017-10-31] MEDS: MAGNESIUM OXIDE 400 MG TABLET PO SCH (09:11)
[2017-10-31] MEDS: LORATADINE 10 MG TABLET PO SCH (09:11)
[2017-10-31] MEDS: BUDESONIDE/FORMOTEROL 160-4.5 INHALER 6 GM INH SCH ×2 (09:14→20:33)
[2017-10-31] MEDS ORDERED: FUROSEMIDE 40 MG/4 ML VIAL IV ONE (10:41)
[2017-10-31] MEDS: MAGNESIUM SULF RIDER 2 GM in PREMIX 1 EACH IV PRN (12:06)
[2017-10-31] MEDS ORDERED: PHENOL 1.4% THROAT SPRAY 177 ML BOTTLE PO PRN (13:59)
[2017-10-31] MEDS: FUROSEMIDE 20 MG TABLET PO SCH (17:13)
[2017-10-31] MEDS: PRAVASTATIN 40 MG TABLET PO SCH (20:29)
[2017-11-01] MEDS: methylPREDNISolone SOD SUC 125 MG/2 ML VIAL IV SCH ×4 (00:32→23:06)
[2017-11-01] MEDS: ALBUTEROL/IPRATROPIUM 3 ML NEB RESP TX SCH ×4 (00:34→19:22)
[2017-11-01] MEDS: cefTAZidime 1,000 MG in SYRINGE 1 EACH IV SCH ×3 (05:00→21:20)
[2017-11-01 06:14] LABS: Basophils % 0.1 % (0.0-0.8); Immature Granulocytes % 1.2 %; Immature Granulocytes Absolute 0.19 #; Lymphocytes # 1.1 10*3/uL (1.4-4.0); Lymphocytes % 7.4 % (21.2-54.2); Mean Corpuscular HGB Conc 33.3 GM/DL (32-36); Mean Corpuscular Hemoglobin 30 PG (27-34); Mean Corpuscular Volume 88.9 FL (87-102); Mean Platelet Volume 9.9 FL (9.6-12.0); Monocytes # 0.4 10*3/uL (0.11-0.8); Monocytes % 2.8 % (1.7-12.7); NRBC # 0.02 10*3/uL; Neutrophils # 13.6 10*3/uL (1.4-7.4); Neutrophils % 88.5 % (38.7-73.9); Platelet Count 256 T/CUMM (130-400); Red Cell Distribution Width 16.4 % (9.3-17.3); White Blood Count 15.3 T/CUMM (4-12)
[2017-11-01 06:28] LABS: Osmolality,Calculated 295.5 MOS/KG (273-304)
[2017-11-01 06:31] LABS: Band Neutrophils 3 % (0-10); Lymphocytes 18 % (20-55); Segmented Neutrophils 79 % (50-85); Total Cells Counted 100
[2017-11-01 06:32] LABS: Platelet Estimate Normal
[2017-11-01] MEDS: DORNASE ALFA 2.5 MG/2.5 ML VIAL RESP TX SCH ×2 (07:27→19:44)
[2017-11-01 08:23] LABS: ABG HCO3 32.7 MMOL/L (20-26); ABG Oxygen Saturation 96.2 % (95-100); ABG PCO2 53.1 MM HG (35-48); ABG PH 7.422 (7.35-7.45); ABG PO2 79.3 MM HG (80-95); ABG TCO2 32.5 MMOL/L (23-27)
[2017-11-01] MEDS: FUROSEMIDE 20 MG TABLET PO SCH ×2 (09:10→15:31)
[2017-11-01] MEDS: LORATADINE 10 MG TABLET PO SCH (09:11)
[2017-11-01] MEDS: INSULIN REGULAR 100 UNIT/ML SUBCUT SCH ×4 (09:11→21:19)
[2017-11-01] MEDS: MULTIVITAMIN (CENTRUM) TABLET PO SCH (09:12)
[2017-11-01] MEDS: MAGNESIUM OXIDE 400 MG TABLET PO SCH (09:12)
[2017-11-01] MEDS: BUDESONIDE/FORMOTEROL 160-4.5 INHALER 6 GM INH SCH ×2 (09:12→21:19)
[2017-11-01] MEDS: metFORMIN 500 MG TABLET PO SCH ×2 (09:12→21:19)
[2017-11-01] MEDS: sitaGLIPtin 100 MG TABLET PO SCH (09:12)
[2017-11-01] MEDS: CLOPIDOGREL 75 MG TABLET PO SCH (09:12)
[2017-11-01] MEDS: CALCIUM (CARBONATE)/VITAMIN D 600 MG-400 UNIT TABLET PO SCH ×2 (09:12→21:19)
[2017-11-01] MEDS: ASPIRIN EC 81 MG TABLET PO SCH (09:12)
[2017-11-01] MEDS: METOPROLOL TARTRATE 25 MG TABLET PO SCH ×2 (09:12→21:19)
[2017-11-01] MEDS: GENTAMICIN INJ 390 MG in SODIUM CHLORIDE 0.9% 100 ML IV SCH (17:46)
[2017-11-01] MEDS: PRAVASTATIN 40 MG TABLET PO SCH (21:19)
[2017-11-02] MEDS: ALBUTEROL/IPRATROPIUM 3 ML NEB RESP TX SCH ×4 (01:05→19:12)
[2017-11-02] MEDS: cefTAZidime 1,000 MG in SYRINGE 1 EACH IV SCH ×3 (05:30→22:33)
[2017-11-02 06:20] LABS: Basophils % 0.1 % (0.0-0.8); Hematocrit 22.3 VOL% (42.0-52.0); Hemoglobin 7.3 GM/DL (14.0-18.0); Immature Granulocytes % 1.4 %; Immature Granulocytes Absolute 0.18 #; Lymphocytes # 1.4 10*3/uL (1.4-4.0); Lymphocytes % 10.7 % (21.2-54.2); Mean Corpuscular HGB Conc 32.7 GM/DL (32-36); Mean Corpuscular Hemoglobin 29 PG (27-34); Mean Corpuscular Volume 89.2 FL (87-102); Mean Platelet Volume 10.1 FL (9.6-12.0); Monocytes # 0.5 10*3/uL (0.11-0.8); Monocytes % 3.9 % (1.7-12.7); Neutrophils # 10.6 10*3/uL (1.4-7.4); Neutrophils % 83.9 % (38.7-73.9); Platelet Count 211 T/CUMM (130-400); Red Cell Distribution Width 16.1 % (9.3-17.3); White Blood Count 12.6 T/CUMM (4-12)
[2017-11-02 06:41] LABS: Giant Platelets Few; Hypochromasia 1+; Microcytosis Slight; Osmolality,Calculated 291.7 MOS/KG (273-304); Ovalocytes Slight; Platelet Estimate Adequate; Potassium 3.7 MMOL/L (3.5-5.1)
[2017-11-02] MEDS: DORNASE ALFA 2.5 MG/2.5 ML VIAL RESP TX SCH ×2 (07:21→19:22)
[2017-11-02] MEDS: INSULIN REGULAR 100 UNIT/ML SUBCUT SCH ×4 (08:31→21:42)
[2017-11-02] MEDS: ASPIRIN EC 81 MG TABLET PO SCH (08:32)
[2017-11-02] MEDS: FUROSEMIDE 20 MG TABLET PO SCH ×2 (08:32→16:23)
[2017-11-02] MEDS: metFORMIN 500 MG TABLET PO SCH ×2 (08:32→21:42)
[2017-11-02] MEDS: CLOPIDOGREL 75 MG TABLET PO SCH (08:32)
[2017-11-02] MEDS: MULTIVITAMIN (CENTRUM) TABLET PO SCH (08:32)
[2017-11-02] MEDS: CALCIUM (CARBONATE)/VITAMIN D 600 MG-400 UNIT TABLET PO SCH ×2 (08:32→21:42)
[2017-11-02] MEDS: LORATADINE 10 MG TABLET PO SCH (08:33)
[2017-11-02] MEDS: BUDESONIDE/FORMOTEROL 160-4.5 INHALER 6 GM INH SCH ×2 (08:33→21:43)
[2017-11-02] MEDS: METOPROLOL TARTRATE 25 MG TABLET PO SCH ×2 (08:33→21:43)
[2017-11-02] MEDS: sitaGLIPtin 100 MG TABLET PO SCH (08:33)
[2017-11-02] MEDS: MAGNESIUM OXIDE 400 MG TABLET PO SCH (08:33)
[2017-11-02] MEDS: methylPREDNISolone SOD SUC 125 MG/2 ML VIAL IV SCH ×2 (08:57→16:29)
[2017-11-02 09:22] LABS: ABG Base Excess 11.5 MMOL/L (-2.5-2.5); ABG HCO3 36.8 MMOL/L (20-26); ABG Oxygen Saturation 94.3 % (95-100); ABG PH 7.451 (7.35-7.45); ABG PO2 76.8 MM HG (80-95); ABG TCO2 38.4 MMOL/L (23-27); Allen Test Positive
[2017-11-02] MEDS ORDERED: SODIUM CHLORIDE 0.9% 1,000 ML IV PRN (10:26)
[2017-11-02 11:41] LABS: % Iron Saturation 24.1 % (18-50)
[2017-11-02] MEDS: AZITHROMYCIN 250 MG TABLET PO SCH (12:24)
[2017-11-02 13:16] LABS: Folate > 24.0 NG/ML (5.4-24.0); Vitamin B12 341 PG/ML (211-911)
[2017-11-02 19:38] LABS: Hematocrit 28.7 VOL% (42.0-52.0)
[2017-11-02 19:39] LABS: Hemoglobin 9.9 GM/DL (14.0-18.0)
[2017-11-02] MEDS: PRAVASTATIN 40 MG TABLET PO SCH (21:43)
[2017-11-03] MEDS: ALBUTEROL/IPRATROPIUM 3 ML NEB RESP TX SCH ×4 (01:17→19:45)
[2017-11-03] MEDS: methylPREDNISolone SOD SUC 125 MG/2 ML VIAL IV SCH ×4 (03:26→23:22)
[2017-11-03] MEDS: cefTAZidime 1,000 MG in SYRINGE 1 EACH IV SCH ×3 (06:23→23:21)
[2017-11-03 06:45] LABS: Basophils % 0.1 % (0.0-0.8); Eosinophils % 0.2 % (0.00-10.9); Hematocrit 27.5 VOL% (42.0-52.0); Hemoglobin 9.5 GM/DL (14.0-18.0); Immature Granulocytes % 1.7 %; Immature Granulocytes Absolute 0.17 #; Lymphocytes # 1.6 10*3/uL (1.4-4.0); Lymphocytes % 15.6 % (21.2-54.2); Mean Corpuscular HGB Conc 34.5 GM/DL (32-36); Mean Corpuscular Hemoglobin 30 PG (27-34); Mean Corpuscular Volume 86.2 FL (87-102); Mean Platelet Volume 9.5 FL (9.6-12.0); Monocytes # 0.8 10*3/uL (0.11-0.8); Monocytes % 7.9 % (1.7-12.7); Neutrophils # 7.7 10*3/uL (1.4-7.4); Neutrophils % 74.5 % (38.7-73.9); Platelet Count 169 T/CUMM (130-400); Red Blood Count 3.19 MC/CUMM (3.8-5.5); Red Cell Distribution Width 16.1 % (9.3-17.3); White Blood Count 10.3 T/CUMM (4-12)
[2017-11-03] MEDS: INSULIN REGULAR 100 UNIT/ML SUBCUT SCH ×4 (07:40→21:36)
[2017-11-03] MEDS: DORNASE ALFA 2.5 MG/2.5 ML VIAL RESP TX SCH ×2 (08:32→19:52)
[2017-11-03] MEDS: sitaGLIPtin 100 MG TABLET PO SCH (09:04)
[2017-11-03] MEDS: METOPROLOL TARTRATE 25 MG TABLET PO SCH ×2 (09:04→21:36)
[2017-11-03] MEDS: MAGNESIUM OXIDE 400 MG TABLET PO SCH (09:04)
[2017-11-03] MEDS: MULTIVITAMIN (CENTRUM) TABLET PO SCH (09:04)
[2017-11-03] MEDS: metFORMIN 500 MG TABLET PO SCH ×2 (09:04→21:36)
[2017-11-03] MEDS: FUROSEMIDE 20 MG TABLET PO SCH ×2 (09:04→17:05)
[2017-11-03] MEDS: CLOPIDOGREL 75 MG TABLET PO SCH (09:04)
[2017-11-03] MEDS: CALCIUM (CARBONATE)/VITAMIN D 600 MG-400 UNIT TABLET PO SCH ×2 (09:04→21:36)
[2017-11-03] MEDS: LORATADINE 10 MG TABLET PO SCH (09:05)
[2017-11-03] MEDS: ASPIRIN EC 81 MG TABLET PO SCH (09:05)
[2017-11-03] MEDS: BUDESONIDE/FORMOTEROL 160-4.5 INHALER 6 GM INH SCH ×2 (09:06→21:37)
[2017-11-03] MEDS: AZITHROMYCIN 250 MG TABLET PO SCH (09:27)
[2017-11-03] MEDS: FERROUS SULFATE 325 MG TABLET PO SCH ×2 (12:17→21:36)
[2017-11-03] MEDS: FLUCONAZOLE INJ 100 MG in IV BAG 1 EACH IV SCH (13:52)
[2017-11-03 15:28] LABS: Procalcitonin, S 0.33 ng/mL (<=0.15)
[2017-11-03] MEDS: GENTAMICIN INJ 390 MG in SODIUM CHLORIDE 0.9% 100 ML IV SCH (21:34)
[2017-11-03] MEDS: PRAVASTATIN 40 MG TABLET PO SCH (21:36)
[2017-11-04] MEDS: ALBUTEROL/IPRATROPIUM 3 ML NEB RESP TX SCH ×4 (00:12→19:35)
[2017-11-04 06:28] LABS: Calcium 8.9 MG/DL (8.5-10.1); Osmolality,Calculated 289.5 MOS/KG (273-304); Potassium 4.4 MMOL/L (3.5-5.1)
[2017-11-04] MEDS: cefTAZidime 1,000 MG in SYRINGE 1 EACH IV SCH ×3 (06:48→21:58)
[2017-11-04] MEDS: DORNASE ALFA 2.5 MG/2.5 ML VIAL RESP TX SCH ×2 (07:05→19:41)
[2017-11-04] MEDS: INSULIN REGULAR 100 UNIT/ML SUBCUT SCH ×4 (08:41→21:55)
[2017-11-04] MEDS: AZITHROMYCIN 250 MG TABLET PO SCH (08:41)
[2017-11-04] MEDS: methylPREDNISolone SOD SUC 125 MG/2 ML VIAL IV SCH ×3 (08:41→23:57)
[2017-11-04] MEDS: FUROSEMIDE 20 MG TABLET PO SCH ×2 (08:42→16:41)
[2017-11-04] MEDS: sitaGLIPtin 100 MG TABLET PO SCH (08:42)
[2017-11-04] MEDS: METOPROLOL TARTRATE 25 MG TABLET PO SCH ×2 (08:42→21:55)
[2017-11-04] MEDS: metFORMIN 500 MG TABLET PO SCH ×2 (08:42→21:55)
[2017-11-04] MEDS: CALCIUM (CARBONATE)/VITAMIN D 600 MG-400 UNIT TABLET PO SCH ×2 (08:42→21:55)
[2017-11-04] MEDS: LORATADINE 10 MG TABLET PO SCH (08:42)
[2017-11-04] MEDS: ASPIRIN EC 81 MG TABLET PO SCH (08:42)
[2017-11-04] MEDS: MAGNESIUM OXIDE 400 MG TABLET PO SCH (08:42)
[2017-11-04] MEDS: CLOPIDOGREL 75 MG TABLET PO SCH (08:42)
[2017-11-04] MEDS: MULTIVITAMIN (CENTRUM) TABLET PO SCH (08:42)
[2017-11-04] MEDS: FERROUS SULFATE 325 MG TABLET PO SCH ×2 (08:42→21:55)
[2017-11-04] MEDS: BUDESONIDE/FORMOTEROL 160-4.5 INHALER 6 GM INH SCH ×2 (08:43→22:03)
[2017-11-04] MEDS: MAGNESIUM SULF RIDER 2 GM in PREMIX 1 EACH IV PRN (08:51)
[2017-11-04] MEDS: FLUCONAZOLE INJ 100 MG in IV BAG 1 EACH IV SCH (14:07)
[2017-11-04] MEDS: traMADol 50 MG TABLET PO PRN (15:16)
[2017-11-04] MEDS: PRAVASTATIN 40 MG TABLET PO SCH (21:55)
[2017-11-05] MEDS: ALBUTEROL/IPRATROPIUM 3 ML NEB RESP TX SCH ×4 (00:39→19:30)
[2017-11-05 05:13] LABS: Basophils % 0.1 % (0.0-0.8); Hematocrit 28.5 VOL% (42.0-52.0); Hemoglobin 9.3 GM/DL (14.0-18.0); Immature Granulocytes % 1.6 %; Immature Granulocytes Absolute 0.21 #; Lymphocytes # 0.9 10*3/uL (1.4-4.0); Lymphocytes % 6.8 % (21.2-54.2); Mean Corpuscular HGB Conc 32.6 GM/DL (32-36); Mean Corpuscular Hemoglobin 30 PG (27-34); Mean Corpuscular Volume 90.8 FL (87-102); Monocytes # 0.4 10*3/uL (0.11-0.8); Monocytes % 2.7 % (1.7-12.7); Neutrophils % 88.8 % (38.7-73.9); Platelet Count 187 T/CUMM (130-400); Red Blood Count 3.14 MC/CUMM (3.8-5.5); Red Cell Distribution Width 15.2 % (9.3-17.3); White Blood Count 13.5 T/CUMM (4-12)
[2017-11-05 05:19] LABS: INR 0.9; Partial Thromboplastin Time 22.5 SECS (0-40)
[2017-11-05 05:37] LABS: Giant Platelets Few; Hypochromasia 1+; Microcytosis Slight; Ovalocytes Slight; Platelet Estimate Normal
[2017-11-05 05:51] LABS: Calcium 8.4 MG/DL (8.5-10.1); Osmolality,Calculated 290.7 MOS/KG (273-304); Potassium 4.5 MMOL/L (3.5-5.1)
[2017-11-05] MEDS: cefTAZidime 1,000 MG in SYRINGE 1 EACH IV SCH ×3 (06:11→21:47)
[2017-11-05] MEDS: DORNASE ALFA 2.5 MG/2.5 ML VIAL RESP TX SCH ×2 (07:06→19:38)
[2017-11-05] MEDS ORDERED: BENZONATATE 100 MG CAPSULE PO ONE (08:00)
[2017-11-05] MEDS ORDERED: MEPERIDINE 50 MG/1 ML VIAL IM ONE (08:00)
[2017-11-05] MEDS ORDERED: diphenhydrAMINE 50 MG/1 ML VIAL IM ONE (08:00)
[2017-11-05] MEDS: INSULIN REGULAR 100 UNIT/ML SUBCUT SCH ×4 (08:11→20:14)
[2017-11-05] MEDS: methylPREDNISolone SOD SUC 125 MG/2 ML VIAL IV SCH ×3 (08:11→23:24)
[2017-11-05] MEDS: BUDESONIDE/FORMOTEROL 160-4.5 INHALER 6 GM INH SCH ×2 (08:23→20:06)
[2017-11-05] MEDS ORDERED: LIDOCAINE 2% 20 ML VIAL RESP TX ONE (08:30)
[2017-11-05] MEDS ORDERED: LIDOCAINE 1% 20 ML VIAL MISC INJ ONE (08:30)
[2017-11-05] MEDS ORDERED: LIDOCAINE 2% VISCOUS 100 ML BOTTLE SWISH/SPIT ONE (08:30)
[2017-11-05] MEDS: ASPIRIN EC 81 MG TABLET PO SCH ×2 (08:39→12:23)
[2017-11-05] MEDS: FUROSEMIDE 20 MG TABLET PO SCH ×3 (08:39→16:45)
[2017-11-05] MEDS: CALCIUM (CARBONATE)/VITAMIN D 600 MG-400 UNIT TABLET PO SCH ×3 (08:39→20:06)
[2017-11-05] MEDS: MULTIVITAMIN (CENTRUM) TABLET PO SCH ×2 (08:39→12:23)
[2017-11-05] MEDS: sitaGLIPtin 100 MG TABLET PO SCH ×2 (08:40→12:22)
[2017-11-05] MEDS: METOPROLOL TARTRATE 25 MG TABLET PO SCH ×3 (08:40→20:06)
[2017-11-05] MEDS: AZITHROMYCIN 250 MG TABLET PO SCH ×2 (08:40→12:22)
[2017-11-05] MEDS: CLOPIDOGREL 75 MG TABLET PO SCH ×2 (08:40→12:22)
[2017-11-05] MEDS: LORATADINE 10 MG TABLET PO SCH (08:40)
[2017-11-05] MEDS: metFORMIN 500 MG TABLET PO SCH ×3 (08:40→20:06)
[2017-11-05] MEDS: FERROUS SULFATE 325 MG TABLET PO SCH ×3 (08:40→20:06)
[2017-11-05] MEDS: MAGNESIUM OXIDE 400 MG TABLET PO SCH ×2 (08:40→20:06)
[2017-11-05] MEDS: MAGNESIUM SULF RIDER 2 GM in PREMIX 1 EACH IV PRN (10:52)
[2017-11-05] MEDS: FLUCONAZOLE INJ 100 MG in IV BAG 1 EACH IV SCH (14:46)
[2017-11-05] MEDS: PRAVASTATIN 40 MG TABLET PO SCH (20:06)
[2017-11-05] MEDS: GENTAMICIN INJ 390 MG in SODIUM CHLORIDE 0.9% 100 ML IV SCH (20:07)
[2017-11-06] MEDS: ALBUTEROL/IPRATROPIUM 3 ML NEB RESP TX SCH ×2 (01:22→07:58)
[2017-11-06] MEDS: cefTAZidime 1,000 MG in SYRINGE 1 EACH IV SCH (05:51)
[2017-11-06 06:19] LABS: Basophils % 0.2 % (0.0-0.8); Hematocrit 30.4 VOL% (42.0-52.0); Hemoglobin 9.8 GM/DL (14.0-18.0); Immature Granulocytes Absolute 0.24 #; Lymphocytes # 0.8 10*3/uL (1.4-4.0); Lymphocytes % 6.7 % (21.2-54.2); Mean Corpuscular HGB Conc 32.2 GM/DL (32-36); Mean Corpuscular Hemoglobin 29 PG (27-34); Mean Corpuscular Volume 91.3 FL (87-102); Mean Platelet Volume 10.1 FL (9.6-12.0); Monocytes # 0.4 10*3/uL (0.11-0.8); Monocytes % 3.1 % (1.7-12.7); Neutrophils # 10.7 10*3/uL (1.4-7.4); Platelet Count 193 T/CUMM (130-400); Red Blood Count 3.33 MC/CUMM (3.8-5.5); Red Cell Distribution Width 15.6 % (9.3-17.3); White Blood Count 12.1 T/CUMM (4-12)
[2017-11-06 07:43] LABS: Calcium 8.5 MG/DL (8.5-10.1); Osmolality,Calculated 293.7 MOS/KG (273-304); Potassium 5.1 MMOL/L (3.5-5.1)
[2017-11-06] MEDS: DORNASE ALFA 2.5 MG/2.5 ML VIAL RESP TX SCH (08:06)
[2017-11-06] MEDS: CLOPIDOGREL 75 MG TABLET PO SCH (08:40)
[2017-11-06] MEDS: metFORMIN 500 MG TABLET PO SCH (08:41)
[2017-11-06] MEDS: METOPROLOL TARTRATE 25 MG TABLET PO SCH (08:41)
[2017-11-06] MEDS: traMADol 50 MG TABLET PO PRN (08:41)
[2017-11-06] MEDS: sitaGLIPtin 100 MG TABLET PO SCH (08:41)
[2017-11-06] MEDS: ASPIRIN EC 81 MG TABLET PO SCH (08:41)
[2017-11-06] MEDS: MULTIVITAMIN (CENTRUM) TABLET PO SCH (08:41)
[2017-11-06] MEDS: LORATADINE 10 MG TABLET PO SCH (08:42)
[2017-11-06] MEDS: MAGNESIUM OXIDE 400 MG TABLET PO SCH (08:42)
[2017-11-06] MEDS: FUROSEMIDE 20 MG TABLET PO SCH (08:42)
[2017-11-06] MEDS: CALCIUM (CARBONATE)/VITAMIN D 600 MG-400 UNIT TABLET PO SCH (08:42)
[2017-11-06] MEDS: AZITHROMYCIN 250 MG TABLET PO SCH (08:42)
[2017-11-06] MEDS: FERROUS SULFATE 325 MG TABLET PO SCH (08:42)
[2017-11-06] MEDS: methylPREDNISolone SOD SUC 125 MG/2 ML VIAL IV SCH (08:42)
[2017-11-06] MEDS: INSULIN REGULAR 100 UNIT/ML SUBCUT SCH (08:47)
[2017-11-06] MEDS: BUDESONIDE/FORMOTEROL 160-4.5 INHALER 6 GM INH SCH (08:50)
[2017-11-06 10:01] VITALS: BP 123/69
== END 2017-11-06 12:26 | disposition home or self-care (01) | DRG 193 ==
LOC: N.5E 13:23
PROVIDERS: ADMIT Internal Medicine Pulmonary Disease; ATTEND Internal Medicine Pulmonary Disease

== ENCOUNTER 2018-02-17 22:43 | Inpatient (IN) ==
[2018-02-18] MEDS ORDERED: ONDANSETRON 4 MG/2 ML VIAL IV PRN (00:36)
[2018-02-18] MEDS ORDERED: GLUCAGON 1 MG VIAL IM PRN ×2 (00:36)
[2018-02-18] MEDS ORDERED: DEXTROSE 50% 25 GM/50 ML VIAL IV PRN ×2 (00:36)
[2018-02-18] MEDS: methylPREDNISolone SOD SUC 40 MG/1 ML VIAL IV SCH ×3 (01:20→18:00)
[2018-02-18] MEDS: ACETAMINOPHEN 325 MG TABLET PO PRN ×2 (01:22→21:23)
[2018-02-18] MEDS: ALBUTEROL/IPRATROPIUM 3 ML NEB RESP TX SCH ×4 (01:54→19:04)
[2018-02-18 05:20] LABS: Hematocrit 25.8 VOL% (42.0-52.0); Hemoglobin 8.2 GM/DL (14.0-18.0); Immature Granulocytes % 0.4 %; Immature Granulocytes Absolute 0.03 #; Lymphocytes # 0.2 10*3/uL (1.4-4.0); Lymphocytes % 2.2 % (21.2-54.2); Mean Corpuscular HGB Conc 31.8 GM/DL (32-36); Mean Corpuscular Hemoglobin 28 PG (27-34); Mean Corpuscular Volume 87.2 FL (87-102); Mean Platelet Volume 10.7 FL (9.6-12.0); Monocytes # 0.1 10*3/uL (0.11-0.8); Monocytes % 0.6 % (1.7-12.7); Neutrophils # 7.9 10*3/uL (1.4-7.4); Neutrophils % 96.8 % (38.7-73.9); Platelet Count 239 T/CUMM (130-400); Red Blood Count 2.96 MC/CUMM (3.8-5.5); Red Cell Distribution Width 14.5 % (9.3-17.3); White Blood Count 8.2 T/CUMM (4-12)
[2018-02-18 05:50] LABS: Band Neutrophils 2 % (0-10); Hypochromasia 1+; Lymphocytes 1 % (20-55); Microcytosis Slight; Ovalocytes Slight; Segmented Neutrophils 94 % (50-85); Total Cells Counted 100
[2018-02-18 05:51] LABS: Platelet Estimate Normal
[2018-02-18 06:21] LABS: Alanine Aminotransferase 20 U/L (16-61); Alkaline Phosphatase 62 U/L (45-117); Aspartate Amino Transferase 18 U/L (0-37); Bilirubin,Total < 0.39 MG/DL (0.2-1.0); Blood Urea Nitrogen 13 MG/DL (7-18); Calcium 9.4 MG/DL (8.5-10.1); Glucose 179 MG/DL (74-106); Osmolality,Calculated 282.4 MOS/KG (273-304); Potassium 3.6 MMOL/L (3.5-5.1); Sodium 140 MMOL/L (136-145); Total Protein 6.8 G/DL (6.4-8.3)
[2018-02-18] MEDS: POTASSIUM CHLORIDE 20 MEQ TABLET PO PRN ×2 (06:31→10:39)
[2018-02-18] MEDS: INSULIN REGULAR 100 UNIT/ML SUBCUT SCH ×4 (10:38→21:20)
[2018-02-18] MEDS: PANTOPRAZOLE 40 MG TABLET PO SCH (10:39)
[2018-02-18] MEDS: ENOXAPARIN 40 MG/0.4 ML SYRINGE SUBCUT SCH (10:40)
[2018-02-18] MEDS ORDERED: FUROSEMIDE 40 MG/4 ML VIAL IV ONE (10:57)
[2018-02-18 11:12] LABS: Free T4 (Free Thyroxine) 1.01 NG/DL (0.76-1.46); Thyroid Stimulating Hormone 0.761 uIU/ml (0.358-3.74)
[2018-02-18] MEDS: cefTAZidime 1,000 MG in SYRINGE 1 EACH IV SCH ×2 (11:55→21:21)
[2018-02-18] MEDS: LEVOFLOXACIN INJ 750 MG in PREMIX 1 EACH IV SCH (21:30)
[2018-02-19] MEDS: ALBUTEROL/IPRATROPIUM 3 ML NEB RESP TX SCH ×5 (00:23→23:51)
[2018-02-19] MEDS: methylPREDNISolone SOD SUC 40 MG/1 ML VIAL IV SCH ×3 (01:43→16:32)
[2018-02-19] MEDS: cefTAZidime 1,000 MG in SYRINGE 1 EACH IV SCH ×3 (04:50→20:11)
[2018-02-19] MEDS: ALBUTEROL 2.5 MG/3 ML NEB RESP TX PRN ×2 (05:04→10:19)
[2018-02-19 05:23] LABS: Hematocrit 26.3 VOL% (42.0-52.0); Hemoglobin 8.5 GM/DL (14.0-18.0); Immature Granulocytes % 0.5 %; Immature Granulocytes Absolute 0.05 #; Lymphocytes # 0.7 10*3/uL (1.4-4.0); Lymphocytes % 7.9 % (21.2-54.2); Mean Corpuscular HGB Conc 32.3 GM/DL (32-36); Mean Corpuscular Hemoglobin 28 PG (27-34); Mean Corpuscular Volume 86.5 FL (87-102); Mean Platelet Volume 10.8 FL (9.6-12.0); Monocytes # 0.4 10*3/uL (0.11-0.8); Monocytes % 3.8 % (1.7-12.7); Neutrophils # 8.3 10*3/uL (1.4-7.4); Neutrophils % 87.8 % (38.7-73.9); Platelet Count 260 T/CUMM (130-400); Red Blood Count 3.04 MC/CUMM (3.8-5.5); Red Cell Distribution Width 14.3 % (9.3-17.3); White Blood Count 9.4 T/CUMM (4-12)
[2018-02-19 05:48] LABS: Calcium 8.6 MG/DL (8.5-10.1); Osmolality,Calculated 277.8 MOS/KG (273-304); Potassium 4.3 MMOL/L (3.5-5.1)
[2018-02-19] MEDS ORDERED: FUROSEMIDE 40 MG/4 ML VIAL IV ONE (07:23)
[2018-02-19] MEDS: INSULIN REGULAR 100 UNIT/ML SUBCUT SCH ×4 (08:38→20:07)
[2018-02-19] MEDS: ENOXAPARIN 40 MG/0.4 ML SYRINGE SUBCUT SCH (08:39)
[2018-02-19] MEDS: PANTOPRAZOLE 40 MG TABLET PO SCH (08:39)
[2018-02-19] MEDS: DORNASE ALFA 2.5 MG/2.5 ML VIAL RESP TX SCH ×2 (10:31→19:05)
[2018-02-19] MEDS: FUROSEMIDE 40 MG/4 ML VIAL IV SCH (16:11)
[2018-02-19] MEDS: ACETAMINOPHEN 325 MG TABLET PO PRN (20:10)
[2018-02-19] MEDS: LEVOFLOXACIN INJ 750 MG in PREMIX 1 EACH IV SCH (20:23)
[2018-02-20] MEDS: methylPREDNISolone SOD SUC 40 MG/1 ML VIAL IV SCH ×3 (01:42→16:12)
[2018-02-20 05:12] LABS: Basophils % 0.1 % (0.0-0.8); Hematocrit 27.9 VOL% (42.0-52.0); Hemoglobin 8.5 GM/DL (14.0-18.0); Immature Granulocytes % 0.5 %; Immature Granulocytes Absolute 0.06 #; Lymphocytes # 0.8 10*3/uL (1.4-4.0); Lymphocytes % 6.8 % (21.2-54.2); Mean Corpuscular HGB Conc 30.5 GM/DL (32-36); Mean Corpuscular Hemoglobin 27 PG (27-34); Mean Corpuscular Volume 89.4 FL (87-102); Mean Platelet Volume 10.5 FL (9.6-12.0); Monocytes # 0.5 10*3/uL (0.11-0.8); Monocytes % 3.9 % (1.7-12.7); Neutrophils # 10.4 10*3/uL (1.4-7.4); Neutrophils % 88.7 % (38.7-73.9); Platelet Count 262 T/CUMM (130-400); Red Blood Count 3.12 MC/CUMM (3.8-5.5); Red Cell Distribution Width 14.6 % (9.3-17.3); White Blood Count 11.7 T/CUMM (4-12)
[2018-02-20] MEDS: cefTAZidime 1,000 MG in SYRINGE 1 EACH IV SCH ×3 (05:13→20:34)
[2018-02-20 05:26] LABS: Osmolality,Calculated 283.7 MOS/KG (273-304); Potassium 4.1 MMOL/L (3.5-5.1)
[2018-02-20] MEDS: ALBUTEROL/IPRATROPIUM 3 ML NEB RESP TX SCH ×5 (06:33→23:52)
[2018-02-20] MEDS: DORNASE ALFA 2.5 MG/2.5 ML VIAL RESP TX SCH ×2 (07:01→19:35)
[2018-02-20] MEDS: INSULIN REGULAR 100 UNIT/ML SUBCUT SCH ×4 (07:55→20:32)
[2018-02-20] MEDS: FUROSEMIDE 40 MG/4 ML VIAL IV SCH ×2 (07:56→16:08)
[2018-02-20] MEDS: ENOXAPARIN 40 MG/0.4 ML SYRINGE SUBCUT SCH (08:00)
[2018-02-20] MEDS: PANTOPRAZOLE 40 MG TABLET PO SCH (08:00)
[2018-02-20] MEDS: MAGNESIUM OXIDE 400 MG TABLET PO SCH ×2 (11:38→20:44)
[2018-02-20] MEDS: DILTIAZEM CD 120 MG CAPSULE PO SCH (11:38)
[2018-02-20] MEDS: CHOLECALCIFEROL 1,000 UNIT TABLET PO SCH (11:38)
[2018-02-20] MEDS: CALCIUM (CARBONATE)/VITAMIN D 600 MG-400 UNIT TABLET PO SCH ×2 (11:38→20:44)
[2018-02-20] MEDS: POTASSIUM CHLORIDE 10 MEQ TABLET PO SCH (11:39)
[2018-02-20] MEDS: LORATADINE 10 MG TABLET PO SCH (11:39)
[2018-02-20] MEDS: ROFLUMILAST 500 MCG TABLET PO SCH (11:39)
[2018-02-20] MEDS: ASPIRIN EC 81 MG TABLET PO SCH (11:39)
[2018-02-20] MEDS: BUDESONIDE/FORMOTEROL 160-4.5 INHALER 6 GM INH SCH ×2 (13:16→22:07)
[2018-02-20] MEDS: metFORMIN 500 MG TABLET PO SCH (16:07)
[2018-02-20] MEDS: LEVOFLOXACIN INJ 750 MG in PREMIX 1 EACH IV SCH (20:39)
[2018-02-20] MEDS: ACETAMINOPHEN 325 MG TABLET PO PRN (20:44)
[2018-02-20] MEDS: traZODone 50 MG TABLET PO PRN (20:44)
[2018-02-21] MEDS: methylPREDNISolone SOD SUC 40 MG/1 ML VIAL IV SCH ×3 (00:53→16:06)
[2018-02-21] MEDS: ALBUTEROL/IPRATROPIUM 3 ML NEB RESP TX SCH ×5 (03:19→19:17)
[2018-02-21] MEDS: cefTAZidime 1,000 MG in SYRINGE 1 EACH IV SCH ×2 (04:55→12:33)
[2018-02-21] MEDS: INSULIN REGULAR 100 UNIT/ML SUBCUT SCH ×4 (07:35→20:02)
[2018-02-21] MEDS: metFORMIN 500 MG TABLET PO SCH ×2 (07:36→16:06)
[2018-02-21] MEDS: FUROSEMIDE 40 MG/4 ML VIAL IV SCH ×2 (07:36→16:02)
[2018-02-21] MEDS: DORNASE ALFA 2.5 MG/2.5 ML VIAL RESP TX SCH ×2 (08:30→19:18)
[2018-02-21] MEDS: POTASSIUM CHLORIDE 10 MEQ TABLET PO SCH (08:53)
[2018-02-21] MEDS: ASPIRIN EC 81 MG TABLET PO SCH (08:53)
[2018-02-21] MEDS: DILTIAZEM CD 120 MG CAPSULE PO SCH (08:53)
[2018-02-21] MEDS: LORATADINE 10 MG TABLET PO SCH (08:53)
[2018-02-21] MEDS: ENOXAPARIN 40 MG/0.4 ML SYRINGE SUBCUT SCH (08:53)
[2018-02-21] MEDS: CHOLECALCIFEROL 1,000 UNIT TABLET PO SCH (08:53)
[2018-02-21] MEDS: MAGNESIUM OXIDE 400 MG TABLET PO SCH ×2 (08:54→20:58)
[2018-02-21] MEDS: ROFLUMILAST 500 MCG TABLET PO SCH (08:54)
[2018-02-21] MEDS: PANTOPRAZOLE 40 MG TABLET PO SCH (08:58)
[2018-02-21] MEDS: CALCIUM (CARBONATE)/VITAMIN D 600 MG-400 UNIT TABLET PO SCH ×2 (08:59→20:58)
[2018-02-21] MEDS: BUDESONIDE/FORMOTEROL 160-4.5 INHALER 6 GM INH SCH ×2 (09:01→20:49)
[2018-02-21 12:32] LABS: Calcium 8.2 MG/DL (8.5-10.1); Osmolality,Calculated 286.4 MOS/KG (273-304); Potassium 4.4 MMOL/L (3.5-5.1)
[2018-02-21] MEDS: ACETAMINOPHEN 325 MG TABLET PO PRN (20:58)
[2018-02-21] MEDS: traZODone 50 MG TABLET PO PRN (20:58)
[2018-02-22] MEDS: ALBUTEROL/IPRATROPIUM 3 ML NEB RESP TX SCH ×7 (00:02→23:17)
[2018-02-22] MEDS: cefTAZidime 1,000 MG in SYRINGE 1 EACH IV SCH ×4 (00:09→23:45)
[2018-02-22] MEDS: methylPREDNISolone SOD SUC 40 MG/1 ML VIAL IV SCH ×3 (00:12→18:37)
[2018-02-22] MEDS: LEVOFLOXACIN INJ 750 MG in PREMIX 1 EACH IV SCH (00:15)
[2018-02-22 05:31] LABS: Calcium 7.5 MG/DL (8.5-10.1); Osmolality,Calculated 288.5 MOS/KG (273-304); Potassium 4.5 MMOL/L (3.5-5.1)
[2018-02-22] MEDS ORDERED: MEPERIDINE 25 MG/1 ML VIAL IM ONE (06:30)
[2018-02-22] MEDS ORDERED: diphenhydrAMINE 50 MG/1 ML VIAL IM ONE (06:30)
[2018-02-22] MEDS ORDERED: BENZONATATE 100 MG CAPSULE PO ONE (06:30)
[2018-02-22] MEDS: DORNASE ALFA 2.5 MG/2.5 ML VIAL RESP TX SCH ×2 (07:15→19:05)
[2018-02-22] MEDS: FUROSEMIDE 40 MG/4 ML VIAL IV SCH ×3 (08:46→18:39)
[2018-02-22] MEDS: INSULIN REGULAR 100 UNIT/ML SUBCUT SCH ×4 (08:46→20:54)
[2018-02-22] MEDS: ENOXAPARIN 40 MG/0.4 ML SYRINGE SUBCUT SCH (08:50)
[2018-02-22] MEDS: BUDESONIDE/FORMOTEROL 160-4.5 INHALER 6 GM INH SCH ×2 (08:55→20:54)
[2018-02-22] MEDS: DILTIAZEM CD 120 MG CAPSULE PO SCH (08:57)
[2018-02-22] MEDS ORDERED: LIDOCAINE 2% VISCOUS 100 ML BOTTLE SWISH/SWAL ONE (09:20)
[2018-02-22] MEDS ORDERED: LIDOCAINE 2% 20 ML VIAL RESP TX ONE (09:22)
[2018-02-22] MEDS ORDERED: LIDOCAINE 1% 50 ML VIAL MISC INJ ONE (09:23)
[2018-02-22] MEDS ORDERED: FUROSEMIDE 40 MG/4 ML VIAL IV ONE (10:12)
[2018-02-22] MEDS: metFORMIN 500 MG TABLET PO SCH ×2 (11:45→17:11)
[2018-02-22] MEDS: ASPIRIN EC 81 MG TABLET PO SCH (11:45)
[2018-02-22] MEDS: PANTOPRAZOLE 40 MG TABLET PO SCH (11:46)
[2018-02-22] MEDS: CALCIUM (CARBONATE)/VITAMIN D 600 MG-400 UNIT TABLET PO SCH ×2 (11:46→20:51)
[2018-02-22] MEDS: POTASSIUM CHLORIDE 10 MEQ TABLET PO SCH (11:46)
[2018-02-22] MEDS: CHOLECALCIFEROL 1,000 UNIT TABLET PO SCH (11:46)
[2018-02-22] MEDS: ROFLUMILAST 500 MCG TABLET PO SCH (11:46)
[2018-02-22] MEDS: LORATADINE 10 MG TABLET PO SCH (11:48)
[2018-02-22] MEDS: MAGNESIUM OXIDE 400 MG TABLET PO SCH ×2 (11:48→20:51)
[2018-02-22] MEDS: ACETAMINOPHEN 325 MG TABLET PO PRN (18:41)
[2018-02-22] MEDS: traZODone 50 MG TABLET PO PRN (20:51)
[2018-02-23] MEDS: methylPREDNISolone SOD SUC 40 MG/1 ML VIAL IV SCH ×4 (00:16→17:51)
[2018-02-23] MEDS: LEVOFLOXACIN INJ 750 MG in PREMIX 1 EACH IV SCH ×2 (00:16→23:28)
[2018-02-23] MEDS: FUROSEMIDE 40 MG/4 ML VIAL IV SCH ×3 (02:47→19:06)
[2018-02-23] MEDS: ALBUTEROL/IPRATROPIUM 3 ML NEB RESP TX SCH ×5 (03:46→19:30)
[2018-02-23 05:16] LABS: Calcium 7.8 MG/DL (8.5-10.1); Osmolality,Calculated 287.7 MOS/KG (273-304)
[2018-02-23] MEDS: DORNASE ALFA 2.5 MG/2.5 ML VIAL RESP TX SCH ×2 (07:10→19:30)
[2018-02-23] MEDS: BUDESONIDE/FORMOTEROL 160-4.5 INHALER 6 GM INH SCH ×2 (08:28→20:37)
[2018-02-23] MEDS: ENOXAPARIN 40 MG/0.4 ML SYRINGE SUBCUT SCH (08:28)
[2018-02-23] MEDS: metFORMIN 500 MG TABLET PO SCH ×2 (08:29→16:24)
[2018-02-23] MEDS: DILTIAZEM CD 120 MG CAPSULE PO SCH (08:30)
[2018-02-23] MEDS: CALCIUM (CARBONATE)/VITAMIN D 600 MG-400 UNIT TABLET PO SCH ×2 (08:30→20:29)
[2018-02-23] MEDS: MAGNESIUM OXIDE 400 MG TABLET PO SCH ×2 (08:31→20:28)
[2018-02-23] MEDS: POTASSIUM CHLORIDE 20 MEQ TABLET PO PRN (08:31)
[2018-02-23] MEDS: ASPIRIN EC 81 MG TABLET PO SCH (08:31)
[2018-02-23] MEDS: LORATADINE 10 MG TABLET PO SCH (08:31)
[2018-02-23] MEDS: PANTOPRAZOLE 40 MG TABLET PO SCH (08:31)
[2018-02-23] MEDS: INSULIN REGULAR 100 UNIT/ML SUBCUT SCH ×4 (08:41→20:28)
[2018-02-23] MEDS: ROFLUMILAST 500 MCG TABLET PO SCH (11:11)
[2018-02-23] MEDS: POTASSIUM CHLORIDE 10 MEQ TABLET PO SCH (11:11)
[2018-02-23] MEDS: CHOLECALCIFEROL 1,000 UNIT TABLET PO SCH (11:12)
[2018-02-23] MEDS: cefTAZidime 1,000 MG in SYRINGE 1 EACH IV SCH ×3 (11:41→23:29)
[2018-02-23] MEDS: ALBUTEROL 2.5 MG/3 ML NEB RESP TX PRN (16:50)
[2018-02-23] MEDS: traZODone 50 MG TABLET PO PRN (20:28)
[2018-02-24] MEDS: methylPREDNISolone SOD SUC 40 MG/1 ML VIAL IV SCH ×3 (00:02→16:14)
[2018-02-24] MEDS: ALBUTEROL/IPRATROPIUM 3 ML NEB RESP TX SCH ×6 (00:48→20:48)
[2018-02-24] MEDS: FUROSEMIDE 40 MG/4 ML VIAL IV SCH ×3 (02:53→17:39)
[2018-02-24 05:05] LABS: Calcium 8.2 MG/DL (8.5-10.1); Osmolality,Calculated 291.7 MOS/KG (273-304); Potassium 5.4 MMOL/L (3.5-5.1)
[2018-02-24] MEDS ORDERED: cefTRIAXone 1,000 MG VIAL ONE (05:55)
[2018-02-24] MEDS: ACETAMINOPHEN 325 MG TABLET PO PRN ×2 (06:50→22:12)
[2018-02-24] MEDS: DORNASE ALFA 2.5 MG/2.5 ML VIAL RESP TX SCH ×2 (07:40→20:49)
[2018-02-24] MEDS: INSULIN REGULAR 100 UNIT/ML SUBCUT SCH ×4 (08:40→22:14)
[2018-02-24] MEDS: CALCIUM (CARBONATE)/VITAMIN D 600 MG-400 UNIT TABLET PO SCH ×2 (08:42→22:12)
[2018-02-24] MEDS: PANTOPRAZOLE 40 MG TABLET PO SCH (08:42)
[2018-02-24] MEDS: DILTIAZEM CD 120 MG CAPSULE PO SCH (08:42)
[2018-02-24] MEDS: metFORMIN 500 MG TABLET PO SCH ×2 (08:42→16:13)
[2018-02-24] MEDS: ROFLUMILAST 500 MCG TABLET PO SCH (08:42)
[2018-02-24] MEDS: ASPIRIN EC 81 MG TABLET PO SCH (08:43)
[2018-02-24] MEDS: CHOLECALCIFEROL 1,000 UNIT TABLET PO SCH (08:43)
[2018-02-24] MEDS: MAGNESIUM OXIDE 400 MG TABLET PO SCH ×2 (08:43→22:12)
[2018-02-24] MEDS: LORATADINE 10 MG TABLET PO SCH (08:43)
[2018-02-24] MEDS: cefTAZidime 1,000 MG in SYRINGE 1 EACH IV SCH ×2 (08:43→16:09)
[2018-02-24] MEDS: ENOXAPARIN 40 MG/0.4 ML SYRINGE SUBCUT SCH (08:48)
[2018-02-24] MEDS: BUDESONIDE/FORMOTEROL 160-4.5 INHALER 6 GM INH SCH ×2 (08:53→22:15)
[2018-02-24] MEDS: POTASSIUM CHLORIDE 10 MEQ TABLET PO SCH (08:54)
[2018-02-24] MEDS: traZODone 50 MG TABLET PO PRN (22:12)
[2018-02-25] MEDS: ALBUTEROL/IPRATROPIUM 3 ML NEB RESP TX SCH ×6 (00:19→19:08)
[2018-02-25] MEDS: cefTAZidime 1,000 MG in SYRINGE 1 EACH IV SCH ×3 (00:30→16:06)
[2018-02-25] MEDS: methylPREDNISolone SOD SUC 40 MG/1 ML VIAL IV SCH ×3 (00:34→16:11)
[2018-02-25] MEDS: LEVOFLOXACIN INJ 750 MG in PREMIX 1 EACH IV SCH (00:35)
[2018-02-25] MEDS: FUROSEMIDE 40 MG/4 ML VIAL IV SCH ×3 (02:03→17:45)
[2018-02-25 05:47] LABS: Potassium 4.6 MMOL/L (3.5-5.1)
[2018-02-25] MEDS: DORNASE ALFA 2.5 MG/2.5 ML VIAL RESP TX SCH ×2 (07:06→19:09)
[2018-02-25] MEDS: metFORMIN 500 MG TABLET PO SCH ×2 (08:12→16:08)
[2018-02-25] MEDS: INSULIN REGULAR 100 UNIT/ML SUBCUT SCH ×4 (08:12→20:08)
[2018-02-25] MEDS: POTASSIUM CHLORIDE 10 MEQ TABLET PO SCH (08:13)
[2018-02-25] MEDS: CALCIUM (CARBONATE)/VITAMIN D 600 MG-400 UNIT TABLET PO SCH ×2 (08:13→21:45)
[2018-02-25] MEDS: PANTOPRAZOLE 40 MG TABLET PO SCH (08:13)
[2018-02-25] MEDS: CHOLECALCIFEROL 1,000 UNIT TABLET PO SCH (08:13)
[2018-02-25] MEDS: DILTIAZEM CD 120 MG CAPSULE PO SCH (08:13)
[2018-02-25] MEDS: ASPIRIN EC 81 MG TABLET PO SCH (08:13)
[2018-02-25] MEDS: MAGNESIUM OXIDE 400 MG TABLET PO SCH ×2 (08:13→21:45)
[2018-02-25] MEDS: BUDESONIDE/FORMOTEROL 160-4.5 INHALER 6 GM INH SCH ×2 (08:14→21:46)
[2018-02-25] MEDS: LORATADINE 10 MG TABLET PO SCH (08:14)
[2018-02-25] MEDS: ROFLUMILAST 500 MCG TABLET PO SCH (08:14)
[2018-02-25] MEDS: ENOXAPARIN 40 MG/0.4 ML SYRINGE SUBCUT SCH (08:18)
[2018-02-25] MEDS: ACETAMINOPHEN 325 MG TABLET PO PRN (21:45)
[2018-02-26] MEDS: ALBUTEROL/IPRATROPIUM 3 ML NEB RESP TX SCH ×4 (00:07→11:17)
[2018-02-26] MEDS: cefTAZidime 1,000 MG in SYRINGE 1 EACH IV SCH ×2 (00:55→08:52)
[2018-02-26] MEDS: methylPREDNISolone SOD SUC 40 MG/1 ML VIAL IV SCH ×2 (00:59→08:51)
[2018-02-26] MEDS: LEVOFLOXACIN INJ 750 MG in PREMIX 1 EACH IV SCH (01:00)
[2018-02-26] MEDS: FUROSEMIDE 40 MG/4 ML VIAL IV SCH ×2 (02:26→10:22)
[2018-02-26 04:51] LABS: Basophils % 0.1 % (0.0-0.8); Hematocrit 27.3 VOL% (42.0-52.0); Hemoglobin 8.7 GM/DL (14.0-18.0); Immature Granulocytes % 2.5 %; Immature Granulocytes Absolute 0.22 #; Lymphocytes # 0.5 10*3/uL (1.4-4.0); Lymphocytes % 5.4 % (21.2-54.2); Mean Corpuscular HGB Conc 31.9 GM/DL (32-36); Mean Corpuscular Hemoglobin 28 PG (27-34); Mean Corpuscular Volume 86.7 FL (87-102); Mean Platelet Volume 10.9 FL (9.6-12.0); Monocytes # 0.5 10*3/uL (0.11-0.8); Monocytes % 5.2 % (1.7-12.7); Neutrophils # 7.5 10*3/uL (1.4-7.4); Neutrophils % 86.8 % (38.7-73.9); Platelet Count 221 T/CUMM (130-400); Red Blood Count 3.15 MC/CUMM (3.8-5.5); Red Cell Distribution Width 14.6 % (9.3-17.3); White Blood Count 8.7 T/CUMM (4-12)
[2018-02-26 05:14] LABS: Calcium 9.2 MG/DL (8.5-10.1); Osmolality,Calculated 292.7 MOS/KG (273-304); Potassium 4.4 MMOL/L (3.5-5.1)
[2018-02-26] MEDS: DORNASE ALFA 2.5 MG/2.5 ML VIAL RESP TX SCH (07:18)
[2018-02-26 08:01] VITALS: BP 113/55
[2018-02-26] MEDS: CALCIUM (CARBONATE)/VITAMIN D 600 MG-400 UNIT TABLET PO SCH (08:52)
[2018-02-26] MEDS: ENOXAPARIN 40 MG/0.4 ML SYRINGE SUBCUT SCH (08:52)
[2018-02-26] MEDS: MAGNESIUM OXIDE 400 MG TABLET PO SCH (08:53)
[2018-02-26] MEDS: CHOLECALCIFEROL 1,000 UNIT TABLET PO SCH (08:53)
[2018-02-26] MEDS: DILTIAZEM CD 120 MG CAPSULE PO SCH (08:53)
[2018-02-26] MEDS: metFORMIN 500 MG TABLET PO SCH (08:53)
[2018-02-26] MEDS: ROFLUMILAST 500 MCG TABLET PO SCH (08:53)
[2018-02-26] MEDS: LORATADINE 10 MG TABLET PO SCH (08:53)
[2018-02-26] MEDS: POTASSIUM CHLORIDE 10 MEQ TABLET PO SCH (08:54)
[2018-02-26] MEDS: PANTOPRAZOLE 40 MG TABLET PO SCH (08:54)
[2018-02-26] MEDS: ASPIRIN EC 81 MG TABLET PO SCH (08:54)
[2018-02-26] MEDS: INSULIN REGULAR 100 UNIT/ML SUBCUT SCH (08:55)
[2018-02-26] MEDS: BUDESONIDE/FORMOTEROL 160-4.5 INHALER 6 GM INH SCH (09:03)
== END 2018-02-26 13:30 | disposition home or self-care (01) | DRG 177 ==
LOC: SUATTDRO 23:51 → N.TELES 23:51
PROVIDERS: ADMIT Internal Medicine; ATTEND Internal Medicine

== ENCOUNTER 2018-03-12 10:26 | Inpatient (IN) ==
[2018-03-12] MEDS ORDERED: ONDANSETRON 4 MG/2 ML VIAL IV PRN (10:29)
[2018-03-12] MEDS ORDERED: DEXTROSE 50% 25 GM/50 ML VIAL IV PRN (10:29)
[2018-03-12] MEDS ORDERED: GLUCAGON 1 MG VIAL IM PRN (10:29)
[2018-03-12] MEDS: methylPREDNISolone SOD SUC 40 MG/1 ML VIAL IV SCH ×2 (11:51→23:41)
[2018-03-12 11:53] LABS: Basophils % 0.1 % (0.0-0.8); Eosinophils % 0.1 % (0.00-10.9); Hemoglobin 8.6 GM/DL (14.0-18.0); Immature Granulocytes % 0.8 %; Lymphocytes # 0.5 10*3/uL (1.4-4.0); Lymphocytes % 3.9 % (21.2-54.2); Mean Corpuscular HGB Conc 31.9 GM/DL (32-36); Mean Corpuscular Hemoglobin 27 PG (27-34); Mean Corpuscular Volume 85.7 FL (87-102); Mean Platelet Volume 11.5 FL (9.6-12.0); Monocytes # 0.5 10*3/uL (0.11-0.8); Monocytes % 3.7 % (1.7-12.7); Neutrophils # 11.5 10*3/uL (1.4-7.4); Neutrophils % 91.4 % (38.7-73.9); Platelet Count 183 T/CUMM (130-400); Red Blood Count 3.15 MC/CUMM (3.8-5.5); Red Cell Distribution Width 15.2 % (9.3-17.3); White Blood Count 12.6 T/CUMM (4-12)
[2018-03-12 12:08] LABS: Apearance,Urine Slightly Hazy (Clear); Bilirubin,Urine Negative (Negative); Blood, Urine Negative (Negative); Glucose,Urine (UA) Negative (Negative); Granular Casts,Urine 8 /LPF (0-1); Hyaline Casts,Urine 12 /LPF (0-3); Ketones,Urine Negative (Negative); Mucus,Urine Occasional /LPF (Occasional); Nitrite,Urine Negative (Negative); Protein,Urine 30 MG/DL; Urine Color Yellow (Yellow); Urine Specific Gravity 1.014 (1.001-1.035); Urine Urobilinogen < 2.0 EU/DL (0.2-1.0); WBC,Urine 1 /HPF (0-6)
[2018-03-12 12:13] LABS: Band Neutrophils 1 % (0-10); Lymphocytes 6 % (20-55); Segmented Neutrophils 92 % (50-85); Total Cells Counted 100
[2018-03-12 12:14] LABS: Hypochromasia 1+; Platelet Estimate Normal
[2018-03-12 12:39] LABS: Alanine Aminotransferase 48 U/L (16-61); Albumin 2.8 G/DL (3.4-5.0); Alkaline Phosphatase 143 U/L (45-117); Aspartate Amino Transferase 28 U/L (0-37); Bilirubin,Total < 0.39 MG/DL (0.2-1.0); Blood Urea Nitrogen 35 MG/DL (7-18); Calcium 9.4 MG/DL (8.5-10.1); Glucose 136 MG/DL (74-106); Osmolality,Calculated 275.4 MOS/KG (273-304); Potassium 4.5 MMOL/L (3.5-5.1); Sodium 133 MMOL/L (136-145)
[2018-03-12] MEDS: ALBUTEROL/IPRATROPIUM 3 ML NEB RESP TX SCH ×2 (13:36→18:20)
[2018-03-12 13:46] LABS: ABG Base Excess 14.5 MMOL/L (-2.5-2.5); ABG HCO3 38.4 MMOL/L (20-26); ABG Oxygen Saturation 99.7 % (95-100); ABG PCO2 44.1 MM HG (35-48); ABG PH 7.551 (7.35-7.45); ABG TCO2 35.8 MMOL/L (23-27)
[2018-03-12] MEDS: INSULIN LISPRO 100 UNIT/ML SUBCUT SCH ×3 (14:10→21:18)
[2018-03-12] MEDS: cefTAZidime 1,000 MG in SYRINGE 1 EACH IV SCH ×2 (14:35→21:11)
[2018-03-12] MEDS ORDERED: traZODone 50 MG TABLET PO PRN (15:07)
[2018-03-12] MEDS: LEVOFLOXACIN INJ 500 MG in PREMIX 1 EACH IV SCH (15:40)
[2018-03-12] MEDS: DOCUSATE SODIUM 100 MG CAPSULE PO SCH (17:11)
[2018-03-12] MEDS: FUROSEMIDE 20 MG/2 ML VIAL IV SCH ×2 (17:11→23:43)
[2018-03-12] MEDS: DORNASE ALFA 2.5 MG/2.5 ML VIAL RESP TX SCH (18:20)
[2018-03-12] MEDS: BUDESONIDE/FORMOTEROL 160-4.5 INHALER 6 GM INH SCH (21:14)
[2018-03-12] MEDS: MAGNESIUM OXIDE 400 MG TABLET PO SCH (21:14)
[2018-03-12] MEDS: CALCIUM (CARBONATE)/VITAMIN D 600 MG-400 UNIT TABLET PO SCH (21:14)
[2018-03-12] MEDS ORDERED: FUROSEMIDE 40 MG/4 ML VIAL ONE (23:34)
[2018-03-13] MEDS: ALBUTEROL/IPRATROPIUM 3 ML NEB RESP TX SCH ×4 (00:55→19:02)
[2018-03-13] MEDS: ALBUTEROL/IPRATROPIUM 3 ML NEB RESP TX PRN (03:28)
[2018-03-13] MEDS: cefTAZidime 1,000 MG in SYRINGE 1 EACH IV SCH ×3 (04:38→20:08)
[2018-03-13] MEDS ORDERED: FUROSEMIDE 40 MG/4 ML VIAL ONE (06:29)
[2018-03-13 06:36] LABS: Eosinophils % 0.1 % (0.00-10.9); Hematocrit 27.2 VOL% (42.0-52.0); Hemoglobin 8.7 GM/DL (14.0-18.0); Immature Granulocytes % 0.9 %; Immature Granulocytes Absolute 0.09 #; Lymphocytes # 0.4 10*3/uL (1.4-4.0); Lymphocytes % 3.9 % (21.2-54.2); Mean Corpuscular Hemoglobin 27 PG (27-34); Mean Platelet Volume 11.7 FL (9.6-12.0); Monocytes # 0.3 10*3/uL (0.11-0.8); Monocytes % 3.2 % (1.7-12.7); Neutrophils # 8.9 10*3/uL (1.4-7.4); Neutrophils % 91.9 % (38.7-73.9); Platelet Count 190 T/CUMM (130-400); Red Cell Distribution Width 15.2 % (9.3-17.3); White Blood Count 9.7 T/CUMM (4-12)
[2018-03-13] MEDS: FUROSEMIDE 20 MG/2 ML VIAL IV SCH ×3 (06:52→23:32)
[2018-03-13] MEDS: DORNASE ALFA 2.5 MG/2.5 ML VIAL RESP TX SCH ×2 (07:13→19:12)
[2018-03-13 07:14] LABS: Calcium 9.1 MG/DL (8.5-10.1); Osmolality,Calculated 283.5 MOS/KG (273-304); Potassium 5.2 MMOL/L (3.5-5.1)
[2018-03-13 07:51] LABS: Band Neutrophils 5 % (0-10); Lymphocytes 2 % (20-55); Platelet Estimate Normal; Segmented Neutrophils 92 % (50-85); Total Cells Counted 100
[2018-03-13] MEDS: DOCUSATE SODIUM 100 MG CAPSULE PO SCH (08:46)
[2018-03-13] MEDS: CHOLECALCIFEROL 1,000 UNIT TABLET PO SCH (08:46)
[2018-03-13] MEDS: CALCIUM (CARBONATE)/VITAMIN D 600 MG-400 UNIT TABLET PO SCH ×2 (08:46→20:14)
[2018-03-13] MEDS: LORATADINE 10 MG TABLET PO SCH (08:46)
[2018-03-13] MEDS: DILTIAZEM CD 120 MG CAPSULE PO SCH (08:47)
[2018-03-13] MEDS: MAGNESIUM OXIDE 400 MG TABLET PO SCH ×2 (08:47→20:14)
[2018-03-13] MEDS: MULTIVITAMIN (CENTRUM) TABLET PO SCH (08:47)
[2018-03-13] MEDS: ROFLUMILAST 500 MCG TABLET PO SCH (08:47)
[2018-03-13] MEDS ORDERED: PANTOPRAZOLE 40 MG TABLET PO SCH (09:00)
[2018-03-13] MEDS: INSULIN LISPRO 100 UNIT/ML SUBCUT SCH ×4 (09:02→21:27)
[2018-03-13] MEDS: BUDESONIDE/FORMOTEROL 160-4.5 INHALER 6 GM INH SCH ×2 (09:03→20:14)
[2018-03-13] MEDS: ASPIRIN EC 81 MG TABLET PO SCH (09:03)
[2018-03-13] MEDS: POTASSIUM CHLORIDE 20 MEQ TABLET PO SCH (09:05)
[2018-03-13] MEDS ORDERED: SODIUM CHLORIDE 0.45% 1,000 ML IV SCH (09:30)
[2018-03-13] MEDS ORDERED: NITROGLYCERIN SL 0.4 MG TABLET SL ONE ×2 (10:09)
[2018-03-13 10:44] LABS: ABG HCO3 36.8 MMOL/L (20-26); ABG Oxygen Saturation 96.6 % (95-100); ABG PCO2 50.7 MM HG (35-48); ABG PH 7.486 (7.35-7.45); ABG PO2 80.1 MM HG (80-95); ABG TCO2 35.1 MMOL/L (23-27); Allen Test Positive
[2018-03-13] MEDS: CLORAZEPATE 3.75 MG TABLET PO SCH ×3 (11:16→20:14)
[2018-03-13] MEDS: TAMSULOSIN 0.4 MG CAPSULE PO SCH (11:16)
[2018-03-13] MEDS: methylPREDNISolone SOD SUC 40 MG/1 ML VIAL IV SCH ×2 (11:16→23:31)
[2018-03-13] MEDS ORDERED: NITROGLYCERIN SL 0.4 MG TABLET SL PRN (12:09)
[2018-03-13] MEDS: LEVOFLOXACIN INJ 500 MG in PREMIX 1 EACH IV SCH (14:05)
[2018-03-13] MEDS: DEXTROSE 5% NACL 0.9% 1,000 ML IV SCH (15:13)
[2018-03-13] MEDS: PANTOPRAZOLE 40 MG VIAL IV SCH (20:12)
[2018-03-14] MEDS: ALBUTEROL/IPRATROPIUM 3 ML NEB RESP TX SCH ×4 (00:56→19:13)
[2018-03-14] MEDS: cefTAZidime 1,000 MG in SYRINGE 1 EACH IV SCH ×3 (04:32→20:22)
[2018-03-14 06:27] LABS: Basophils % 0.1 % (0.0-0.8); Hematocrit 26.9 VOL% (42.0-52.0); Hemoglobin 8.6 GM/DL (14.0-18.0); Immature Granulocytes Absolute 0.09 #; Lymphocytes # 0.4 10*3/uL (1.4-4.0); Mean Corpuscular Hemoglobin 27 PG (27-34); Mean Corpuscular Volume 84.6 FL (87-102); Mean Platelet Volume 11.9 FL (9.6-12.0); Monocytes # 0.3 10*3/uL (0.11-0.8); Monocytes % 2.9 % (1.7-12.7); Platelet Count 197 T/CUMM (130-400); Red Blood Count 3.18 MC/CUMM (3.8-5.5); Red Cell Distribution Width 15.6 % (9.3-17.3); White Blood Count 8.7 T/CUMM (4-12)
[2018-03-14 06:59] LABS: Calcium 9.2 MG/DL (8.5-10.1); Osmolality,Calculated 289.2 MOS/KG (273-304); Potassium 5.1 MMOL/L (3.5-5.1)
[2018-03-14 07:10] LABS: Band Neutrophils 11 % (0-10); Lymphocytes 3 % (20-55); Segmented Neutrophils 84 % (50-85); Total Cells Counted 100
[2018-03-14 07:11] LABS: Platelet Estimate Normal
[2018-03-14] MEDS: DORNASE ALFA 2.5 MG/2.5 ML VIAL RESP TX SCH ×2 (07:18→19:13)
[2018-03-14] MEDS: CHOLECALCIFEROL 1,000 UNIT TABLET PO SCH (09:03)
[2018-03-14] MEDS: MAGNESIUM OXIDE 400 MG TABLET PO SCH ×2 (09:03→20:20)
[2018-03-14] MEDS: CLORAZEPATE 3.75 MG TABLET PO SCH ×3 (09:03→20:20)
[2018-03-14] MEDS: CALCIUM (CARBONATE)/VITAMIN D 600 MG-400 UNIT TABLET PO SCH ×2 (09:04→20:20)
[2018-03-14] MEDS: MULTIVITAMIN (CENTRUM) TABLET PO SCH (09:04)
[2018-03-14] MEDS: ROFLUMILAST 500 MCG TABLET PO SCH (09:04)
[2018-03-14] MEDS: TAMSULOSIN 0.4 MG CAPSULE PO SCH (09:04)
[2018-03-14] MEDS: LORATADINE 10 MG TABLET PO SCH (09:04)
[2018-03-14] MEDS: DILTIAZEM CD 120 MG CAPSULE PO SCH (09:04)
[2018-03-14] MEDS: DOCUSATE SODIUM 100 MG CAPSULE PO SCH (09:04)
[2018-03-14] MEDS: FUROSEMIDE 20 MG/2 ML VIAL IV SCH (09:05)
[2018-03-14] MEDS: INSULIN LISPRO 100 UNIT/ML SUBCUT SCH ×4 (09:05→21:48)
[2018-03-14] MEDS: PANTOPRAZOLE 40 MG VIAL IV SCH ×2 (09:05→20:26)
[2018-03-14] MEDS: BUDESONIDE/FORMOTEROL 160-4.5 INHALER 6 GM INH SCH ×2 (09:13→20:22)
[2018-03-14] MEDS: POTASSIUM CHLORIDE 20 MEQ TABLET PO SCH (09:13)
[2018-03-14] MEDS: methylPREDNISolone SOD SUC 40 MG/1 ML VIAL IV SCH ×2 (10:22→23:42)
[2018-03-14] MEDS: LEVOFLOXACIN INJ 500 MG in PREMIX 1 EACH IV SCH (12:35)
[2018-03-14] MEDS: DEXTROSE 5% NACL 0.9% 1,000 ML IV SCH (13:58)
[2018-03-14] MEDS: FUROSEMIDE 40 MG/4 ML VIAL IV SCH ×2 (15:39→23:38)
[2018-03-15] MEDS: ALBUTEROL/IPRATROPIUM 3 ML NEB RESP TX SCH ×4 (00:12→19:15)
[2018-03-15] MEDS: cefTAZidime 1,000 MG in SYRINGE 1 EACH IV SCH ×3 (04:16→22:06)
[2018-03-15 06:35] LABS: Basophils % 0.1 % (0.0-0.8); Hematocrit 27.6 VOL% (42.0-52.0); Hemoglobin 8.5 GM/DL (14.0-18.0); Immature Granulocytes % 1.1 %; Immature Granulocytes Absolute 0.11 #; Lymphocytes # 0.5 10*3/uL (1.4-4.0); Mean Corpuscular HGB Conc 30.8 GM/DL (32-36); Mean Corpuscular Hemoglobin 27 PG (27-34); Mean Corpuscular Volume 87.3 FL (87-102); Mean Platelet Volume 11.5 FL (9.6-12.0); Monocytes # 0.5 10*3/uL (0.11-0.8); Monocytes % 5.4 % (1.7-12.7); Neutrophils # 8.7 10*3/uL (1.4-7.4); Neutrophils % 88.4 % (38.7-73.9); Platelet Count 221 T/CUMM (130-400); Red Blood Count 3.16 MC/CUMM (3.8-5.5); Red Cell Distribution Width 15.5 % (9.3-17.3); White Blood Count 9.9 T/CUMM (4-12)
[2018-03-15 06:51] LABS: Osmolality,Calculated 289.1 MOS/KG (273-304); Potassium 4.5 MMOL/L (3.5-5.1)
[2018-03-15] MEDS: DORNASE ALFA 2.5 MG/2.5 ML VIAL RESP TX SCH ×2 (07:29→19:15)
[2018-03-15] MEDS: MAGNESIUM OXIDE 400 MG TABLET PO SCH ×2 (09:40→22:04)
[2018-03-15] MEDS: MULTIVITAMIN (CENTRUM) TABLET PO SCH (09:40)
[2018-03-15] MEDS: DILTIAZEM CD 120 MG CAPSULE PO SCH (09:41)
[2018-03-15] MEDS: DOCUSATE SODIUM 100 MG CAPSULE PO SCH (09:41)
[2018-03-15] MEDS: POTASSIUM CHLORIDE 20 MEQ TABLET PO SCH (09:41)
[2018-03-15] MEDS: CHOLECALCIFEROL 1,000 UNIT TABLET PO SCH (09:41)
[2018-03-15] MEDS: ROFLUMILAST 500 MCG TABLET PO SCH (09:41)
[2018-03-15] MEDS: LORATADINE 10 MG TABLET PO SCH (09:41)
[2018-03-15] MEDS: CALCIUM (CARBONATE)/VITAMIN D 600 MG-400 UNIT TABLET PO SCH ×2 (09:43→22:01)
[2018-03-15] MEDS: TAMSULOSIN 0.4 MG CAPSULE PO SCH (09:43)
[2018-03-15] MEDS: CLORAZEPATE 3.75 MG TABLET PO SCH ×3 (09:43→22:01)
[2018-03-15] MEDS: PANTOPRAZOLE 40 MG VIAL IV SCH ×2 (09:44→22:02)
[2018-03-15] MEDS: INSULIN LISPRO 100 UNIT/ML SUBCUT SCH ×4 (09:44→22:33)
[2018-03-15] MEDS: FUROSEMIDE 40 MG/4 ML VIAL IV SCH ×3 (09:45→22:38)
[2018-03-15] MEDS: BUDESONIDE/FORMOTEROL 160-4.5 INHALER 6 GM INH SCH ×2 (09:49→22:26)
[2018-03-15] MEDS ORDERED: THEOPHYLLINE 5.33 MG/ML 30 ML/BOTTLE PO ONE (11:00)
[2018-03-15] MEDS: methylPREDNISolone SOD SUC 40 MG/1 ML VIAL IV SCH ×2 (11:59→22:37)
[2018-03-15] MEDS: LEVOFLOXACIN INJ 500 MG in PREMIX 1 EACH IV SCH (13:40)
[2018-03-15] MEDS: DEXTROSE 5% NACL 0.9% 1,000 ML IV SCH (15:48)
[2018-03-15] MEDS: ALBUTEROL 0.4 MG/ML 30 ML/BOTTLE PO SCH ×2 (22:26→22:59)
[2018-03-16] MEDS: ALBUTEROL/IPRATROPIUM 3 ML NEB RESP TX SCH ×4 (00:40→19:49)
[2018-03-16] MEDS: cefTAZidime 1,000 MG in SYRINGE 1 EACH IV SCH ×3 (04:41→21:30)
[2018-03-16] MEDS: DORNASE ALFA 2.5 MG/2.5 ML VIAL RESP TX SCH ×2 (07:13→19:49)
[2018-03-16] MEDS: INSULIN LISPRO 100 UNIT/ML SUBCUT SCH ×4 (08:00→22:33)
[2018-03-16] MEDS: ALBUTEROL 0.4 MG/ML 30 ML/BOTTLE PO SCH ×3 (08:00→23:21)
[2018-03-16] MEDS ORDERED: KETAMINE 500 MG/10 ML VIAL ONE (08:34)
[2018-03-16] MEDS ORDERED: MIDAZOLAM 2 MG/2 ML VIAL ONE (08:35)
[2018-03-16] MEDS: ALBUTEROL/IPRATROPIUM 3 ML NEB RESP TX PRN (09:43)
[2018-03-16] MEDS ORDERED: FUROSEMIDE 20 MG/2 ML VIAL ONE (09:50)
[2018-03-16] MEDS: FUROSEMIDE 40 MG/4 ML VIAL IV SCH ×4 (09:58→23:25)
[2018-03-16] MEDS: LORATADINE 10 MG TABLET PO SCH (09:59)
[2018-03-16] MEDS: CHOLECALCIFEROL 1,000 UNIT TABLET PO SCH (09:59)
[2018-03-16] MEDS: methylPREDNISolone SOD SUC 40 MG/1 ML VIAL IV SCH ×3 (09:59→23:22)
[2018-03-16] MEDS: CALCIUM (CARBONATE)/VITAMIN D 600 MG-400 UNIT TABLET PO SCH ×2 (10:00→23:30)
[2018-03-16] MEDS: CLORAZEPATE 3.75 MG TABLET PO SCH ×3 (10:00→23:30)
[2018-03-16] MEDS: POTASSIUM CHLORIDE 20 MEQ TABLET PO SCH (10:00)
[2018-03-16] MEDS: DOCUSATE SODIUM 100 MG CAPSULE PO SCH (10:00)
[2018-03-16] MEDS: THEOPHYLLINE 5.33 MG/ML 30 ML/BOTTLE PO SCH ×2 (10:00→23:30)
[2018-03-16] MEDS: ROFLUMILAST 500 MCG TABLET PO SCH (10:00)
[2018-03-16] MEDS: TAMSULOSIN 0.4 MG CAPSULE PO SCH (10:00)
[2018-03-16] MEDS: MULTIVITAMIN (CENTRUM) TABLET PO SCH (10:00)
[2018-03-16] MEDS: DILTIAZEM CD 120 MG CAPSULE PO SCH (10:00)
[2018-03-16] MEDS: ASPIRIN EC 81 MG TABLET PO SCH (10:00)
[2018-03-16] MEDS: MAGNESIUM OXIDE 400 MG TABLET PO SCH ×2 (10:00→23:30)
[2018-03-16] MEDS: BUDESONIDE/FORMOTEROL 160-4.5 INHALER 6 GM INH SCH ×2 (10:01→22:34)
[2018-03-16] MEDS: MONTELUKAST 10 MG TABLET PO SCH ×2 (12:14→23:30)
[2018-03-16] MEDS: LEVOFLOXACIN INJ 500 MG in PREMIX 1 EACH IV SCH (14:03)
[2018-03-16] MEDS: DEXTROSE 5% NACL 0.9% 1,000 ML IV SCH (17:31)
[2018-03-16] MEDS: PANTOPRAZOLE 40 MG TABLET PO SCH (18:29)
[2018-03-16 22:01] LABS: Troponin I Only 0.109 NG/ML (0.00-0.045)
[2018-03-16 22:06] LABS: ABG Base Excess 12.5 MMOL/L (-2.5-2.5); ABG HCO3 37.9 MMOL/L (20-26); ABG Oxygen Saturation 94.2 % (95-100); ABG PCO2 54.5 MM HG (35-48); ABG PO2 78.9 MM HG (80-95); ABG TCO2 39.6 MMOL/L (23-27); Allen Test Positive
[2018-03-16 22:32] LABS: Calcium 8.7 MG/DL (8.5-10.1)
[2018-03-16] MEDS: LORazepam 2 MG/1 ML VIAL IV PRN (22:48)
[2018-03-17] MEDS: ALBUTEROL/IPRATROPIUM 3 ML NEB RESP TX SCH ×4 (00:15→19:49)
[2018-03-17 01:01] LABS: ABG Base Excess 11.4 MMOL/L (-2.5-2.5); ABG Oxygen Saturation 93.4 % (95-100); ABG PCO2 63.3 MM HG (35-48); ABG PH 7.391 (7.35-7.45); ABG TCO2 35.7 MMOL/L (23-27); Allen Test Positive; Pt O2 Delivery Device Venturi Mask
[2018-03-17 01:21] LABS: Apearance,Urine CLEAR (Clear); Bilirubin,Urine Negative (Negative); Blood, Urine Negative (Negative); Glucose,Urine (UA) Negative (Negative); Hyaline Casts,Urine 6 /LPF (0-3); Ketones,Urine Negative (Negative); Mucus,Urine Occasional /LPF (Occasional); Nitrite,Urine Negative (Negative); Protein,Urine Negative; Urine Color Straw (Yellow); Urine Specific Gravity 1.009 (1.001-1.035); Urine Urobilinogen < 2.0 EU/DL (0.2-1.0); WBC,Urine <1 /HPF (0-6)
[2018-03-17 03:55] LABS: Basophils % 0.1 % (0.0-0.8); Hematocrit 26.6 VOL% (42.0-52.0); Hemoglobin 8.3 GM/DL (14.0-18.0); Immature Granulocytes Absolute 0.18 #; Lymphocytes # 0.7 10*3/uL (1.4-4.0); Lymphocytes % 3.6 % (21.2-54.2); Mean Corpuscular HGB Conc 31.2 GM/DL (32-36); Mean Corpuscular Hemoglobin 27 PG (27-34); Mean Corpuscular Volume 86.9 FL (87-102); Mean Platelet Volume 11.1 FL (9.6-12.0); Monocytes # 1.2 10*3/uL (0.11-0.8); Monocytes % 6.3 % (1.7-12.7); Neutrophils # 16.5 10*3/uL (1.4-7.4); Platelet Count 245 T/CUMM (130-400); Red Blood Count 3.06 MC/CUMM (3.8-5.5); Red Cell Distribution Width 15.7 % (9.3-17.3); White Blood Count 18.6 T/CUMM (4-12)
[2018-03-17 04:28] LABS: Calcium 8.8 MG/DL (8.5-10.1); Potassium 4.2 MMOL/L (3.5-5.1)
[2018-03-17 04:42] LABS: Lymphocytes 1 % (20-55); Platelet Estimate Adequate; Segmented Neutrophils 95 % (50-85); Total Cells Counted 100
[2018-03-17 04:43] LABS: Polychromasia Slight
[2018-03-17] MEDS: cefTAZidime 1,000 MG in SYRINGE 1 EACH IV SCH ×3 (06:19→23:39)
[2018-03-17] MEDS: ALBUTEROL 0.4 MG/ML 30 ML/BOTTLE PO SCH ×2 (06:24→16:59)
[2018-03-17] MEDS: DORNASE ALFA 2.5 MG/2.5 ML VIAL RESP TX SCH ×2 (07:24→19:49)
[2018-03-17] MEDS: FUROSEMIDE 40 MG/4 ML VIAL IV SCH ×3 (07:37→23:40)
[2018-03-17] MEDS ORDERED: PROPOFOL 200 MG/20 ML VIAL IV ONE (08:56)
[2018-03-17] MEDS ORDERED: SUCCINYLCHOLINE 200 MG/10 ML VIAL ONE (08:56)
[2018-03-17 09:15] LABS: ABG Base Excess 10.3 MMOL/L (-2.5-2.5); ABG HCO3 34.1 MMOL/L (20-26); ABG Oxygen Saturation 99.9 % (95-100); ABG PH 7.391 (7.35-7.45); ABG TCO2 34.5 MMOL/L (23-27)
[2018-03-17] MEDS: MONTELUKAST 10 MG TABLET PO SCH ×2 (09:17→21:52)
[2018-03-17] MEDS: MULTIVITAMIN (CENTRUM) TABLET PO SCH (09:17)
[2018-03-17] MEDS: CALCIUM (CARBONATE)/VITAMIN D 600 MG-400 UNIT TABLET PO SCH ×2 (09:17→21:52)
[2018-03-17] MEDS: CLORAZEPATE 3.75 MG TABLET PO SCH ×3 (09:17→21:52)
[2018-03-17] MEDS: CHOLECALCIFEROL 1,000 UNIT TABLET PO SCH (09:17)
[2018-03-17] MEDS: MAGNESIUM OXIDE 400 MG TABLET PO SCH ×2 (09:17→21:52)
[2018-03-17] MEDS: TAMSULOSIN 0.4 MG CAPSULE PO SCH (09:17)
[2018-03-17] MEDS: DOCUSATE SODIUM 100 MG CAPSULE PO SCH (09:17)
[2018-03-17] MEDS: ASPIRIN EC 81 MG TABLET PO SCH (09:18)
[2018-03-17] MEDS: LORATADINE 10 MG TABLET PO SCH (09:18)
[2018-03-17] MEDS: INSULIN LISPRO 100 UNIT/ML SUBCUT SCH ×3 (09:18→18:37)
[2018-03-17] MEDS: POTASSIUM CHLORIDE 20 MEQ TABLET PO SCH (09:18)
[2018-03-17] MEDS: PROPOFOL 1,000 MG/100 ML BOTTLE IV SCH (09:19)
[2018-03-17] MEDS: PANTOPRAZOLE 40 MG VIAL IV SCH ×2 (09:19→21:53)
[2018-03-17] MEDS: DEXTROSE 5% NACL 0.9% 1,000 ML IV SCH (09:19)
[2018-03-17] MEDS: PANTOPRAZOLE 40 MG TABLET PO SCH (09:23)
[2018-03-17] MEDS: DILTIAZEM CD 120 MG CAPSULE PO SCH (09:24)
[2018-03-17] MEDS: ROFLUMILAST 500 MCG TABLET PO SCH (09:24)
[2018-03-17] MEDS: BUDESONIDE/FORMOTEROL 160-4.5 INHALER 6 GM INH SCH ×2 (09:24→23:39)
[2018-03-17] MEDS: THEOPHYLLINE 5.33 MG/ML 30 ML/BOTTLE PO SCH ×2 (09:25→21:55)
[2018-03-17] MEDS: DOCUSATE SODIUM 100 MG/10 ML UDCUP PER TUBE SCH (10:26)
[2018-03-17] MEDS: ASPIRIN CHEW 81 MG TABLET PO SCH (10:26)
[2018-03-17] MEDS: POTASSIUM CHLORIDE 20 MEQ/15 ML UDCUP PER TUBE SCH (10:26)
[2018-03-17] MEDS: DILTIAZEM 30 MG TABLET PO SCH ×3 (13:15→21:52)
[2018-03-17] MEDS: PHENYLEPHRINE DRIP 40 MG/250 ML PREMIX IV PRN (13:28)
[2018-03-17] MEDS: methylPREDNISolone SOD SUC 40 MG/1 ML VIAL IV SCH (13:28)
[2018-03-17] MEDS: LEVOFLOXACIN INJ 500 MG in PREMIX 1 EACH IV SCH (13:29)
[2018-03-17] MEDS: MORPHINE 4 MG/1 ML VIAL IV PRN (21:12)
[2018-03-18] MEDS: ALBUTEROL 0.4 MG/ML 30 ML/BOTTLE PO SCH ×4 (00:11→23:49)
[2018-03-18] MEDS: methylPREDNISolone SOD SUC 40 MG/1 ML VIAL IV SCH ×2 (00:14→12:20)
[2018-03-18] MEDS: ALBUTEROL/IPRATROPIUM 3 ML NEB RESP TX SCH ×4 (00:53→19:36)
[2018-03-18 02:53] LABS: ABG Base Excess 13.2 MMOL/L (-2.5-2.5); ABG HCO3 37.7 MMOL/L (20-26); ABG PH 7.504 (7.35-7.45); ABG PO2 225.2 MM HG (80-95); ABG TCO2 39.2 MMOL/L (23-27)
[2018-03-18] MEDS: PHENYLEPHRINE DRIP 40 MG/250 ML PREMIX IV PRN ×2 (03:48→09:25)
[2018-03-18 04:22] LABS: Basophils % 0.1 % (0.0-0.8); Hemoglobin 7.6 GM/DL (14.0-18.0); Immature Granulocytes % 1.9 %; Immature Granulocytes Absolute 0.32 #; Lymphocytes # 0.8 10*3/uL (1.4-4.0); Lymphocytes % 4.4 % (21.2-54.2); Mean Corpuscular HGB Conc 31.7 GM/DL (32-36); Mean Corpuscular Hemoglobin 27 PG (27-34); Mean Corpuscular Volume 84.8 FL (87-102); Mean Platelet Volume 11.5 FL (9.6-12.0); Monocytes # 0.8 10*3/uL (0.11-0.8); Monocytes % 4.5 % (1.7-12.7); NRBC # 0.03 10*3/uL; Neutrophils # 15.2 10*3/uL (1.4-7.4); Neutrophils % 89.1 % (38.7-73.9); Platelet Count 341 T/CUMM (130-400); Red Blood Count 2.83 MC/CUMM (3.8-5.5); Red Cell Distribution Width 16.3 % (9.3-17.3); White Blood Count 17.1 T/CUMM (4-12)
[2018-03-18] MEDS: INSULIN LISPRO 100 UNIT/ML SUBCUT SCH ×4 (04:30→18:29)
[2018-03-18 04:39] LABS: Calcium 8.2 MG/DL (8.5-10.1); Osmolality,Calculated 288.5 MOS/KG (273-304); Potassium 3.9 MMOL/L (3.5-5.1)
[2018-03-18 04:55] LABS: Band Neutrophils 1 % (0-10); Lymphocytes 4 % (20-55); Segmented Neutrophils 91 % (50-85); Total Cells Counted 100
[2018-03-18 04:56] LABS: Hypochromasia 1+; Ovalocytes Slight; Platelet Estimate Adequate
[2018-03-18] MEDS: LORazepam 2 MG/1 ML VIAL IV PRN (05:45)
[2018-03-18] MEDS: cefTAZidime 1,000 MG in SYRINGE 1 EACH IV SCH ×2 (06:11→15:34)
[2018-03-18] MEDS: PROPOFOL 1,000 MG/100 ML BOTTLE IV SCH ×2 (06:14→16:55)
[2018-03-18] MEDS: DORNASE ALFA 2.5 MG/2.5 ML VIAL RESP TX SCH ×2 (07:45→19:36)
[2018-03-18] MEDS: PANTOPRAZOLE 40 MG VIAL IV SCH ×2 (09:25→21:47)
[2018-03-18] MEDS: FUROSEMIDE 40 MG/4 ML VIAL IV SCH ×2 (09:25→15:34)
[2018-03-18] MEDS: ROFLUMILAST 500 MCG TABLET PO SCH (09:29)
[2018-03-18] MEDS: CALCIUM (CARBONATE)/VITAMIN D 600 MG-400 UNIT TABLET PO SCH ×2 (09:29→21:46)
[2018-03-18] MEDS: MULTIVITAMIN (CENTRUM) TABLET PO SCH (09:29)
[2018-03-18] MEDS: MONTELUKAST 10 MG TABLET PO SCH ×2 (09:30→21:45)
[2018-03-18] MEDS: LORATADINE 10 MG TABLET PO SCH (09:30)
[2018-03-18] MEDS: MAGNESIUM OXIDE 400 MG TABLET PO SCH ×2 (09:30→21:45)
[2018-03-18] MEDS: ASPIRIN CHEW 81 MG TABLET PO SCH (09:30)
[2018-03-18] MEDS: DILTIAZEM 30 MG TABLET PO SCH ×4 (09:30→21:45)
[2018-03-18] MEDS: CHOLECALCIFEROL 1,000 UNIT TABLET PO SCH (09:30)
[2018-03-18] MEDS: TAMSULOSIN 0.4 MG CAPSULE PO SCH (09:30)
[2018-03-18] MEDS: CLORAZEPATE 3.75 MG TABLET PO SCH ×3 (09:30→21:45)
[2018-03-18] MEDS: DOCUSATE SODIUM 100 MG/10 ML UDCUP PER TUBE SCH (09:31)
[2018-03-18] MEDS: POTASSIUM CHLORIDE 20 MEQ/15 ML UDCUP PER TUBE SCH (09:31)
[2018-03-18] MEDS: THEOPHYLLINE 5.33 MG/ML 30 ML/BOTTLE PO SCH ×2 (09:31→21:47)
[2018-03-18] MEDS: DEXTROSE 5% NACL 0.9% 1,000 ML IV SCH (10:52)
[2018-03-18] MEDS: BUDESONIDE/FORMOTEROL 160-4.5 INHALER 6 GM INH SCH ×2 (10:52→22:13)
[2018-03-18] MEDS: PHENYLEPHRINE INJ 160 MG in SODIUM CHLORIDE 0.9% 234 ML IV PRN (13:31)
[2018-03-18] MEDS: LEVOFLOXACIN INJ 500 MG in PREMIX 1 EACH IV SCH (13:39)
[2018-03-18] MEDS: ATORVASTATIN 20 MG TABLET PO SCH (21:46)
[2018-03-18] MEDS: MORPHINE 4 MG/1 ML VIAL IV PRN (21:54)
[2018-03-19] MEDS: ALBUTEROL/IPRATROPIUM 3 ML NEB RESP TX SCH ×4 (00:06→19:53)
[2018-03-19] MEDS: cefTAZidime 1,000 MG in SYRINGE 1 EACH IV SCH ×4 (00:29→22:32)
[2018-03-19] MEDS: methylPREDNISolone SOD SUC 40 MG/1 ML VIAL IV SCH ×3 (00:30→22:33)
[2018-03-19] MEDS: FUROSEMIDE 40 MG/4 ML VIAL IV SCH ×4 (00:31→22:33)
[2018-03-19] MEDS: INSULIN LISPRO 100 UNIT/ML SUBCUT SCH ×5 (00:48→23:57)
[2018-03-19 03:33] LABS: ABG Base Excess 12.1 MMOL/L (-2.5-2.5); ABG Oxygen Saturation 99.9 % (95-100); ABG PCO2 50.2 MM HG (35-48); ABG PH 7.482 (7.35-7.45); ABG TCO2 33.5 MMOL/L (23-27)
[2018-03-19] MEDS: PROPOFOL 1,000 MG/100 ML BOTTLE IV SCH ×2 (05:17→15:00)
[2018-03-19 06:11] LABS: Basophils % 0.2 % (0.0-0.8); Hematocrit 24.9 VOL% (42.0-52.0); Immature Granulocytes Absolute 0.56 #; Lymphocytes # 0.7 10*3/uL (1.4-4.0); Lymphocytes % 3.9 % (21.2-54.2); Mean Corpuscular HGB Conc 32.1 GM/DL (32-36); Mean Corpuscular Hemoglobin 27 PG (27-34); Mean Corpuscular Volume 84.1 FL (87-102); Mean Platelet Volume 11.2 FL (9.6-12.0); Monocytes % 5.3 % (1.7-12.7); NRBC # 0.03 10*3/uL; Neutrophils # 16.6 10*3/uL (1.4-7.4); Neutrophils % 87.6 % (38.7-73.9); Platelet Count 360 T/CUMM (130-400); Red Blood Count 2.96 MC/CUMM (3.8-5.5); Red Cell Distribution Width 16.5 % (9.3-17.3)
[2018-03-19] MEDS: ALBUTEROL 0.4 MG/ML 30 ML/BOTTLE PO SCH ×2 (06:21→16:49)
[2018-03-19 06:31] LABS: PT Patient Result 10.3 SECS; Partial Thromboplastin Time 23.2 SECS (0-40)
[2018-03-19 06:44] LABS: Calcium 8.7 MG/DL (8.5-10.1); Osmolality,Calculated 290.7 MOS/KG (273-304); Potassium 3.9 MMOL/L (3.5-5.1)
[2018-03-19 06:47] LABS: Band Neutrophils 2 % (0-10); Hypochromasia 1+; Lymphocytes 3 % (20-55); Microcytosis 1+; Ovalocytes Slight; Segmented Neutrophils 90 % (50-85); Total Cells Counted 100
[2018-03-19 06:51] LABS: Prealbumin 26.1 MG/DL (20-40)
[2018-03-19] MEDS: PHENYLEPHRINE INJ 160 MG in SODIUM CHLORIDE 0.9% 234 ML IV PRN (07:16)
[2018-03-19] MEDS: DORNASE ALFA 2.5 MG/2.5 ML VIAL RESP TX SCH ×2 (07:17→19:53)
[2018-03-19] MEDS: MORPHINE 4 MG/1 ML VIAL IV PRN (08:08)
[2018-03-19] MEDS: ROFLUMILAST 500 MCG TABLET PO SCH (08:48)
[2018-03-19] MEDS: DILTIAZEM 30 MG TABLET PO SCH ×4 (08:48→20:33)
[2018-03-19] MEDS: CLORAZEPATE 3.75 MG TABLET PO SCH ×3 (08:48→20:33)
[2018-03-19] MEDS: ASPIRIN CHEW 81 MG TABLET PO SCH (08:48)
[2018-03-19] MEDS: PANTOPRAZOLE 40 MG VIAL IV SCH ×2 (08:49→20:38)
[2018-03-19] MEDS: THEOPHYLLINE 5.33 MG/ML 30 ML/BOTTLE PO SCH ×2 (08:49→20:34)
[2018-03-19] MEDS: MULTIVITAMIN (CENTRUM) TABLET PO SCH (08:50)
[2018-03-19] MEDS: LORATADINE 10 MG TABLET PO SCH (09:00)
[2018-03-19] MEDS: CALCIUM (CARBONATE)/VITAMIN D 600 MG-400 UNIT TABLET PO SCH ×2 (09:00→20:33)
[2018-03-19] MEDS: MONTELUKAST 10 MG TABLET PO SCH ×2 (09:00→20:33)
[2018-03-19] MEDS: CHOLECALCIFEROL 1,000 UNIT TABLET PO SCH (09:00)
[2018-03-19] MEDS: MAGNESIUM OXIDE 400 MG TABLET PO SCH ×2 (09:00→20:33)
[2018-03-19] MEDS: POTASSIUM CHLORIDE 20 MEQ/15 ML UDCUP PER TUBE SCH (09:00)
[2018-03-19] MEDS: DOCUSATE SODIUM 100 MG/10 ML UDCUP PER TUBE SCH (09:00)
[2018-03-19] MEDS: TAMSULOSIN 0.4 MG CAPSULE PO SCH (09:00)
[2018-03-19] MEDS ORDERED: SODIUM CHLORIDE 0.9% 1,000 ML IV PRN (10:25)
[2018-03-19] MEDS: BUDESONIDE/FORMOTEROL 160-4.5 INHALER 6 GM INH SCH ×2 (10:41→20:26)
[2018-03-19] MEDS: LEVOFLOXACIN INJ 500 MG in PREMIX 1 EACH IV SCH (16:49)
[2018-03-19] MEDS: ATORVASTATIN 20 MG TABLET PO SCH (20:34)
[2018-03-20] MEDS: ALBUTEROL 0.4 MG/ML 30 ML/BOTTLE PO SCH ×4 (00:06→22:17)
[2018-03-20] MEDS: PHENYLEPHRINE INJ 160 MG in SODIUM CHLORIDE 0.9% 234 ML IV PRN ×2 (00:58→19:00)
[2018-03-20] MEDS: ALBUTEROL/IPRATROPIUM 3 ML NEB RESP TX SCH ×4 (02:28→19:43)
[2018-03-20] MEDS: PROPOFOL 1,000 MG/100 ML BOTTLE IV SCH ×2 (03:03→17:54)
[2018-03-20 04:01] LABS: ABG Base Excess 11.5 MMOL/L (-2.5-2.5); ABG HCO3 35.3 MMOL/L (20-26); ABG Oxygen Saturation 99.9 % (95-100); ABG PCO2 44.3 MM HG (35-48); ABG PH 7.515 (7.35-7.45); ABG TCO2 32.5 MMOL/L (23-27); Allen Test Positive; Pt O2 Delivery Device Ventilator
[2018-03-20 05:11] LABS: Basophils % 0.2 % (0.0-0.8); Hematocrit 29.9 VOL% (42.0-52.0); Hemoglobin 9.8 GM/DL (14.0-18.0); Immature Granulocytes % 2.8 %; Lymphocytes # 0.6 10*3/uL (1.4-4.0); Lymphocytes % 3.6 % (21.2-54.2); Mean Corpuscular HGB Conc 32.8 GM/DL (32-36); Mean Corpuscular Hemoglobin 27 PG (27-34); Mean Corpuscular Volume 83.3 FL (87-102); Mean Platelet Volume 11.1 FL (9.6-12.0); Monocytes # 0.7 10*3/uL (0.11-0.8); Monocytes % 3.8 % (1.7-12.7); NRBC # 0.03 10*3/uL; Neutrophils # 15.8 10*3/uL (1.4-7.4); Neutrophils % 89.6 % (38.7-73.9); Platelet Count 352 T/CUMM (130-400); Red Blood Count 3.59 MC/CUMM (3.8-5.5); White Blood Count 17.7 T/CUMM (4-12)
[2018-03-20 05:34] LABS: Hypochromasia 1+; Lymphocytes 4 % (20-55); Microcytosis Slight; Nucleated Red Blood Cells 1 (0-5); Platelet Estimate Adequate; Segmented Neutrophils 94 % (50-85); Total Cells Counted 100
[2018-03-20] MEDS: cefTAZidime 1,000 MG in SYRINGE 1 EACH IV SCH ×3 (06:13→22:05)
[2018-03-20] MEDS: INSULIN LISPRO 100 UNIT/ML SUBCUT SCH ×3 (06:13→17:58)
[2018-03-20] MEDS: FUROSEMIDE 40 MG/4 ML VIAL IV SCH ×2 (08:11→16:19)
[2018-03-20] MEDS: DORNASE ALFA 2.5 MG/2.5 ML VIAL RESP TX SCH ×2 (08:15→19:43)
[2018-03-20] MEDS: PANTOPRAZOLE 40 MG VIAL IV SCH ×2 (08:16→20:17)
[2018-03-20] MEDS: POTASSIUM CHLORIDE 20 MEQ/15 ML UDCUP PER TUBE SCH (08:19)
[2018-03-20] MEDS: DOCUSATE SODIUM 100 MG/10 ML UDCUP PER TUBE SCH (08:20)
[2018-03-20] MEDS: CLORAZEPATE 3.75 MG TABLET PO SCH ×3 (08:20→20:18)
[2018-03-20] MEDS: LORATADINE 10 MG TABLET PO SCH (08:21)
[2018-03-20] MEDS: CALCIUM (CARBONATE)/VITAMIN D 600 MG-400 UNIT TABLET PO SCH ×2 (08:22→20:18)
[2018-03-20] MEDS: DILTIAZEM 30 MG TABLET PO SCH ×2 (08:22→13:50)
[2018-03-20] MEDS: ASPIRIN CHEW 81 MG TABLET PO SCH (08:23)
[2018-03-20] MEDS: CHOLECALCIFEROL 1,000 UNIT TABLET PO SCH (08:23)
[2018-03-20] MEDS: MULTIVITAMIN (CENTRUM) TABLET PO SCH (08:23)
[2018-03-20] MEDS: MAGNESIUM OXIDE 400 MG TABLET PO SCH ×2 (08:24→20:18)
[2018-03-20] MEDS: MONTELUKAST 10 MG TABLET PO SCH ×2 (08:24→20:18)
[2018-03-20] MEDS: ROFLUMILAST 500 MCG TABLET PO SCH (08:24)
[2018-03-20] MEDS: BUDESONIDE/FORMOTEROL 160-4.5 INHALER 6 GM INH SCH ×2 (08:27→20:19)
[2018-03-20] MEDS: TAMSULOSIN 0.4 MG CAPSULE PO SCH (08:28)
[2018-03-20] MEDS: THEOPHYLLINE 5.33 MG/ML 30 ML/BOTTLE PO SCH ×2 (08:31→20:19)
[2018-03-20] MEDS: methylPREDNISolone SOD SUC 40 MG/1 ML VIAL IV SCH (11:34)
[2018-03-20] MEDS: LEVOFLOXACIN INJ 500 MG in PREMIX 1 EACH IV SCH (13:46)
[2018-03-20] MEDS: METOPROLOL TARTRATE 25 MG TABLET PO SCH ×2 (15:13→20:18)
[2018-03-20] MEDS: ATORVASTATIN 20 MG TABLET PO SCH (20:18)
[2018-03-21] MEDS: INSULIN LISPRO 100 UNIT/ML SUBCUT SCH ×4 (00:08→17:59)
[2018-03-21] MEDS: ALBUTEROL/IPRATROPIUM 3 ML NEB RESP TX SCH ×4 (00:54→19:41)
[2018-03-21 04:22] LABS: ABG HCO3 37.9 MMOL/L (20-26); ABG Oxygen Saturation 99.5 % (95-100); ABG PCO2 47.4 MM HG (35-48); ABG PH 7.522 (7.35-7.45); ABG TCO2 34.6 MMOL/L (23-27); Allen Test Positive; Pt O2 Delivery Device Ventilator
[2018-03-21 05:21] LABS: Basophils % 0.1 % (0.0-0.8); Hematocrit 31.2 VOL% (42.0-52.0); Hemoglobin 10.1 GM/DL (14.0-18.0); Immature Granulocytes Absolute 0.34 #; Lymphocytes # 0.6 10*3/uL (1.4-4.0); Lymphocytes % 3.5 % (21.2-54.2); Mean Corpuscular HGB Conc 32.4 GM/DL (32-36); Mean Corpuscular Hemoglobin 27 PG (27-34); Mean Corpuscular Volume 83.4 FL (87-102); Mean Platelet Volume 10.7 FL (9.6-12.0); Monocytes # 0.8 10*3/uL (0.11-0.8); Monocytes % 4.6 % (1.7-12.7); Neutrophils # 15.5 10*3/uL (1.4-7.4); Neutrophils % 89.8 % (38.7-73.9); Platelet Count 313 T/CUMM (130-400); Red Blood Count 3.74 MC/CUMM (3.8-5.5); Red Cell Distribution Width 15.9 % (9.3-17.3); White Blood Count 17.2 T/CUMM (4-12)
[2018-03-21 05:52] LABS: Band Neutrophils 1 % (0-10); Hypochromasia 1+; Lymphocytes 9 % (20-55); Platelet Estimate Adequate; Segmented Neutrophils 86 % (50-85); Total Cells Counted 100
[2018-03-21 05:53] LABS: Microcytosis Slight
[2018-03-21] MEDS: cefTAZidime 1,000 MG in SYRINGE 1 EACH IV SCH ×3 (05:55→21:55)
[2018-03-21] MEDS: ALBUTEROL 0.4 MG/ML 30 ML/BOTTLE PO SCH ×3 (06:02→22:03)
[2018-03-21] MEDS: DORNASE ALFA 2.5 MG/2.5 ML VIAL RESP TX SCH ×2 (06:45→19:41)
[2018-03-21] MEDS: FUROSEMIDE 40 MG/4 ML VIAL IV SCH ×4 (08:36→23:50)
[2018-03-21] MEDS: PANTOPRAZOLE 40 MG VIAL IV SCH ×2 (08:39→21:51)
[2018-03-21] MEDS: POTASSIUM CHLORIDE 20 MEQ/15 ML UDCUP PER TUBE SCH (08:42)
[2018-03-21] MEDS: THEOPHYLLINE 5.33 MG/ML 30 ML/BOTTLE PO SCH ×2 (08:43→21:57)
[2018-03-21] MEDS: MULTIVITAMIN (CENTRUM) TABLET PO SCH (08:44)
[2018-03-21] MEDS: MAGNESIUM OXIDE 400 MG TABLET PO SCH ×2 (08:44→21:51)
[2018-03-21] MEDS: CALCIUM (CARBONATE)/VITAMIN D 600 MG-400 UNIT TABLET PO SCH ×2 (08:44→21:51)
[2018-03-21] MEDS: TAMSULOSIN 0.4 MG CAPSULE PO SCH (08:44)
[2018-03-21] MEDS: METOPROLOL TARTRATE 25 MG TABLET PO SCH ×3 (08:44→21:51)
[2018-03-21] MEDS: ASPIRIN CHEW 81 MG TABLET PO SCH (08:45)
[2018-03-21] MEDS: CHOLECALCIFEROL 1,000 UNIT TABLET PO SCH (08:46)
[2018-03-21] MEDS: MONTELUKAST 10 MG TABLET PO SCH ×2 (08:46→21:51)
[2018-03-21] MEDS: ROFLUMILAST 500 MCG TABLET PO SCH (08:47)
[2018-03-21] MEDS: LORATADINE 10 MG TABLET PO SCH (08:47)
[2018-03-21] MEDS: BUDESONIDE/FORMOTEROL 160-4.5 INHALER 6 GM INH SCH ×2 (09:16→21:50)
[2018-03-21] MEDS: DOCUSATE SODIUM 100 MG/10 ML UDCUP PER TUBE SCH (09:16)
[2018-03-21] MEDS: methylPREDNISolone SOD SUC 40 MG/1 ML VIAL IV SCH ×3 (11:55→22:03)
[2018-03-21] MEDS: PROPOFOL 1,000 MG/100 ML BOTTLE IV SCH (12:00)
[2018-03-21] MEDS: LEVOFLOXACIN INJ 500 MG in PREMIX 1 EACH IV SCH (13:55)
[2018-03-21] MEDS: ATORVASTATIN 20 MG TABLET PO SCH (21:50)
[2018-03-21] MEDS: CLORAZEPATE 3.75 MG TABLET PO SCH (21:52)
[2018-03-22] MEDS: ALBUTEROL/IPRATROPIUM 3 ML NEB RESP TX SCH ×4 (00:30→19:22)
[2018-03-22] MEDS: INSULIN LISPRO 100 UNIT/ML SUBCUT SCH ×4 (02:03→17:34)
[2018-03-22 04:09] LABS: ABG Oxygen Saturation 99.1 % (95-100); ABG PCO2 49.8 MM HG (35-48); ABG PH 7.526 (7.35-7.45); ABG TCO2 37.2 MMOL/L (23-27); Allen Test Positive; Pt O2 Delivery Device Ventilator
[2018-03-22 05:21] LABS: Basophils % 0.1 % (0.0-0.8); Hematocrit 30.3 VOL% (42.0-52.0); Hemoglobin 9.8 GM/DL (14.0-18.0); Immature Granulocytes % 1.8 %; Lymphocytes # 1.1 10*3/uL (1.4-4.0); Lymphocytes % 6.4 % (21.2-54.2); Mean Corpuscular HGB Conc 32.3 GM/DL (32-36); Mean Corpuscular Hemoglobin 27 PG (27-34); Mean Corpuscular Volume 83.2 FL (87-102); Mean Platelet Volume 10.7 FL (9.6-12.0); Neutrophils # 14.1 10*3/uL (1.4-7.4); Neutrophils % 85.7 % (38.7-73.9); Platelet Count 300 T/CUMM (130-400); Red Blood Count 3.64 MC/CUMM (3.8-5.5); Red Cell Distribution Width 15.9 % (9.3-17.3); White Blood Count 16.5 T/CUMM (4-12)
[2018-03-22 05:28] LABS: PT Patient Result 10.3 SECS; Partial Thromboplastin Time 22.5 SECS (0-40)
[2018-03-22] MEDS: PHENYLEPHRINE INJ 160 MG in SODIUM CHLORIDE 0.9% 234 ML IV PRN (05:30)
[2018-03-22 05:37] LABS: Prealbumin 28.8 MG/DL (20-40)
[2018-03-22] MEDS: ALBUTEROL 0.4 MG/ML 30 ML/BOTTLE PO SCH ×3 (06:09→22:35)
[2018-03-22] MEDS: cefTAZidime 1,000 MG in SYRINGE 1 EACH IV SCH ×3 (06:20→21:00)
[2018-03-22] MEDS: DORNASE ALFA 2.5 MG/2.5 ML VIAL RESP TX SCH ×2 (07:02→19:27)
[2018-03-22] MEDS: PROPOFOL 1,000 MG/100 ML BOTTLE IV SCH ×2 (07:28→10:17)
[2018-03-22] MEDS: FUROSEMIDE 40 MG/4 ML VIAL IV SCH ×2 (07:35→16:28)
[2018-03-22 08:31] LABS: Calcium 9.1 MG/DL (8.5-10.1); Osmolality,Calculated 289.7 MOS/KG (273-304); Potassium 3.9 MMOL/L (3.5-5.1)
[2018-03-22] MEDS: POTASSIUM CHLORIDE 20 MEQ/15 ML UDCUP PER TUBE SCH (10:09)
[2018-03-22] MEDS: DOCUSATE SODIUM 100 MG/10 ML UDCUP PER TUBE SCH (10:09)
[2018-03-22] MEDS: THEOPHYLLINE 5.33 MG/ML 30 ML/BOTTLE PO SCH ×2 (10:10→20:18)
[2018-03-22] MEDS: MONTELUKAST 10 MG TABLET PO SCH ×2 (10:11→20:17)
[2018-03-22] MEDS: ASPIRIN CHEW 81 MG TABLET PO SCH (10:12)
[2018-03-22] MEDS: CLORAZEPATE 3.75 MG TABLET PO SCH ×3 (10:12→20:17)
[2018-03-22] MEDS: MULTIVITAMIN (CENTRUM) TABLET PO SCH (10:13)
[2018-03-22] MEDS: LORATADINE 10 MG TABLET PO SCH (10:14)
[2018-03-22] MEDS: CHOLECALCIFEROL 1,000 UNIT TABLET PO SCH (10:15)
[2018-03-22] MEDS: CALCIUM (CARBONATE)/VITAMIN D 600 MG-400 UNIT TABLET PO SCH ×2 (10:15→20:16)
[2018-03-22] MEDS: ROFLUMILAST 500 MCG TABLET PO SCH (10:15)
[2018-03-22] MEDS: MAGNESIUM OXIDE 400 MG TABLET PO SCH ×2 (10:16→20:16)
[2018-03-22] MEDS: BUDESONIDE/FORMOTEROL 160-4.5 INHALER 6 GM INH SCH ×2 (10:17→20:18)
[2018-03-22] MEDS: TAMSULOSIN 0.4 MG CAPSULE PO SCH (10:17)
[2018-03-22] MEDS: PANTOPRAZOLE 40 MG VIAL IV SCH ×2 (10:28→20:17)
[2018-03-22] MEDS: methylPREDNISolone SOD SUC 40 MG/1 ML VIAL IV SCH (12:19)
[2018-03-22] MEDS: LEVOFLOXACIN INJ 500 MG in PREMIX 1 EACH IV SCH (14:26)
[2018-03-22] MEDS: ATORVASTATIN 20 MG TABLET PO SCH (20:18)
[2018-03-23] MEDS: methylPREDNISolone SOD SUC 40 MG/1 ML VIAL IV SCH ×3 (00:15→22:31)
[2018-03-23] MEDS: ALBUTEROL/IPRATROPIUM 3 ML NEB RESP TX SCH ×4 (00:15→20:25)
[2018-03-23] MEDS: FUROSEMIDE 40 MG/4 ML VIAL IV SCH ×4 (00:28→22:31)
[2018-03-23] MEDS: INSULIN LISPRO 100 UNIT/ML SUBCUT SCH ×4 (00:28→18:57)
[2018-03-23] MEDS: LORazepam 2 MG/1 ML VIAL IV PRN ×2 (00:53→22:31)
[2018-03-23 03:20] LABS: ABG Base Excess 15.4 MMOL/L (-2.5-2.5); ABG HCO3 39.4 MMOL/L (20-26); ABG Oxygen Saturation 98.1 % (95-100); ABG PCO2 55.5 MM HG (35-48); ABG PH 7.483 (7.35-7.45); ABG TCO2 37.4 MMOL/L (23-27); Allen Test Positive; Pt O2 Delivery Device Ventilator
[2018-03-23 03:53] LABS: Basophils % 0.1 % (0.0-0.8); Eosinophils % 0.1 % (0.00-10.9); Hemoglobin 10.2 GM/DL (14.0-18.0); Immature Granulocytes % 1.4 %; Immature Granulocytes Absolute 0.24 #; Lymphocytes # 0.6 10*3/uL (1.4-4.0); Lymphocytes % 3.4 % (21.2-54.2); Mean Corpuscular HGB Conc 31.9 GM/DL (32-36); Mean Corpuscular Hemoglobin 27 PG (27-34); Mean Corpuscular Volume 84.2 FL (87-102); Mean Platelet Volume 10.7 FL (9.6-12.0); Monocytes # 0.7 10*3/uL (0.11-0.8); Monocytes % 4.2 % (1.7-12.7); Neutrophils # 15.9 10*3/uL (1.4-7.4); Neutrophils % 90.8 % (38.7-73.9); Platelet Count 278 T/CUMM (130-400); Red Cell Distribution Width 15.8 % (9.3-17.3); White Blood Count 17.5 T/CUMM (4-12)
[2018-03-23 04:12] LABS: Calcium 9.2 MG/DL (8.5-10.1); Osmolality,Calculated 296.5 MOS/KG (273-304); Potassium 3.9 MMOL/L (3.5-5.1)
[2018-03-23 05:06] LABS: Band Neutrophils 2 % (0-10); Lymphocytes 3 % (20-55); Segmented Neutrophils 95 % (50-85); Total Cells Counted 100
[2018-03-23 05:08] LABS: Anisocytosis 1+; Hypochromasia 1+; Ovalocytes 1+; Platelet Estimate Normal
[2018-03-23] MEDS: cefTAZidime 1,000 MG in SYRINGE 1 EACH IV SCH ×3 (06:15→22:25)
[2018-03-23] MEDS: ALBUTEROL 0.4 MG/ML 30 ML/BOTTLE PO SCH ×3 (06:18→22:31)
[2018-03-23] MEDS: DORNASE ALFA 2.5 MG/2.5 ML VIAL RESP TX SCH ×2 (07:40→20:25)
[2018-03-23] MEDS: MORPHINE 4 MG/1 ML VIAL IV PRN ×2 (08:00→13:55)
[2018-03-23] MEDS: THEOPHYLLINE 5.33 MG/ML 30 ML/BOTTLE PO SCH ×2 (09:46→20:56)
[2018-03-23] MEDS: DOCUSATE SODIUM 100 MG/10 ML UDCUP PER TUBE SCH (09:47)
[2018-03-23] MEDS: MONTELUKAST 10 MG TABLET PO SCH ×2 (09:48→20:56)
[2018-03-23] MEDS: CLORAZEPATE 3.75 MG TABLET PO SCH ×3 (09:48→20:56)
[2018-03-23] MEDS: POTASSIUM CHLORIDE 20 MEQ/15 ML UDCUP PER TUBE SCH (09:48)
[2018-03-23] MEDS: CHOLECALCIFEROL 1,000 UNIT TABLET PO SCH (09:48)
[2018-03-23] MEDS: CALCIUM (CARBONATE)/VITAMIN D 600 MG-400 UNIT TABLET PO SCH ×2 (09:48→20:56)
[2018-03-23] MEDS: MULTIVITAMIN (CENTRUM) TABLET PO SCH (09:48)
[2018-03-23] MEDS: LORATADINE 10 MG TABLET PO SCH (09:49)
[2018-03-23] MEDS: PANTOPRAZOLE 40 MG VIAL IV SCH ×2 (09:49→20:56)
[2018-03-23] MEDS: MAGNESIUM OXIDE 400 MG TABLET PO SCH ×2 (09:49→20:56)
[2018-03-23] MEDS: ASPIRIN CHEW 81 MG TABLET PO SCH (09:49)
[2018-03-23] MEDS: ROFLUMILAST 500 MCG TABLET PO SCH (09:49)
[2018-03-23] MEDS: BUDESONIDE/FORMOTEROL 160-4.5 INHALER 6 GM INH SCH ×2 (09:50→20:56)
[2018-03-23] MEDS: LEVOFLOXACIN INJ 500 MG in PREMIX 1 EACH IV SCH (12:08)
[2018-03-23] MEDS: PROPOFOL 1,000 MG/100 ML BOTTLE IV SCH (14:45)
[2018-03-23] MEDS: ATORVASTATIN 20 MG TABLET PO SCH (20:56)
[2018-03-24] MEDS: INSULIN LISPRO 100 UNIT/ML SUBCUT SCH ×4 (00:12→18:15)
[2018-03-24 03:36] LABS: ABG Base Excess 12.4 MMOL/L (-2.5-2.5); ABG HCO3 36.3 MMOL/L (20-26); ABG Oxygen Saturation 99.2 % (95-100); ABG PCO2 56.6 MM HG (35-48); ABG PH 7.449 (7.35-7.45); ABG TCO2 33.9 MMOL/L (23-27); Allen Test Positive; Pt O2 Delivery Device Ventilator
[2018-03-24] MEDS: cefTAZidime 1,000 MG in SYRINGE 1 EACH IV SCH ×3 (05:30→21:54)
[2018-03-24 05:45] LABS: Basophils % 0.1 % (0.0-0.8); Eosinophils % 0.1 % (0.00-10.9); Hematocrit 31.5 VOL% (42.0-52.0); Hemoglobin 10.2 GM/DL (14.0-18.0); Immature Granulocytes % 1.1 %; Immature Granulocytes Absolute 0.15 #; Lymphocytes # 0.9 10*3/uL (1.4-4.0); Lymphocytes % 6.1 % (21.2-54.2); Mean Corpuscular HGB Conc 32.4 GM/DL (32-36); Mean Corpuscular Hemoglobin 27 PG (27-34); Mean Corpuscular Volume 83.8 FL (87-102); Mean Platelet Volume 11.2 FL (9.6-12.0); Monocytes # 0.6 10*3/uL (0.11-0.8); Monocytes % 4.2 % (1.7-12.7); Neutrophils # 12.3 10*3/uL (1.4-7.4); Neutrophils % 88.4 % (38.7-73.9); Platelet Count 256 T/CUMM (130-400); Red Blood Count 3.76 MC/CUMM (3.8-5.5); Red Cell Distribution Width 15.6 % (9.3-17.3); White Blood Count 13.9 T/CUMM (4-12)
[2018-03-24 05:49] LABS: PT Patient Result 10.2 SECS; Partial Thromboplastin Time < 21.0 SECS (0-40)
[2018-03-24] MEDS: ALBUTEROL 0.4 MG/ML 30 ML/BOTTLE PO SCH ×2 (06:11→15:37)
[2018-03-24 06:14] LABS: Calcium 9.1 MG/DL (8.5-10.1); Osmolality,Calculated 302.3 MOS/KG (273-304); Potassium 3.8 MMOL/L (3.5-5.1)
[2018-03-24] MEDS: ALBUTEROL/IPRATROPIUM 3 ML NEB RESP TX SCH ×4 (07:30→19:24)
[2018-03-24] MEDS: DORNASE ALFA 2.5 MG/2.5 ML VIAL RESP TX SCH ×2 (07:40→19:24)
[2018-03-24] MEDS ORDERED: FUROSEMIDE 20 MG/2 ML VIAL ONE (09:08)
[2018-03-24] MEDS: POTASSIUM CHLORIDE 20 MEQ/15 ML UDCUP PER TUBE SCH (09:41)
[2018-03-24] MEDS: CLORAZEPATE 3.75 MG TABLET PO SCH ×3 (09:41→21:54)
[2018-03-24] MEDS: MONTELUKAST 10 MG TABLET PO SCH ×2 (09:41→21:54)
[2018-03-24] MEDS: CALCIUM (CARBONATE)/VITAMIN D 600 MG-400 UNIT TABLET PO SCH ×2 (09:41→21:53)
[2018-03-24] MEDS: MULTIVITAMIN (CENTRUM) TABLET PO SCH (09:42)
[2018-03-24] MEDS: PANTOPRAZOLE 40 MG VIAL IV SCH ×2 (09:42→21:54)
[2018-03-24] MEDS: ROFLUMILAST 500 MCG TABLET PO SCH (09:42)
[2018-03-24] MEDS: ASPIRIN CHEW 81 MG TABLET PO SCH (09:42)
[2018-03-24] MEDS: MAGNESIUM OXIDE 400 MG TABLET PO SCH ×2 (09:42→21:54)
[2018-03-24] MEDS: DOCUSATE SODIUM 100 MG/10 ML UDCUP PER TUBE SCH (09:43)
[2018-03-24] MEDS: LORATADINE 10 MG TABLET PO SCH (09:43)
[2018-03-24] MEDS: CHOLECALCIFEROL 1,000 UNIT TABLET PO SCH (09:43)
[2018-03-24] MEDS: FUROSEMIDE 40 MG/4 ML VIAL IV SCH ×2 (09:44→15:38)
[2018-03-24] MEDS: PROPOFOL 1,000 MG/100 ML BOTTLE IV SCH ×2 (09:45→15:02)
[2018-03-24] MEDS: BUDESONIDE/FORMOTEROL 160-4.5 INHALER 6 GM INH SCH ×2 (09:57→21:54)
[2018-03-24] MEDS: THEOPHYLLINE 5.33 MG/ML 30 ML/BOTTLE PO SCH ×2 (09:58→21:53)
[2018-03-24 11:09] LABS: ABG Base Excess 13.3 MMOL/L (-2.5-2.5); ABG HCO3 37.1 MMOL/L (20-26); ABG Oxygen Saturation 98.9 % (95-100); ABG PCO2 63.1 MM HG (35-48); ABG PH 7.417 (7.35-7.45); ABG TCO2 36.5 MMOL/L (23-27)
[2018-03-24] MEDS: methylPREDNISolone SOD SUC 40 MG/1 ML VIAL IV SCH (12:16)
[2018-03-24] MEDS: LEVOFLOXACIN INJ 500 MG in PREMIX 1 EACH IV SCH (12:17)
[2018-03-24 13:06] LABS: ABG Base Excess 12.1 MMOL/L (-2.5-2.5); ABG HCO3 35.9 MMOL/L (20-26); ABG Oxygen Saturation 96.5 % (95-100); ABG PCO2 61.7 MM HG (35-48); ABG PH 7.412 (7.35-7.45); ABG PO2 85.3 MM HG (80-95); ABG TCO2 35.4 MMOL/L (23-27)
[2018-03-24] MEDS: LORazepam 2 MG/1 ML VIAL IV PRN (15:49)
[2018-03-24] MEDS: ATORVASTATIN 20 MG TABLET PO SCH (21:53)
[2018-03-25] MEDS: methylPREDNISolone SOD SUC 40 MG/1 ML VIAL IV SCH ×3 (00:06→23:43)
[2018-03-25] MEDS: ALBUTEROL 0.4 MG/ML 30 ML/BOTTLE PO SCH ×4 (00:06→23:43)
[2018-03-25] MEDS: FUROSEMIDE 40 MG/4 ML VIAL IV SCH ×4 (01:15→23:43)
[2018-03-25] MEDS: INSULIN LISPRO 100 UNIT/ML SUBCUT SCH ×4 (01:16→18:25)
[2018-03-25] MEDS: ALBUTEROL/IPRATROPIUM 3 ML NEB RESP TX SCH ×4 (01:21→19:27)
[2018-03-25 03:51] LABS: ABG Base Excess 11.1 MMOL/L (-2.5-2.5); ABG HCO3 34.9 MMOL/L (20-26); ABG Oxygen Saturation 98.9 % (95-100); ABG PCO2 65.3 MM HG (35-48); ABG PH 7.382 (7.35-7.45); Allen Test Positive
[2018-03-25 06:08] LABS: Calcium 8.7 MG/DL (8.5-10.1); Osmolality,Calculated 301.1 MOS/KG (273-304); Potassium 3.7 MMOL/L (3.5-5.1)
[2018-03-25] MEDS: cefTAZidime 1,000 MG in SYRINGE 1 EACH IV SCH (06:29)
[2018-03-25] MEDS: DORNASE ALFA 2.5 MG/2.5 ML VIAL RESP TX SCH ×2 (07:49→19:27)
[2018-03-25] MEDS: PANTOPRAZOLE 40 MG VIAL IV SCH ×2 (10:00→20:30)
[2018-03-25] MEDS: BUDESONIDE/FORMOTEROL 160-4.5 INHALER 6 GM INH SCH ×2 (10:00→20:43)
[2018-03-25] MEDS: CHOLECALCIFEROL 1,000 UNIT TABLET PO SCH (12:57)
[2018-03-25] MEDS: MULTIVITAMIN (CENTRUM) TABLET PO SCH (12:57)
[2018-03-25] MEDS: CALCIUM (CARBONATE)/VITAMIN D 600 MG-400 UNIT TABLET PO SCH ×2 (12:57→20:30)
[2018-03-25] MEDS: ROFLUMILAST 500 MCG TABLET PO SCH (12:57)
[2018-03-25] MEDS: CLORAZEPATE 3.75 MG TABLET PO SCH ×3 (12:57→20:30)
[2018-03-25] MEDS: MONTELUKAST 10 MG TABLET PO SCH ×2 (12:57→20:30)
[2018-03-25] MEDS: CARVEDILOL 3.125 MG TABLET PO SCH ×2 (12:57→20:30)
[2018-03-25] MEDS: POTASSIUM CHLORIDE 20 MEQ/15 ML UDCUP PER TUBE SCH (12:58)
[2018-03-25] MEDS: MAGNESIUM OXIDE 400 MG TABLET PO SCH ×2 (12:58→20:44)
[2018-03-25] MEDS: LORATADINE 10 MG TABLET PO SCH (12:58)
[2018-03-25] MEDS: DOCUSATE SODIUM 100 MG/10 ML UDCUP PER TUBE SCH (12:58)
[2018-03-25] MEDS: ASPIRIN CHEW 81 MG TABLET PO SCH (12:58)
[2018-03-25] MEDS: THEOPHYLLINE 5.33 MG/ML 30 ML/BOTTLE PO SCH ×2 (13:00→20:43)
[2018-03-25 13:45] LABS: ABG Base Excess 12.5 MMOL/L (-2.5-2.5); ABG HCO3 38.9 MMOL/L (20-26); ABG Oxygen Saturation 89.3 % (95-100); ABG PCO2 59.7 MM HG (35-48); ABG PH 7.432 (7.35-7.45); ABG TCO2 40.7 MMOL/L (23-27)
[2018-03-25] MEDS: ATORVASTATIN 20 MG TABLET PO SCH (20:30)
[2018-03-25] MEDS: LORazepam 2 MG/1 ML VIAL IV PRN (23:43)
[2018-03-26] MEDS: ALBUTEROL/IPRATROPIUM 3 ML NEB RESP TX SCH ×4 (00:19→19:12)
[2018-03-26] MEDS: INSULIN LISPRO 100 UNIT/ML SUBCUT SCH ×4 (01:34→18:24)
[2018-03-26 04:28] LABS: Basophils % 0.1 % (0.0-0.8); Eosinophils % 0.2 % (0.00-10.9); Hematocrit 36.8 VOL% (42.0-52.0); Hemoglobin 11.3 GM/DL (14.0-18.0); Immature Granulocytes % 0.7 %; Immature Granulocytes Absolute 0.14 #; Lymphocytes % 4.8 % (21.2-54.2); Mean Corpuscular HGB Conc 30.7 GM/DL (32-36); Mean Corpuscular Hemoglobin 26 PG (27-34); Mean Corpuscular Volume 84.2 FL (87-102); Mean Platelet Volume 11.8 FL (9.6-12.0); Monocytes # 0.6 10*3/uL (0.11-0.8); Monocytes % 2.9 % (1.7-12.7); NRBC # 0.02 10*3/uL; Neutrophils # 18.8 10*3/uL (1.4-7.4); Neutrophils % 91.3 % (38.7-73.9); Platelet Count 246 T/CUMM (130-400); Red Blood Count 4.37 MC/CUMM (3.8-5.5); Red Cell Distribution Width 15.8 % (9.3-17.3); White Blood Count 20.6 T/CUMM (4-12)
[2018-03-26 04:38] LABS: Calcium 9.7 MG/DL (8.5-10.1); Osmolality,Calculated 301.1 MOS/KG (273-304); Potassium 3.3 MMOL/L (3.5-5.1)
[2018-03-26 04:40] LABS: PT Patient Result 10.1 SECS; Partial Thromboplastin Time < 21.0 SECS (0-40)
[2018-03-26 04:44] LABS: ABG Base Excess 11.2 MMOL/L (-2.5-2.5); ABG PCO2 58.4 MM HG (35-48); ABG PH 7.422 (7.35-7.45); ABG PO2 81.4 MM HG (80-95); Allen Test Positive
[2018-03-26 05:10] LABS: Band Neutrophils 1 % (0-10); Hypochromasia 1+; Lymphocytes 4 % (20-55); Ovalocytes Slight; Platelet Estimate Adequate; Segmented Neutrophils 95 % (50-85); Total Cells Counted 100
[2018-03-26] MEDS: ALBUTEROL 0.4 MG/ML 30 ML/BOTTLE PO SCH ×2 (07:04→17:17)
[2018-03-26] MEDS: DORNASE ALFA 2.5 MG/2.5 ML VIAL RESP TX SCH ×2 (08:20→19:12)
[2018-03-26] MEDS ORDERED: LIDOCAINE 1% 20 ML VIAL MISC INJ ONE (08:30)
[2018-03-26] MEDS ORDERED: LIDOCAINE 2% VISCOUS 100 ML BOTTLE SWISH/SPIT ONE (08:30)
[2018-03-26] MEDS ORDERED: LIDOCAINE 2% 20 ML VIAL RESP TX ONE (08:30)
[2018-03-26] MEDS: FUROSEMIDE 40 MG/4 ML VIAL IV SCH ×2 (09:41→17:18)
[2018-03-26] MEDS: POTASSIUM CHLORIDE 20 MEQ/15 ML UDCUP PER TUBE SCH (09:42)
[2018-03-26] MEDS: PANTOPRAZOLE 40 MG VIAL IV SCH ×2 (09:42→21:38)
[2018-03-26] MEDS: ROFLUMILAST 500 MCG TABLET PO SCH (09:42)
[2018-03-26] MEDS: ASPIRIN CHEW 81 MG TABLET PO SCH (09:43)
[2018-03-26] MEDS: MONTELUKAST 10 MG TABLET PO SCH ×2 (09:43→21:37)
[2018-03-26] MEDS: SPIRONOLACTONE 25 MG TABLET PO SCH ×2 (09:44→21:37)
[2018-03-26] MEDS: CHOLECALCIFEROL 1,000 UNIT TABLET PO SCH (09:44)
[2018-03-26] MEDS: CALCIUM (CARBONATE)/VITAMIN D 600 MG-400 UNIT TABLET PO SCH ×2 (09:44→21:37)
[2018-03-26] MEDS: MULTIVITAMIN (CENTRUM) TABLET PO SCH (09:44)
[2018-03-26] MEDS: DOCUSATE SODIUM 100 MG/10 ML UDCUP PER TUBE SCH (09:45)
[2018-03-26] MEDS: CLORAZEPATE 3.75 MG TABLET PO SCH ×3 (09:45→21:37)
[2018-03-26] MEDS: CARVEDILOL 3.125 MG TABLET PO SCH ×2 (09:45→21:37)
[2018-03-26] MEDS: LORATADINE 10 MG TABLET PO SCH (09:45)
[2018-03-26] MEDS: THEOPHYLLINE 5.33 MG/ML 30 ML/BOTTLE PO SCH (09:47)
[2018-03-26] MEDS: MAGNESIUM OXIDE 400 MG TABLET PO SCH ×2 (09:48→21:38)
[2018-03-26] MEDS: methylPREDNISolone SOD SUC 40 MG/1 ML VIAL IV SCH (12:13)
[2018-03-26] MEDS: BUDESONIDE/FORMOTEROL 160-4.5 INHALER 6 GM INH SCH ×2 (16:37→22:51)
[2018-03-26] MEDS: ATORVASTATIN 20 MG TABLET PO SCH (21:37)
[2018-03-26] MEDS: POTASSIUM CHLORIDE 20 MEQ/15 ML UDCUP PER TUBE PRN (21:38)
[2018-03-27] MEDS: LORazepam 2 MG/1 ML VIAL IV PRN (00:40)
[2018-03-27] MEDS: methylPREDNISolone SOD SUC 40 MG/1 ML VIAL IV SCH ×3 (00:43→23:50)
[2018-03-27] MEDS: FUROSEMIDE 40 MG/4 ML VIAL IV SCH ×3 (00:46→16:04)
[2018-03-27] MEDS: INSULIN LISPRO 100 UNIT/ML SUBCUT SCH ×5 (00:52→23:59)
[2018-03-27] MEDS: THEOPHYLLINE 5.33 MG/ML 30 ML/BOTTLE PO SCH ×3 (01:08→20:06)
[2018-03-27] MEDS: ALBUTEROL 0.4 MG/ML 30 ML/BOTTLE PO SCH ×3 (01:08→16:02)
[2018-03-27] MEDS: POTASSIUM CHLORIDE 20 MEQ/15 ML UDCUP PER TUBE PRN ×2 (01:15→06:12)
[2018-03-27] MEDS: ALBUTEROL/IPRATROPIUM 3 ML NEB RESP TX SCH ×4 (01:45→19:19)
[2018-03-27 03:38] LABS: Basophils % 0.1 % (0.0-0.8); Eosinophils % 0.1 % (0.00-10.9); Hematocrit 37.9 VOL% (42.0-52.0); Hemoglobin 11.6 GM/DL (14.0-18.0); Immature Granulocytes % 0.7 %; Immature Granulocytes Absolute 0.14 #; Lymphocytes # 1.1 10*3/uL (1.4-4.0); Lymphocytes % 5.6 % (21.2-54.2); Mean Corpuscular HGB Conc 30.6 GM/DL (32-36); Mean Corpuscular Hemoglobin 26 PG (27-34); Mean Corpuscular Volume 85.2 FL (87-102); Mean Platelet Volume 11.3 FL (9.6-12.0); Monocytes # 0.9 10*3/uL (0.11-0.8); Monocytes % 4.5 % (1.7-12.7); Neutrophils # 16.8 10*3/uL (1.4-7.4); Platelet Count 317 T/CUMM (130-400); Red Blood Count 4.45 MC/CUMM (3.8-5.5); Red Cell Distribution Width 15.6 % (9.3-17.3); White Blood Count 18.9 T/CUMM (4-12)
[2018-03-27 03:53] LABS: ABG Base Excess 9.2 MMOL/L (-2.5-2.5); ABG HCO3 32.9 MMOL/L (20-26); ABG PCO2 58.6 MM HG (35-48); ABG PH 7.398 (7.35-7.45); ABG PO2 79.2 MM HG (80-95); ABG TCO2 32.4 MMOL/L (23-27)
[2018-03-27 04:26] LABS: Calcium 9.9 MG/DL (8.5-10.1); Osmolality,Calculated 308.8 MOS/KG (273-304); Potassium 3.5 MMOL/L (3.5-5.1)
[2018-03-27] MEDS: DORNASE ALFA 2.5 MG/2.5 ML VIAL RESP TX SCH ×2 (06:58→19:19)
[2018-03-27] MEDS: PANTOPRAZOLE 40 MG VIAL IV SCH ×2 (09:15→20:03)
[2018-03-27] MEDS: POTASSIUM CHLORIDE 20 MEQ/15 ML UDCUP PER TUBE SCH (09:15)
[2018-03-27] MEDS: CALCIUM (CARBONATE)/VITAMIN D 600 MG-400 UNIT TABLET PO SCH ×2 (09:16→20:03)
[2018-03-27] MEDS: MONTELUKAST 10 MG TABLET PO SCH ×2 (09:16→20:03)
[2018-03-27] MEDS: CLORAZEPATE 3.75 MG TABLET PO SCH ×3 (09:16→20:03)
[2018-03-27] MEDS: ASPIRIN CHEW 81 MG TABLET PO SCH (09:16)
[2018-03-27] MEDS: CHOLECALCIFEROL 1,000 UNIT TABLET PO SCH (09:16)
[2018-03-27] MEDS: SPIRONOLACTONE 25 MG TABLET PO SCH ×2 (09:17→20:03)
[2018-03-27] MEDS: CARVEDILOL 3.125 MG TABLET PO SCH ×2 (09:17→20:03)
[2018-03-27] MEDS: ROFLUMILAST 500 MCG TABLET PO SCH (09:17)
[2018-03-27] MEDS: LORATADINE 10 MG TABLET PO SCH (09:18)
[2018-03-27] MEDS: MULTIVITAMIN (CENTRUM) TABLET PO SCH (09:18)
[2018-03-27] MEDS: DOCUSATE SODIUM 100 MG/10 ML UDCUP PER TUBE SCH (09:18)
[2018-03-27] MEDS: BUDESONIDE/FORMOTEROL 160-4.5 INHALER 6 GM INH SCH ×2 (09:20→23:58)
[2018-03-27] MEDS: MAGNESIUM OXIDE 400 MG TABLET PO SCH ×2 (09:20→20:03)
[2018-03-27] MEDS: ATORVASTATIN 20 MG TABLET PO SCH (20:03)
[2018-03-28] MEDS: ALBUTEROL 0.4 MG/ML 30 ML/BOTTLE PO SCH ×3 (00:02→15:03)
[2018-03-28] MEDS: ALBUTEROL/IPRATROPIUM 3 ML NEB RESP TX SCH ×4 (00:28→19:55)
[2018-03-28 02:41] LABS: ABG Base Excess 9.4 MMOL/L (-2.5-2.5); ABG HCO3 33.1 MMOL/L (20-26); ABG Oxygen Saturation 95.3 % (95-100); ABG PCO2 56.1 MM HG (35-48); ABG PH 7.414 (7.35-7.45); ABG PO2 77.6 MM HG (80-95); ABG TCO2 32.2 MMOL/L (23-27); Allen Test Positive
[2018-03-28 04:10] LABS: Basophils % 0.1 % (0.0-0.8); Hematocrit 35.8 VOL% (42.0-52.0); Hemoglobin 11.1 GM/DL (14.0-18.0); Immature Granulocytes % 0.5 %; Immature Granulocytes Absolute 0.06 #; Lymphocytes # 0.8 10*3/uL (1.4-4.0); Lymphocytes % 6.1 % (21.2-54.2); Mean Corpuscular Hemoglobin 26 PG (27-34); Mean Corpuscular Volume 84.4 FL (87-102); Mean Platelet Volume 11.7 FL (9.6-12.0); Monocytes # 0.6 10*3/uL (0.11-0.8); Monocytes % 4.3 % (1.7-12.7); Neutrophils # 11.4 10*3/uL (1.4-7.4); Platelet Count 307 T/CUMM (130-400); Red Blood Count 4.24 MC/CUMM (3.8-5.5); Red Cell Distribution Width 15.7 % (9.3-17.3); White Blood Count 12.8 T/CUMM (4-12)
[2018-03-28 04:33] LABS: Calcium 9.8 MG/DL (8.5-10.1); Osmolality,Calculated 317.7 MOS/KG (273-304); Potassium 3.9 MMOL/L (3.5-5.1)
[2018-03-28] MEDS: INSULIN LISPRO 100 UNIT/ML SUBCUT SCH ×3 (06:15→17:46)
[2018-03-28] MEDS: DORNASE ALFA 2.5 MG/2.5 ML VIAL RESP TX SCH ×2 (07:04→19:55)
[2018-03-28] MEDS: FUROSEMIDE 40 MG/4 ML VIAL IV SCH ×3 (08:19→15:03)
[2018-03-28] MEDS: DOCUSATE SODIUM 100 MG/10 ML UDCUP PER TUBE SCH (08:20)
[2018-03-28] MEDS: SPIRONOLACTONE 25 MG TABLET PO SCH ×2 (08:20→20:11)
[2018-03-28] MEDS: CALCIUM (CARBONATE)/VITAMIN D 600 MG-400 UNIT TABLET PO SCH ×2 (08:21→20:10)
[2018-03-28] MEDS: CLORAZEPATE 3.75 MG TABLET PO SCH ×3 (08:21→20:10)
[2018-03-28] MEDS: MONTELUKAST 10 MG TABLET PO SCH ×2 (08:21→20:11)
[2018-03-28] MEDS: POTASSIUM CHLORIDE 20 MEQ/15 ML UDCUP PER TUBE SCH (08:21)
[2018-03-28] MEDS: ROFLUMILAST 500 MCG TABLET PO SCH (08:21)
[2018-03-28] MEDS: CHOLECALCIFEROL 1,000 UNIT TABLET PO SCH (08:21)
[2018-03-28] MEDS: CARVEDILOL 3.125 MG TABLET PO SCH ×2 (08:21→20:11)
[2018-03-28] MEDS: MULTIVITAMIN (CENTRUM) TABLET PO SCH (08:21)
[2018-03-28] MEDS: PANTOPRAZOLE 40 MG VIAL IV SCH ×2 (08:21→20:12)
[2018-03-28] MEDS: ASPIRIN CHEW 81 MG TABLET PO SCH (08:21)
[2018-03-28] MEDS: THEOPHYLLINE 5.33 MG/ML 30 ML/BOTTLE PO SCH ×2 (08:23→20:11)
[2018-03-28] MEDS: LORATADINE 10 MG TABLET PO SCH (08:23)
[2018-03-28] MEDS: MAGNESIUM OXIDE 400 MG TABLET PO SCH ×2 (08:24→20:34)
[2018-03-28] MEDS: BUDESONIDE/FORMOTEROL 160-4.5 INHALER 6 GM INH SCH ×2 (08:24→20:35)
[2018-03-28] MEDS: methylPREDNISolone SOD SUC 40 MG/1 ML VIAL IV SCH (10:10)
[2018-03-28] MEDS: ATORVASTATIN 20 MG TABLET PO SCH (20:11)
[2018-03-29] MEDS: methylPREDNISolone SOD SUC 40 MG/1 ML VIAL IV SCH ×3 (00:16→23:55)
[2018-03-29] MEDS: FUROSEMIDE 40 MG/4 ML VIAL IV SCH ×4 (00:19→23:55)
[2018-03-29] MEDS: ALBUTEROL 0.4 MG/ML 30 ML/BOTTLE PO SCH ×4 (00:20→22:26)
[2018-03-29] MEDS: INSULIN LISPRO 100 UNIT/ML SUBCUT SCH ×4 (00:22→18:38)
[2018-03-29] MEDS: ALBUTEROL/IPRATROPIUM 3 ML NEB RESP TX SCH ×4 (00:49→19:33)
[2018-03-29 03:04] LABS: ABG Base Excess 10.8 MMOL/L (-2.5-2.5); ABG HCO3 34.4 MMOL/L (20-26); ABG Oxygen Saturation 93.2 % (95-100); ABG PCO2 68.7 MM HG (35-48); ABG PH 7.362 (7.35-7.45); ABG PO2 73.2 MM HG (80-95); ABG TCO2 35.3 MMOL/L (23-27); Allen Test Positive
[2018-03-29 04:21] LABS: Basophils % 0.1 % (0.0-0.8); Eosinophils % 0.1 % (0.00-10.9); Hematocrit 34.9 VOL% (42.0-52.0); Hemoglobin 10.8 GM/DL (14.0-18.0); Immature Granulocytes % 0.5 %; Immature Granulocytes Absolute 0.07 #; Lymphocytes # 0.8 10*3/uL (1.4-4.0); Lymphocytes % 5.3 % (21.2-54.2); Mean Corpuscular HGB Conc 30.9 GM/DL (32-36); Mean Corpuscular Hemoglobin 27 PG (27-34); Mean Corpuscular Volume 85.5 FL (87-102); Mean Platelet Volume 11.7 FL (9.6-12.0); Monocytes # 0.5 10*3/uL (0.11-0.8); Monocytes % 3.5 % (1.7-12.7); Neutrophils # 12.9 10*3/uL (1.4-7.4); Neutrophils % 90.5 % (38.7-73.9); Platelet Count 325 T/CUMM (130-400); Red Blood Count 4.08 MC/CUMM (3.8-5.5); Red Cell Distribution Width 15.7 % (9.3-17.3); White Blood Count 14.3 T/CUMM (4-12)
[2018-03-29 04:43] LABS: Calcium 9.9 MG/DL (8.5-10.1); Osmolality,Calculated 319.8 MOS/KG (273-304); Potassium 4.1 MMOL/L (3.5-5.1)
[2018-03-29 05:01] LABS: Hypochromasia 1+; Ovalocytes Slight; Platelet Estimate Adequate
[2018-03-29 05:04] LABS: Prealbumin 29.4 MG/DL (20-40)
[2018-03-29] MEDS: DORNASE ALFA 2.5 MG/2.5 ML VIAL RESP TX SCH ×2 (07:08→19:33)
[2018-03-29] MEDS: MULTIVITAMIN (CENTRUM) TABLET PO SCH (09:53)
[2018-03-29] MEDS: SPIRONOLACTONE 25 MG TABLET PO SCH ×2 (09:53→20:41)
[2018-03-29] MEDS: CHOLECALCIFEROL 1,000 UNIT TABLET PO SCH (09:53)
[2018-03-29] MEDS: ASPIRIN CHEW 81 MG TABLET PO SCH (09:54)
[2018-03-29] MEDS: MONTELUKAST 10 MG TABLET PO SCH ×2 (09:54→20:41)
[2018-03-29] MEDS: ROFLUMILAST 500 MCG TABLET PO SCH (09:54)
[2018-03-29] MEDS: MAGNESIUM OXIDE 400 MG TABLET PO SCH ×2 (09:54→20:39)
[2018-03-29] MEDS: CARVEDILOL 3.125 MG TABLET PO SCH ×2 (09:54→20:40)
[2018-03-29] MEDS: CALCIUM (CARBONATE)/VITAMIN D 600 MG-400 UNIT TABLET PO SCH ×2 (09:54→20:40)
[2018-03-29] MEDS: PANTOPRAZOLE 40 MG VIAL IV SCH ×2 (09:55→20:40)
[2018-03-29] MEDS: DOCUSATE SODIUM 100 MG/10 ML UDCUP PER TUBE SCH (09:55)
[2018-03-29] MEDS: LORATADINE 10 MG TABLET PO SCH (09:55)
[2018-03-29] MEDS: POTASSIUM CHLORIDE 20 MEQ/15 ML UDCUP PER TUBE SCH (09:56)
[2018-03-29] MEDS: BUDESONIDE/FORMOTEROL 160-4.5 INHALER 6 GM INH SCH ×2 (09:56→20:41)
[2018-03-29] MEDS: THEOPHYLLINE 5.33 MG/ML 30 ML/BOTTLE PO SCH ×2 (10:02→20:40)
[2018-03-29 15:01] LABS: ABG Base Excess 11.1 MMOL/L (-2.5-2.5); ABG HCO3 34.6 MMOL/L (20-26); ABG PCO2 60.1 MM HG (35-48); ABG PH 7.411 (7.35-7.45); ABG PO2 55.8 MM HG (80-95); ABG TCO2 34.2 MMOL/L (23-27)
[2018-03-29] MEDS ORDERED: methylPREDNISolone SOD SUC 125 MG/2 ML VIAL IV ONE (15:36)
[2018-03-29] MEDS: ATORVASTATIN 20 MG TABLET PO SCH (20:41)
[2018-03-30] MEDS: INSULIN LISPRO 100 UNIT/ML SUBCUT SCH ×3 (00:15→11:40)
[2018-03-30] MEDS: ALBUTEROL/IPRATROPIUM 3 ML NEB RESP TX SCH ×3 (00:39→13:02)
[2018-03-30 03:32] LABS: Calcium 9.9 MG/DL (8.5-10.1); Potassium 5.6 MMOL/L (3.5-5.1)
[2018-03-30 03:51] LABS: Basophils % 0.2 % (0.0-0.8); Hematocrit 37.2 VOL% (42.0-52.0); Hemoglobin 11.1 GM/DL (14.0-18.0); Immature Granulocytes % 0.7 %; Immature Granulocytes Absolute 0.13 #; Lymphocytes # 1.1 10*3/uL (1.4-4.0); Lymphocytes % 5.6 % (21.2-54.2); Mean Corpuscular HGB Conc 29.8 GM/DL (32-36); Mean Corpuscular Hemoglobin 26 PG (27-34); Mean Corpuscular Volume 88.6 FL (87-102); Mean Platelet Volume 11.7 FL (9.6-12.0); Monocytes # 0.8 10*3/uL (0.11-0.8); Monocytes % 3.8 % (1.7-12.7); Neutrophils # 17.6 10*3/uL (1.4-7.4); Neutrophils % 89.7 % (38.7-73.9); Platelet Count 446 T/CUMM (130-400); Red Cell Distribution Width 15.7 % (9.3-17.3); White Blood Count 19.6 T/CUMM (4-12)
[2018-03-30 04:02] LABS: ABG Base Excess 7.3 MMOL/L (-2.5-2.5); ABG HCO3 30.6 MMOL/L (20-26); ABG PO2 49.2 MM HG (80-95); ABG TCO2 36.8 MMOL/L (23-27)
[2018-03-30 04:04] LABS: ABG PH 7.201 (7.35-7.45)
[2018-03-30] MEDS: ALBUTEROL 0.4 MG/ML 30 ML/BOTTLE PO SCH (06:08)
[2018-03-30] MEDS: DORNASE ALFA 2.5 MG/2.5 ML VIAL RESP TX SCH (07:29)
[2018-03-30] MEDS: PANTOPRAZOLE 40 MG VIAL IV SCH (10:37)
[2018-03-30] MEDS: DOCUSATE SODIUM 100 MG/10 ML UDCUP PER TUBE SCH (10:37)
[2018-03-30] MEDS: FUROSEMIDE 40 MG/4 ML VIAL IV SCH (10:37)
[2018-03-30] MEDS: CHOLECALCIFEROL 1,000 UNIT TABLET PO SCH (10:38)
[2018-03-30] MEDS: CARVEDILOL 3.125 MG TABLET PO SCH ×2 (10:38→10:41)
[2018-03-30] MEDS: SPIRONOLACTONE 25 MG TABLET PO SCH (10:38)
[2018-03-30] MEDS: MULTIVITAMIN (CENTRUM) TABLET PO SCH (10:39)
[2018-03-30] MEDS: MONTELUKAST 10 MG TABLET PO SCH (10:39)
[2018-03-30] MEDS: ASPIRIN CHEW 81 MG TABLET PO SCH (10:39)
[2018-03-30] MEDS: LORATADINE 10 MG TABLET PO SCH (10:39)
[2018-03-30] MEDS: MAGNESIUM OXIDE 400 MG TABLET PO SCH (10:39)
[2018-03-30] MEDS: ROFLUMILAST 500 MCG TABLET PO SCH (10:39)
[2018-03-30] MEDS: CALCIUM (CARBONATE)/VITAMIN D 600 MG-400 UNIT TABLET PO SCH (10:39)
[2018-03-30] MEDS: THEOPHYLLINE 5.33 MG/ML 30 ML/BOTTLE PO SCH (10:40)
[2018-03-30] MEDS: POTASSIUM CHLORIDE 20 MEQ/15 ML UDCUP PER TUBE SCH (10:40)
[2018-03-30] MEDS: BUDESONIDE/FORMOTEROL 160-4.5 INHALER 6 GM INH SCH (10:41)
[2018-03-30] MEDS: methylPREDNISolone SOD SUC 40 MG/1 ML VIAL IV SCH (12:10)
[2018-03-30 14:11] VITALS: BP 32/20
== END 2018-03-30 15:02 | disposition expired | DRG 207 ==
LOC: N.2W 10:36 → N.5E 12:46 → N.CC 03-16 22:24
PROVIDERS: ADMIT Internal Medicine Pulmonary Disease; ATTEND Internal Medicine Pulmonary Disease